=== PATIENT | male | born 1960 | race Caucasian/White ===

== ENCOUNTER 2016-10-13 08:57 | Emergency (ER) | payer MEDICAID ==
[~2016-10-13] VITALS: Ht 162.6 cm; Wt 80.5 kg
[2016-10-13 09:07] VITALS: Ht 162.6 cm; Wt 80.5 kg
[2016-10-13] MEDS ORDERED: ONDANSETRON (ODT) 4 MG TAB ODT STA (09:23)
[2016-10-13] MEDS ORDERED: HYDROCODONE/APAP (7.5/325) TAB PO ONE (09:30)
--- NOTE | 2016-10-13 09:35 | ERA ---
ER Documentation Chief Complaint Date/Time DATE: 10/13/16 TIME: 09:35 Chief Complaint RIGHT SHOULDER AND WRIST PAIN S/P FALL IN HOME TODAY HPI 56-year-old male presenting one hour status post ground-level fall with impact to the right wrist. Patient is complaining of pain in the right wrist as rating upwards towards the elbow. Patient denies any injury to the elbow or shoulder or other areas of the body. ROS All systems reviewed and are negative except as per history of present illness. Medications Home Meds Active Scripts Ibuprofen* (Motrin*) 600 Mg Tab, 600 MG PO Q6H Y for PAIN AND OR ELEVATED TEMP, #30 TAB Prov:MASON DUNN PA-C 10/13/16 Hydrocodone/Acetaminophen ([place]ke 5-325 Tablet) 1 Each Tablet, 1 TAB PO Q6H Y for PAIN, #7 TAB Prov:MASON DUNN PA-C 10/13/16 Allergies Allergies: Coded Allergies: No Known Allergy (Unverified , 10/13/16) PMhx/Soc Medical and Surgical Hx: pt denies Medical Hx, pt denies Surgical Hx Hx Alcohol Use: No Hx Substance Use: No Smoking Status: Never smoker Physical Exam Vitals Vital Signs Date Time Temp Pulse Resp B/P Pulse Ox O2 Delivery O2 Flow Rate FiO2 10/13/16 09:07 98.0 94 20 162/94 98 Physical Exam Const: Well-appearing 36-year-old male with a sling around his right arm in no acute distress Head: Atraumatic Eyes: Normal Conjunctiva. Extraocular movements intact bilaterally. PERRLA. ENT: Normal External Ears, Nose and Mouth. Neck: Full range of motion..~ No meningismus. Resp: Clear to auscultation bilaterally Cardio: Regular rate and rhythm, no murmurs Abd: Soft, non tender, non distended. Normal bowel sounds Skin: No petechiae or rashes Back: No midline or flank tenderness Ext: Mild anatomical snuffbox tenderness of the right hand. Range of motion limited secondary to pain. No cyanosis, or edema. Radial pulses 2+ bilaterally. Capillary refill under 2 seconds. Neur: Awake and alert. Neurovascularly intact. Psych: Normal Mood and Affect Results 24 hrs Current Medications Medications (Trade) Dose Ordered Sig/Viktor Route PRN Reason Start Time Stop Time Status Last Admin Dose Admin Acetaminophen/ Hydrocodone Bitart (Burke (7.5-325)) 1 tab ONCE ONCE PO 10/13/16 09:30 10/13/16 09:31 DC 10/13/16 09:57 Ondansetron HCl (Zofran Odt) 4 mg ONCE STAT ODT 10/13/16 09:23 10/13/16 09:24 DC 10/13/16 09:57 Procedures/MDM 56-year-old otherwise healthy male with history of high blood pressure and diabetes presenting 1-2 hours status post ground-level mechanical fall with impact to the right hand. Patient denies any trauma to any other body parts. X -ray was taken of the affected extremity. X-ray results were read by radiologist and reveal no acute fracture or bony abnormalities. Patient's vitals are stable and his current condition is appropriate for discharge. Patient will be discharged with a thumb spica splint to wear until Orth O follow -up and has been instructed to not remove the splint until directed by orthopedic doctor. Handout of [facility] soap and handed to the patient. Patient also be prescribed Burke and ibuprofen they can alternate for discomfort. Patient will be discharged at this time with discharge instructions and return precautions. Departure Diagnosis: Primary Impression: Right wrist injury Condition: Stable Additional Instructions: Follow-up with orthopedics in the next 2 days for further evaluation and to rule out of scaphoid fracture. MASON DUNN PA-C Oct 13, 2016 09:35
--- NOTE | 2016-10-13 10:04 | RADRPT ---
PROCEDURE: XR Wrist. CLINICAL INDICATION: Right wrist pain, trauma TECHNIQUE: AP, lateral and oblique views of the right wrist were performed. COMPARISON: No prior studies are available for comparison. FINDINGS: There is no acute fracture or dislocation. Alignment is normal. Joint spaces are preserved. There is mild to moderate dorsal soft tissue swelling. IMPRESSION: 1. No radiographic evidence of acute fracture. 2. Mild to moderate dorsal soft tissue swelling at the wrist. RPTAT: UU .Estuardo Wood MD, Date Time Electronically viewed and signed by .Estuardo Wood MD, on 10/13/2016 10:04 .K/
--- NOTE | 2016-10-13 10:05 | RADRPT ---
PROCEDURE: XR Forearm. CLINICAL INDICATION: Right forearm pain TECHNIQUE: 2 views of the right forearm were obtained. COMPARISON: No prior studies are available for comparison. FINDINGS: There is no acute fracture or dislocation. Alignment is normal. Joint spaces are preserved. Limited assessment of the elbow appears grossly unremarkable. There is mild to moderate dorsal soft tissue swelling. IMPRESSION: 1. No radiographic evidence of acute fracture. 2. Mild to moderate dorsal soft tissue swelling at the wrist. RPTAT: UU .Estuardo Wood MD, MD Date Time Electronically viewed and signed by .Estuardo Wood MD, on 10/13/2016 10:04 .K/
[2016-10-13] MEDS ORDERED: HYDR-906 PO (10:22)
[2016-10-13] MEDS ORDERED: IBUP-1542 PO (10:22)
[2016-10-14] MEDS ORDERED: NAPR-260 PO (22:31)
[2016-10-14] MEDS ORDERED: TRAM50TA2 PO (22:31)
== END 2016-10-13 11:23 | disposition home or self-care (01) ==
LOC: FTE 08:57
DX: S69.91XA Unspecified injury of right wrist, hand and finger(s), initial encounter (principal); E11.9 Type 2 diabetes mellitus without complications; W18.39XA Other fall on same level, initial encounter; Y92.009 Unspecified place in unspecified non-institutional (private) residence as the place of occurrence of the external cause
CPT/HCPCS: 29125; 73090; 73110; Z7502; Z7610

== ENCOUNTER 2016-10-14 19:20 | Emergency (ER) | payer MEDICAID ==
[~2016-10-14] VITALS: Ht 175.3 cm; Wt 83.0 kg
[~2016-10-14 19:20] MED LIST: HYDR-906 PO; IBUP-1542 PO
[2016-10-14 19:28] VITALS: Ht 175.3 cm; Wt 83.0 kg
[2016-10-14] MEDS ORDERED: morphine 10 MG INJ IM ONE (21:00)
--- NOTE | 2016-10-14 21:19 | RADRPT ---
PROCEDURE: CT brain without contrast CLINICAL INDICATION: Status post fall. Post traumatic headaches. TECHNIQUE: A CT of the brain was performed utilizing axial sections from the skull base through th e vertex without contrast. Sagittal and coronal images were also reformatted. The exam CTDIvol = 41. 12 mGy and DLP = 720.23 mGy-cm. COMPARISON: None available FINDINGS: No acute intracranial hemorrhage is identified. There is no mass effect or midline shift. No extra -axial fluid collection is seen. The ventricles and sulci are within normal limits for size and con figuration. The density of the brain is within normal limits. Chopra-white differentiation is preser madeline. The osseous structures are unremarkable. The mastoid air cells and visualized paranasal sinuses are clear. RPTAT:HJJR IMPRESSION: Unremarkable noncontrast CT of the brain. Physician Jevon Date Time Electronically viewed and signed by Physician Jevon on 10/14/2016 21:19 /
--- NOTE | 2016-10-14 21:24 | RADRPT ---
PROCEDURE: CT cervical spine without contrast. CLINICAL INDICATION: Injury. Post traumatic neck pain following a fall TECHNIQUE: CT of the cervical spine without contrast was performed. Axial images were obtained th rough the cervical spine and reformatted at 1.25 mm slice thickness. Coronal and sagittal images wer e reformatted. Exam CTDIvol = 22.19 mGy and DLP = 457.36 mGy-cm. COMPARISON: None available. FINDINGS: Vertebral bodies: The lordosis is straightened. Stature is preserved at every level. There is norm al mineralization and trabeculation. The C1 ring is intact and the predental space is normal. The occipital condyles are normal in position bilaterally. Central canal and cervical spinal cord: No abnormal density within the spinal cord is evident and no intraspinal masses are delineated. C2-3: The disk is within normal limits. The facet joints are normal. The uncovertebral joints and f oramina are unremarkable. The posterior elements and paraspinal soft tissues are unremarkable. C3-4: The disk is within normal limits. The facet joints are normal. The uncovertebral joints and foramina are unremarkable. The posterior elements and paraspinal soft tissues are unremarkable. C4-5: Trace degenerative disk narrowing and bulging is present without central stenosis. The facet joints are normal. Uncovertebral hypertrophy is present causing mild bilateral foraminal stenosis. The posterior elements and paraspinal soft tissues are unremarkable. C5-6: Mild degenerative disk narrowing is present with a tiny posterior disk bulge but no protrusio n or central stenosis. The facet joints are normal. Uncovertebral hypertrophy causes mild bilateral foraminal stenosis.The posterior elements and paraspinal soft tissues are unremarkable. C6-7: The disk is within normal limits. The facet joints are normal. Uncovertebral hypertrophy ca uses moderate left foraminal stenosis the right foramen is patent.The posterior elements and parasp inal soft tissues are unremarkable. C7-T1: Anterior spondylosis with mild degenerative disk narrowing but no disk protrusion or central stenosis. Severe bilateral facet arthropathy is present. The uncovertebral joints and foramina are unremarkable.The posterior elements and paraspinal soft tissues are unremarkable. Non spine related findings: No abnormalities of significance are seen. RPTAT:HJJR IMPRESSION: 1. No evidence of cervical spine fracture. 2.. Lordosis straightening may be positional but cannot exclude muscle spasm. 3. Uncovertebral hypertrophy causing a degree of foraminal stenosis at C4-5, C5-6 and on the left a t C6-7. 4. Facet arthropathy is greatest at C7-T1. Physician Jevon Date Time Electronically viewed and signed by Matheus Finnegan Physician on 10/14/2016 21:24 JR/
--- NOTE | 2016-10-14 22:17 | RADRPT ---
PROCEDURE: XR Left Forearm forearm CLINICAL INDICATION: Fall TECHNIQUE: AP and lateral radiographs were submitted. COMPARISON: None FINDINGS: Osseous structures: appear well mineralized and intact with no fracture or osseous destruction evid ent. Joint spaces: are well maintained with no significant erosion or spurring evident. There is no sig nificant joint effusion Soft tissues: A 7 mm globular calcification projects to the soft tissues ventral to the distal humer us. IMPRESSION: 1. 7 mm calcification projects to the soft tissues ventral to the distal humeral shaft. 2. Unremarkable left forearm. Physician Aurelia Date Time Electronically viewed and signed by Carlitos Ott Physician on 10/14/2016 22:17 /
--- NOTE | 2016-10-14 22:18 | RADRPT ---
PROCEDURE: XR Left Hand CLINICAL INDICATION: Fall TECHNIQUE: AP, oblique, and lateral radiographs were submitted. COMPARISON: None FINDINGS: Osseous structures: appear well mineralized and intact with no fracture or destructive process iden tified. Joint spaces: are well maintained, with no significant spurring, erosion or joint effusion evident. Soft tissues: appear unremarkable. IMPRESSION: Unremarkable left hand. Physician Aurelia Date Time Electronically viewed and signed by Carlitos Ott Physician on 10/14/2016 22:18 /
--- NOTE | 2016-10-14 22:19 | RADRPT ---
PROCEDURE: XR Left humerus CLINICAL INDICATION: Fall TECHNIQUE: AP and lateral radiographs were submitted. COMPARISON: None FINDINGS: Osseous structures: appear well mineralized and intact with no fracture or osseous destruction evid ent. Joint spaces: are well maintained with no significant erosion or spurring evident. There is no sig nificant joint effusion Soft tissues: A 7 mm globular calcification projects to the soft tissues ventral and lateral to the distal third of the left humerus. IMPRESSION: 1. 7 mm globular calcification seen in the ventral lateral soft tissues of the distal upper arm. 2. No fracture or dislocation is evident. Physician Aurelia Date Time Electronically viewed and signed by Physician Aurelia on 10/14/2016 22:19 /
--- NOTE | 2016-10-14 22:20 | RADRPT ---
PROCEDURE: XR Left Ankle CLINICAL INDICATION: Fall TECHNIQUE: Standard 3 view radiographs were submitted. COMPARISON: None FINDINGS: Osseous structures: Well mineralized and intact with no fracture or destructive process identified. Joint spaces: Well maintained with no significant erosions or spurring evident. Soft tissues: Appear unremarkable. IMPRESSION: Unremarkable left ankle. Physician Aurelia Date Time Electronically viewed and signed by Carlitos Ott Physician on 10/14/2016 22:19 /
[2016-10-14] MEDS ORDERED: KETOROLAC 30 MG INJ IM STA (22:30)
[2016-10-14] MEDS ORDERED: NAPR-260 PO (22:31)
[2016-10-14] MEDS ORDERED: TRAM50TA2 PO (22:31)
--- NOTE | 2016-10-14 23:22 | ERD ---
ER Documentation Chief Complaint Date/Time DATE: 10/14/16 TIME: 23:15 Chief Complaint sp trip & fall 4 days ago, seen here in ed, c/o L arm and leg pain HPI This is a 56-year-old male that presents to the ER complaining of continued right upper extremity pain and new left upper extremity pain and left ankle pain that occurred after he tripped and fell 4 days ago. Patient states that he held his weight with both of his arms. Patient is also complaining of neck pain and states that both of his arms feel numb. Patient denies any headache. He denies hitting his head. He denies any loss of consciousness nausea or vomiting. Patient states that pain is severe and constant he tried taking ibuprofen and [place] however he states that pain was made worse by pain medication. Patient denies any chest pain or shortness of breath. Patient denies any fever or chills. Patient does have a past medical history of diabetes, hypertension, anxiety and depression. ROS 12 point review of systems was done, all negative except per HPI. Medications Home Meds Active Scripts Tramadol HCl (Tramadol HCl) 50 Mg Tablet, 50 MG PO Q4 Y for PAIN, #20 TAB Prov:NIKKO OLIVEROS 10/14/16 Naproxen* (Naprosyn*) 500 Mg Tablet, 500 MG PO BID Y for PAIN AND/OR INFLAMMATION, #30 TAB Prov:NIKKO OLIVEROS 10/14/16 Ibuprofen* (Motrin*) 600 Mg Tab, 600 MG PO Q6H Y for PAIN AND OR ELEVATED TEMP, #30 TAB Prov:MASON DUNN PA-C 10/13/16 Hydrocodone/Acetaminophen ([place] 5-325 Tablet) 1 Each Tablet, 1 TAB PO Q6H Y for PAIN, #7 TAB Prov:MASON DUNN PA-C 10/13/16 Reported Medications Ibuprofen* (Ibuprofen*) 800 Mg Tab, 800 MG PO Q6H Y for PAIN, TAB 10/15/16 Gemfibrozil* (Gemfibrozil*) 600 Mg Tablet, 600 MG PO DAILY, TAB 10/15/16 Amlodipine Besylate* (Amlodipine Besylate*) 10 Mg Tablet, 10 MG PO DAILY, #30 TAB 10/15/16 Citalopram Hydrobromide* (Citalopram Hydrobromide*) 10 Mg Tablet, 10 MG PO DAILY , #30 TAB 10/15/16 Allopurinol* (Allopurinol*) 100 Mg Tablet, 100 MG PO DAILY, TAB 10/15/16 Omeprazole* (Omeprazole*) 20 Mg Capsule.dr, 20 MG PO DAILY, #30 CAP 10/15/16 Metformin Hcl* (Metformin Hcl*) 500 Mg Tablet, 500 MG PO WITH BREAKFAST DINNE, # 60 TAB 10/15/16 Amitriptyline Hcl* (Amitriptyline Hcl*) 25 Mg Tablet, 25 MG PO DAILY, #30 TAB 10/15/16 Allergies Allergies: Coded Allergies: No Known Allergy (Unverified , 10/15/16) PMhx/Soc History of Surgery: No Hx Cardiac Disorders: Yes (HTN) Hx Miscellaneous Medical Probl: Yes (DM, GOUT , ) Hx Alcohol Use: No Hx Substance Use: No Hx Tobacco Use: No Smoking Status: Never smoker Physical Exam Vitals Physical Exam GENERAL: The patient is well developed and appropriate for usual state of health , in no apparent distress. HEENT: Atraumatic NECK: C-spine is soft and supple. There is no cervical lymphadenopathy. No step -offs no crepitus. CHEST: Clear to auscultation bilaterally. There are no rales, wheezes or rhonchi. HEART: Regular rate and rhythm. No murmurs, clicks, rubs or gallops. EXTREMITIES: Right upper extremity is in a sling. Left upper extremity: patient is tender to palpation along entire upper extremity, patient refuses to lift left arm secondary to pain. he is however intact to radial ulnar and median nerves. he has normal pulses and normal capillary refill. There is no crepitus, step-offs or areas of ecchymosis to the left upper extremity. There is no erythema, edema and area is not warm to the touch. Left ankle: Patient is tender to palpation along the left lateral malleolus. Positive tarsal twist test. Negative squeeze test. +2 pedal pulses. Normal capillary refill of the toes. NEURO: Alert and oriented. Cranial nerves II through XII are intact. Motor strength in all 4 extremities with 5/5 strength. Sensation grossly intact. Normal speech and gait. Results 24 hrs Current Medications Medications (Trade) Dose Ordered Sig/Viktor Route PRN Reason Start Time Stop Time Status Last Admin Dose Admin Morphine Sulfate (morphine) 4 mg ONCE ONCE IM 10/14/16 21:00 10/14/16 21:01 DC 10/14/16 21:34 Ketorolac Tromethamine (Toradol) 30 mg ONCE STAT IM 10/14/16 22:30 10/14/16 22:31 DC 10/14/16 22:44 Procedures/MDM This is a 56-year-old male presents to the ER with entire body pain. Patient did trip and fall 4 days ago. He was seen here in the ED. Records were reviewed and there is no evidence of fractures or dislocations on those x-rays. Patient states that he now developed pain on the left upper extremity and left ankle. There is no evidence of fractures or dislocations on x-rays. CT of the head and neck were taken as patient refused to lift his arm secondary to pain and he had neck pain. There is no evidence of acute intracranial pathology. I doubt central chord syndrome. Patient's neurological examination is completely benign. Patient was given morphine in the ER and stated that this made his pain worse. He was then given a shot of Toradol and stated that his pain was alleviated a little bit. Patient is neurovascularly intact he is afebrile and his imaging studies are completely normal. Suspicion for transverse myelitis, myositis, compartment syndrome, rhabdo or sepsis is low. Patient likely has body pain from the fall that he had 4 days ago. Patient is to follow-up with his primary care doctor within 1-2 days return to ER sooner if symptoms worsen. My medical decision making sure with the patient he understands and agrees with plan. Departure Diagnosis: Primary Impression: Total body pain Condition: Stable Patient Instructions: Fall, Mechanical Additional Instructions: Llame al doctor ARIANE y vanda benny GIANNA PARA DENTRO DE 1-2 MURILLO.Dgale a la secretaria que nosotros le instruimos hacer esta gianna.Avise o llame si jauregui condicin se empeora antes de la gianna. Regresa aqui si peor o no mejor. NIKKO OLIVEROS Oct 14, 2016 23:22
[2016-10-15] MEDS ORDERED: AMIT25TA9 PO (20:19)
[2016-10-15] MEDS ORDERED: METF500T4 PO (20:19)
[2016-10-15] MEDS ORDERED: CITA10TA84 PO (20:20)
[2016-10-15] MEDS ORDERED: ALLO100T PO (20:20)
[2016-10-15] MEDS ORDERED: AMLO-147 PO (20:20)
[2016-10-15] MEDS ORDERED: OMEP20CA16 PO (20:20)
[2016-10-15] MEDS ORDERED: GEMF600T60 PO (20:21)
[2016-10-15] MEDS ORDERED: IBUP800T25 PO (20:24)
== END 2016-10-14 23:09 | disposition home or self-care (01) ==
LOC: FTE 19:20
DX: S49.91XA Unspecified injury of right shoulder and upper arm, initial encounter (principal); S99.912A Unspecified injury of left ankle, initial encounter; S19.9XXA Unspecified injury of neck, initial encounter; I10 Essential (primary) hypertension; E11.9 Type 2 diabetes mellitus without complications; R51 Headache; W01.0XXA Fall on same level from slipping, tripping and stumbling without subsequent striking against object, initial encounter; Y92.9 Unspecified place or not applicable; Z79.84 Long term (current) use of oral hypoglycemic drugs
CPT/HCPCS: 70450; 72125; 73060; 73090; 73130; 73610; J1885; J2270; 96372

== ENCOUNTER 2016-10-15 18:13 | Inpatient (IN) | payer MEDICAID ==
[~2016-10-15] VITALS: Ht 165.1 cm; Wt 75.0 kg
[~2016-10-15 18:13] MED LIST changes: +NAPR-260 PO; +TRAM50TA2 PO
[2016-10-15 18:27] VITALS: Ht 165.1 cm; Wt 75.0 kg
[2016-10-15] MEDS ORDERED: SODIUM CHLORIDE 0.9% 1L BAG IV* STA (19:20)
[2016-10-15] MEDS ORDERED: PIPER-TAZO 3.375 GM IV (PMX) 100 ML IVPB STA (19:20)
[2016-10-15] MEDS ORDERED: VANCOMYCIN 1 GM (PMX) 250 ML IVPB STA (19:20)
[2016-10-15] MEDS ORDERED: morphine 10 MG INJ IV ONE (19:30)
[2016-10-15 20:02] LABS: ADD SCAN DIFF NO
[2016-10-15 20:04] LABS: BASOPHILS % 0.2 % (0.0-2.0); HEMATOCRIT 37.9 % (42.0-52.0); HEMOGLOBIN 12.5 g/dl (14.0-18.0); LYMPHOCYTES # 0.9 10^3/ul (0.8-2.9); LYMPHOCYTES % 6.2 % (15.0-51.0); MEAN CORPUSCULAR HEMOGLOBIN 28.3 pg (29.0-33.0); MEAN CORPUSCULAR VOLUME 85.9 fl (82.0-101.0); MEAN PLATELET VOLUME 10.2 fl (7.4-10.4); MONOCYTE # 1.1 10^3/ul (0.3-0.9); NEUTROPHIL # 12.9 10^3/ul (1.6-7.5); NEUTROPHILS % 85.7 % (39.0-77.0); PLATELET COUNT 240 10^3/UL (140-415); RED BLOOD COUNT 4.41 10^6/ul (4.70-6.10); RED CELL DISTRIBUTION WIDTH 13.6 % (11.5-14.5); WHITE BLOOD COUNT 15.1 10^3/ul (4.8-10.8)
[2016-10-15 20:10] VITALS: TEMP 99.6
[2016-10-15 20:17] LABS: INR 1.11; PROTIME 14.3 Sec (12.2-14.2); PT RATIO 1.1
[2016-10-15] MEDS ORDERED: AMIT25TA9 PO (20:19)
[2016-10-15] MEDS ORDERED: METF500T4 PO (20:19)
[2016-10-15 20:20] LABS: ALANINE AMINOTRANSFERASE 34 IU/L (13-69); ALBUMIN 4.5 g/dl (3.3-4.9); ALBUMIN/GLOBULIN RATIO 1.36; ALKALINE PHOSPHATASE 94 IU/L (42-121); ANION GAP 13 (8-16); ASPARTATE AMINO TRANSFERASE 29 IU/L (15-46); BILIRUBIN,INDIRECT 0.6 mg/dl (0-1.1); BILIRUBIN,TOTAL 0.6 mg/dl (0.2-1.3); BLOOD UREA NITROGEN 12 mg/dl (7-20); CALCIUM 9.5 mg/dl (8.4-10.2); CARBON DIOXIDE 25 mmol/L (21-31); CHLORIDE 103 mmol/L (97-110); D-DIMER 1396.54 ng/ml (<460); GLUCOSE 119 mg/dl (70-220); POTASSIUM 3.3 mmol/L (3.5-5.1); SODIUM 138 mmol/L (135-144); TOTAL PROTEIN 7.8 g/dl (6.1-8.1)
[2016-10-15] MEDS ORDERED: ALLO100T PO (20:20)
[2016-10-15] MEDS ORDERED: AMLO-147 PO (20:20)
[2016-10-15] MEDS ORDERED: CITA10TA84 PO (20:20)
[2016-10-15] MEDS ORDERED: OMEP20CA16 PO (20:20)
[2016-10-15] MEDS ORDERED: GEMF600T60 PO (20:21)
[2016-10-15] MEDS ORDERED: IBUP800T25 PO (20:24)
[2016-10-15] MEDS ORDERED: HYDROmorphONE 1 MG/ML SYG IV STA ×2 (20:27→21:17)
[2016-10-15 20:31] LABS: TROPONIN-I < 0.012 ng/ml (0.00-0.12)
--- NOTE | 2016-10-15 21:04 | RADRPT ---
PROCEDURE: XR Chest. CLINICAL INDICATION: Bilateral arm pain. Possible sepsis. TECHNIQUE: Portable AP semi supine view of the chest was obtained. COMPARISON: None. FINDINGS: The cardiomediastinal silhouette is within normal limits. Linear left lower lobe changes are compat ible with subsegmental atelectasis, the right lung is clear. There is no evidence for pleural effus ion, pneumothorax or pulmonary vascular congestion. The osseous structures are intact with no evide nce for acute abnormality. RPTAT:HJJR IMPRESSION: Mild left lower lobe subsegmental atelectasis, otherwise unremarkable portable chest x-ray. Physician Jevon Date Time Electronically viewed and signed by Physician Jevon on 10/15/2016 21:04 JR/
--- NOTE | 2016-10-15 21:31 | RADRPT ---
PROCEDURE: Bilateral upper extremity venous ultrasound CLINICAL INDICATION: Bilateral upper extremity pain and swelling. Deep venous thrombosis. TECHNIQUE: Chopra scale, color doppler, spectral doppler ultrasound imaging of the venous system of the bilateral upper extremities. Augmentation maneuvers were utilized. COMPARISON: No prior studies are available for comparison. FINDINGS: RIGHT: Internal jugular vein: Patent. Subclavian vein: Patent. Axillary vein: Patent. Brachial vein: Patent. Basilic vein: Patent. Cephalic vein: Patent. Radial vein: Patent. Ulnar vein: Patent. LEFT: Internal jugular vein: Patent. Subclavian vein: Patent. Axillary vein: Patent. Brachial vein: Patent. Basilic vein: Patent. Cephalic vein: Patent. Radial vein: Patent. Ulnar vein: Patent. IMPRESSION: No evidence of a deep vein thrombosis involving the bilateral upper extremities. RPTAT: AADD .Shukri Washington MD, Date Time Electronically viewed and signed by .Shukri Washington MD, on 10/15/2016 21:31 .B/
--- NOTE | 2016-10-15 22:25 | ERA ---
ER Documentation Chief Complaint Date/Time DATE: 10/15/16 TIME: 22:08 Chief Complaint BIBA FOR FEVER AND RIGHT ARM SWELLING WAS HERE OCTOBER 13& S/P FALL WEDNESDAY HPI 56-year-old male with a history of hypertension, diabetes, and gout presenting with bilateral upper extremity swelling and pain. He also complains of left ankle pain. Initially he fell about 4 days ago after he tripped and landed with his arms onto a wall. He was evaluated in the ED after the fall and did not show any acute fractures. Yesterday he returned to the ED as he was having worsening pain now in his left upper extremity in addition to his right upper extremity, and started having pain in his left ankle. Prior to this he had no trauma other than the fall a few days ago. He has noticed he has had some subjective fevers. No nausea, vomiting, headache, chest pain, shortness of breath. He has not noticed any calf swelling. He complains of tingling in his bilateral upper extremities and pain that radiates all the way up to his bilateral shoulders. He also has some lower back pain. His pain is constant, worse with sitting, or any contact with his skin. He denies any abdominal pain or dysuria. He is urinating normally and his urine color is normal.. ROS All systems reviewed and are negative except as per history of present illness. Medications Home Meds Active Scripts Tramadol HCl (Tramadol HCl) 50 Mg Tablet, 50 MG PO Q4 Y for PAIN, #20 TAB Prov:NIKKO OLIVEROS 10/14/16 Naproxen* (Naprosyn*) 500 Mg Tablet, 500 MG PO BID Y for PAIN AND/OR INFLAMMATION, #30 TAB Prov:NIKKO OLIVEROS 10/14/16 Ibuprofen* (Motrin*) 600 Mg Tab, 600 MG PO Q6H Y for PAIN AND OR ELEVATED TEMP, #30 TAB Prov:MASON DUNN PA-C 10/13/16 Hydrocodone/Acetaminophen ([place] 5-325 Tablet) 1 Each Tablet, 1 TAB PO Q6H Y for PAIN, #7 TAB Prov:MASON DUNN PA-C 10/13/16 Reported Medications Ibuprofen* (Ibuprofen*) 800 Mg Tab, 800 MG PO Q6H Y for PAIN, TAB 10/15/16 Gemfibrozil* (Gemfibrozil*) 600 Mg Tablet, 600 MG PO DAILY, TAB 10/15/16 Amlodipine Besylate* (Amlodipine Besylate*) 10 Mg Tablet, 10 MG PO DAILY, #30 TAB 10/15/16 Citalopram Hydrobromide* (Citalopram Hydrobromide*) 10 Mg Tablet, 10 MG PO DAILY , #30 TAB 10/15/16 Allopurinol* (Allopurinol*) 100 Mg Tablet, 100 MG PO DAILY, TAB 10/15/16 Omeprazole* (Omeprazole*) 20 Mg Capsule.dr, 20 MG PO DAILY, #30 CAP 10/15/16 Metformin Hcl* (Metformin Hcl*) 500 Mg Tablet, 500 MG PO WITH BREAKFAST DINNE, # 60 TAB 10/15/16 Amitriptyline Hcl* (Amitriptyline Hcl*) 25 Mg Tablet, 25 MG PO DAILY, #30 TAB 10/15/16 Allergies Allergies: Coded Allergies: No Known Allergy (Unverified , 10/15/16) PMhx/Soc History of Surgery: Yes (inguinal hernia ) Hx Cardiac Disorders: Yes (HTN) Hx Psychiatric Problems: Yes (depression) Hx Miscellaneous Medical Probl: Yes (DM, GOUT , cholesterol) Hx Alcohol Use: No Hx Substance Use: No Hx Tobacco Use: No Smoking Status: Unknown if ever smoked FmHx Family History: No diabetes Physical Exam Vitals Vital Signs Date Time Temp Pulse Resp B/P Pulse Ox O2 Delivery O2 Flow Rate FiO2 10/15/16 21:56 97 16 121/96 97 Room Air 10/15/16 20:10 99.6 96 20 159/84 100 Room Air 10/15/16 18:27 101.4 105 20 149/92 98 Physical Exam Const: Patient appears to be in significant distress secondary to pain, nontoxic Head: Atraumatic Eyes: Normal Conjunctiva, PERRLA ENT: Normal External Ears, Nose and Mouth. Neck: Full range of motion..~ No meningismus. No JVD Resp: No chest wall tenderness to palpation. No tachypnea. Clear to auscultation bilaterally Cardio: Tachycardic with regular rhythm, no murmurs. 2+ radial pulses bilaterally. 2+ DP and PT pulses bilaterally. Abd: Soft, non tender, non distended. Normal bowel sounds Skin: No petechiae or rashes Back: No midline tenderness to palpation. No CVA tenderness. Bilateral lumbar paraspinal muscle tenderness to palpation. Ext: No cyanosis. Bilateral upper extremity edema, pitting, significantly tender to light palpation, up to the elbows. Pulses and sensations intact. Difficulty moving the wrist and fingers secondary to pain. He has tenderness of both elbows and shoulders as well without any evidence of joint effusion. Cap refill is less than 2 seconds in bilateral upper extremities and lower extremities. Lower extremities show no edema or calf tenderness to palpation other than left lateral ankle tenderness palpation without overlying erythema, possible mild effusion. Neur: Awake and alert, cranial nerves intact, bilateral upper extremity strength testing limited secondary to pain, bilateral lower extremity strength intact, sensations intact. Able to ambulate but causes some back pain. Psych: Normal Mood and Affect Result Diagram: 10/15/16193410/15/161934 Results 24 hrs Laboratory Tests Test 10/15/16 19:35 10/15/16 21:20 White Blood Count 15.110^3/ul Red Blood Count 4.4110^6/ul Hemoglobin 12.5g/dl Hematocrit 37.9% Mean Corpuscular Volume 85.9fl Mean Corpuscular Hemoglobin 28.3pg Mean Corpuscular Hemoglobin Concent 33.0g/dl Red Cell Distribution Width 13.6% Platelet Count 07524^3/UL Mean Platelet Volume 10.2fl Neutrophils % 85.7% Lymphocytes % 6.2% Monocytes % 7.0% Eosinophils % 0.0% Basophils % 0.2% Nucleated Red Blood Cells % 0.0/100WBC Neutrophils # 12.910^3/ul Lymphocytes # 0.910^3/ul Monocytes # 1.110^3/ul Eosinophils # 0.010^3/ul Basophils # 0.010^3/ul Nucleated Red Blood Cells # 0.010^3/ul Prothrombin Time 14.3Sec Prothrombin Time Ratio 1.1 INR International Normalized Ratio 1.11 Activated Partial Thromboplast Time 35.0Sec D-Dimer 1396.54ng/ml D-Dimer Comment Sodium Level 138mmol/L Potassium Level 3.3mmol/L Chloride Level 103mmol/L Carbon Dioxide Level 25mmol/L Anion Gap 13 Blood Urea Nitrogen 12mg/dl Creatinine 0.80mg/dl Glucose Level 119mg/dl Lactic Acid Level 0.8mmol/L 0.8mmol/L Calcium Level 9.5mg/dl Total Bilirubin 0.6mg/dl Direct Bilirubin 0.00mg/dl Indirect Bilirubin 0.6mg/dl Aspartate Amino Transf (AST/SGOT) 29IU/L Alanine Aminotransferase (ALT/SGPT) 34IU/L Alkaline Phosphatase 94IU/L Creatine Kinase 626IU/L Troponin I < 0.012ng/ml Total Protein 7.8g/dl Albumin 4.5g/dl Globulin 3.30g/dl Albumin/Globulin Ratio 1.36 Current Medications Medications (Trade) Dose Ordered Sig/Viktor Route PRN Reason Start Time Stop Time Status Last Admin Dose Admin Sodium Chloride 2330 ml 2,330 ml BOLUS OVER 2 HOURS STAT IV* 10/15/16 19:20 10/15/16 19:23 DC 10/15/16 19:56 Vancomycin HCl 250 ml @ 125 mls/hr ONCE STAT IVPB 10/15/16 19:20 10/15/16 21:19 DC 10/15/16 20:40 Piperacillin Sod/ Tazobactam Sod (Zosyn 3.375gm/ 100 ml (Pmx)) 100 ml @ 100 mls/hr ONCE STAT IVPB 10/15/16 19:20 10/15/16 20:19 DC 10/15/16 19:56 Morphine Sulfate (morphine) 6 mg ONCE ONCE IV 10/15/16 19:30 10/15/16 19:31 DC 10/15/16 19:56 Hydromorphone HCl (Dilaudid) 1 mg ONCE STAT IV 10/15/16 20:27 10/15/16 20:28 DC 10/15/16 20:39 Hydromorphone HCl (Dilaudid) 1 mg ONCE STAT IV 10/15/16 21:17 10/15/16 21:18 DC Ondansetron HCl (Zofran Inj) 4 mg BRIDGE ORDER PRN IV NAUSEA AND/OR VOMITING 10/15/16 22:30 10/16/16 22:29 Acetaminophen (Tylenol Tab) 650 mg ER BRIDGE PRN PO MILD PAIN/FEVER 10/15/16 22:30 10/16/16 22:29 Procedures/MDM EKG: Rate/Rhythm: Normal Sinus Rhythm QRS, ST, T-waves: Right bundle branch block, no changes consistent w/ acute ischemia Impression: No evidence of ischemia or arrhythmia Chest x-ray: Mild left lower lobe subsegmental atelectasis, otherwise unremarkable portable chest x-ray. Venous ultrasound of bilateral upper extremities: no DVT Labs: CBC shows leukocytosis, BMP with mild hypokalemia, lactate normal, CK elevated, troponin normal MDM: Patient is presenting with bilateral upper extremity swelling after minor trauma a few days ago. His vitals are notable for fever and tachycardia and white blood cell count is elevated. It is unlikely but the patient may have bilateral upper extremity cellulitis. DVT was ruled out. I also have a high suspicion for viral myositis. I have a very low suspicion for compartment syndrome at this time. His symptoms are less likely secondary to a gout flare. Septic polyarthritis is a possibility, this can be worked up as an inpatient if deemed necessary, but I also have a lower suspicion for this. Dilaudid was given with improvement of pain. IV fluids were started. There is no evidence of renal failure secondary to rhabdomyolysis. However patient will need admission for pain control, further workup, and IV antibiotics. Blood cultures were collected. Vancomycin and Zosyn were started in the ED. D-dimer was noted to be elevated, however I have a very low suspicion for pulmonary embolism as the patient has no cardiopulmonary symptoms. I will defer further workup for PE to the inpatient team. Accepting Care Team: Current data and ongoing care discussed. Time: Time of admission Primary Provider: Elza Consulting: none Outstanding Data: none Departure Diagnosis: Primary Impression: Sepsis Qualified Code: A41.9 - Sepsis, due to unspecified organism Additional Impressions: Rhabdomyolysis Qualified Code: T79.6XXA - Traumatic rhabdomyolysis, initial encounter Swelling of both upper extremities Bilateral arm pain Left lateral ankle pain Condition: Serious EAMON MEZA MD Oct 15, 2016 22:20
[2016-10-15] MEDS ORDERED: ACETAMINOPHEN 325 MG TAB PO PRN (22:30)
[2016-10-15] MEDS ORDERED: ONDANSETRON 4 MG INJ IV PRN (22:30)
[2016-10-16] MEDS: morphine 4 MG/ML VIAL IV PRN ×3 (02:12→17:17)
[2016-10-16] MEDS ORDERED: ONDANSETRON 4 MG INJ IV PRN (04:30)
[2016-10-16] MEDS ORDERED: METHYLPREDNISOLONE 125 MG INJ IV ONE (04:30)
[2016-10-16] MEDS ORDERED: IBUPROFEN 800 MG TAB PO PRN (04:30)
[2016-10-16] MEDS ORDERED: ALBUTEROL/IPRATROPIUM (NEB) 3 ML AMP HHN PRN (04:30)
[2016-10-16] MEDS ORDERED: HYDROCODONE/APAP (5/325) TAB PO PRN (04:30)
[2016-10-16] MEDS ORDERED: NAPROXEN 500 MG TAB PO PRN (04:30)
[2016-10-16] MEDS ORDERED: NACL 0.9% 3 ML SYG IV SCH (04:30)
[2016-10-16] MEDS ORDERED: traMADol 50 MG TAB PO PRN (04:30)
[2016-10-16] MEDS ORDERED: IBUPROFEN 600 MG TAB PO PRN (04:30)
[2016-10-16] MEDS ORDERED: ACETAMINOPHEN 325 MG TAB PO PRN (04:30)
[2016-10-16 05:54] LABS: ADD SCAN DIFF NO
[2016-10-16 05:56] LABS: BASOPHILS % 0.2 % (0.0-2.0); EOSINOPHILS % 0.1 % (0.0-7.0); HEMATOCRIT 35.5 % (42.0-52.0); HEMOGLOBIN 11.8 g/dl (14.0-18.0); LYMPHOCYTES # 1.7 10^3/ul (0.8-2.9); LYMPHOCYTES % 11.6 % (15.0-51.0); MEAN CORPUSCULAR HEMOGLOBIN 28.7 pg (29.0-33.0); MEAN CORPUSCULAR HGB CONC 33.2 g/dl (32.0-37.0); MEAN CORPUSCULAR VOLUME 86.4 fl (82.0-101.0); MEAN PLATELET VOLUME 10.3 fl (7.4-10.4); MONOCYTE # 1.3 10^3/ul (0.3-0.9); MONOCYTES % 8.8 % (0.0-11.0); NEUTROPHIL # 11.1 10^3/ul (1.6-7.5); NEUTROPHILS % 78.2 % (39.0-77.0); PLATELET COUNT 223 10^3/UL (140-415); RED BLOOD COUNT 4.11 10^6/ul (4.70-6.10); RED CELL DISTRIBUTION WIDTH 13.5 % (11.5-14.5); WHITE BLOOD COUNT 14.3 10^3/ul (4.8-10.8)
[2016-10-16] MEDS ORDERED: LEVOFLOXACIN 500MG/D5W (PMX) 100 ML IVPB SCH (06:00)
[2016-10-16] MEDS: PANTOPRAZOLE (EC) 40 MG TAB PO SCH (06:09)
[2016-10-16 06:14] LABS: ALBUMIN 3.8 g/dl (3.3-4.9); ALBUMIN/GLOBULIN RATIO 1.35; BILIRUBIN,INDIRECT 0.7 mg/dl (0-1.1); BILIRUBIN,TOTAL 0.7 mg/dl (0.2-1.3); CALCIUM 8.7 mg/dl (8.4-10.2); CREATININE 0.82 mg/dl (0.61-1.24); POTASSIUM 3.2 mmol/L (3.5-5.1); TOTAL PROTEIN 6.6 g/dl (6.1-8.1)
[2016-10-16] MEDS: metFORMIN 500 MG TAB PO SCH ×2 (08:50→17:17)
[2016-10-16] MEDS: CITALOPRAM 20 MG TAB PO SCH (10:26)
[2016-10-16] MEDS: AMLODIPINE 10 MG TAB PO SCH (10:27)
[2016-10-16] MEDS: ALLOPURINOL 100 MG TAB PO SCH (10:27)
[2016-10-16] MEDS: AMITRIPTYLINE 25 MG TAB PO SCH (10:27)
[2016-10-16] MEDS: GEMFIBROZIL 600 MG TAB PO SCH (10:27)
--- NOTE | 2016-10-16 13:34 | HP ---
Date/Time of Note Date/Time of Note DATE: 10/16/16 TIME: 13:29 Assessment/Plan VTE Prophylaxis VTE Prophylaxis Intervention: SCD's Assessment/Plan Assessment/Plan IMPRESSION 1. Bilateral hand/Forearm Swelling 2. Sepsis, likely 2/2 bilateral upper ext cellulitis 3. HTN 4. Diabetes 5. Hx of gout PLAN - xray w/o fracture and doppler u/s w/o DVT. This could be an inflammatory process or muscle tear. There is overlying cellulitis. Will however need ortho eval given severity of symptom and possible progression to compartment syndrome. plan also for trial of steroid . will obtain additional imaging with MRI. pain mgmt as needed - BP within goal - insulin for diabetes - Pain mgmt HPI/ROS Admit Date/Time Admit Date/Time Hx of Present Illness This is a 56-year-old male with a history of hypertension, diabetes, and gout presenting with bilateral upper extremity and left ankle swelling and pain. He was going to the bathroom at his house in the dark when he tripped over a cable on the floor and landed with his arms onto a wall. He was evaluated here in the ED 2 days ago and had xray of upper ext, left ankle xray and cervical CT without any acute fractures. Pain is worse with movement. His forearms are warm to touch. left arm is slightly worse than right. He is not able to fully raise arm because of pain. . PMH/Family/Social Past Medical History Medical History: diabetes, hypertension, other (Gout) Social History Alcohol Use: none Smoking Status: Current every day smoker Drug Use: none Exam/Review of Systems Vital Signs Vitals Vital Signs Date Time Temp Pulse Resp B/P Pulse Ox O2 Delivery O2 Flow Rate FiO2 10/16/16 10:31 80 20 149/86 97 Room Air 10/16/16 01:22 3.0 10/15/16 20:10 99.6 Exam Constitutional: alert, oriented, well developed Head: atraumatic, normocephalic Eyes: EOMI, PERRL Respiratory: clear to auscultation, normal air movement Cardiovascular: nl pulses, regular rate and rhythm Gastrointestinal: non-tender, soft Musculoskeletal: other (bilateral forearm and hand swelling and pain. +warm to touch) Labs Result Diagram: 10/16/16 0526 10/16/16525 Medications Medications Current Medications Morphine Sulfate (morphine) 4 mg Q4H PRN IV PAIN Last administered on 10/16/16 06:17; Admin Dose 4 MG; Start 10/16/16 at 02:00 Ondansetron HCl (Zofran Inj) 4 mg Q6H PRN IV NAUSEA AND/OR VOMITING; Start 10/16 at 04:30 Acetaminophen (Tylenol Tab) 650 mg Q6H PRN PO PAIN LEVEL 1-3 OR FEVER; Start at 04:30 Morphine Sulfate (morphine) 2 mg Q4H PRN IV SEVERE PAIN LEVEL 7-10; Start at 04:30 Allopurinol (Zyloprim) 100 mg DAILY PO Last administered on 10/16/16 10:27; Admin Dose 100 MG; Start 10/16/16 at 09:00 Amitriptyline HCl (Elavil) 25 mg DAILY PO Last administered on 10/16/16 10:27; Admin Dose 25 MG; Start 10/16/16 at 09:00 Amlodipine Besylate (Norvasc) 10 mg DAILY PO Last administered on 10/16/16 10: 27; Admin Dose 10 MG; Start 10/16/16 at 09:00 Citalopram Hydrobromide (Celexa) 10 mg DAILY PO Last administered on 10/16/16 10:26; Admin Dose 10 MG; Start 10/16/16 at 09:00 Gemfibrozil (Lopid) 600 mg DAILY PO Last administered on 10/16/16 10:27; Admin Dose 600 MG; Start 10/16/16 at 09:00 Acetaminophen/ Hydrocodone Bitart ([place] (5/325)) 1 tab Q6H PRN PO PAIN Last administered on 10/16/16 04:54; Admin Dose 1 TAB; Start 10/16/16 at 04:30 Ibuprofen (Motrin) 800 mg Q6H PRN PO PAIN; Start 10/16/16 at 04:30; Status Future Hold Ibuprofen (Motrin) 600 mg Q6H PRN PO PAIN AND OR ELEVATED TEMP; Start 10/16/16 at 04:30; Status Future Hold Naproxen (Naprosyn) 500 mg BID PRN PO PAIN AND/OR INFLAMMATION; Start 10/16/16 at 04:30; Status Future Hold Tramadol HCl (Ultram) 50 mg Q4 PRN PO PAIN Last administered on 10/16/16 09:27 ; Admin Dose 50 MG; Start 10/16/16 at 04:30 Pantoprazole 40 mg 40 mg DAILY@06 PO Last administered on 10/16/16 06:09; Admin Dose 40 MG; Start 10/16/16 at 06:00 Levofloxacin/ Dextrose (Levaquin 500mg/ D5W 100 ml (Pmx)) 100 ml @ 100 mls/hr DAILY@06 IVPB Last administered on 10/16/16 06:09; Admin Dose 100 MLS/HR; Start 10/16/16 at 06:00 KARLA ZAYAS MD Oct 16, 2016 13:34
[2016-10-16] MEDS ORDERED: VANCOMYCIN IV PER PHARMACY XX SCH (14:00)
[2016-10-16] MEDS: CEFEPIME 1GM/50 ML (PMX) 50 ML IVPB SCH ×2 (14:15→20:38)
[2016-10-16] MEDS: DEXAMETHASONE 4 MG/ML 1 ML INJ IV SCH ×2 (14:15→20:37)
[2016-10-16] MEDS ORDERED: DEXTROSE 50% 50 ML SYRINGE IV PRN ×2 (14:30)
[2016-10-16] MEDS ORDERED: GLUCAGON 1 MG INJ IM PRN (14:30)
[2016-10-16] MEDS ORDERED: GLUCOSE GEL 15 GRAM TUBE BUCCAL PRN (14:30)
[2016-10-16] MEDS ORDERED: GLUCOSE GEL 15 GRAM TUBE PO PRN ×2 (14:30)
[2016-10-16 15:34] VITALS: BP 140/75; RESP 17
[2016-10-16] MEDS ORDERED: VANCOMYCIN 1.5 GM in SOD CHLORIDE 0.9% 250 ML IVPB ONE (17:00)
--- NOTE | 2016-10-16 17:22 | PN ---
Date/Time of Note Date/Time of Note DATE: 10/16/16 TIME: 17:19 Assessment/Plan VTE Prophylaxis VTE Prophylaxis Intervention: LMWH Assessment/Plan Chief Complaint/Hosp Course S- bilat arm & leg discomfort. guarding? no fever, loss of speech/ vision. Sensation intact. Slipped at home on Wednesday while walking to the bathroom in the middle the night. O: Vital signs stable Physical exam No pallor adenopathy or warmth and neck area Reg Clear Bs + nt nd, no R/I/G No edema Neuro: Reflexes symmetrical. Unable to lift arms or legs above bed easily Assessment and plan 1. Mechanical fall, start PT as appropriate may need snf; 2. Cervical spine injury? consult neurosurgery for opinion. 3. Chronic diabetes/hypertension 4. Tobacco abuse 5. anemia 6. chronic gout Problems: Exam/Review of Systems Vital Signs Vitals Vital Signs Date Time Temp Pulse Resp B/P Pulse Ox O2 Delivery O2 Flow Rate FiO2 10/16/16 15:34 98.2 77 17 140/75 96 10/16/16 14:21 Room Air 10/16/16 01:22 3.0 Results Result Diagram: 10/16/16 0526 10/16/16 0526 Results 24 hrs Laboratory Tests Test 10/15/16 19:35 10/15/16 21:20 10/15/16 23:25 10/16/16 05:26 White Blood Count 15.1 H 14.3 H Red Blood Count 4.41 L 4.11 L Hemoglobin 12.5 L 11.8 L Hematocrit 37.9 L 35.5 L Mean Corpuscular Volume 85.9 86.4 Mean Corpuscular Hemoglobin 28.3 L 28.7 L Mean Corpuscular Hemoglobin Concent 33.0 33.2 Red Cell Distribution Width 13.6 13.5 Platelet Count 240 223 Mean Platelet Volume 10.2 10.3 Neutrophils % 85.7 H 78.2 H Lymphocytes % 6.2 L 11.6 L Monocytes % 7.0 8.8 Eosinophils % 0.0 0.1 Basophils % 0.2 0.2 Nucleated Red Blood Cells % 0.0 0.0 Neutrophils # 12.9 H 11.1 H Lymphocytes # 0.9 1.7 Monocytes # 1.1 H 1.3 H Eosinophils # 0.0 0.0 Basophils # 0.0 0.0 Nucleated Red Blood Cells # 0.0 0.0 Prothrombin Time 14.3 H Prothrombin Time Ratio 1.1 INR International Normalized Ratio 1.11 Activated Partial Thromboplast Time 35.0 D-Dimer 1396.54 H D-Dimer Comment Sodium Level 138 140 Potassium Level 3.3 L 3.2 L Chloride Level 103 107 Carbon Dioxide Level 25 24 Anion Gap 13 12 Blood Urea Nitrogen 12 10 Creatinine 0.80 0.82 Glucose Level 119 104 Lactic Acid Level 0.8 0.8 0.8 Calcium Level 9.5 8.7 Total Bilirubin 0.6 0.7 Direct Bilirubin 0.00 0.00 Indirect Bilirubin 0.6 0.7 Aspartate Amino Transf (AST/SGOT) 29 22 Alanine Aminotransferase (ALT/SGPT) 34 33 Alkaline Phosphatase 94 79 Creatine Kinase 626 H Troponin I < 0.012 Total Protein 7.8 6.6 # Albumin 4.5 3.8 Globulin 3.30 H 2.80 Albumin/Globulin Ratio 1.36 1.35 Medications Medications Current Medications Morphine Sulfate (morphine) 4 mg Q4H PRN IV PAIN Last administered on 10/16/16 17:17; Admin Dose 4 MG; Start 10/16/16 at 02:00 Ondansetron HCl (Zofran Inj) 4 mg Q6H PRN IV NAUSEA AND/OR VOMITING; Start 10/16 at 04:30 Acetaminophen (Tylenol Tab) 650 mg Q6H PRN PO PAIN LEVEL 1-3 OR FEVER; Start at 04:30 Morphine Sulfate (morphine) 2 mg Q4H PRN IV SEVERE PAIN LEVEL 7-10; Start at 04:30 Allopurinol (Zyloprim) 100 mg DAILY PO Last administered on 10/16/16 10:27; Admin Dose 100 MG; Start 10/16/16 at 09:00 Amitriptyline HCl (Elavil) 25 mg DAILY PO Last administered on 10/16/16 10:27; Admin Dose 25 MG; Start 10/16/16 at 09:00 Amlodipine Besylate (Norvasc) 10 mg DAILY PO Last administered on 10/16/16 10: 27; Admin Dose 10 MG; Start 10/16/16 at 09:00 Citalopram Hydrobromide (Celexa) 10 mg DAILY PO Last administered on 10/16/16 10:26; Admin Dose 10 MG; Start 10/16/16 at 09:00 Gemfibrozil (Lopid) 600 mg DAILY PO Last administered on 10/16/16 10:27; Admin Dose 600 MG; Start 10/16/16 at 09:00 Ibuprofen (Motrin) 800 mg Q6H PRN PO PAIN; Start 10/16/16 at 04:30; Status Future Hold Ibuprofen (Motrin) 600 mg Q6H PRN PO PAIN AND OR ELEVATED TEMP; Start 10/16/16 at 04:30; Status Future Hold Naproxen (Naprosyn) 500 mg BID PRN PO PAIN AND/OR INFLAMMATION; Start 10/16/16 at 04:30; Status Future Hold Tramadol HCl (Ultram) 50 mg Q4 PRN PO PAIN Last administered on 10/16/16 09:27 ; Admin Dose 50 MG; Start 10/16/16 at 04:30 Pantoprazole (Protonix Tab) 40 mg DAILY@06 PO Last administered on 10/16/16 06: 09; Admin Dose 40 MG; Start 10/16/16 at 06:00 Dexamethasone 4 mg 4 mg Q6H IV Last administered on 10/16/16 14:15; Admin Dose 4 MG; Start 10/16/16 at 13:30 Cefepime HCl (Maxipime 1gm/50 ml (Pmx)) 50 ml @ 100 mls/hr Q12 IVPB Last administered on 10/16/16 14:15; Admin Dose 100 MLS/HR; Start 10/16/16 at 14:00 Miscellaneous Information 1 ea NOTE XX ; Start 10/16/16 at 14:30 Glucose (Glutose) 15 gm Q15M PRN PO DECREASED GLUCOSE; Start 10/16/16 at 14:30 Glucose (Glutose) 22.5 gm Q15M PRN PO DECREASED GLUCOSE; Start 10/16/16 at 14:30 Dextrose (D50w Syringe) 25 ml Q15M PRN IV DECREASED GLUCOSE; Start 10/16/16 at 14:30 Dextrose (D50w Syringe) 50 ml Q15M PRN IV DECREASED GLUCOSE; Start 10/16/16 at 14:30 Glucagon (Glucagen) 1 mg Q15M PRN IM DECREASED GLUCOSE; Start 10/16/16 at 14:30 Glucose (Glutose) 15 gm Q15M PRN BUCCAL DECREASED GLUCOSE; Start 10/16/16 at 14: 30 Acetaminophen/ Hydrocodone Bitart ([place] (5/325)) 1 tab Q3H PRN PO PAIN; Start 10/16/16 at 18:00 Lactobacillus Acidophilus/ Rhamnosus (Culturelle) 1 cap BID PO ; Start 10/16/16 at 21:00 Docusate Sodium 100 mg 100 mg HS PO ; Start 10/16/16 at 21:00 Vancomycin HCl 1.5 gm/Sodium Chloride 250 ml @ 83.333 mls/ hr ONCE ONCE IVPB Last administered on 10/16/16t 17:17; Admin Dose 83.333 MLS/HR; Start 10/16/16 at 17:00; Stop 10/16/16 at 19:59 Vancomycin HCl/ Sodium Chloride (Vancocin/NS) 150 ml @ 75 mls/hr Q12H IVPB ; Start 10/17/16 at 05:00 SRINIVASAN HUGO MD Oct 16, 2016 17:22
[2016-10-16] MEDS: INSULIN ASPART [NOVOLOG] 3 ML PEN SC SCH ×2 (17:57→20:44)
[2016-10-16 19:56] LABS: ADD UMIC YES; UR BILIRUBIN (Dip) NEGATIVE (NEGATIVE); UR BLOOD (Dip) NEGATIVE (NEGATIVE); UR CLARITY CLEAR (CLEAR); UR COLOR LT. YELLOW (YELLOW); UR KETONES (Dip) 15 (NEGATIVE); UR LEUKOCYTE ESTERASE (Dip) NEGATIVE (NEGATIVE); UR NITRITE (Dip) NEGATIVE (NEGATIVE); UR TOTAL PROTEIN (Dip) TRACE (NEGATIVE); UR UROBILINOGEN (Dip) 1.0 E.U./dL (0.1-1.0)
[2016-10-16] MEDS: morphine 2 MG INJ IV PRN (20:09)
[2016-10-16 20:19] LABS: URINE RBCS 0-2 /HPF (0)
[2016-10-16 20:20] LABS: UR MUCUS OCCASIONAL
[2016-10-16] MEDS: LACTOBACILLUS RHAMNOSUS CAP PO SCH (20:38)
[2016-10-16] MEDS: DOCUSATE SODIUM 10 MG/ML (10ML CUP) PO SCH (20:38)
[2016-10-16] MEDS: HYDROCODONE/APAP (5/325) TAB PO PRN (20:48)
[2016-10-16 22:04] VITALS: BP 115/69; RESP 20
[2016-10-17] MEDS: DEXAMETHASONE 4 MG/ML 1 ML INJ IV SCH ×4 (01:30→17:38)
[2016-10-17] MEDS: PANTOPRAZOLE (EC) 40 MG TAB PO SCH (04:58)
[2016-10-17] MEDS: morphine 2 MG INJ IV PRN (04:58)
[2016-10-17] MEDS: VANCOMYCIN 750 MG in SOD CHLORIDE 0.9% 150 ML IVPB SCH ×2 (04:58→17:33)
[2016-10-17 07:05] VITALS: BP 111/64; RESP 16
[2016-10-17 07:38] LABS: ADD SCAN DIFF NO
[2016-10-17 07:41] LABS: BASOPHILS % 0.1 % (0.0-2.0); HEMATOCRIT 36.4 % (42.0-52.0); HEMOGLOBIN 11.9 g/dl (14.0-18.0); LYMPHOCYTES # 1.1 10^3/ul (0.8-2.9); LYMPHOCYTES % 6.1 % (15.0-51.0); MEAN CORPUSCULAR HEMOGLOBIN 28.4 pg (29.0-33.0); MEAN CORPUSCULAR HGB CONC 32.7 g/dl (32.0-37.0); MEAN CORPUSCULAR VOLUME 86.9 fl (82.0-101.0); MEAN PLATELET VOLUME 10.7 fl (7.4-10.4); MONOCYTE # 0.9 10^3/ul (0.3-0.9); MONOCYTES % 5.1 % (0.0-11.0); NEUTROPHIL # 15.2 10^3/ul (1.6-7.5); NEUTROPHILS % 88.2 % (39.0-77.0); PLATELET COUNT 260 10^3/UL (140-415); RED BLOOD COUNT 4.19 10^6/ul (4.70-6.10); RED CELL DISTRIBUTION WIDTH 13.9 % (11.5-14.5); WHITE BLOOD COUNT 17.3 10^3/ul (4.8-10.8)
[2016-10-17 08:00] LABS: ALBUMIN 3.5 g/dl (3.3-4.9); ALBUMIN/GLOBULIN RATIO 1.16; BILIRUBIN,INDIRECT 0.2 mg/dl (0-1.1); BILIRUBIN,TOTAL 0.2 mg/dl (0.2-1.3); CALCIUM 9.4 mg/dl (8.4-10.2); CREATININE 0.69 mg/dl (0.61-1.24); MAGNESIUM 2.4 mg/dl (1.7-2.5); POTASSIUM 4.2 mmol/L (3.5-5.1); TOTAL PROTEIN 6.5 g/dl (6.1-8.1)
[2016-10-17] MEDS: INSULIN ASPART [NOVOLOG] 3 ML PEN SC SCH ×4 (08:00→20:40)
[2016-10-17] MEDS: ALLOPURINOL 100 MG TAB PO SCH (08:13)
[2016-10-17] MEDS: GEMFIBROZIL 600 MG TAB PO SCH (08:13)
[2016-10-17] MEDS: LACTOBACILLUS RHAMNOSUS CAP PO SCH ×2 (08:13→20:40)
[2016-10-17] MEDS: CITALOPRAM 20 MG TAB PO SCH (08:14)
[2016-10-17] MEDS: AMITRIPTYLINE 25 MG TAB PO SCH (08:14)
[2016-10-17] MEDS: AMLODIPINE 10 MG TAB PO SCH (08:14)
[2016-10-17] MEDS: CEFEPIME 1GM/50 ML (PMX) 50 ML IVPB SCH ×2 (08:16→20:40)
[2016-10-17] MEDS: metFORMIN 500 MG TAB PO SCH ×2 (08:20→17:38)
[2016-10-17 08:27] LABS: THYROID STIMULATING HORMONE 0.641 MIU/L (0.465-4.680)
[2016-10-17] MEDS: HYDROCODONE/APAP (5/325) TAB PO PRN (11:30)
[2016-10-17] MEDS: morphine 4 MG/ML VIAL IV PRN ×2 (12:32→20:45)
--- NOTE | 2016-10-17 13:50 | RADRPT ---
PROCEDURE: MRI Cervical Spine. CLINICAL INDICATION: Fall, bilateral arm pain. TECHNIQUE: An MRI of the cervical spine was performed utilizing the following sequences: Sagittal T1 weighted, sagittal and axial T2 weighted, sagittal T2 weighted with fat saturation, and axial GRE . COMPARISON: Cervical spine CT 10/14/2016. FINDINGS: There is straightening of the normal cervical lordosis. No vertebral body subluxation is seen. The vertebral bodies are normal in height. There is mild heterogeneous bone marrow signal intensity wit hout focal suspect marrow lesion. The cervical cord is normal in caliber and signal intensity. The c raniocervical junction is unremarkable. Small perineural cysts are noted near bilateral C7-T1 and T1 -T2 neural foramina. C2-3: The disk height is preserved. No focal posterior disc herniation. No spinal canal or neural f oraminal stenosis. C3-4: The disk height is preserved. There is minimal posterior disk osteophyte complex. Uncovertebr al osteophytes and facet arthropathy contribute to mild to moderate bilateral foraminal stenosis. No spinal canal stenosis. C4-5: The disk height is preserved. There is 2 mm broad-based posterior disk osteophyte complex whi ch contributes to mild spinal canal narrowing. The AP diameter of the spinal canal measures 9 mm. Un covertebral osteophytes and facet arthropathy contribute to severe right and moderate to severe left foraminal stenosis. C5-6: The disk height is preserved. There is 2 mm broad-based posterior disk osteophyte complex whi ch contributes to mild spinal canal narrowing. The AP diameter of the spinal canal measures just und er 9 mm. Uncovertebral osteophytes and facet arthropathy contribute to severe right and moderate to severe left foraminal stenosis. C6-7: The disk height is preserved. There is 2 mm broad-based posterior disk osteophyte complex whi ch contributes to mild spinal canal narrowing. The AP diameter of the spinal canal measures 9 mm. Un covertebral osteophytes and facet arthropathy contribute to mild right and moderate left foraminal s tenosis. C7-T1: The disk height is preserved. There is minimal posterior disk osteophyte complex. Uncoverteb ral osteophytes and facet arthropathy contribute to moderate left foraminal stenosis. No spinal hawa l or right foraminal stenosis. IMPRESSION: 1. Straightening of the normal cervical lordosis. 2. Posterior disk osteophyte complexes contribute to mild spinal canal narrowing at C4-C5 through C 6-C7. 3. Multilevel moderate to severe foraminal stenosis as outlined in details in findings. RPTAT: HFN .Eliseo Pederson MD, MD Date Time Electronically viewed and signed by .Eliseo Pederson MD, on 10/17/2016 13:50 .N/
--- NOTE | 2016-10-17 19:32 | PN ---
Date/Time of Note Date/Time of Note DATE: 10/17/16 TIME: 19:29 Assessment/Plan VTE Prophylaxis VTE Prophylaxis Intervention: LMWH Lines/Catheters Urinary Cath still in place: No Assessment/Plan Chief Complaint/Hosp Course S- 10/16: bilat arm & leg discomfort. guarding? no fever, loss of speech/ vision. Sensation intact/exaggerated. Slipped at home on Sun in the middle of the night while walking to the br. 10/17: More right arm strength. Still unable to lift left arm easily and shoulder. No incontinence or saddle anesthesia. O: Vss PE No pallor or warmth of neck Reg Clear Bs + nt nd, no R/I/G No edema Neuro: Reflexes symmetrical. Unable to lift arms or legs above bed easily A/P 1. Mechanical fall, start PT as appropriate. Shoulder injury? Obtain xry. May need snf; 2. Cervical spine injury? consulted ns for opinion-MRI C-spine appears ok. 3. Chr dm/htn 4. Tobacco abuse 5. anemia 6. chr gout 7. Leukocytosis; may need ID consult. Problems: Exam/Review of Systems Vital Signs Vitals Vital Signs Date Time Temp Pulse Resp B/P Pulse Ox O2 Delivery O2 Flow Rate FiO2 10/17/16 07:05 98.1 70 16 111/64 96 10/16/16 14:21 Room Air 10/16/16 01:22 3.0 Intake and Output 10/16/16 10/16/16 10/17/16 15:00 23:00 07:00 Intake Total 100 ml 300 ml 750 ml Output Total 900 ml Balance 100 ml 300 ml -150 ml Results Result Diagram: 10/17/16 0540 10/17/16 0540 Results 24 hrs Laboratory Tests Test 10/16/16 20:40 10/17/16 05:40 10/17/16 08:12 10/17/16 12:16 Bedside Glucose 139 139 148 White Blood Count 17.3 #H Red Blood Count 4.19 L Hemoglobin 11.9 L Hematocrit 36.4 L Mean Corpuscular Volume 86.9 Mean Corpuscular Hemoglobin 28.4 L Mean Corpuscular Hemoglobin Concent 32.7 Red Cell Distribution Width 13.9 Platelet Count 260 Mean Platelet Volume 10.7 H Neutrophils % 88.2 H Lymphocytes % 6.1 L Monocytes % 5.1 Eosinophils % 0.0 Basophils % 0.1 Nucleated Red Blood Cells % 0.0 Neutrophils # 15.2 H Lymphocytes # 1.1 Monocytes # 0.9 Eosinophils # 0.0 Basophils # 0.0 Nucleated Red Blood Cells # 0.0 Sodium Level 140 Potassium Level 4.2 Chloride Level 107 Carbon Dioxide Level 25 Anion Gap 12 Blood Urea Nitrogen 18 Creatinine 0.69 Glucose Level 179 Hemoglobin A1c 6.0 H Calcium Level 9.4 Phosphorus Level 3.0 Magnesium Level 2.4 Total Bilirubin 0.2 Direct Bilirubin 0.00 Indirect Bilirubin 0.2 Aspartate Amino Transf (AST/SGOT) 24 Alanine Aminotransferase (ALT/SGPT) 40 Alkaline Phosphatase 80 Total Protein 6.5 Albumin 3.5 Globulin 3.00 Albumin/Globulin Ratio 1.16 Vitamin B12 Level 327 Thyroid Stimulating Hormone (TSH) 0.641 Rapid Plasma Reagin NONREACTIVE Test 10/17/16 17:31 Bedside Glucose 182 Medications Medications Current Medications Morphine Sulfate (morphine) 4 mg Q4H PRN IV PAIN Last administered on 12:32; Admin Dose 4 MG; Start 10/16/16 at 02:00 Ondansetron HCl (Zofran Inj) 4 mg Q6H PRN IV NAUSEA AND/OR VOMITING; Start 10/16 at 04:30 Acetaminophen (Tylenol Tab) 650 mg Q6H PRN PO PAIN LEVEL 1-3 OR FEVER; Start at 04:30 Morphine Sulfate (morphine) 2 mg Q4H PRN IV SEVERE PAIN LEVEL 7-10 Last administered on 10/17/16 04:58; Admin Dose 2 MG; Start 10/16/16 at 04:30 Allopurinol (Zyloprim) 100 mg DAILY PO Last administered on 10/17/16 08:13; Admin Dose 100 MG; Start 10/16/16 at 09:00 Amitriptyline HCl (Elavil) 25 mg DAILY PO Last administered on 10/17/16 08:14 ; Admin Dose 25 MG; Start 10/16/16 at 09:00 Amlodipine Besylate (Norvasc) 10 mg DAILY PO Last administered on 10/17/16 08: 14; Admin Dose 10 MG; Start 10/16/16 at 09:00 Citalopram Hydrobromide (Celexa) 10 mg DAILY PO Last administered on 10/17/16 08:14; Admin Dose 10 MG; Start 10/16/16 at 09:00 Gemfibrozil (Lopid) 600 mg DAILY PO Last administered on 10/17/16 08:13; Admin Dose 600 MG; Start 10/16/16 at 09:00 Ibuprofen (Motrin) 800 mg Q6H PRN PO PAIN; Start 10/16/16 at 04:30; Status Future Hold Ibuprofen (Motrin) 600 mg Q6H PRN PO PAIN AND OR ELEVATED TEMP; Start 10/16/16 at 04:30; Status Future Hold Naproxen (Naprosyn) 500 mg BID PRN PO PAIN AND/OR INFLAMMATION; Start 10/16/16 at 04:30; Status Future Hold Tramadol HCl (Ultram) 50 mg Q4 PRN PO PAIN Last administered on 10/16/16 09:27 ; Admin Dose 50 MG; Start 10/16/16 at 04:30 Pantoprazole (Protonix Tab) 40 mg DAILY@06 PO Last administered on 10/17/16 04 :58; Admin Dose 40 MG; Start 10/16/16 at 06:00 Dexamethasone 4 mg 4 mg Q6H IV Last administered on 10/17/16 17:38; Admin Dose 4 MG; Start 10/16/16 at 13:30 Cefepime HCl (Maxipime 1gm/50 ml (Pmx)) 50 ml @ 100 mls/hr Q12 IVPB Last administered on 10/17/16 08:16; Admin Dose 100 MLS/HR; Start 10/16/16 at 14:00 Miscellaneous Information 1 ea NOTE XX ; Start 10/16/16 at 14:30 Glucose (Glutose) 15 gm Q15M PRN PO DECREASED GLUCOSE; Start 10/16/16 at 14:30 Glucose (Glutose) 22.5 gm Q15M PRN PO DECREASED GLUCOSE; Start 10/16/16 at 14:30 Dextrose (D50w Syringe) 25 ml Q15M PRN IV DECREASED GLUCOSE; Start 10/16/16 at 14:30 Dextrose (D50w Syringe) 50 ml Q15M PRN IV DECREASED GLUCOSE; Start 10/16/16 at 14:30 Glucagon (Glucagen) 1 mg Q15M PRN IM DECREASED GLUCOSE; Start 10/16/16 at 14:30 Glucose (Glutose) 15 gm Q15M PRN BUCCAL DECREASED GLUCOSE; Start 10/16/16 at 14: 30 Acetaminophen/ Hydrocodone Bitart ([place] (5/325)) 1 tab Q3H PRN PO PAIN Last administered on 10/17/16 11:30; Admin Dose 1 TAB; Start 10/16/16 at 18:00 Lactobacillus Acidophilus/ Rhamnosus (Culturelle) 1 cap BID PO Last administered on 10/17/16 08:13; Admin Dose 1 CAP; Start 10/16/16 at 21:00 Docusate Sodium 100 mg 100 mg HS PO Last administered on 10/16/16 20:38; Admin Dose 100 MG; Start 10/16/16 at 21:00 Vancomycin HCl/ Sodium Chloride (Vancocin/NS) 150 ml @ 75 mls/hr Q12H IVPB Last administered on 10/17/16 17:33; Admin Dose 75 MLS/HR; Start 10/17/16 at 05 :00 Miscellaneous Information (*Rx Drug Level Order Reminder*) VANCOMYCIN TROUGH AT 0400 ONCE ONCE XX ; Start 10/18/16 at 04:00; Stop 10/18/16 at 04:01 SRINIVASAN HUGO MD Oct 17, 2016 19:32
[2016-10-17] MEDS: DOCUSATE SODIUM 10 MG/ML (10ML CUP) PO SCH (20:40)
[2016-10-17 21:31] VITALS: BP 109/66; RESP 20
[2016-10-18 03:44] LABS: ADD SCAN DIFF NO
[2016-10-18] MEDS: morphine 4 MG/ML VIAL IV PRN ×5 (03:55→21:20)
[2016-10-18 04:04] LABS: ALBUMIN 3.4 g/dl (3.3-4.9); ALBUMIN/GLOBULIN RATIO 1.09; BILIRUBIN,INDIRECT 0.1 mg/dl (0-1.1); BILIRUBIN,TOTAL 0.1 mg/dl (0.2-1.3); CALCIUM 9.4 mg/dl (8.4-10.2); CREATININE 0.68 mg/dl (0.61-1.24); POTASSIUM 4.4 mmol/L (3.5-5.1); TOTAL PROTEIN 6.5 g/dl (6.1-8.1)
[2016-10-18 04:08] LABS: BASOPHILS % 0.1 % (0.0-2.0); HEMATOCRIT 36.2 % (42.0-52.0); HEMOGLOBIN 12.1 g/dl (14.0-18.0); LYMPHOCYTES # 1.2 10^3/ul (0.8-2.9); LYMPHOCYTES % 8.2 % (15.0-51.0); MEAN CORPUSCULAR HEMOGLOBIN 28.9 pg (29.0-33.0); MEAN CORPUSCULAR HGB CONC 33.4 g/dl (32.0-37.0); MEAN CORPUSCULAR VOLUME 86.6 fl (82.0-101.0); MEAN PLATELET VOLUME 10.6 fl (7.4-10.4); MONOCYTE # 0.5 10^3/ul (0.3-0.9); MONOCYTES % 3.7 % (0.0-11.0); NEUTROPHIL # 12.7 10^3/ul (1.6-7.5); NEUTROPHILS % 87.1 % (39.0-77.0); PLATELET COUNT 280 10^3/UL (140-415); RED BLOOD COUNT 4.18 10^6/ul (4.70-6.10); RED CELL DISTRIBUTION WIDTH 13.7 % (11.5-14.5); WHITE BLOOD COUNT 14.6 10^3/ul (4.8-10.8)
[2016-10-18] MEDS ORDERED: VANCOMYCIN 1 GM in NS 250 ML IVPB SCH (05:00)
[2016-10-18 07:59] VITALS: BP 118/70; RESP 18
[2016-10-18] MEDS: INSULIN ASPART [NOVOLOG] 3 ML PEN SC SCH ×4 (08:27→20:37)
[2016-10-18] MEDS: LACTOBACILLUS RHAMNOSUS CAP PO SCH ×2 (08:28→20:34)
[2016-10-18] MEDS: GEMFIBROZIL 600 MG TAB PO SCH (08:28)
[2016-10-18] MEDS: AMLODIPINE 10 MG TAB PO SCH (08:29)
[2016-10-18] MEDS: CITALOPRAM 20 MG TAB PO SCH (08:29)
[2016-10-18] MEDS: AMITRIPTYLINE 25 MG TAB PO SCH (08:29)
[2016-10-18] MEDS: ALLOPURINOL 100 MG TAB PO SCH (08:30)
[2016-10-18] MEDS: CEFEPIME 1GM/50 ML (PMX) 50 ML IVPB SCH ×2 (08:30→20:34)
[2016-10-18] MEDS: metFORMIN 500 MG TAB PO SCH ×2 (08:30→17:34)
[2016-10-18] MEDS: FAMOTIDINE 20 MG TAB PO SCH (09:40)
--- NOTE | 2016-10-18 11:18 | RADRPT ---
PROCEDURE: XR left shoulder. CLINICAL INDICATION: Shoulder pain. TECHNIQUE: AP, and Y views of the left shoulder were performed. An internal oblique view cannot be performed. COMPARISON: None. FINDINGS: A Jelco needle was Undo joker catheter projects in the right supraclavicular area. There are degene rative osteophytes in the thoracic spine as. There are degenerative changes of the right AC joint. The glenohumeral joint scapula and humerus are normal. The lungs are clear. IMPRESSION: 1. Osteoarthritis of the right acromioclavicular joint. 2. A Jelco needle is noted in the right supraclavicular area. RPTAT:AAJJ Physician Kayla Date Time Electronically viewed and signed by Physician Kayla on 10/18/2016 11:17 /
--- NOTE | 2016-10-18 11:26 | RADRPT ---
PROCEDURE: XR left shoulder. CLINICAL INDICATION: Pain. TECHNIQUE: AP, internal and Y views of the left shoulder were performed. COMPARISON: None. FINDINGS: The soft tissues and bony elements are normal except for a small erosion noted the distal end of the left clavicle. The joint spaces are normal. The lungs are clear. IMPRESSION: There is a small erosion at the distal end of the left clavicle. RPTAT:AAJJ Physician Kayla Date Time Electronically viewed and signed by Isai Vu Physician on 10/18/2016 11:26 MARGE/
--- NOTE | 2016-10-18 12:20 | PN ---
Date/Time of Note Date/Time of Note DATE: 10/18/16 TIME: 12:16 Assessment/Plan VTE Prophylaxis VTE Prophylaxis Intervention: LMWH Lines/Catheters Urinary Cath still in place: No Assessment/Plan Chief Complaint/Hosp Course S- 10/16: bilat arm & leg discomfort. guarding? no fever, loss of speech/ vision. Sensation intact/exaggerated. Slipped at home on Sun in the middle of the night while walking to the br. 10/17: More right arm strength. Still unable to lift left arm easily and shoulder. No incontinence or saddle anesthesia. 10/18: Right arm improved. Left arm leg still with trouble. No fever chills dyspnea. Speech clear. O: Vss PE No pallor Reg Clear Bs + nt nd, no R/I/G No edema Neuro: Reflexes symmetrical. Unable to lift L>R side above bed easily A/P 1. Mechanical fall, start PT as appropriate. May need snf-patient agrees. 2. Cervical spine injury? consulted ns for opinion-MRI C-spine appears ok. 3. Chr dm/htn 4. Tobacco abuse 5. anemia 6. chr gout 7. Leukocytosis; -due to Decadron. Decadron DC'd. 8. C Spine stenosis (mod-severe), no intervention req according to ns. Problems: Exam/Review of Systems Vital Signs Vitals Vital Signs Date Time Temp Pulse Resp B/P Pulse Ox O2 Delivery O2 Flow Rate FiO2 10/18/16 07:59 98.1 64 18 118/70 94 10/16/16 14:21 Room Air 10/16/16 01:22 3.0 Intake and Output 10/17/16 10/17/16 10/18/16 15:00 23:00 07:00 Intake Total 100 ml 900 ml 725 ml Output Total 800 ml 800 ml Balance 100 ml 100 ml -75 ml Results Result Diagram: 10/18/16 0340 10/18/16 0340 Results 24 hrs Laboratory Tests Test 10/17/16 17:31 10/17/16 20:39 10/18/16 03:40 10/18/16 07:52 Bedside Glucose 182 145 150 White Blood Count 14.6 H Red Blood Count 4.18 L Hemoglobin 12.1 L Hematocrit 36.2 L Mean Corpuscular Volume 86.6 Mean Corpuscular Hemoglobin 28.9 L Mean Corpuscular Hemoglobin Concent 33.4 Red Cell Distribution Width 13.7 Platelet Count 280 Mean Platelet Volume 10.6 H Neutrophils % 87.1 H Lymphocytes % 8.2 L Monocytes % 3.7 Eosinophils % 0.0 Basophils % 0.1 Nucleated Red Blood Cells % 0.0 Neutrophils # 12.7 H Lymphocytes # 1.2 Monocytes # 0.5 Eosinophils # 0.0 Basophils # 0.0 Nucleated Red Blood Cells # 0.0 Sodium Level 143 Potassium Level 4.4 Chloride Level 109 Carbon Dioxide Level 25 Anion Gap 13 Blood Urea Nitrogen 21 H Creatinine 0.68 Glucose Level 158 Calcium Level 9.4 Total Bilirubin 0.1 L Direct Bilirubin 0.00 Indirect Bilirubin 0.1 Aspartate Amino Transf (AST/SGOT) 21 Alanine Aminotransferase (ALT/SGPT) 44 Alkaline Phosphatase 70 Total Protein 6.5 Albumin 3.4 Globulin 3.10 Albumin/Globulin Ratio 1.09 Vancomycin Level Trough 6.7 L Medications Medications Current Medications Morphine Sulfate (morphine) 4 mg Q4H PRN IV PAIN Last administered on 08:30; Admin Dose 4 MG; Start 10/16/16 at 02:00 Ondansetron HCl (Zofran Inj) 4 mg Q6H PRN IV NAUSEA AND/OR VOMITING; Start 10/16 at 04:30 Acetaminophen (Tylenol Tab) 650 mg Q6H PRN PO PAIN LEVEL 1-3 OR FEVER; Start at 04:30 Morphine Sulfate (morphine) 2 mg Q4H PRN IV SEVERE PAIN LEVEL 7-10 Last administered on 10/17/16 04:58; Admin Dose 2 MG; Start 10/16/16 at 04:30 Allopurinol (Zyloprim) 100 mg DAILY PO Last administered on 10/18/16 08:30; Admin Dose 100 MG; Start 10/16/16 at 09:00 Amitriptyline HCl (Elavil) 25 mg DAILY PO Last administered on 10/18/16 08:29 ; Admin Dose 25 MG; Start 10/16/16 at 09:00 Amlodipine Besylate (Norvasc) 10 mg DAILY PO Last administered on 10/18/16 08: 29; Admin Dose 10 MG; Start 10/16/16 at 09:00 Citalopram Hydrobromide (Celexa) 10 mg DAILY PO Last administered on 10/18/16 08:29; Admin Dose 10 MG; Start 10/16/16 at 09:00 Gemfibrozil (Lopid) 600 mg DAILY PO Last administered on 10/18/16 08:28; Admin Dose 600 MG; Start 10/16/16 at 09:00 Ibuprofen (Motrin) 800 mg Q6H PRN PO PAIN; Start 10/16/16 at 04:30; Status Future Hold Ibuprofen (Motrin) 600 mg Q6H PRN PO PAIN AND OR ELEVATED TEMP; Start 10/16/16 at 04:30; Status Future Hold Naproxen (Naprosyn) 500 mg BID PRN PO PAIN AND/OR INFLAMMATION; Start 10/16/16 at 04:30; Status Future Hold Tramadol HCl 50 mg 50 mg Q4 PRN PO PAIN Last administered on 10/16/16 09:27; Admin Dose 50 MG; Start 10/16/16 at 04:30 Cefepime HCl (Maxipime 1gm/50 ml (Pmx)) 50 ml @ 100 mls/hr Q12 IVPB Last administered on 10/18/16 08:30; Admin Dose 100 MLS/HR; Start 10/16/16 at 14:00 Miscellaneous Information 1 ea NOTE XX ; Start 10/16/16 at 14:30 Glucose (Glutose) 15 gm Q15M PRN PO DECREASED GLUCOSE; Start 10/16/16 at 14:30 Glucose (Glutose) 22.5 gm Q15M PRN PO DECREASED GLUCOSE; Start 10/16/16 at 14:30 Dextrose (D50w Syringe) 25 ml Q15M PRN IV DECREASED GLUCOSE; Start 10/16/16 at 14:30 Dextrose (D50w Syringe) 50 ml Q15M PRN IV DECREASED GLUCOSE; Start 10/16/16 at 14:30 Glucagon (Glucagen) 1 mg Q15M PRN IM DECREASED GLUCOSE; Start 10/16/16 at 14:30 Glucose (Glutose) 15 gm Q15M PRN BUCCAL DECREASED GLUCOSE; Start 10/16/16 at 14: 30 Acetaminophen/ Hydrocodone Bitart ([place] (5/325)) 1 tab Q3H PRN PO PAIN Last administered on 10/17/16 11:30; Admin Dose 1 TAB; Start 10/16/16 at 18:00 Lactobacillus Acidophilus/ Rhamnosus (Culturelle) 1 cap BID PO Last administered on 10/18/16 08:28; Admin Dose 1 CAP; Start 10/16/16 at 21:00 Docusate Sodium (Colace Liquid Cup) 100 mg HS PO Last administered on 20:40; Admin Dose 100 MG; Start 10/16/16 at 21:00 Famotidine 20 mg 20 mg DAILY PO Last administered on 10/18/16 09:40; Admin Dose 20 MG; Start 10/18/16 at 09:00 Vancomycin HCl/ Sodium Chloride (Vancocin/NS) 250 ml @ 83.333 mls/ hr Q12H IVPB ; Start 10/18/16 at 17:00 SRINIVASAN HUGO MD Oct 18, 2016 12:19
[2016-10-18] MEDS: ENOXAPARIN 40 MG/0.4 ML SYG SC SCH (12:59)
[2016-10-18] MEDS: VANCOMYCIN 1.5 GM in SOD CHLORIDE 0.9% 250 ML IVPB SCH (17:28)
--- NOTE | 2016-10-18 17:52 | QN ---
Documentation Comment A neurosurgery evaluation was requested on this patient prior to the MRI having been done. There is no evidence of cord compression, signal change, or intrinsic cord abnormality that could account for bilateral arm pain, swelling, weakness, or sepsis. I do not believe that a neurosurgical issue is present and request that neurology see the patient to confirm the need for potential surgical intervention. Furthermore, to my knowledge, there are no neurosurgical treatments for cellulitis; perhaps antibiotics should be considered. PETERSON AKBAR MD Oct 18, 2016 17:52
[2016-10-18] MEDS: DOCUSATE SODIUM 10 MG/ML (10ML CUP) PO SCH (20:34)
[2016-10-18 21:00] VITALS: BP 118/67; RESP 19
[2016-10-19] MEDS: morphine 4 MG/ML VIAL IV PRN ×4 (01:51→12:06)
[2016-10-19] MEDS: VANCOMYCIN 1.5 GM in SOD CHLORIDE 0.9% 250 ML IVPB SCH ×2 (04:37→17:47)
[2016-10-19 06:11] LABS: ADD SCAN DIFF NO
[2016-10-19 06:14] LABS: BASOPHILS % 0.3 % (0.0-2.0); EOSINOPHILS % 0.1 % (0.0-7.0); HEMATOCRIT 38.7 % (42.0-52.0); HEMOGLOBIN 12.7 g/dl (14.0-18.0); LYMPHOCYTES # 2.5 10^3/ul (0.8-2.9); LYMPHOCYTES % 26.9 % (15.0-51.0); MEAN CORPUSCULAR HEMOGLOBIN 28.6 pg (29.0-33.0); MEAN CORPUSCULAR HGB CONC 32.8 g/dl (32.0-37.0); MEAN CORPUSCULAR VOLUME 87.2 fl (82.0-101.0); MEAN PLATELET VOLUME 10.5 fl (7.4-10.4); MONOCYTE # 0.8 10^3/ul (0.3-0.9); MONOCYTES % 8.6 % (0.0-11.0); NEUTROPHIL # 5.4 10^3/ul (1.6-7.5); NEUTROPHILS % 59.5 % (39.0-77.0); NUCLEATED RED BLOOD CELLS% 0.3 /100WBC (0.0-0.0); PLATELET COUNT 296 10^3/UL (140-415); RED BLOOD COUNT 4.44 10^6/ul (4.70-6.10); RED CELL DISTRIBUTION WIDTH 13.9 % (11.5-14.5); WHITE BLOOD COUNT 9.1 10^3/ul (4.8-10.8)
[2016-10-19 07:57] VITALS: BP 124/80; RESP 20
[2016-10-19] MEDS: INSULIN ASPART [NOVOLOG] 3 ML PEN SC SCH ×4 (08:00→21:00)
[2016-10-19] MEDS: CEFEPIME 1GM/50 ML (PMX) 50 ML IVPB SCH ×2 (08:09→21:11)
[2016-10-19] MEDS: FAMOTIDINE 20 MG TAB PO SCH (08:10)
[2016-10-19] MEDS: ALLOPURINOL 100 MG TAB PO SCH (08:10)
[2016-10-19] MEDS: metFORMIN 500 MG TAB PO SCH ×2 (08:10→17:47)
[2016-10-19] MEDS: LACTOBACILLUS RHAMNOSUS CAP PO SCH ×2 (08:10→21:15)
[2016-10-19] MEDS: AMITRIPTYLINE 25 MG TAB PO SCH (08:11)
[2016-10-19] MEDS: CITALOPRAM 20 MG TAB PO SCH (08:11)
[2016-10-19] MEDS: AMLODIPINE 10 MG TAB PO SCH (08:12)
[2016-10-19] MEDS: ENOXAPARIN 40 MG/0.4 ML SYG SC SCH (08:13)
[2016-10-19 10:00] LABS: ALBUMIN 3.5 g/dl (3.3-4.9); ALBUMIN/GLOBULIN RATIO 1.16; BILIRUBIN,INDIRECT 0.1 mg/dl (0-1.1); BILIRUBIN,TOTAL 0.1 mg/dl (0.2-1.3); CALCIUM 8.9 mg/dl (8.4-10.2); CREATININE 0.81 mg/dl (0.61-1.24); MAGNESIUM 2.1 mg/dl (1.7-2.5); PHOSPHORUS 3.8 mg/dl (2.5-4.9); TOTAL PROTEIN 6.5 g/dl (6.1-8.1)
[2016-10-19] MEDS ORDERED: morphine (ER) 15 MG TAB PO ONE (14:00)
--- NOTE | 2016-10-19 19:25 | PN ---
Date/Time of Note Date/Time of Note DATE: 10/19/16 TIME: 19:21 Assessment/Plan VTE Prophylaxis VTE Prophylaxis Intervention: SCD's Lines/Catheters Urinary Cath still in place: No Assessment/Plan Assessment/Plan 1. Mechanical fall, 2. Cervical spine injury, Inability to extent UE, 3. Intractable back pain 3. Chr dm/htn 4. Tobacco abuse 5. anemia 6. chr gout 7. Leukocytosis; may need ID consult. Plan: IV abx Cefepime and vancomycin SCD for DVT prophylaxis will order MRI C spine, thoracic spine and Lumbar spine due to his ongoing LUE weakness, and Intactable back pain PT evaluation and Treatment Steroids has been stopped Neurosurgery consutled, yesterday, pending evaluation yet will follow up Subjective 24 Hr Interval Summary Free Text/Dictation c/o severe back pain with Bilateral UE weakness and inability to extend UE Exam/Review of Systems Vital Signs Vitals Vital Signs Date Time Temp Pulse Resp B/P Pulse Ox O2 Delivery O2 Flow Rate FiO2 10/19/16 07:57 98.3 64 20 124/80 97 10/16/16 14:21 Room Air 10/16/16 01:22 3.0 Intake and Output 10/18/16 10/18/16 10/19/16 15:00 23:00 07:00 Intake Total 175 ml 2043 ml 450 ml Output Total 1150 ml 560 ml Balance 175 ml 893 ml -110 ml Results Result Diagram: 10/19/16 0455 10/19/16 0455 Results 24 hrs Laboratory Tests Test 10/18/16 20:36 10/19/16 04:55 10/19/16 08:06 10/19/16 11:41 Bedside Glucose 115 88 87 White Blood Count 9.1 # Red Blood Count 4.44 L Hemoglobin 12.7 L Hematocrit 38.7 L Mean Corpuscular Volume 87.2 Mean Corpuscular Hemoglobin 28.6 L Mean Corpuscular Hemoglobin Concent 32.8 Red Cell Distribution Width 13.9 Platelet Count 296 Mean Platelet Volume 10.5 H Neutrophils % 59.5 Lymphocytes % 26.9 Monocytes % 8.6 Eosinophils % 0.1 Basophils % 0.3 Nucleated Red Blood Cells % 0.3 H Neutrophils # 5.4 Lymphocytes # 2.5 Monocytes # 0.8 Eosinophils # 0.0 Basophils # 0.0 Nucleated Red Blood Cells # 0.0 Erythrocyte Sedimentation Rate 83.0 H Sodium Level 139 Potassium Level 4.0 Chloride Level 106 Carbon Dioxide Level 26 Anion Gap 11 Blood Urea Nitrogen 26 H Creatinine 0.81 Glucose Level 94 # Calcium Level 8.9 Phosphorus Level 3.8 Magnesium Level 2.1 Total Bilirubin 0.1 L Direct Bilirubin 0.00 Indirect Bilirubin 0.1 Aspartate Amino Transf (AST/SGOT) 25 Alanine Aminotransferase (ALT/SGPT) 48 Alkaline Phosphatase 73 Creatine Kinase < 20 L C-Reactive Protein 7.0 H Total Protein 6.5 Albumin 3.5 Globulin 3.00 Albumin/Globulin Ratio 1.16 Test 10/19/16 17:44 Bedside Glucose 86 Medications Medications Current Medications Ondansetron HCl (Zofran Inj) 4 mg Q6H PRN IV NAUSEA AND/OR VOMITING; Start 10/16 at 04:30 Acetaminophen (Tylenol Tab) 650 mg Q6H PRN PO PAIN LEVEL 1-3 OR FEVER; Start at 04:30 Morphine Sulfate (morphine) 2 mg Q4H PRN IV SEVERE PAIN LEVEL 7-10 Last administered on 10/17/16 04:58; Admin Dose 2 MG; Start 10/16/16 at 04:30 Allopurinol (Zyloprim) 100 mg DAILY PO Last administered on 10/19/16 08:10; Admin Dose 100 MG; Start 10/16/16 at 09:00 Amitriptyline HCl (Elavil) 25 mg DAILY PO Last administered on 10/19/16 08:11 ; Admin Dose 25 MG; Start 10/16/16 at 09:00 Amlodipine Besylate (Norvasc) 10 mg DAILY PO Last administered on 10/19/16 08: 12; Admin Dose 10 MG; Start 10/16/16 at 09:00 Citalopram Hydrobromide (Celexa) 10 mg DAILY PO Last administered on 10/19/16 08:11; Admin Dose 10 MG; Start 10/16/16 at 09:00 Ibuprofen (Motrin) 800 mg Q6H PRN PO PAIN; Start 10/16/16 at 04:30; Status Future Hold Ibuprofen (Motrin) 600 mg Q6H PRN PO PAIN AND OR ELEVATED TEMP; Start 10/16/16 at 04:30; Status Future Hold Naproxen (Naprosyn) 500 mg BID PRN PO PAIN AND/OR INFLAMMATION; Start 10/16/16 at 04:30; Status Future Hold Tramadol HCl 50 mg 50 mg Q4 PRN PO PAIN Last administered on 10/16/16 09:27; Admin Dose 50 MG; Start 10/16/16 at 04:30 Cefepime HCl (Maxipime 1gm/50 ml (Pmx)) 50 ml @ 100 mls/hr Q12 IVPB Last administered on 10/19/16 08:09; Admin Dose 100 MLS/HR; Start 10/16/16 at 14:00 Miscellaneous Information 1 ea NOTE XX ; Start 10/16/16 at 14:30 Glucose (Glutose) 15 gm Q15M PRN PO DECREASED GLUCOSE; Start 10/16/16 at 14:30 Glucose (Glutose) 22.5 gm Q15M PRN PO DECREASED GLUCOSE; Start 10/16/16 at 14:30 Dextrose (D50w Syringe) 25 ml Q15M PRN IV DECREASED GLUCOSE; Start 10/16/16 at 14:30 Dextrose (D50w Syringe) 50 ml Q15M PRN IV DECREASED GLUCOSE; Start 10/16/16 at 14:30 Glucagon (Glucagen) 1 mg Q15M PRN IM DECREASED GLUCOSE; Start 10/16/16 at 14:30 Glucose (Glutose) 15 gm Q15M PRN BUCCAL DECREASED GLUCOSE; Start 10/16/16 at 14: 30 Acetaminophen/ Hydrocodone Bitart ([place] (5/325)) 1 tab Q3H PRN PO PAIN Last administered on 10/17/16 11:30; Admin Dose 1 TAB; Start 10/16/16 at 18:00 Lactobacillus Acidophilus/ Rhamnosus (Culturelle) 1 cap BID PO Last administered on 10/19/16 08:10; Admin Dose 1 CAP; Start 10/16/16 at 21:00 Docusate Sodium (Colace Liquid Cup) 100 mg HS PO Last administered on 20:34; Admin Dose 100 MG; Start 10/16/16 at 21:00 Famotidine 20 mg 20 mg DAILY PO Last administered on 10/19/16 08:10; Admin Dose 20 MG; Start 10/18/16 at 09:00 Vancomycin HCl/ Sodium Chloride (Vancocin/NS) 250 ml @ 83.333 mls/ hr Q12H IVPB Last administered on 10/19/16 17:47; Admin Dose 83.333 MLS/HR; Start 03/26 at 17:00 Enoxaparin Sodium (Lovenox) 40 mg DAILY SC Last administered on 10/19/16 08:13 ; Admin Dose 40 MG; Start 10/18/16 at 12:30 Miscellaneous Information (*Rx Drug Level Order Reminder*) VANCOMYCIN TROUGH AT 0400 ONCE ONCE XX ; Start 10/20/16 at 04:00; Stop 10/20/16 at 04:01 Morphine Sulfate (Ms Contin (Er)) 15 mg BID PO ; Start 10/19/16 at 21:00 MARIFER MORAN MD Oct 19, 2016 19:25
[2016-10-19] MEDS: morphine 2 MG INJ IV PRN (20:10)
[2016-10-19 20:27] VITALS: BP 140/79; RESP 19
[2016-10-19] MEDS: morphine (ER) 15 MG TAB PO SCH (21:11)
[2016-10-19] MEDS: DOCUSATE SODIUM 10 MG/ML (10ML CUP) PO SCH (21:12)
[2016-10-19] MEDS ORDERED: morphine 2 MG INJ IV ONE (23:30)
[2016-10-20] MEDS: morphine 2 MG INJ IV PRN ×3 (01:23→16:14)
[2016-10-20 03:59] LABS: ADD SCAN DIFF NO
[2016-10-20] MEDS: HYDROCODONE/APAP (5/325) TAB PO PRN ×4 (04:02→18:02)
[2016-10-20 04:15] LABS: ABNORMAL IP MESSAGE 1; BASOPHIL # 0.1 10^3/ul (0.0-0.1); BASOPHILS % 0.9 % (0.0-2.0); EOSINOPHILS # 0.2 10^3/ul (0.0-0.5); EOSINOPHILS % 1.6 % (0.0-7.0); HEMATOCRIT 41.5 % (42.0-52.0); HEMOGLOBIN 13.7 g/dl (14.0-18.0); LYMPHOCYTES # 2.7 10^3/ul (0.8-2.9); LYMPHOCYTES % 25.2 % (15.0-51.0); MEAN CORPUSCULAR HEMOGLOBIN 28.7 pg (29.0-33.0); MEAN PLATELET VOLUME 10.2 fl (7.4-10.4); MONOCYTE # 0.8 10^3/ul (0.3-0.9); MONOCYTES % 7.3 % (0.0-11.0); NEUTROPHIL # 6.4 10^3/ul (1.6-7.5); NEUTROPHILS % 59.7 % (39.0-77.0); NUCLEATED RED BLOOD CELLS # 0.1 10^3/ul (0.0-0.0); NUCLEATED RED BLOOD CELLS% 0.7 /100WBC (0.0-0.0); PLATELET COUNT 329 10^3/UL (140-415); RED BLOOD COUNT 4.77 10^6/ul (4.70-6.10); RED CELL DISTRIBUTION WIDTH 13.9 % (11.5-14.5); WHITE BLOOD COUNT 10.6 10^3/ul (4.8-10.8)
[2016-10-20 04:18] LABS: INR 0.97; PROTIME 12.9 Sec (12.2-14.2)
[2016-10-20 04:19] LABS: PARTIAL THROMBOPLASTIN TIME 29.9 Sec (25.0-35.0)
[2016-10-20 04:24] LABS: CREATININE 0.85 mg/dl (0.61-1.24); POTASSIUM 4.3 mmol/L (3.5-5.1)
[2016-10-20] MEDS: VANCOMYCIN 1.5 GM in SOD CHLORIDE 0.9% 250 ML IVPB SCH ×2 (06:43→18:01)
[2016-10-20] MEDS: INSULIN ASPART [NOVOLOG] 3 ML PEN SC SCH ×4 (08:00→21:00)
[2016-10-20] MEDS: morphine (ER) 15 MG TAB PO SCH ×2 (08:21→21:39)
[2016-10-20] MEDS: metFORMIN 500 MG TAB PO SCH ×2 (08:28→18:02)
[2016-10-20] MEDS: ALLOPURINOL 100 MG TAB PO SCH (08:31)
[2016-10-20] MEDS: CITALOPRAM 20 MG TAB PO SCH (08:31)
[2016-10-20] MEDS: LACTOBACILLUS RHAMNOSUS CAP PO SCH ×2 (08:31→21:39)
[2016-10-20] MEDS: AMITRIPTYLINE 25 MG TAB PO SCH (08:31)
[2016-10-20] MEDS: FAMOTIDINE 20 MG TAB PO SCH (08:31)
[2016-10-20] MEDS: ENOXAPARIN 40 MG/0.4 ML SYG SC SCH (08:32)
[2016-10-20] MEDS: AMLODIPINE 10 MG TAB PO SCH (09:00)
[2016-10-20] MEDS: CEFEPIME 1GM/50 ML (PMX) 50 ML IVPB SCH ×3 (09:00→21:39)
[2016-10-20] MEDS: GABAPENTIN 300 MG CAP PO SCH ×2 (13:11→21:39)
--- NOTE | 2016-10-20 13:41 | CONS ---
DATE OF ADMISSION: 10/15/2016 DATE OF CONSULTATION: 10/20/2016 TYPE OF CONSULTATION: Neurology. Thank you, Dr. Cassidy, for your kind referral for evaluation of generalized pain. HISTORY OF PRESENT ILLNESS: The patient is a 56-year-old gentleman with history of hypertension, di abetes, gout, stated that about a week or slightly more than a week when he got up at night to go to the bathroom, he tripped on some cables at home and fell, hitting both arms, one against the wall a nd another against the floor. Next day he noticed pain in the arms and neck and after a few days, h e developed severe back pain as well. He went to emergency room a couple of times for the pain cont rol. He had x-ray of the right wrist. No fractures, left humerus, left hand unremarkable, left fo rearm no fractures. Cervical spine CAT scan was done followed by MRI of the cervical spine which sh ows multilevel moderate to severe foraminal stenosis and mild spinal canal stenosis at C4-C5 through C6-C7. He had CAT scan of the head unremarkable. X-ray of the ankle on the left unremarkable. A venous ultrasound of upper extremities, no deep vein thrombosis. Chest x-ray, atelectasis. He came with leukocytosis and was found to possibly be septic, was complaining of a few days of fevers at h ome after the fall, no WBC count is 10.6, hemoglobin 13, hematocrit 41, normal platelets. LABORATORY DATA: Most recent labs show BUN 21, creatinine 0.85. Liver function tests from [facility] within normal limits. C-reactive protein 7.0. Normal PT, PTT. Urinalysis. MEDICATIONS: 1. [place]. 2. MS Contin. 3. Vancomycin. 4. Lovenox. 5. Pepcid. 6. Colace. 7. Insulin sliding scale. 8. Cefepime. 9. Allopurinol. 10. Elavil 25 mg. 11. Celexa. 12. Metformin. 13. Tramadol. His medications prior to admission: 1. Amlodipine. 2. Gemfibrozil. 3. Amitriptyline 25. 4. Citalopram. 5. [place]. 6. Motrin. 7. Ibuprofen. 8. Naprosyn. 9. Tramadol. 10. Omeprazole. 11. Metformin. 12. Allopurinol. ALLERGIES: NONE. SOCIAL HISTORY: Cigarette smoker. No alcohol or drug use. FAMILY HISTORY: Noncontributory. REVIEW OF SYSTEMS: The patient claims to have numbness in bilateral feet and hands. He thinks that his weakness in the extremities is secondary to pain. No bladder or bowel problems. PHYSICAL EXAMINATION: VITAL SIGNS: Temperature 98.7, 73 pulse, 19 respirations, 140/79 blood pressure. GENERAL: Not in acute distress, lying in bed. HEENT: Normocephalic, atraumatic head. NECK: No carotid bruits. No thyromegaly. LUNGS: Clear to auscultation bilaterally. CARDIAC: Normal cardiac rhythm and sounds. ABDOMEN: Soft, nontender. EXTREMITIES: No cyanosis, clubbing or edema. NEUROLOGIC: He is awake, alert, and oriented x3 with fluent speech. Cranial nerve examination show s intact visual fletcher bilaterally. Pupils reactive from 3 to 2 mm bilaterally. Extraocular moveme nts intact without nystagmus. Symmetrical face. Preserved facial strength and sensation. Tongue i s in midline. Palate elevates symmetrically. Motor strength examination is limited secondary to a great deal of give way and pain caused by even passive movements of extremities. He seems to be abl e to move symmetrically. He claims to have more pain in the left arm and left leg. He is able to h old his upper extremities against gravity, at least 3/5, maybe even better on the right because of l ess pain. Lower extremities 3/5 distally; was able to lift the knees bilaterally at least 3/5. He claims that it gets severe pain in the lower back. He did not let me move his lower extremities pas sively because of severe pain radiating to the lower back. Deep tendon reflexes 2+ upper extremities and knees, absent ankle jerks. Sensory examination shows diminution of perception of vibration and pinprick in bilateral hands and feet. Coordination seems to be preserved in upper extremities when he is reaching for objects. Again, he moves extremities v cheko slowly because of the pain. IMPRESSION: Status post fall, severe pain in bilateral upper and lower extremities as well as in th e lumbar and cervical spine. He told me that he could not move to the side. I did have chance to p alpate his lumbar spine, but at least cervical spine is very tender to palpation. I think he needs to continue symptomatic pain management. At least in cervical spine he has moderate to severe multi level degenerative disk changes and following the fall, with exacerbation of the pain and symptoms p robably it is similar to the lumbar spine. I do not see any imaging of the lumbar spine. I will re quest MRI of the lumbar spine. I do not know if pain management service is available in the [facility], but maybe it is a good idea to get pain consult. I will also add Neurontin to his medication reg imen and continue current treatment otherwise. Thank you very much for this interesting consultation. Dictated By: BIBI SNEED/DEVI Conf#: [id number] DID#: [id number]
--- NOTE | 2016-10-20 18:37 | RADRPT ---
PROCEDURE: MRI Lumbar Spine without contrast. CLINICAL INDICATION: 56-year-old male with sepsis, bilateral arm pain. The patient reports acute- on-chronic back pain. Evaluate for possible spinal stenosis. TECHNIQUE: An MRI of the lumbar spine was performed with multiple sequences in the sagittal and ax ial planes without contrast. Images reviewed on a high-resolution PACS system. COMPARISON: None available at the time of dictation. FINDINGS: There is desiccation of the intervertebral discs from L2-3 to L5-S1, with mild loss of disc-space he ight at L5-S1. There are associated mild discogenic endplate changes at this level. There is sugge stion of a trace amount of fluid in the disc-space, with mild edema in the adjacent L5 and S1 end pl ates. The vertebral body heights are maintained. The marrow signal is within normal limits. The a lignment of the lumbar spine is within normal limits. The conus medullaris is visible at the L1 le eli and appears grossly normal. The lumbar nerve roots are normal in appearance. The paraspinal sof t tissues are unremarkable. No significant paraspinal soft tissue swelling. L1-L2: There is a 2-3 mm right paracentral disc bulge protrusion. The central thecal sac is patent , measuring 10 mm in midline AP diameter. There is mild narrowing the right lateral recess. The le ft lateral recess is patent. The neural foramina are patent. L2-L3: There is a 1 mm annular disc bulge without significant indentation on the ventral thecal sac . The thecal sac and lateral recesses are patent. There is mild bilateral facet spondylosis. The neural foramina are patent. L3-L4: There is a 1 mm annular disc bulge without significant indentation on the ventral thecal sac . The thecal sac and lateral recesses are patent. There is mild bilateral facet spondylosis. The neural foramina are patent. L4-L5: There is a 2 mm annular disc bulge. The thecal sac and lateral recesses are patent. There is mild to moderate bilateral facet spondylosis. The neural foramina are patent. L5-S1: There is a trace amount of fluid in the disc-space (sagittal STIR image 8). There is a prom inent amount of T2 signal hyperintensity extending into the disc-space, which appears to be partiall y confined within the bulging disc (axial series image 74). However, on the axial images, T2 signal hyperintensity is seen extending within the epidural space inferior to the at this level (axial ser ies image 75-77), with suggestion of effacement of both lateral recesses. There is severe bilateral neural foraminal narrowing at this level. There is incomplete visualization of the left facet join t (axial series image 72), with T2 hyperintensity seen extending into the left paracentral/foraminal region. IMPRESSION: 1. Findings concerning for possible diskitis/osteomyelitis at L5-S1, with mild amount of fluid in t he L5-S1 disc-space and mild edema in the adjacent L5 and S1 end plates. There is T2 signal hyperin tensity extending into the epidural space, , extending superiorly and inferiorly within the thecal s ac. Given this constellation of findings, concern is raised for diskitis/osteomyelitis and MRI of t he lumbar spine with and without contrast is recommended for further evaluation. There is subsequent severe effacement of both lateral recesses, with impingement on the descending S1 nerve roots. 2. Small disc bulge at L2-3 without significant narrowing of the lumbar thecal sac or neural forami na. The above findings were discussed with Patient's Nurse Bettye by telephone on 10/20/2016 6:26:01 PM. RPTAT: HGAS .Eimr Rodriguez MD, Date Time Electronically viewed and signed by .Emir Rodriguez MD, on 10/20/2016 18:37 .S/
--- NOTE | 2016-10-20 18:39 | RADRPT ---
PROCEDURE: MR Thoracic Spine without contrast. CLINICAL INDICATION: 56-year-old male with thoracic spine pain. The patient has pain in the bilat eral upper extremities. TECHNIQUE: An MRI of the thoracic spine was performed without contrast utilizing multiple sequence s in the sagittal and axial planes. Images reviewed on a high-resolution PACS system.. COMPARISON: No prior studies are available for comparison. FINDINGS: The thoracic kyphosis is maintained. There is edema in the inferior T8 endplate, with suggestion of 10% vertebral body height loss, concerning for compression fracture. There is a trace amount of ed mario in the inferior T7 endplate, which may be related to a small subchondral endplate fracture. The remaining vertebral body heights are maintained. The marrow signal is within normal limits. The i ntervertebral discs are normal in signal and height. The thoracic spinal cord is normal in signal a nd caliber. No paravertebral fluid collection or mass is seen. The visualized portions of the ches t and upper abdomen are grossly unremarkable. On axial images, the posterior margin of the discs, th ecal sac and neural foramina are normal in appearance at all levels. IMPRESSION: 1. Probable acute/recent fracture involving the inferior T8 endplate with 10% anterior vertebral ac dy height loss and edema in the underlying endplate. 2. Subtle edema in the anterior aspect of the T7 inferior endplate, which may be related to a small subchondral fracture in this region without significant vertebral body height loss. 3. No significant degenerative disc disease. 4. The thoracic spinal cord is normal in signal and caliber. RPTAT: DD .Emir Rodriguez MD, Date Time Electronically viewed and signed by .Emir Rodriguez MD, on 10/20/2016 18:38 .S/
[2016-10-20 20:46] VITALS: BP 122/68; RESP 18
--- NOTE | 2016-10-20 21:27 | PN ---
Date/Time of Note Date/Time of Note DATE: 10/20/16 TIME: 21:24 Assessment/Plan VTE Prophylaxis VTE Prophylaxis Intervention: SCD's Lines/Catheters IV Catheter Type (from Nrsg): Saline Lock Urinary Cath still in place: No Assessment/Plan Assessment/Plan 1. Mechanical fall, 2. sepsis possibley due to OM of LS Spine - MRI showed diskitiis/OM of L5-S1 2. Cervical spine injury, Inability to extent UE, 3. Intractable back pain 3. Chr dm/htn 4. Tobacco abuse 5. anemia 6. chr gout 7. Leukocytosis; Plan: IV abx Cefepime and vancomycin for OM of LS spine SCD for DVT prophylaxis s/P Neurolgoy consult, pain management consutl has been requested will follow up ID consulted today Subjective 24 Hr Interval Summary Free Text/Dictation c/o back pain, on Pain control, still c/o intractable back pain, S/P Neuro consult, Exam/Review of Systems Vital Signs Vitals Vital Signs Date Time Temp Pulse Resp B/P Pulse Ox O2 Delivery O2 Flow Rate FiO2 10/20/16 20:46 97.3 78 18 122/68 97 10/16/16 14:21 Room Air Intake and Output 10/19/16 10/19/16 10/20/16 15:00 23:00 07:00 Intake Total 300 ml 1803 ml 480 ml Output Total 1500 ml 400 ml Balance 300 ml 303 ml 80 ml Results Result Diagram: 10/20/16 0357 10/20/16 0357 Results 24 hrs Laboratory Tests Test 10/20/16 03:57 10/20/16 08:30 10/20/16 12:33 10/20/16 17:51 White Blood Count 10.6 Red Blood Count 4.77 Hemoglobin 13.7 L Hematocrit 41.5 L Mean Corpuscular Volume 87.0 Mean Corpuscular Hemoglobin 28.7 L Mean Corpuscular Hemoglobin Concent 33.0 Red Cell Distribution Width 13.9 Platelet Count 329 Mean Platelet Volume 10.2 Neutrophils % 59.7 Lymphocytes % 25.2 Monocytes % 7.3 Eosinophils % 1.6 Basophils % 0.9 Nucleated Red Blood Cells % 0.7 H Neutrophils # 6.4 Lymphocytes # 2.7 Monocytes # 0.8 Eosinophils # 0.2 Basophils # 0.1 Nucleated Red Blood Cells # 0.1 H Prothrombin Time 12.9 Prothrombin Time Ratio 1.0 INR International Normalized Ratio 0.97 Activated Partial Thromboplast Time 29.9 Sodium Level 137 Potassium Level 4.3 Chloride Level 104 Carbon Dioxide Level 26 Anion Gap 11 Blood Urea Nitrogen 21 H Creatinine 0.85 Glucose Level 95 Calcium Level 9.0 Vancomycin Level Trough 11.5 Bedside Glucose 83 89 95 Medications Medications Current Medications Ondansetron HCl (Zofran Inj) 4 mg Q6H PRN IV NAUSEA AND/OR VOMITING; Start 10/16 at 04:30 Acetaminophen (Tylenol Tab) 650 mg Q6H PRN PO PAIN LEVEL 1-3 OR FEVER; Start at 04:30 Morphine Sulfate (morphine) 2 mg Q4H PRN IV SEVERE PAIN LEVEL 7-10 Last administered on 10/20/16 16:14; Admin Dose 2 MG; Start 10/16/16 at 04:30 Allopurinol (Zyloprim) 100 mg DAILY PO Last administered on 10/20/16 08:31; Admin Dose 100 MG; Start 10/16/16 at 09:00 Amitriptyline HCl (Elavil) 25 mg DAILY PO Last administered on 10/20/16 08:31 ; Admin Dose 25 MG; Start 10/16/16 at 09:00 Amlodipine Besylate (Norvasc) 10 mg DAILY PO Last administered on 10/19/16 08: 12; Admin Dose 10 MG; Start 10/16/16 at 09:00 Citalopram Hydrobromide (Celexa) 10 mg DAILY PO Last administered on 10/20/16 08:31; Admin Dose 10 MG; Start 10/16/16 at 09:00 Ibuprofen (Motrin) 800 mg Q6H PRN PO PAIN; Start 10/16/16 at 04:30; Status Future Hold Ibuprofen (Motrin) 600 mg Q6H PRN PO PAIN AND OR ELEVATED TEMP; Start 10/16/16 at 04:30; Status Future Hold Naproxen (Naprosyn) 500 mg BID PRN PO PAIN AND/OR INFLAMMATION; Start 10/16/16 at 04:30; Status Future Hold Tramadol HCl 50 mg 50 mg Q4 PRN PO PAIN Last administered on 10/16/16 09:27; Admin Dose 50 MG; Start 10/16/16 at 04:30 Cefepime HCl (Maxipime 1gm/50 ml (Pmx)) 50 ml @ 100 mls/hr Q12 IVPB Last administered on 10/20/16 15:50; Admin Dose 100 MLS/HR; Start 10/16/16 at 14:00 Miscellaneous Information 1 ea NOTE XX ; Start 10/16/16 at 14:30 Glucose (Glutose) 15 gm Q15M PRN PO DECREASED GLUCOSE; Start 10/16/16 at 14:30 Glucose (Glutose) 22.5 gm Q15M PRN PO DECREASED GLUCOSE; Start 10/16/16 at 14:30 Dextrose (D50w Syringe) 25 ml Q15M PRN IV DECREASED GLUCOSE; Start 10/16/16 at 14:30 Dextrose (D50w Syringe) 50 ml Q15M PRN IV DECREASED GLUCOSE; Start 10/16/16 at 14:30 Glucagon (Glucagen) 1 mg Q15M PRN IM DECREASED GLUCOSE; Start 10/16/16 at 14:30 Glucose (Glutose) 15 gm Q15M PRN BUCCAL DECREASED GLUCOSE; Start 10/16/16 at 14: 30 Lactobacillus Acidophilus/ Rhamnosus (Culturelle) 1 cap BID PO Last administered on 10/20/16 08:31; Admin Dose 1 CAP; Start 10/16/16 at 21:00 Docusate Sodium (Colace Liquid Cup) 100 mg HS PO Last administered on 21:12; Admin Dose 100 MG; Start 10/16/16 at 21:00 Famotidine 20 mg 20 mg DAILY PO Last administered on 10/20/16 08:31; Admin Dose 20 MG; Start 10/18/16 at 09:00 Vancomycin HCl/ Sodium Chloride (Vancocin/NS) 250 ml @ 83.333 mls/ hr Q12H IVPB Last administered on 10/20/16 18:01; Admin Dose 83.333 MLS/HR; Start 03/26 at 17:00 Enoxaparin Sodium (Lovenox) 40 mg DAILY SC Last administered on 10/20/16 08:32 ; Admin Dose 40 MG; Start 10/18/16 at 12:30 Morphine Sulfate (Ms Contin (Er)) 15 mg BID PO Last administered on 10/20/16 08:21; Admin Dose 15 MG; Start 10/19/16 at 21:00 Acetaminophen/ Hydrocodone Bitart ([place] (5/325)) 1 tab Q4H PRN PO PAIN Last administered on 10/20/16 18:02; Admin Dose 1 TAB; Start 10/19/16 at 22:00 Gabapentin (Neurontin) 300 mg TID PO Last administered on 10/20/16 13:11; Admin Dose 300 MG; Start 10/20/16 at 13:00 MARIFER MORAN MD Oct 20, 2016 21:27
[2016-10-20] MEDS: DOCUSATE SODIUM 10 MG/ML (10ML CUP) PO SCH (21:39)
[2016-10-20] MEDS ORDERED: HYDROmorphONE 1 MG/ML SYG IV PRN (22:00)
[2016-10-20] MEDS: ACETAMINOPHEN 1000MG/100ML IV 100 ML IVPB SCH (23:14)
[2016-10-21] MEDS: ACETAMINOPHEN 1000MG/100ML IV 100 ML IVPB SCH ×4 (04:08→21:53)
[2016-10-21] MEDS: VANCOMYCIN 1.5 GM in SOD CHLORIDE 0.9% 250 ML IVPB SCH (04:51)
[2016-10-21 07:48] VITALS: BP 122/72; RESP 18
[2016-10-21] MEDS: INSULIN ASPART [NOVOLOG] 3 ML PEN SC SCH ×4 (08:00→21:00)
[2016-10-21] MEDS: metFORMIN 500 MG TAB PO SCH ×2 (09:27→17:13)
[2016-10-21] MEDS: CEFEPIME 1GM/50 ML (PMX) 50 ML IVPB SCH ×2 (09:28→21:10)
[2016-10-21] MEDS: CITALOPRAM 20 MG TAB PO SCH (09:29)
[2016-10-21] MEDS: morphine (ER) 15 MG TAB PO SCH (09:30)
[2016-10-21] MEDS: LACTOBACILLUS RHAMNOSUS CAP PO SCH ×2 (09:30→21:10)
[2016-10-21] MEDS: GABAPENTIN 300 MG CAP PO SCH ×3 (09:30→21:10)
[2016-10-21] MEDS: AMITRIPTYLINE 25 MG TAB PO SCH (09:30)
[2016-10-21] MEDS: AMLODIPINE 10 MG TAB PO SCH (09:31)
[2016-10-21] MEDS: FAMOTIDINE 20 MG TAB PO SCH (09:31)
[2016-10-21] MEDS: ALLOPURINOL 100 MG TAB PO SCH (09:31)
[2016-10-21] MEDS: ENOXAPARIN 40 MG/0.4 ML SYG SC SCH (09:32)
--- NOTE | 2016-10-21 11:01 | CONS ---
Date/Time of Note Date/Time of Note DATE: 10/21/16 TIME: 10:44 Assessment/Plan Assessment/Plan Additional Assessment/Plan Mechanical fall Bilateral upper extremity edema erythema Bilateral upper upper extremity limited range of motion Back pain History of hypertension History of diabetes Acute pain syndrome secondary to the above Suggest change to Dilaudid IV as needed and Tylenol IV schedule, avoid long- acting pain control per recent changed recommendations Based upon MRI findings suggestive of osteo-myelitis and discitis would suggest holding physical therapy Consultation Date/Type/Reason Admit Date/Time Type of Consultation: Pain Management Hx of Present Illness This is a 56-year-old gentleman who had a mechanical fall approximately 1 week prior to this presentation. States that he had hyperextended his arms to about avoid a direct blow to his head went back to bed and woke up the next morning with severe discomfort in bilateral upper extremities. Denies nausea vomiting dizziness diplopia disorientation post fall. States pain is a gnawing type discomfort he is unable to move bilateral upper extremity without severe pain he did not take any pain medication at home prescribed except for ibuprofen which did not make a major difference. Here is being treated with morphine gabapentin [place] and tramadol states that his pain is on somewhat better control with the above regimen. Post IV dose of morphine and pain goes down to approximately 7's pain has been increasing over the last week prior to his presentation. It is significantly inferior with his physical functioning his family relationship is moving sleeping patterns overall functioning has been extremely poor secondary to above. Denies mental cloudiness fatigue drowsiness. There is no history of alcohol or drug addiction prior to his presentation or history of propofol for sedation with any controlled substances. He did not appear intoxicated on presentation in unkempt, impaired and is not asked for early renewals of his pain control medication. He does not insist on certain medications by name there is no history of drug use prior to his presentation or arrests. Patient denies any side effects associated with his current pain control medications but he states it does not control his pain nor does it last long enough, that includes all of the pain medications listed as above. Patient did not attempt to use any alternative forms of pain management . Past Medical History Medical History: diabetes, hypertension, other (Gout) Past Surgical History Past Surgical Hx: no surgical history Family History Significant Family History: no pertinent family hx Social History Alcohol Use: none Smoking Status: Never smoker Drug Use: none Exam/Review of Systems Vital Signs Vitals Vital Signs Date Time Temp Pulse Resp B/P Pulse Ox O2 Delivery O2 Flow Rate FiO2 10/21/16 07:48 98.1 67 18 122/72 93 Intake and Output 10/20/16 10/20/16 10/21/16 15:00 23:00 07:00 Intake Total 50 ml 950 ml 700 ml Output Total 650 ml 1200 ml Balance 50 ml 300 ml -500 ml Exam Constitutional: alert, oriented, well developed, No distress, No frail, No non-verbal, No obese, No other Psych: anxiety Head: atraumatic, normocephalic Eyes: EOMI, PERRL, nl conjunctiva, nl lids, nl sclera Neck: non-tender, supple Respiratory: clear to auscultation, normal air movement, No congested cough, No crackles/rales, No diminished breath sounds, No intercostal retraction, No labored breathing, No other, No respirations, No tactile fremitus, No wheezing Cardiovascular: nl pulses, regular rate and rhythm, No S3, No S4, No bruits, No diastolic murmur, No edema, No gallop, No irregular rhythm, No jugular venous distention (JVD), No murmurs/extra sounds, No other, No rub, No systolic murmur Gastrointestinal: nl liver, spleen, non-tender, soft Musculoskeletal: joint tenderness, muscle weakness, other (Bilaterl forearm tenderness and circumrferential edema ROM grossly intact with difficulty.), range of motion Lymph: No enlarged, No nl lymph nodes, No nontender, No other Results Result Diagram: 10/20/16 0357 10/20/16 0357 Results 24 hrs Laboratory Tests Test 10/20/16 12:33 10/20/16 17:51 10/20/16 21:43 10/21/16 08:06 Bedside Glucose 89 95 103 91 Medications Medications Current Medications Ondansetron HCl (Zofran Inj) 4 mg Q6H PRN IV NAUSEA AND/OR VOMITING; Start 10/16 at 04:30 Acetaminophen (Tylenol Tab) 650 mg Q6H PRN PO PAIN LEVEL 1-3 OR FEVER Last administered on 10/21/16t 06:34; Admin Dose 650 MG; Start 10/16/16 at 04:30 Allopurinol (Zyloprim) 100 mg DAILY PO Last administered on 10/21/16 09:31; Admin Dose 100 MG; Start 10/16/16 at 09:00 Amitriptyline HCl (Elavil) 25 mg DAILY PO Last administered on 10/21/16 09:30 ; Admin Dose 25 MG; Start 10/16/16 at 09:00 Amlodipine Besylate (Norvasc) 10 mg DAILY PO Last administered on 10/21/16 09: 31; Admin Dose 10 MG; Start 10/16/16 at 09:00 Citalopram Hydrobromide (Celexa) 10 mg DAILY PO Last administered on 10/21/16 09:29; Admin Dose 10 MG; Start 10/16/16 at 09:00 Ibuprofen (Motrin) 800 mg Q6H PRN PO PAIN; Start 10/16/16 at 04:30; Status Future Hold Naproxen 500 mg 500 mg BID PRN PO PAIN AND/OR INFLAMMATION; Start 10/16/16 at 04 :30; Status Future Hold Cefepime HCl (Maxipime 1gm/50 ml (Pmx)) 50 ml @ 100 mls/hr Q12 IVPB Last administered on 10/21/16 09:28; Admin Dose 100 MLS/HR; Start 10/16/16 at 14:00 Miscellaneous Information 1 ea NOTE XX ; Start 10/16/16 at 14:30 Glucose (Glutose) 15 gm Q15M PRN PO DECREASED GLUCOSE; Start 10/16/16 at 14:30 Glucose (Glutose) 22.5 gm Q15M PRN PO DECREASED GLUCOSE; Start 10/16/16 at 14:30 Dextrose (D50w Syringe) 25 ml Q15M PRN IV DECREASED GLUCOSE; Start 10/16/16 at 14:30 Dextrose (D50w Syringe) 50 ml Q15M PRN IV DECREASED GLUCOSE; Start 10/16/16 at 14:30 Glucagon (Glucagen) 1 mg Q15M PRN IM DECREASED GLUCOSE; Start 10/16/16 at 14:30 Glucose (Glutose) 15 gm Q15M PRN BUCCAL DECREASED GLUCOSE; Start 10/16/16 at 14: 30 Lactobacillus Acidophilus/ Rhamnosus (Culturelle) 1 cap BID PO Last administered on 10/21/16 09:30; Admin Dose 1 CAP; Start 10/16/16 at 21:00 Docusate Sodium (Colace Liquid Cup) 100 mg HS PO Last administered on 21:39; Admin Dose 100 MG; Start 10/16/16 at 21:00 Famotidine 20 mg 20 mg DAILY PO Last administered on 10/21/16 09:31; Admin Dose 20 MG; Start 10/18/16 at 09:00 Vancomycin HCl/ Sodium Chloride (Vancocin/NS) 250 ml @ 83.333 mls/ hr Q12H IVPB Last administered on 10/21/16 04:51; Admin Dose 83.333 MLS/HR; Start 03/26 at 17:00 Enoxaparin Sodium (Lovenox) 40 mg DAILY SC Last administered on 10/21/16 09:32 ; Admin Dose 40 MG; Start 10/18/16 at 12:30 Morphine Sulfate (Ms Contin (Er)) 15 mg BID PO Last administered on 10/21/16 09:30; Admin Dose 15 MG; Start 10/19/16 at 21:00 Gabapentin (Neurontin) 300 mg TID PO Last administered on 10/21/16 09:30; Admin Dose 300 MG; Start 10/20/16 at 13:00 Hydromorphone HCl 1 mg 1 mg Q4H PRN IV PAIN Last administered on 10/21/16 02: 09; Admin Dose 1 MG; Start 10/20/16 at 22:00 Acetaminophen (Ofirmev 1000mg/ 100ml Iv) 100 ml @ 400 mls/hr Q6H IVPB Last administered on 10/21/16 10:09; Admin Dose 400 MLS/HR; Start 10/20/16 at 22:00 RAMIN MONTERROSO Oct 21, 2016 10:55
--- NOTE | 2016-10-21 13:01 | CONS ---
DATE OF ADMISSION: 10/15/2016 DATE OF CONSULTATION: 10/20/2016 TYPE OF CONSULTATION: Infectious Disease. REASON FOR CONSULTATION: Antibiotic management. HISTORY OF PRESENT ILLNESS: Abel Bhat is a 56-year-old male who comes in with celluli tis of bilateral upper extremities. His past problems include: 1. Hypertension. 2. Adult-onset diabetes mellitus. 3. Gout. Acutely, the patient presented with bilateral upper extremity and left ankle swelling and pain. He was going to the bathroom in his house in the dark when he tripped over a cable on the floor and sylvie ded with his arms onto a wall. He was seen in the emergency room a few days ago and x-rays were don e, but no fractures were seen. Now, his forearms are worse to touch, left arm is slightly worse luis n right. PAST MEDICAL HISTORY: Operations as outlined. FAMILY HISTORY: Noncontributory. SOCIAL HISTORY: He smokes every day. He does not drink or abuse drugs. ALLERGIES: NONE TO PENICILLIN, SULFA OR FOODS. MEDICATIONS: Per chart. REVIEW OF SYSTEMS: As per HPI. PHYSICAL EXAMINATION: GENERAL: The patient is a well-developed, well-nourished male who is alert, responsive, in no acute distress. VITAL SIGNS: Stable. He is afebrile. SKIN: Without generalized rash. HEENT: Within normal limits. NECK: Supple. LYMPH NODES: None palpable. CHEST: Decreased breath sounds at the bases. HEART: Without murmur or gallop. ABDOMEN: Soft, nontender, without organosplenomegaly or masses. EXTREMITIES: Bilateral forearm and hand swelling and pain with warmth to the touch. RECTAL AND GENITAL: Deferred. NEUROLOGIC: No focal neurological abnormalities. ANCILLARY LABORATORY DATA: White count 14.3, H and H 11.8 and 35.5, platelet count 223,000. BUN an d creatinine 10/0.82. The patient had blood cultures which were negative x2 and urine cultures which were negative. His w june count is as noted. Urine is negative for nitrite and leukocyte esterase. IMPRESSION AND PLAN: The patient was begun on vancomycin and cefepime. We will continue him on thi s regimen for the time being. Of interest is the fact that he has an MRI of the lumbar spine which shows findings consistent with possible diskitis, osteomyelitis at L5 to S1 and a mild amount of flu id in the L5 to S1 disk space, mild edema in the adjacent L5 to S1 endplate. There is T2 signal hyp erintensity extending into the epidural space, extending superiorly and inferiorly within the thecal sac. There is concern for diskitis and MRI of the lumbar spine with and without contrast is recomm ended for further evaluation. There is subsequent severe effacement of both lateral recesses with i mpingement of the descending S1 nerve roots. Small disk bulge at L2 to L3 without significant narro wing of the lumbar thecal sac or neural foramina. On the thoracic spine, there is probable acute re cent fracture involving the inferior T8 endplates with 10% anterior vertebral body height loss and e sp of the underlying endplate. Subtle edema of the anterior aspect of T7 endplate. No significan t degenerative disk disease. Thoracic spinal cord is normal in signal and caliber. Shoulder x-ray shows osteoarthritis. Cervical MRI, straightening of the normal cervical lordosis. There is a smal l erosion at the distal end of the left clavicle on an x-ray of the left shoulder. Chest x-ray show s mild left lower lobe subsegmental atelectasis. So, in conclusion, the patient may have osteomyeli tis of L5 to S1. He should be seen by interventional radiology and possibly also by neurosurgery or orthopedics. I will dictate my findings to the hospitalist and to the consultants Dr. Fortino carrillo, neurology, Dr. Gardner and Dr. Sami Cassidy. Dictated By: FERNANDO VELAZQUEZ MD, JD/DEVI Conf#: [id number] DID#: [id number]
[2016-10-21] MEDS: VANCOMYCIN 1 GM (PMX) 250 ML IVPB SCH ×2 (14:41→22:09)
--- NOTE | 2016-10-21 18:15 | PN ---
Date/Time of Note Date/Time of Note DATE: 10/21/16 TIME: 18:11 Assessment/Plan VTE Prophylaxis VTE Prophylaxis Intervention: SCD's Lines/Catheters IV Catheter Type (from Nrsg): Saline Lock Urinary Cath still in place: No Assessment/Plan Assessment/Plan 1. Mechanical fall, 2. sepsis possibley due to OM of LS Spine - MRI showed diskitiis/OM of L5-S1 2. Cervical spine injury, Inability to extent UE, 3. Intractable back pain 3. Chr dm/htn 4. Tobacco abuse 5. anemia 6. chr gout 7. Leukocytosis; Plan: IV abx Cefepime and vancomycin for OM of LS spine ID, Neuro following, pt had a Neurosurgery consultation done by on - no surgical intervetion as per ID- pt need CT guided biopsy of L5-S1 to send it for culture and to guide therapy will follow up ID following Apprecaite help Subjective 24 Hr Interval Summary Free Text/Dictation MRI showed L5-S1 diskiits, OM, s/p neurosurgery evaluation on 10/18/16 Exam/Review of Systems Vital Signs Vitals Vital Signs Date Time Temp Pulse Resp B/P Pulse Ox O2 Delivery O2 Flow Rate FiO2 10/21/16 07:48 98.1 67 18 122/72 93 Intake and Output 10/20/16 10/20/16 10/21/16 15:00 23:00 07:00 Intake Total 50 ml 950 ml 700 ml Output Total 650 ml 1200 ml Balance 50 ml 300 ml -500 ml Exam GENERAL: The patient is a well-developed, well-nourished male who is alert, responsive, in no acute distress. SKIN: Without generalized rash. HEENT: Within normal limits. NECK: Supple. LYMPH NODES: None palpable. CHEST: Decreased breath sounds at the bases. HEART: Without murmur or gallop. ABDOMEN: Soft, nontender, without organosplenomegaly or masses. EXTREMITIES: Bilateral forearm and hand swelling and pain with warmth to the touch. RECTAL AND GENITAL: Deferred. NEUROLOGIC: No focal neurological abnormalities. Results Result Diagram: 10/20/16 0357 10/20/16 0357 Results 24 hrs Laboratory Tests Test 10/20/16 21:43 10/21/16 08:06 10/21/16 12:06 10/21/16 17:11 Bedside Glucose 103 91 104 100 Medications Medications Current Medications Ondansetron HCl (Zofran Inj) 4 mg Q6H PRN IV NAUSEA AND/OR VOMITING; Start 10/16 at 04:30 Acetaminophen (Tylenol Tab) 650 mg Q6H PRN PO PAIN LEVEL 1-3 OR FEVER Last administered on 10/21/16 06:34; Admin Dose 650 MG; Start 10/16/16 at 04:30 Allopurinol (Zyloprim) 100 mg DAILY PO Last administered on 10/21/16 09:31; Admin Dose 100 MG; Start 10/16/16 at 09:00 Amitriptyline HCl (Elavil) 25 mg DAILY PO Last administered on 10/21/16 09:30 ; Admin Dose 25 MG; Start 10/16/16 at 09:00 Amlodipine Besylate (Norvasc) 10 mg DAILY PO Last administered on 10/21/16 09: 31; Admin Dose 10 MG; Start 10/16/16 at 09:00 Citalopram Hydrobromide (Celexa) 10 mg DAILY PO Last administered on 10/21/16 09:29; Admin Dose 10 MG; Start 10/16/16 at 09:00 Ibuprofen (Motrin) 800 mg Q6H PRN PO PAIN; Start 10/16/16 at 04:30; Status Future Hold Naproxen 500 mg 500 mg BID PRN PO PAIN AND/OR INFLAMMATION; Start 10/16/16 at 04 :30; Status Future Hold Cefepime HCl (Maxipime 1gm/50 ml (Pmx)) 50 ml @ 100 mls/hr Q12 IVPB Last administered on 10/21/16 09:28; Admin Dose 100 MLS/HR; Start 10/16/16 at 14:00 Miscellaneous Information 1 ea NOTE XX ; Start 10/16/16 at 14:30 Glucose (Glutose) 15 gm Q15M PRN PO DECREASED GLUCOSE; Start 10/16/16 at 14:30 Glucose (Glutose) 22.5 gm Q15M PRN PO DECREASED GLUCOSE; Start 10/16/16 at 14:30 Dextrose (D50w Syringe) 25 ml Q15M PRN IV DECREASED GLUCOSE; Start 10/16/16 at 14:30 Dextrose (D50w Syringe) 50 ml Q15M PRN IV DECREASED GLUCOSE; Start 10/16/16 at 14:30 Glucagon (Glucagen) 1 mg Q15M PRN IM DECREASED GLUCOSE; Start 10/16/16 at 14:30 Glucose (Glutose) 15 gm Q15M PRN BUCCAL DECREASED GLUCOSE; Start 10/16/16 at 14: 30 Lactobacillus Acidophilus/ Rhamnosus (Culturelle) 1 cap BID PO Last administered on 10/21/16 09:30; Admin Dose 1 CAP; Start 10/16/16 at 21:00 Docusate Sodium (Colace Liquid Cup) 100 mg HS PO Last administered on 21:39; Admin Dose 100 MG; Start 10/16/16 at 21:00 Famotidine (Pepcid) 20 mg DAILY PO Last administered on 10/21/16 09:31; Admin Dose 20 MG; Start 10/18/16 at 09:00 Enoxaparin Sodium (Lovenox) 40 mg DAILY SC Last administered on 10/21/16 09:32 ; Admin Dose 40 MG; Start 10/18/16 at 12:30 Gabapentin 300 mg 300 mg TID PO Last administered on 10/21/16 12:05; Admin Dose 300 MG; Start 10/20/16 at 13:00 Acetaminophen (Ofirmev 1000mg/ 100ml Iv) 100 ml @ 400 mls/hr Q6H IVPB Last administered on 10/21/16 17:02; Admin Dose 400 MLS/HR; Start 10/20/16 at 22:00 Morphine Sulfate (Ms Contin (Er)) 15 mg QAM PO ; Start 10/22/16 at 09:00 Hydromorphone HCl 2 mg 2 mg Q4H PRN PO PAIN; Start 10/21/16 at 11:30 Vancomycin HCl (Vancocin) 250 ml @ 125 mls/hr Q8H IVPB Last administered on 14:41; Admin Dose 125 MLS/HR; Start 10/21/16 at 14:00 Miscellaneous Information (*Rx Drug Level Order Reminder*) VANCO TROUGH @ 13,:00 ONCE ONCE XX ; Start 10/22/16 at 13:00; Stop 10/22/16 at 13:01 MARIFER MORAN MD Oct 21, 2016 18:15
--- NOTE | 2016-10-21 20:09 | CONS ---
Date/Time of Note Date/Time of Note DATE: 10/21/16 TIME: 20:06 Consult Date/Type/Reason Admit Date/Time Oct 15, 2016 at 22:06 Initial Consult Date Type of Consultation: neurology Subjective no acute events. Still in pain Objective Vital Signs Date Time Temp Pulse Resp B/P Pulse Ox O2 Delivery O2 Flow Rate FiO2 10/21/16 07:48 98.1 67 18 122/72 93 Intake and Output 10/20/16 10/20/16 10/21/16 15:00 23:00 07:00 Intake Total 50 ml 950 ml 700 ml Output Total 650 ml 1200 ml Balance 50 ml 300 ml -500 ml Results/Medications Result Diagram: 10/20/16 0357 10/20/16 0357 Results 24 hrs Laboratory Tests Test 10/20/16 21:43 10/21/16 08:06 10/21/16 12:06 10/21/16 17:11 Bedside Glucose 103 91 104 100 Medications Current Medications Ondansetron HCl (Zofran Inj) 4 mg Q6H PRN IV NAUSEA AND/OR VOMITING; Start 10/16 at 04:30 Acetaminophen (Tylenol Tab) 650 mg Q6H PRN PO PAIN LEVEL 1-3 OR FEVER Last administered on 10/21/16 06:34; Admin Dose 650 MG; Start 10/16/16 at 04:30 Allopurinol (Zyloprim) 100 mg DAILY PO Last administered on 10/21/16 09:31; Admin Dose 100 MG; Start 10/16/16 at 09:00 Amitriptyline HCl (Elavil) 25 mg DAILY PO Last administered on 10/21/16 09:30 ; Admin Dose 25 MG; Start 10/16/16 at 09:00 Amlodipine Besylate (Norvasc) 10 mg DAILY PO Last administered on 10/21/16 09: 31; Admin Dose 10 MG; Start 10/16/16 at 09:00 Citalopram Hydrobromide (Celexa) 10 mg DAILY PO Last administered on 10/21/16 09:29; Admin Dose 10 MG; Start 10/16/16 at 09:00 Ibuprofen (Motrin) 800 mg Q6H PRN PO PAIN; Start 10/16/16 at 04:30; Status Future Hold Naproxen 500 mg 500 mg BID PRN PO PAIN AND/OR INFLAMMATION; Start 10/16/16 at 04 :30; Status Future Hold Cefepime HCl (Maxipime 1gm/50 ml (Pmx)) 50 ml @ 100 mls/hr Q12 IVPB Last administered on 10/21/16 09:28; Admin Dose 100 MLS/HR; Start 10/16/16 at 14:00 Miscellaneous Information 1 ea NOTE XX ; Start 10/16/16 at 14:30 Glucose (Glutose) 15 gm Q15M PRN PO DECREASED GLUCOSE; Start 10/16/16 at 14:30 Glucose (Glutose) 22.5 gm Q15M PRN PO DECREASED GLUCOSE; Start 10/16/16 at 14:30 Dextrose (D50w Syringe) 25 ml Q15M PRN IV DECREASED GLUCOSE; Start 10/16/16 at 14:30 Dextrose (D50w Syringe) 50 ml Q15M PRN IV DECREASED GLUCOSE; Start 10/16/16 at 14:30 Glucagon (Glucagen) 1 mg Q15M PRN IM DECREASED GLUCOSE; Start 10/16/16 at 14:30 Glucose (Glutose) 15 gm Q15M PRN BUCCAL DECREASED GLUCOSE; Start 10/16/16 at 14: 30 Lactobacillus Acidophilus/ Rhamnosus (Culturelle) 1 cap BID PO Last administered on 10/21/16 09:30; Admin Dose 1 CAP; Start 10/16/16 at 21:00 Docusate Sodium (Colace Liquid Cup) 100 mg HS PO Last administered on 21:39; Admin Dose 100 MG; Start 10/16/16 at 21:00 Famotidine (Pepcid) 20 mg DAILY PO Last administered on 10/21/16 09:31; Admin Dose 20 MG; Start 10/18/16 at 09:00 Enoxaparin Sodium (Lovenox) 40 mg DAILY SC Last administered on 10/21/16 09:32 ; Admin Dose 40 MG; Start 10/18/16 at 12:30 Gabapentin 300 mg 300 mg TID PO Last administered on 10/21/16 12:05; Admin Dose 300 MG; Start 10/20/16 at 13:00 Acetaminophen (Ofirmev 1000mg/ 100ml Iv) 100 ml @ 400 mls/hr Q6H IVPB Last administered on 6/14/17at 17:02; Admin Dose 400 MLS/HR; Start 10/20/16 at 22:00 Morphine Sulfate (Ms Contin (Er)) 15 mg QAM PO ; Start 10/22/16 at 09:00 Hydromorphone HCl 2 mg 2 mg Q4H PRN PO PAIN; Start 10/21/16 at 11:30 Vancomycin HCl (Vancocin) 250 ml @ 125 mls/hr Q8H IVPB Last administered on t 14:41; Admin Dose 125 MLS/HR; Start 10/21/16 at 14:00 Miscellaneous Information (*Rx Drug Level Order Reminder*) VANCO TROUGH @ 13,:00 ONCE ONCE XX ; Start 10/22/16 at 13:00; Stop 10/22/16 at 13:01 Magnesium Citrate (Citroma) 300 ml NOW ONCE PO ; Start 10/21/16 at 20:00; Stop 10/21/16 at 20:01; Status UNV Polyethylene Glycol (Miralax) 17 gm DAILY PO ; Start 10/22/16 at 09:00; Status UNV Assessment/Plan Chief Complaint/Hosp Course PHYSICAL EXAMINATION: VITAL SIGNS: Temperature 98.7, 73 pulse, 19 respirations, 140/79 blood pressure. GENERAL: Not in acute distress, lying in bed. HEENT: Normocephalic, atraumatic head. NECK: No carotid bruits. No thyromegaly. LUNGS: Clear to auscultation bilaterally. CARDIAC: Normal cardiac rhythm and sounds. ABDOMEN: Soft, nontender. EXTREMITIES: No cyanosis, clubbing or edema. NEUROLOGIC: He is awake, alert, and oriented x3 with fluent speech. Cranial nerve examination shows intact visual fletcher bilaterally. Pupils reactive from 3 to 2 mm bilaterally. Extraocular movements intact without nystagmus. Symmetrical face. Preserved facial strength and sensation. Tongue is in midline. Palate elevates symmetrically. Motor strength examination is limited secondary to a great deal of give way and pain caused by even passive movements of extremities. He seems to be able to move symmetrically. He claims to have more pain in the left arm and left leg. He is able to hold his upper extremities against gravity, at least 3/5, maybe even better on the right because of less pain. Lower extremities 3/5 distally; was able to lift the knees bilaterally at least 3/5. He claims that it gets severe pain in the lower back. He did not let me move his lower extremities passively because of severe pain radiating to the lower back. He moves extremities very slowly because of the pain. Deep tendon reflexes 2+ upper extremities and knees, absent ankle jerks. Sensory examination shows diminution of perception of vibration and pinprick in bilateral hands and feet. Coordination seems to be preserved in upper extremities when he is reaching for objects. IMPRESSION: Status post fall, severe pain in bilateral upper and lower extremities as well as in the whole spine. MRI L-S spine possible discitis?, contrast study pending. MRI T-spine fracture, no mass effect. Severe degenerative disc disease in the C-spine. ID and pain management on case. Continue current tx Problems: BIBI PRATT MD Oct 21, 2016 20:09
[2016-10-21] MEDS: DOCUSATE SODIUM 10 MG/ML (10ML CUP) PO SCH (21:10)
[2016-10-21 21:16] VITALS: BP 127/69; RESP 18
[2016-10-21] MEDS ORDERED: MAGNESIUM CITRATE 300 ML BTL PO ONE (21:30)
[2016-10-22] MEDS: ACETAMINOPHEN 1000MG/100ML IV 100 ML IVPB SCH ×4 (03:54→22:41)
[2016-10-22] MEDS: VANCOMYCIN 1 GM (PMX) 250 ML IVPB SCH ×2 (06:09→15:22)
[2016-10-22] MEDS: HYDROmorphONE 2 MG TAB PO PRN ×4 (06:16→21:23)
[2016-10-22 07:17] LABS: ADD SCAN DIFF NO
[2016-10-22 07:21] LABS: ABNORMAL IP MESSAGE 1; BASOPHILS % 0.4 % (0.0-2.0); EOSINOPHILS # 0.3 10^3/ul (0.0-0.5); EOSINOPHILS % 2.9 % (0.0-7.0); HEMATOCRIT 41.7 % (42.0-52.0); HEMOGLOBIN 13.5 g/dl (14.0-18.0); LYMPHOCYTES % 19.2 % (15.0-51.0); MEAN CORPUSCULAR HEMOGLOBIN 28.3 pg (29.0-33.0); MEAN CORPUSCULAR HGB CONC 32.4 g/dl (32.0-37.0); MEAN CORPUSCULAR VOLUME 87.4 fl (82.0-101.0); MEAN PLATELET VOLUME 10.1 fl (7.4-10.4); MONOCYTE # 0.6 10^3/ul (0.3-0.9); MONOCYTES % 5.2 % (0.0-11.0); NEUTROPHIL # 7.1 10^3/ul (1.6-7.5); NEUTROPHILS % 67.1 % (39.0-77.0); PLATELET COUNT 389 10^3/UL (140-415); RED BLOOD COUNT 4.77 10^6/ul (4.70-6.10); RED CELL DISTRIBUTION WIDTH 13.6 % (11.5-14.5); WHITE BLOOD COUNT 10.6 10^3/ul (4.8-10.8)
[2016-10-22 07:55] LABS: INR 0.99; PROTIME 13.1 Sec (12.2-14.2)
[2016-10-22 07:56] LABS: PARTIAL THROMBOPLASTIN TIME 36.7 Sec (25.0-35.0)
[2016-10-22 08:00] VITALS: BP 114/64; RESP 20
[2016-10-22] MEDS: INSULIN ASPART [NOVOLOG] 3 ML PEN SC SCH ×4 (08:00→21:00)
[2016-10-22 08:02] LABS: ALBUMIN 3.9 g/dl (3.3-4.9); ALBUMIN/GLOBULIN RATIO 1.25; BILIRUBIN,INDIRECT 0.1 mg/dl (0-1.1); BILIRUBIN,TOTAL 0.1 mg/dl (0.2-1.3); CALCIUM 9.1 mg/dl (8.4-10.2); CREATININE 0.73 mg/dl (0.61-1.24); POTASSIUM 4.2 mmol/L (3.5-5.1)
[2016-10-22] MEDS: LACTOBACILLUS RHAMNOSUS CAP PO SCH ×2 (08:22→21:22)
[2016-10-22] MEDS: GABAPENTIN 300 MG CAP PO SCH ×3 (08:22→21:22)
[2016-10-22] MEDS: ALLOPURINOL 100 MG TAB PO SCH (08:22)
[2016-10-22] MEDS: FAMOTIDINE 20 MG TAB PO SCH (08:22)
[2016-10-22] MEDS: CITALOPRAM 20 MG TAB PO SCH (08:22)
[2016-10-22] MEDS: CEFEPIME 1GM/50 ML (PMX) 50 ML IVPB SCH ×2 (08:22→22:39)
[2016-10-22] MEDS: morphine (ER) 15 MG TAB PO SCH (08:23)
[2016-10-22] MEDS: AMLODIPINE 10 MG TAB PO SCH (08:23)
[2016-10-22] MEDS: ENOXAPARIN 40 MG/0.4 ML SYG SC SCH (08:25)
[2016-10-22] MEDS: POLYETHYLENE GLYCOL 17 GM PACKET PO SCH (08:34)
[2016-10-22] MEDS: metFORMIN 500 MG TAB PO SCH ×2 (08:34→17:11)
[2016-10-22] MEDS: AMITRIPTYLINE 25 MG TAB PO SCH (08:36)
--- NOTE | 2016-10-22 17:34 | PN ---
Date/Time of Note Date/Time of Note DATE: 10/22/16 TIME: 17:33 Assessment/Plan VTE Prophylaxis VTE Prophylaxis Intervention: SCD's Lines/Catheters IV Catheter Type (from Nrsg): Saline Lock Urinary Cath still in place: No Assessment/Plan Assessment/Plan 1. Mechanical fall, 2. sepsis possibley due to OM of LS Spine - MRI showed diskitiis/OM of L5-S1 2. Cervical spine injury, Inability to extent UE, 3. Intractable back pain 3. Chr dm/htn 4. Tobacco abuse 5. anemia 6. chr gout 7. Leukocytosis; Plan: IV abx Cefepime and vancomycin for OM of LS spine ID, Neuro following, pt had a Neurosurgery consultation done by on - no surgical intervetion as per ID- pt need CT guided biopsy of L5-S1 to send it for culture and to guide therapy will follow up ID following SCD for DVT prophylaxis Subjective 24 Hr Interval Summary Free Text/Dictation plan for CT guided biopsy today, not done yet because pt wanted more explanation about it ,c/o back pain Exam/Review of Systems Vital Signs Vitals Vital Signs Date Time Temp Pulse Resp B/P Pulse Ox O2 Delivery O2 Flow Rate FiO2 10/22/16 08:00 98.6 68 20 114/64 95 Intake and Output 10/21/16 10/21/16 10/22/16 15:00 23:00 07:00 Intake Total 400 ml 1700 ml 1500 ml Output Total 2000 ml 1250 ml Balance 400 ml -300 ml 250 ml Exam GENERAL: The patient is a well-developed, well-nourished male who is alert, responsive, in no acute distress. SKIN: Without generalized rash. HEENT: Within normal limits. NECK: Supple. LYMPH NODES: None palpable. CHEST: Decreased breath sounds at the bases. HEART: Without murmur or gallop. ABDOMEN: Soft, nontender, without organosplenomegaly or masses. EXTREMITIES: Bilateral forearm and hand swelling and pain with warmth to the touch. RECTAL AND GENITAL: Deferred. NEUROLOGIC: No focal neurological abnormalities. Results Result Diagram: 10/22/16 0540 10/22/16 0540 Results 24 hrs Laboratory Tests Test 10/21/16 21:14 10/22/16 05:40 10/22/16 08:08 10/22/16 12:00 Bedside Glucose 117 101 118 White Blood Count 10.6 Red Blood Count 4.77 Hemoglobin 13.5 L Hematocrit 41.7 L Mean Corpuscular Volume 87.4 Mean Corpuscular Hemoglobin 28.3 L Mean Corpuscular Hemoglobin Concent 32.4 Red Cell Distribution Width 13.6 Platelet Count 389 Mean Platelet Volume 10.1 Neutrophils % 67.1 Lymphocytes % 19.2 Monocytes % 5.2 Eosinophils % 2.9 Basophils % 0.4 Nucleated Red Blood Cells % 0.0 Neutrophils # 7.1 Lymphocytes # 2.0 Monocytes # 0.6 Eosinophils # 0.3 Basophils # 0.0 Nucleated Red Blood Cells # 0.0 Prothrombin Time 13.1 Prothrombin Time Ratio 1.0 INR International Normalized Ratio 0.99 Activated Partial Thromboplast Time 36.7 H Sodium Level 139 Potassium Level 4.2 Chloride Level 104 Carbon Dioxide Level 29 Anion Gap 10 Blood Urea Nitrogen 19 Creatinine 0.73 Glucose Level 107 Calcium Level 9.1 Total Bilirubin 0.1 L Direct Bilirubin 0.00 Indirect Bilirubin 0.1 Aspartate Amino Transf (AST/SGOT) 23 Alanine Aminotransferase (ALT/SGPT) 33 Alkaline Phosphatase 109 Total Protein 7.0 Albumin 3.9 Globulin 3.10 Albumin/Globulin Ratio 1.25 Test 10/22/16 12:55 10/22/16 17:04 Vancomycin Level Trough 12.7 Bedside Glucose 106 Medications Medications Current Medications Ondansetron HCl (Zofran Inj) 4 mg Q6H PRN IV NAUSEA AND/OR VOMITING; Start 10/16 at 04:30 Acetaminophen (Tylenol Tab) 650 mg Q6H PRN PO PAIN LEVEL 1-3 OR FEVER Last administered on 10/21/16 06:34; Admin Dose 650 MG; Start 10/16/16 at 04:30 Allopurinol (Zyloprim) 100 mg DAILY PO Last administered on 10/22/16 08:22; Admin Dose 100 MG; Start 10/16/16 at 09:00 Amitriptyline HCl (Elavil) 25 mg DAILY PO Last administered on 10/22/16 08:36 ; Admin Dose 25 MG; Start 10/16/16 at 09:00 Amlodipine Besylate (Norvasc) 10 mg DAILY PO Last administered on 10/22/16 08: 23; Admin Dose 10 MG; Start 10/16/16 at 09:00 Citalopram Hydrobromide (Celexa) 10 mg DAILY PO Last administered on 10/22/16 08:22; Admin Dose 10 MG; Start 10/16/16 at 09:00 Ibuprofen (Motrin) 800 mg Q6H PRN PO PAIN; Start 10/16/16 at 04:30; Status Future Hold Naproxen 500 mg 500 mg BID PRN PO PAIN AND/OR INFLAMMATION; Start 10/16/16 at 04 :30; Status Future Hold Cefepime HCl (Maxipime 1gm/50 ml (Pmx)) 50 ml @ 100 mls/hr Q12 IVPB Last administered on 10/22/16 08:22; Admin Dose 100 MLS/HR; Start 10/16/16 at 14:00 Miscellaneous Information 1 ea NOTE XX ; Start 10/16/16 at 14:30 Glucose (Glutose) 15 gm Q15M PRN PO DECREASED GLUCOSE; Start 10/16/16 at 14:30 Glucose (Glutose) 22.5 gm Q15M PRN PO DECREASED GLUCOSE; Start 10/16/16 at 14:30 Dextrose (D50w Syringe) 25 ml Q15M PRN IV DECREASED GLUCOSE; Start 10/16/16 at 14:30 Dextrose (D50w Syringe) 50 ml Q15M PRN IV DECREASED GLUCOSE; Start 10/16/16 at 14:30 Glucagon (Glucagen) 1 mg Q15M PRN IM DECREASED GLUCOSE; Start 10/16/16 at 14:30 Glucose (Glutose) 15 gm Q15M PRN BUCCAL DECREASED GLUCOSE; Start 10/16/16 at 14: 30 Lactobacillus Acidophilus/ Rhamnosus (Culturelle) 1 cap BID PO Last administered on 10/22/16 08:22; Admin Dose 1 CAP; Start 10/16/16 at 21:00 Docusate Sodium (Colace Liquid Cup) 100 mg HS PO Last administered on 21:10; Admin Dose 100 MG; Start 10/16/16 at 21:00 Famotidine (Pepcid) 20 mg DAILY PO Last administered on 10/22/16 08:22; Admin Dose 20 MG; Start 10/18/16 at 09:00 Enoxaparin Sodium (Lovenox) 40 mg DAILY SC Last administered on 10/22/16 08:25 ; Admin Dose 40 MG; Start 10/18/16 at 12:30 Gabapentin 300 mg 300 mg TID PO Last administered on 10/22/16 12:01; Admin Dose 300 MG; Start 10/20/16 at 13:00 Acetaminophen (Ofirmev 1000mg/ 100ml Iv) 100 ml @ 400 mls/hr Q6H IVPB Last administered on 10/22/16 17:12; Admin Dose 400 MLS/HR; Start 10/20/16 at 22:00 Morphine Sulfate (Ms Contin (Er)) 15 mg QAM PO Last administered on 10/22/16 08:23; Admin Dose 15 MG; Start 10/22/16 at 09:00 Hydromorphone HCl (Dilaudid) 2 mg Q4H PRN PO PAIN Last administered on 17:11; Admin Dose 2 MG; Start 10/21/16 at 11:30 Polyethylene Glycol 17 gm 17 gm DAILY PO Last administered on 10/22/16 08:34; Admin Dose 17 GM; Start 10/22/16 at 09:00 Vancomycin HCl/ Sodium Chloride (Vancocin/NS) 250 ml @ 83.333 mls/ hr Q8H IVPB ; Start 10/22/16 at 22:00 MARIFER MORAN MD Oct 22, 2016 17:34
--- NOTE | 2016-10-22 18:58 | CONS ---
Date/Time of Note Date/Time of Note DATE: 10/22/16 TIME: 18:44 Assessment/Plan Assessment/Plan Problems: (1) Sepsis Status: Acute Qualifiers: Qualified Code: A41.9 - Sepsis, due to unspecified organism Additional Assessment/Plan The patient has radiographic evidence of diskitis/ osteomyelitis at L5-S1 with limited intracanalicular extension and effacement of the thecal sac and neural foramina. His pain is improved. He is being followed by ID and is on IV abx. At the present time there is no indication for intervention, as the patient has no neurologic deficit. Surgical intervention would be reserved for failure of antibiotic therapy or neurologic deficit. Consultation Date/Type/Reason Admit Date/Time Oct 15, 2016 at 22:06 Date of Consultation: Oct 22, 2016 Type of Consultation: neurological surgery Reason for Consultation epidural abscess Hx of Present Illness The patient is a 56 year old male who has been admitted since 10/15 complaining of bilateral arm and leg pain. He had a cervical spine MRI that showed degenerative disease. He has upper extremity cellulitis and is being followed by ID, who ordered a lumbar spine MRI subsequently showing L5-S1 diskitis with epidural abscess in the ventral epidural space at L5-S1. Neurosurgical input was requested for this finding. Currently, the patient admits to low back pain but states that his lower extremity pain 'is better' and he only complains of bilateral arm pain and swelling. Psychological: anxiety Past Medical History Medical History: diabetes, hypertension, other (Gout) Past Surgical History Past Surgical Hx: no surgical history Social History Alcohol Use: none Smoking Status: Never smoker Drug Use: none Exam/Review of Systems Vital Signs Vitals Vital Signs Date Time Temp Pulse Resp B/P Pulse Ox O2 Delivery O2 Flow Rate FiO2 10/22/16 08:00 98.6 68 20 114/64 95 Intake and Output 10/21/16 10/21/16 10/22/16 15:00 23:00 07:00 Intake Total 400 ml 1700 ml 1500 ml Output Total 2000 ml 1250 ml Balance 400 ml -300 ml 250 ml Exam On neurologic exam, the patient is awake and alert. His speech is clear, fluent and appropriate. He moves all extremities spontaneously with what appears to be full power. He does demonstrate give-way weakness in both arms. He denies any numbness or bowel or bladder complaints. DF/ PF/ EHL is 5/5 bilateral. Results Result Diagram: 10/22/16 0540 10/22/16 0540 Results 24 hrs Laboratory Tests Test 10/21/16 21:14 10/22/16 05:40 10/22/16 08:08 10/22/16 12:00 Bedside Glucose 117 101 118 White Blood Count 10.6 Red Blood Count 4.77 Hemoglobin 13.5 L Hematocrit 41.7 L Mean Corpuscular Volume 87.4 Mean Corpuscular Hemoglobin 28.3 L Mean Corpuscular Hemoglobin Concent 32.4 Red Cell Distribution Width 13.6 Platelet Count 389 Mean Platelet Volume 10.1 Neutrophils % 67.1 Lymphocytes % 19.2 Monocytes % 5.2 Eosinophils % 2.9 Basophils % 0.4 Nucleated Red Blood Cells % 0.0 Neutrophils # 7.1 Lymphocytes # 2.0 Monocytes # 0.6 Eosinophils # 0.3 Basophils # 0.0 Nucleated Red Blood Cells # 0.0 Prothrombin Time 13.1 Prothrombin Time Ratio 1.0 INR International Normalized Ratio 0.99 Activated Partial Thromboplast Time 36.7 H Sodium Level 139 Potassium Level 4.2 Chloride Level 104 Carbon Dioxide Level 29 Anion Gap 10 Blood Urea Nitrogen 19 Creatinine 0.73 Glucose Level 107 Calcium Level 9.1 Total Bilirubin 0.1 L Direct Bilirubin 0.00 Indirect Bilirubin 0.1 Aspartate Amino Transf (AST/SGOT) 23 Alanine Aminotransferase (ALT/SGPT) 33 Alkaline Phosphatase 109 Total Protein 7.0 Albumin 3.9 Globulin 3.10 Albumin/Globulin Ratio 1.25 Test 10/22/16 12:55 10/22/16 17:04 Vancomycin Level Trough 12.7 Bedside Glucose 106 Medications Medications Current Medications Ondansetron HCl (Zofran Inj) 4 mg Q6H PRN IV NAUSEA AND/OR VOMITING; Start 10/16 at 04:30 Acetaminophen (Tylenol Tab) 650 mg Q6H PRN PO PAIN LEVEL 1-3 OR FEVER Last administered on 10/21/16 06:34; Admin Dose 650 MG; Start 10/16/16 at 04:30 Allopurinol (Zyloprim) 100 mg DAILY PO Last administered on 10/22/16 08:22; Admin Dose 100 MG; Start 10/16/16 at 09:00 Amitriptyline HCl (Elavil) 25 mg DAILY PO Last administered on 10/22/16 08:36 ; Admin Dose 25 MG; Start 10/16/16 at 09:00 Amlodipine Besylate (Norvasc) 10 mg DAILY PO Last administered on 10/22/16 08: 23; Admin Dose 10 MG; Start 10/16/16 at 09:00 Citalopram Hydrobromide (Celexa) 10 mg DAILY PO Last administered on 10/22/16 08:22; Admin Dose 10 MG; Start 10/16/16 at 09:00 Ibuprofen (Motrin) 800 mg Q6H PRN PO PAIN; Start 10/16/16 at 04:30; Status Future Hold Naproxen 500 mg 500 mg BID PRN PO PAIN AND/OR INFLAMMATION; Start 10/16/16 at 04 :30; Status Future Hold Cefepime HCl (Maxipime 1gm/50 ml (Pmx)) 50 ml @ 100 mls/hr Q12 IVPB Last administered on 10/22/16 08:22; Admin Dose 100 MLS/HR; Start 10/16/16 at 14:00 Miscellaneous Information 1 ea NOTE XX ; Start 10/16/16 at 14:30 Glucose (Glutose) 15 gm Q15M PRN PO DECREASED GLUCOSE; Start 10/16/16 at 14:30 Glucose (Glutose) 22.5 gm Q15M PRN PO DECREASED GLUCOSE; Start 10/16/16 at 14:30 Dextrose (D50w Syringe) 25 ml Q15M PRN IV DECREASED GLUCOSE; Start 10/16/16 at 14:30 Dextrose (D50w Syringe) 50 ml Q15M PRN IV DECREASED GLUCOSE; Start 10/16/16 at 14:30 Glucagon (Glucagen) 1 mg Q15M PRN IM DECREASED GLUCOSE; Start 10/16/16 at 14:30 Glucose (Glutose) 15 gm Q15M PRN BUCCAL DECREASED GLUCOSE; Start 10/16/16 at 14: 30 Lactobacillus Acidophilus/ Rhamnosus (Culturelle) 1 cap BID PO Last administered on 10/22/16 08:22; Admin Dose 1 CAP; Start 10/16/16 at 21:00 Docusate Sodium (Colace Liquid Cup) 100 mg HS PO Last administered on 21:10; Admin Dose 100 MG; Start 10/16/16 at 21:00 Famotidine (Pepcid) 20 mg DAILY PO Last administered on 10/22/16 08:22; Admin Dose 20 MG; Start 10/18/16 at 09:00 Enoxaparin Sodium (Lovenox) 40 mg DAILY SC Last administered on 10/22/16 08:25 ; Admin Dose 40 MG; Start 10/18/16 at 12:30 Gabapentin 300 mg 300 mg TID PO Last administered on 10/22/16 12:01; Admin Dose 300 MG; Start 10/20/16 at 13:00 Acetaminophen (Ofirmev 1000mg/ 100ml Iv) 100 ml @ 400 mls/hr Q6H IVPB Last administered on 10/22/16 17:12; Admin Dose 400 MLS/HR; Start 10/20/16 at 22:00 Morphine Sulfate (Ms Contin (Er)) 15 mg QAM PO Last administered on 10/22/16 08:23; Admin Dose 15 MG; Start 10/22/16 at 09:00 Hydromorphone HCl (Dilaudid) 2 mg Q4H PRN PO PAIN Last administered on 17:11; Admin Dose 2 MG; Start 10/21/16 at 11:30 Polyethylene Glycol 17 gm 17 gm DAILY PO Last administered on 10/22/16 08:34; Admin Dose 17 GM; Start 10/22/16 at 09:00 Vancomycin HCl/ Sodium Chloride (Vancocin/NS) 250 ml @ 83.333 mls/ hr Q8H IVPB ; Start 10/22/16 at 22:00 PETERSON AKBAR MD Oct 22, 2016 18:58
[2016-10-22 20:09] VITALS: BP 126/68; RESP 18
[2016-10-22] MEDS: DOCUSATE SODIUM 10 MG/ML (10ML CUP) PO SCH (21:22)
[2016-10-22] MEDS: NYSTATIN SUSP 5 ML CUP PO SCH (21:30)
[2016-10-22] MEDS: FLUCONAZOLE 100 MG TAB PO SCH (21:34)
--- NOTE | 2016-10-22 21:35 | PN ---
DATE: 10/22/2016 SUBJECTIVE: No acute changes overnight. The patient is lying comfortably in bed. Complaining of r ight upper extremity pain. He has had no fevers. LABORATORY DATA: WBC today 10.6, no shift, no bands. BUN 19, creatinine 0.73. ANTIMICROBIALS: 1. Vancomycin. 2. Cefepime. MICROBIOLOGY: Blood and urine culture negative. PHYSICAL EXAMINATION: GENERAL: This is a well-nourished, well-developed, middle-aged man who is alert, in no dis tress. HEENT: Head atraumatic, normocephalic. Sclerae anicteric. Buccal mucosa pink with white thrush on his tongue and presence of halitosis. NECK: Supple. CHEST: Rise symmetrical. Breath sounds diminished to bases. HEART: S1, S2. ABDOMEN: Soft. Bowel tones present. EXTREMITIES: Without cyanosis. The patient has limited movement in bilateral extremities secondary to pain. ASSESSMENT: 1. L5-S1 diskitis and osteomyelitis. Neurosurgery on case. No plans for any intervention. 2. Oral thrush. 3. Hypertension. 4. Diabetes. PLAN: The patient remains clinically and hemodynamically stable. He is being followed by multiple consultants. He is on appropriate treatment in regards to his antibiotics. Recommend evaluation by interventional radiology for possible CT-guided aspiration. Will add oral nystatin and fluconazole to the regimen. Dictated By: BERYL MELTON PHYSICIAN SCIENTIST for FERNANDO VELAZQUEZ MD NI/NTS Conf#: [id number] DID#: [id number] CC: KARLA ZAYAS MD;*EndCC*
[2016-10-23] MEDS: VANCOMYCIN 1.25 GM in SOD CHLORIDE 0.9% 250 ML IVPB SCH ×4 (00:29→22:16)
[2016-10-23] MEDS: ACETAMINOPHEN 1000MG/100ML IV 100 ML IVPB SCH ×4 (04:56→21:54)
[2016-10-23 05:50] LABS: ADD SCAN DIFF NO
[2016-10-23 06:26] LABS: BASOPHILS % 0.2 % (0.0-2.0); EOSINOPHILS # 0.4 10^3/ul (0.0-0.5); HEMATOCRIT 39.7 % (42.0-52.0); HEMOGLOBIN 12.5 g/dl (14.0-18.0); LYMPHOCYTES # 2.1 10^3/ul (0.8-2.9); LYMPHOCYTES % 21.8 % (15.0-51.0); MEAN CORPUSCULAR HGB CONC 31.5 g/dl (32.0-37.0); MEAN CORPUSCULAR VOLUME 88.8 fl (82.0-101.0); MONOCYTE # 0.7 10^3/ul (0.3-0.9); MONOCYTES % 7.6 % (0.0-11.0); NEUTROPHIL # 5.9 10^3/ul (1.6-7.5); NEUTROPHILS % 62.4 % (39.0-77.0); PLATELET COUNT 384 10^3/UL (140-415); RED BLOOD COUNT 4.47 10^6/ul (4.70-6.10); RED CELL DISTRIBUTION WIDTH 13.6 % (11.5-14.5); WHITE BLOOD COUNT 9.4 10^3/ul (4.8-10.8)
[2016-10-23 06:36] LABS: INR 0.94; PROTIME 12.6 Sec (12.2-14.2)
[2016-10-23 06:37] LABS: PARTIAL THROMBOPLASTIN TIME 34.5 Sec (25.0-35.0)
[2016-10-23 07:05] LABS: CALCIUM 9.3 mg/dl (8.4-10.2); CREATININE 0.82 mg/dl (0.61-1.24); POTASSIUM 4.1 mmol/L (3.5-5.1)
[2016-10-23] MEDS: INSULIN ASPART [NOVOLOG] 3 ML PEN SC SCH ×4 (08:00→20:49)
[2016-10-23] MEDS: NYSTATIN SUSP 5 ML CUP PO SCH ×4 (08:33→20:50)
[2016-10-23] MEDS: LACTOBACILLUS RHAMNOSUS CAP PO SCH ×2 (08:33→20:50)
[2016-10-23] MEDS: ALLOPURINOL 100 MG TAB PO SCH (08:33)
[2016-10-23] MEDS: GABAPENTIN 300 MG CAP PO SCH ×3 (08:33→20:50)
[2016-10-23] MEDS: FAMOTIDINE 20 MG TAB PO SCH (08:33)
[2016-10-23] MEDS: morphine (ER) 15 MG TAB PO SCH (08:34)
[2016-10-23] MEDS: FLUCONAZOLE 100 MG TAB PO SCH (08:34)
[2016-10-23] MEDS: AMLODIPINE 10 MG TAB PO SCH (08:35)
[2016-10-23] MEDS: AMITRIPTYLINE 25 MG TAB PO SCH (08:35)
[2016-10-23] MEDS: CEFEPIME 1GM/50 ML (PMX) 50 ML IVPB SCH ×2 (08:36→20:51)
[2016-10-23] MEDS: CITALOPRAM 20 MG TAB PO SCH (08:41)
[2016-10-23] MEDS: metFORMIN 500 MG TAB PO SCH ×2 (08:43→17:51)
[2016-10-23 08:46] VITALS: BP 127/78; RESP 17
[2016-10-23] MEDS: ENOXAPARIN 40 MG/0.4 ML SYG SC SCH (08:56)
[2016-10-23] MEDS: POLYETHYLENE GLYCOL 17 GM PACKET PO SCH (08:57)
--- NOTE | 2016-10-23 11:39 | CONS ---
Date/Time of Note Date/Time of Note DATE: 10/23/16 TIME: 11:36 Consult Date/Type/Reason Admit Date/Time Oct 15, 2016 at 22:06 Initial Consult Date 10/22/16 Type of Consultation: Pain Management Objective Vital Signs Date Time Temp Pulse Resp B/P Pulse Ox O2 Delivery O2 Flow Rate FiO2 10/23/16 08:46 98.5 67 17 127/78 97 Intake and Output 10/22/16 10/22/16 10/23/16 15:00 23:00 07:00 Intake Total 225 ml 1100 ml 1250 ml Output Total 1550 ml Balance 225 ml 1100 ml -300 ml Results/Medications Result Diagram: 10/23/16 0445 10/23/16 0445 Results 24 hrs Laboratory Tests Test 10/22/16 12:00 10/22/16 12:55 10/22/16 17:04 10/22/16 21:10 Bedside Glucose 118 106 101 Vancomycin Level Trough 12.7 Test 10/23/16 04:45 10/23/16 08:32 White Blood Count 9.4 Red Blood Count 4.47 L Hemoglobin 12.5 L Hematocrit 39.7 L Mean Corpuscular Volume 88.8 Mean Corpuscular Hemoglobin 28.0 L Mean Corpuscular Hemoglobin Concent 31.5 L Red Cell Distribution Width 13.6 Platelet Count 384 Mean Platelet Volume 10.0 Neutrophils % 62.4 Lymphocytes % 21.8 Monocytes % 7.6 Eosinophils % 4.0 Basophils % 0.2 Nucleated Red Blood Cells % 0.0 Neutrophils # 5.9 Lymphocytes # 2.1 Monocytes # 0.7 Eosinophils # 0.4 Basophils # 0.0 Nucleated Red Blood Cells # 0.0 Prothrombin Time 12.6 Prothrombin Time Ratio 1.0 INR International Normalized Ratio 0.94 Activated Partial Thromboplast Time 34.5 Sodium Level 140 Potassium Level 4.1 Chloride Level 106 Carbon Dioxide Level 26 Anion Gap 12 Blood Urea Nitrogen 25 H Creatinine 0.82 Glucose Level 123 Calcium Level 9.3 Bedside Glucose 106 Medications Current Medications Ondansetron HCl (Zofran Inj) 4 mg Q6H PRN IV NAUSEA AND/OR VOMITING; Start 10/16 at 04:30 Acetaminophen (Tylenol Tab) 650 mg Q6H PRN PO PAIN LEVEL 1-3 OR FEVER Last administered on 10/21/16t 06:34; Admin Dose 650 MG; Start 10/16/16 at 04:30 Allopurinol (Zyloprim) 100 mg DAILY PO Last administered on 10/23/16 08:33; Admin Dose 100 MG; Start 10/16/16 at 09:00 Amitriptyline HCl (Elavil) 25 mg DAILY PO Last administered on 10/23/16 08:35 ; Admin Dose 25 MG; Start 10/16/16 at 09:00 Amlodipine Besylate (Norvasc) 10 mg DAILY PO Last administered on 10/23/16 08: 35; Admin Dose 10 MG; Start 10/16/16 at 09:00 Citalopram Hydrobromide (Celexa) 10 mg DAILY PO Last administered on 10/23/16 08:41; Admin Dose 10 MG; Start 10/16/16 at 09:00 Ibuprofen (Motrin) 800 mg Q6H PRN PO PAIN; Start 10/16/16 at 04:30; Status Future Hold Naproxen 500 mg 500 mg BID PRN PO PAIN AND/OR INFLAMMATION; Start 10/16/16 at 04 :30; Status Future Hold Cefepime HCl (Maxipime 1gm/50 ml (Pmx)) 50 ml @ 100 mls/hr Q12 IVPB Last administered on 10/23/16 08:36; Admin Dose 100 MLS/HR; Start 10/16/16 at 14:00 Miscellaneous Information 1 ea NOTE XX ; Start 10/16/16 at 14:30 Glucose (Glutose) 15 gm Q15M PRN PO DECREASED GLUCOSE; Start 10/16/16 at 14:30 Glucose (Glutose) 22.5 gm Q15M PRN PO DECREASED GLUCOSE; Start 10/16/16 at 14:30 Dextrose (D50w Syringe) 25 ml Q15M PRN IV DECREASED GLUCOSE; Start 10/16/16 at 14:30 Dextrose (D50w Syringe) 50 ml Q15M PRN IV DECREASED GLUCOSE; Start 10/16/16 at 14:30 Glucagon (Glucagen) 1 mg Q15M PRN IM DECREASED GLUCOSE; Start 10/16/16 at 14:30 Glucose (Glutose) 15 gm Q15M PRN BUCCAL DECREASED GLUCOSE; Start 10/16/16 at 14: 30 Lactobacillus Acidophilus/ Rhamnosus (Culturelle) 1 cap BID PO Last administered on 10/23/16 08:33; Admin Dose 1 CAP; Start 10/16/16 at 21:00 Docusate Sodium (Colace Liquid Cup) 100 mg HS PO Last administered on 21:22; Admin Dose 100 MG; Start 10/16/16 at 21:00 Famotidine (Pepcid) 20 mg DAILY PO Last administered on 10/23/16 08:33; Admin Dose 20 MG; Start 10/18/16 at 09:00 Enoxaparin Sodium (Lovenox) 40 mg DAILY SC Last administered on 10/23/16 08:56 ; Admin Dose 40 MG; Start 10/18/16 at 12:30 Gabapentin 300 mg 300 mg TID PO Last administered on 10/23/16 08:33; Admin Dose 300 MG; Start 10/20/16 at 13:00 Acetaminophen (Ofirmev 1000mg/ 100ml Iv) 100 ml @ 400 mls/hr Q6H IVPB Last administered on 10/23/16 10:10; Admin Dose 400 MLS/HR; Start 10/20/16 at 22:00 Morphine Sulfate (Ms Contin (Er)) 15 mg QAM PO Last administered on 10/23/16 08:34; Admin Dose 15 MG; Start 10/22/16 at 09:00 Hydromorphone HCl (Dilaudid) 2 mg Q4H PRN PO PAIN Last administered on 21:23; Admin Dose 2 MG; Start 10/21/16 at 11:30 Polyethylene Glycol 17 gm 17 gm DAILY PO Last administered on 10/22/16 08:34; Admin Dose 17 GM; Start 10/22/16 at 09:00 Vancomycin HCl/ Sodium Chloride (Vancocin/NS) 250 ml @ 83.333 mls/ hr Q8H IVPB Last administered on 10/23/16 05:58; Admin Dose 83.333 MLS/HR; Start at 22:00 Fluconazole (Diflucan) 100 mg DAILY PO Last administered on 10/23/16 08:34; Admin Dose 100 MG; Start 10/22/16 at 21:00 Nystatin (Nystatin Susp) 5 ml QID PO Last administered on 10/23/16 08:33; Admin Dose 5 ML; Start 10/22/16 at 21:00 Assessment/Plan Chief Complaint/Hosp Course This is a 56-year-old gentleman who had a mechanical fall approximately 1 week prior to this presentation. States that he had hyperextended his arms to about avoid a direct blow to his head went back to bed and woke up the next morning with severe discomfort in bilateral upper extremities. Denies nausea vomiting dizziness diplopia disorientation post fall. States pain is a gnawing type discomfort he is unable to move bilateral upper extremity without severe pain he did not take any pain medication at home prescribed except for ibuprofen which did not make a major difference. Here is being treated with morphine gabapentin [place] and tramadol states that his pain is on somewhat better control with the above regimen. Post IV dose of morphine and pain goes down to approximately 7's pain has been increasing over the last week prior to his presentation. It is significantly inferior with his physical functioning his family relationship is moving sleeping patterns overall functioning has been extremely poor secondary to above. Denies mental cloudiness fatigue drowsiness. There is no history of alcohol or drug addiction prior to his presentation or history of propofol for sedation with any controlled substances. He did not appear intoxicated on presentation in unkempt, impaired and is not asked for early renewals of his pain control medication. He does not insist on certain medications by name there is no history of drug use prior to his presentation or arrests. Patient denies any side effects associated with his current pain control medications but he states it does not control his pain nor does it last long enough, that includes all of the pain medications listed as above. Patient did not attempt to use any alternative forms of pain management . Problems: Additional Assessment/Plan Post date note ...continue current pain meds Mechanical fall R/O osteo bilateral arm cellulitis acute pain RAMIN MONTERROSO Oct 23, 2016 11:39
--- NOTE | 2016-10-23 19:12 | PN ---
Date/Time of Note Date/Time of Note DATE: 10/23/16 TIME: 19:09 Assessment/Plan VTE Prophylaxis VTE Prophylaxis Intervention: SCD's Lines/Catheters IV Catheter Type (from Nrs): Peripheral IV Urinary Cath still in place: No Assessment/Plan Assessment/Plan 1. Mechanical fall, 2. sepsis possibley due to OM of LS Spine - MRI showed diskitiis/OM of L5-S1 2. Cervical spine injury, Inability to extent UE, 3. Intractable back pain 3. Chr dm/htn 4. Tobacco abuse 5. anemia 6. chr gout 7. Leukocytosis; Plan: IV abx Cefepime and vancomycin for OM of LS spine ID, Neuro following, pt had a Neurosurgery consultation done by on - no surgical intervetion CT guided biopsy of LS spine was ordered but as per Dr.kevin Bunch- there is no fluid collection, it is more like hematoma, he said he discussed this findings with ID physician SCD for DVT prophylaxis Subjective 24 Hr Interval Summary Free Text/Dictation as per DR.kevin Bunch from IR, no fluid colleciton it is possible small hematoma , afebrile, BP stable Exam/Review of Systems Vital Signs Vitals Vital Signs Date Time Temp Pulse Resp B/P Pulse Ox O2 Delivery O2 Flow Rate FiO2 10/23/16 08:46 98.5 67 17 127/78 97 Intake and Output 10/22/16 10/22/16 10/23/16 15:00 23:00 07:00 Intake Total 225 ml 1100 ml 1250 ml Output Total 1550 ml Balance 225 ml 1100 ml -300 ml Exam GENERAL: The patient is a well-developed, well-nourished male who is alert, responsive, in no acute distress. CHEST: Decreased breath sounds at the bases. HEART: Without murmur or gallop. ABDOMEN: Soft, nontender, without organosplenomegaly or masses. EXTREMITIES: Bilateral forearm and hand swelling and pain with warmth to the touch. BACK: tender to palpation in lumbar spine area, no midline tenderness NEUROLOGIC: No focal neurological abnormalities. Results Result Diagram: 10/23/16 0445 10/23/16 0445 Results 24 hrs Laboratory Tests Test 10/22/16 21:10 10/23/16 04:45 10/23/16 08:32 10/23/16 17:46 Bedside Glucose 101 106 97 White Blood Count 9.4 Red Blood Count 4.47 L Hemoglobin 12.5 L Hematocrit 39.7 L Mean Corpuscular Volume 88.8 Mean Corpuscular Hemoglobin 28.0 L Mean Corpuscular Hemoglobin Concent 31.5 L Red Cell Distribution Width 13.6 Platelet Count 384 Mean Platelet Volume 10.0 Neutrophils % 62.4 Lymphocytes % 21.8 Monocytes % 7.6 Eosinophils % 4.0 Basophils % 0.2 Nucleated Red Blood Cells % 0.0 Neutrophils # 5.9 Lymphocytes # 2.1 Monocytes # 0.7 Eosinophils # 0.4 Basophils # 0.0 Nucleated Red Blood Cells # 0.0 Prothrombin Time 12.6 Prothrombin Time Ratio 1.0 INR International Normalized Ratio 0.94 Activated Partial Thromboplast Time 34.5 Sodium Level 140 Potassium Level 4.1 Chloride Level 106 Carbon Dioxide Level 26 Anion Gap 12 Blood Urea Nitrogen 25 H Creatinine 0.82 Glucose Level 123 Calcium Level 9.3 Medications Medications Current Medications Ondansetron HCl (Zofran Inj) 4 mg Q6H PRN IV NAUSEA AND/OR VOMITING; Start 10/16 at 04:30 Allopurinol (Zyloprim) 100 mg DAILY PO Last administered on 10/23/16 08:33; Admin Dose 100 MG; Start 10/16/16 at 09:00 Amitriptyline HCl (Elavil) 25 mg DAILY PO Last administered on 10/23/16 08:35 ; Admin Dose 25 MG; Start 10/16/16 at 09:00 Amlodipine Besylate (Norvasc) 10 mg DAILY PO Last administered on 10/23/16 08: 35; Admin Dose 10 MG; Start 10/16/16 at 09:00 Citalopram Hydrobromide (Celexa) 10 mg DAILY PO Last administered on 10/23/16 08:41; Admin Dose 10 MG; Start 10/16/16 at 09:00 Naproxen 500 mg 500 mg BID PRN PO PAIN AND/OR INFLAMMATION; Start 10/16/16 at 04 :30; Status Future Hold Cefepime HCl (Maxipime 1gm/50 ml (Pmx)) 50 ml @ 100 mls/hr Q12 IVPB Last administered on 10/23/16 08:36; Admin Dose 100 MLS/HR; Start 10/16/16 at 14:00 Miscellaneous Information 1 ea NOTE XX ; Start 10/16/16 at 14:30 Glucose (Glutose) 15 gm Q15M PRN PO DECREASED GLUCOSE; Start 10/16/16 at 14:30 Glucose (Glutose) 22.5 gm Q15M PRN PO DECREASED GLUCOSE; Start 10/16/16 at 14:30 Dextrose (D50w Syringe) 25 ml Q15M PRN IV DECREASED GLUCOSE; Start 10/16/16 at 14:30 Dextrose (D50w Syringe) 50 ml Q15M PRN IV DECREASED GLUCOSE; Start 10/16/16 at 14:30 Glucagon (Glucagen) 1 mg Q15M PRN IM DECREASED GLUCOSE; Start 10/16/16 at 14:30 Glucose (Glutose) 15 gm Q15M PRN BUCCAL DECREASED GLUCOSE; Start 10/16/16 at 14: 30 Lactobacillus Acidophilus/ Rhamnosus (Culturelle) 1 cap BID PO Last administered on 10/23/16 08:33; Admin Dose 1 CAP; Start 10/16/16 at 21:00 Docusate Sodium (Colace Liquid Cup) 100 mg HS PO Last administered on 21:22; Admin Dose 100 MG; Start 10/16/16 at 21:00 Famotidine (Pepcid) 20 mg DAILY PO Last administered on 10/23/16 08:33; Admin Dose 20 MG; Start 10/18/16 at 09:00 Enoxaparin Sodium (Lovenox) 40 mg DAILY SC Last administered on 10/23/16 08:56 ; Admin Dose 40 MG; Start 10/18/16 at 12:30 Gabapentin 300 mg 300 mg TID PO Last administered on 10/23/16 12:37; Admin Dose 300 MG; Start 10/20/16 at 13:00 Acetaminophen (Ofirmev 1000mg/ 100ml Iv) 100 ml @ 400 mls/hr Q6H IVPB Last administered on 10/23/16 17:49; Admin Dose 400 MLS/HR; Start 10/20/16 at 22:00 Morphine Sulfate (Ms Contin (Er)) 15 mg QAM PO Last administered on 10/23/16 08:34; Admin Dose 15 MG; Start 10/22/16 at 09:00 Hydromorphone HCl (Dilaudid) 2 mg Q4H PRN PO PAIN Last administered on 21:23; Admin Dose 2 MG; Start 10/21/16 at 11:30 Polyethylene Glycol 17 gm 17 gm DAILY PO Last administered on 10/22/16 08:34; Admin Dose 17 GM; Start 10/22/16 at 09:00 Vancomycin HCl/ Sodium Chloride (Vancocin/NS) 250 ml @ 83.333 mls/ hr Q8H IVPB Last administered on 10/23/16 14:33; Admin Dose 83.333 MLS/HR; Start at 22:00 Fluconazole (Diflucan) 100 mg DAILY PO Last administered on 10/23/16 08:34; Admin Dose 100 MG; Start 10/22/16 at 21:00 Nystatin (Nystatin Susp) 5 ml QID PO Last administered on 10/23/16 17:48; Admin Dose 5 ML; Start 10/22/16 at 21:00 Miscellaneous Information (*Rx Drug Level Order Reminder*) 1 ONCE ONCE XX ; Start 10/24/16 at 05:00; Stop 10/24/16 at 05:01 MRAIFER MORAN MD Oct 23, 2016 19:12
[2016-10-23 20:00] VITALS: BP 135/73; RESP 19
[2016-10-23] MEDS: HYDROmorphONE 2 MG TAB PO PRN (20:50)
[2016-10-23] MEDS: DOCUSATE SODIUM 10 MG/ML (10ML CUP) PO SCH (20:50)
--- NOTE | 2016-10-23 21:51 | CONS ---
Date/Time of Note Date/Time of Note DATE: 10/23/16 TIME: 21:49 Assessment/Plan Assessment/Plan Chief Complaint/Hosp Course SUBJECTIVE: No acute changes overnight. The patient is lying comfortably in bed, no fevers. ANTIMICROBIALS: 1. Vancomycin. 2. Cefepime. MICROBIOLOGY: Blood and urine culture negative. PHYSICAL EXAMINATION: GENERAL: This is a well-nourished, well-developed, middle-aged man who is alert, in no distress. HEENT: Head atraumatic, normocephalic. Sclerae anicteric. Buccal mucosa pink with white thrush on his tongue and presence of halitosis. NECK: Supple. CHEST: Rise symmetrical. Breath sounds diminished to bases. HEART: S1, S2. ABDOMEN: Soft. Bowel tones present. EXTREMITIES: Without cyanosis. The patient has limited movement in bilateral extremities secondary to pain. ASSESSMENT: 1. L5-S1 diskitis and osteomyelitis. Neurosurgery on case. No plans for any intervention. 2. Oral thrush==>Continue oral nystatin and fluconazole. 3. Hypertension. 4. Diabetes. PLAN: The patient remains clinically and hemodynamically stable. He is being followed by multiple consultants. He is on appropriate treatment in regards to his antibiotics. Recommend evaluation by interventional radiology for possible CT-guided aspiration. DW staff Problems: Consultation Date/Type/Reason Admit Date/Time Oct 15, 2016 at 22:06 Initial Consult Date 10/22/16 Type of Consultation: ID Exam/Review of Systems Vital Signs Vitals Vital Signs Date Time Temp Pulse Resp B/P Pulse Ox O2 Delivery O2 Flow Rate FiO2 10/23/16 08:46 98.5 67 17 127/78 97 Intake and Output 10/22/16 10/22/16 10/23/16 15:00 23:00 07:00 Intake Total 225 ml 1100 ml 1250 ml Output Total 1550 ml Balance 225 ml 1100 ml -300 ml Results Result Diagram: 10/23/16 0445 10/23/16 0445 Results 24 hrs Laboratory Tests Test 10/23/16 04:45 10/23/16 08:32 10/23/16 17:46 10/23/16 20:49 White Blood Count 9.4 Red Blood Count 4.47 L Hemoglobin 12.5 L Hematocrit 39.7 L Mean Corpuscular Volume 88.8 Mean Corpuscular Hemoglobin 28.0 L Mean Corpuscular Hemoglobin Concent 31.5 L Red Cell Distribution Width 13.6 Platelet Count 384 Mean Platelet Volume 10.0 Neutrophils % 62.4 Lymphocytes % 21.8 Monocytes % 7.6 Eosinophils % 4.0 Basophils % 0.2 Nucleated Red Blood Cells % 0.0 Neutrophils # 5.9 Lymphocytes # 2.1 Monocytes # 0.7 Eosinophils # 0.4 Basophils # 0.0 Nucleated Red Blood Cells # 0.0 Prothrombin Time 12.6 Prothrombin Time Ratio 1.0 INR International Normalized Ratio 0.94 Activated Partial Thromboplast Time 34.5 Sodium Level 140 Potassium Level 4.1 Chloride Level 106 Carbon Dioxide Level 26 Anion Gap 12 Blood Urea Nitrogen 25 H Creatinine 0.82 Glucose Level 123 Calcium Level 9.3 Bedside Glucose 106 97 85 Medications Medications Current Medications Ondansetron HCl (Zofran Inj) 4 mg Q6H PRN IV NAUSEA AND/OR VOMITING; Start 10/16 at 04:30 Allopurinol (Zyloprim) 100 mg DAILY PO Last administered on 10/23/16 08:33; Admin Dose 100 MG; Start 10/16/16 at 09:00 Amitriptyline HCl (Elavil) 25 mg DAILY PO Last administered on 10/23/16 08:35 ; Admin Dose 25 MG; Start 10/16/16 at 09:00 Amlodipine Besylate (Norvasc) 10 mg DAILY PO Last administered on 10/23/16 08: 35; Admin Dose 10 MG; Start 10/16/16 at 09:00 Citalopram Hydrobromide (Celexa) 10 mg DAILY PO Last administered on 10/23/16 08:41; Admin Dose 10 MG; Start 10/16/16 at 09:00 Naproxen 500 mg 500 mg BID PRN PO PAIN AND/OR INFLAMMATION; Start 10/16/16 at 04 :30; Status Future Hold Cefepime HCl (Maxipime 1gm/50 ml (Pmx)) 50 ml @ 100 mls/hr Q12 IVPB Last administered on 10/23/16 20:51; Admin Dose 100 MLS/HR; Start 10/16/16 at 14:00 Miscellaneous Information 1 ea NOTE XX ; Start 10/16/16 at 14:30 Glucose (Glutose) 15 gm Q15M PRN PO DECREASED GLUCOSE; Start 10/16/16 at 14:30 Glucose (Glutose) 22.5 gm Q15M PRN PO DECREASED GLUCOSE; Start 10/16/16 at 14:30 Dextrose (D50w Syringe) 25 ml Q15M PRN IV DECREASED GLUCOSE; Start 10/16/16 at 14:30 Dextrose (D50w Syringe) 50 ml Q15M PRN IV DECREASED GLUCOSE; Start 10/16/16 at 14:30 Glucagon (Glucagen) 1 mg Q15M PRN IM DECREASED GLUCOSE; Start 10/16/16 at 14:30 Glucose (Glutose) 15 gm Q15M PRN BUCCAL DECREASED GLUCOSE; Start 10/16/16 at 14: 30 Lactobacillus Acidophilus/ Rhamnosus (Culturelle) 1 cap BID PO Last administered on 10/23/16 20:50; Admin Dose 1 CAP; Start 10/16/16 at 21:00 Docusate Sodium (Colace Liquid Cup) 100 mg HS PO Last administered on 20:50; Admin Dose 100 MG; Start 10/16/16 at 21:00 Famotidine (Pepcid) 20 mg DAILY PO Last administered on 10/23/16 08:33; Admin Dose 20 MG; Start 10/18/16 at 09:00 Enoxaparin Sodium (Lovenox) 40 mg DAILY SC Last administered on 10/23/16 08:56 ; Admin Dose 40 MG; Start 10/18/16 at 12:30 Gabapentin 300 mg 300 mg TID PO Last administered on 10/23/16 20:50; Admin Dose 300 MG; Start 10/20/16 at 13:00 Acetaminophen (Ofirmev 1000mg/ 100ml Iv) 100 ml @ 400 mls/hr Q6H IVPB Last administered on 10/23/16 17:49; Admin Dose 400 MLS/HR; Start 10/20/16 at 22:00 Morphine Sulfate (Ms Contin (Er)) 15 mg QAM PO Last administered on 10/23/16 08:34; Admin Dose 15 MG; Start 10/22/16 at 09:00 Hydromorphone HCl (Dilaudid) 2 mg Q4H PRN PO PAIN Last administered on 20:50; Admin Dose 2 MG; Start 10/21/16 at 11:30 Polyethylene Glycol 17 gm 17 gm DAILY PO Last administered on 10/22/16 08:34; Admin Dose 17 GM; Start 10/22/16 at 09:00 Vancomycin HCl/ Sodium Chloride (Vancocin/NS) 250 ml @ 83.333 mls/ hr Q8H IVPB Last administered on 10/23/16 14:33; Admin Dose 83.333 MLS/HR; Start at 22:00 Fluconazole (Diflucan) 100 mg DAILY PO Last administered on 10/23/16 08:34; Admin Dose 100 MG; Start 10/22/16 at 21:00 Nystatin (Nystatin Susp) 5 ml QID PO Last administered on 10/23/16 20:50; Admin Dose 5 ML; Start 10/22/16 at 21:00 Miscellaneous Information (*Rx Drug Level Order Reminder*) 1 ONCE ONCE XX ; Start 10/24/16 at 05:00; Stop 10/24/16 at 05:01 BERYL MELTON NP Oct 23, 2016 21:51
[2016-10-24] MEDS: ACETAMINOPHEN 1000MG/100ML IV 100 ML IVPB SCH ×4 (03:52→22:20)
[2016-10-24] MEDS: HYDROmorphONE 2 MG TAB PO PRN ×5 (05:33→21:30)
[2016-10-24 06:04] LABS: ADD SCAN DIFF NO
[2016-10-24 06:21] LABS: BASOPHILS % 0.4 % (0.0-2.0); EOSINOPHILS # 0.4 10^3/ul (0.0-0.5); EOSINOPHILS % 5.3 % (0.0-7.0); HEMATOCRIT 39.9 % (42.0-52.0); HEMOGLOBIN 12.7 g/dl (14.0-18.0); LYMPHOCYTES % 25.6 % (15.0-51.0); MEAN CORPUSCULAR HEMOGLOBIN 28.1 pg (29.0-33.0); MEAN CORPUSCULAR HGB CONC 31.8 g/dl (32.0-37.0); MEAN CORPUSCULAR VOLUME 88.3 fl (82.0-101.0); MEAN PLATELET VOLUME 9.9 fl (7.4-10.4); MONOCYTE # 0.6 10^3/ul (0.3-0.9); MONOCYTES % 7.7 % (0.0-11.0); NEUTROPHIL # 4.6 10^3/ul (1.6-7.5); NEUTROPHILS % 58.2 % (39.0-77.0); PLATELET COUNT 425 10^3/UL (140-415); RED BLOOD COUNT 4.52 10^6/ul (4.70-6.10); RED CELL DISTRIBUTION WIDTH 13.6 % (11.5-14.5); WHITE BLOOD COUNT 7.9 10^3/ul (4.8-10.8)
[2016-10-24 06:22] LABS: INR 0.91; PROTIME 12.3 Sec (12.2-14.2)
[2016-10-24 06:23] LABS: PARTIAL THROMBOPLASTIN TIME 32.8 Sec (25.0-35.0)
[2016-10-24 06:47] LABS: CALCIUM 9.4 mg/dl (8.4-10.2); CREATININE 0.84 mg/dl (0.61-1.24); POTASSIUM 3.9 mmol/L (3.5-5.1)
[2016-10-24] MEDS: VANCOMYCIN 1.25 GM in SOD CHLORIDE 0.9% 250 ML IVPB SCH ×3 (07:04→22:55)
[2016-10-24 08:00] VITALS: BP 135/72; RESP 18
[2016-10-24] MEDS: INSULIN ASPART [NOVOLOG] 3 ML PEN SC SCH ×4 (08:00→21:00)
[2016-10-24] MEDS: morphine (ER) 15 MG TAB PO SCH (08:20)
[2016-10-24] MEDS: ALLOPURINOL 100 MG TAB PO SCH (08:20)
[2016-10-24] MEDS: AMLODIPINE 10 MG TAB PO SCH (08:20)
[2016-10-24] MEDS: metFORMIN 500 MG TAB PO SCH ×2 (08:20→17:32)
[2016-10-24] MEDS: CITALOPRAM 20 MG TAB PO SCH (08:20)
[2016-10-24] MEDS: LACTOBACILLUS RHAMNOSUS CAP PO SCH ×2 (08:20→21:13)
[2016-10-24] MEDS: GABAPENTIN 300 MG CAP PO SCH ×3 (08:20→21:13)
[2016-10-24] MEDS: NYSTATIN SUSP 5 ML CUP PO SCH ×4 (08:21→21:13)
[2016-10-24] MEDS: FLUCONAZOLE 100 MG TAB PO SCH (08:21)
[2016-10-24] MEDS: AMITRIPTYLINE 25 MG TAB PO SCH (08:21)
[2016-10-24] MEDS: POLYETHYLENE GLYCOL 17 GM PACKET PO SCH (08:21)
[2016-10-24] MEDS: CEFEPIME 1GM/50 ML (PMX) 50 ML IVPB SCH ×2 (08:21→21:13)
[2016-10-24] MEDS: FAMOTIDINE 20 MG TAB PO SCH (08:21)
[2016-10-24] MEDS: ENOXAPARIN 40 MG/0.4 ML SYG SC SCH (08:23)
--- NOTE | 2016-10-24 12:28 | CONS ---
Date/Time of Note Date/Time of Note DATE: 10/24/16 TIME: 12:17 Assessment/Plan Assessment/Plan Chief Complaint/Hosp Course ID PROGRESS NOTE TOTAL ABX DAY # 10 => Vanco IV + Cefepime + Fluconazole 24H INTERVAL SUMMARY * A/A/O -> in bed with HOB up eating lunch. * (+)Pain BUEXT L>R = radiculopathy C-spine stenosis * No fevers/chills/N/V/D PHYSICAL EXAMINATION: GENERAL: 56 yo M w/mild-moderate distress due to L>R BUEXT pain HEENT: Unremarkable NECK: Pain w/ROM CHEST: Rise symmetrical=without dyspnea on observation HEART: Radial pulse RRR ABDOMEN: Soft, nondistended SKIN: No diaphoresis, no rash ID ASSESSMENT: 56 yo M admit with: 1. L5-S1 diskitis and osteomyelitis. Neurosurgery on case. No plans for any intervention. 2. T7 edema + T8Fx 3. Cervicalgia w/BUEXT radiculopathy pain * MRI C-spine: IMPRESSION:1. Straightening of the normal cervical lordosis.2. Posterior disk osteophyte complexes contribute to mild spinal canal narrowing at C4-C5 through C6-C7. 3. Multilevel moderate to severe foraminal stenosis as outlined in details in findings. 4. Oral thrush=>Continue oral nystatin and fluconazole. 5. Hypertension. 6. Diabetes. INVASIVES: * CURRENT ABX: TOTAL ABX DAY # 10 => Vanco IV + Cefepime + Fluconazole ID RECOMMENDATIONS: 1. Continue current ABX will need 6 weeks for concern Diskitis 2. Swab nares for MRSA -- if (+)MRSA will need 8 weeks IV ABX for Diskitis 3. Pain management per primary + neurosurgery . . Problems: Consultation Date/Type/Reason Admit Date/Time Oct 15, 2016 at 22:06 Initial Consult Date 10/22/16 Type of Consultation: ID Exam/Review of Systems Vital Signs Vitals Vital Signs Date Time Temp Pulse Resp B/P Pulse Ox O2 Delivery O2 Flow Rate FiO2 10/24/16 08:00 98.4 72 18 135/72 98 Intake and Output 10/23/16 10/23/16 10/24/16 15:00 23:00 07:00 Intake Total 150 ml 1310 ml 1300 ml Output Total 1375 ml 1400 ml Balance 150 ml -65 ml -100 ml Results Result Diagram: 10/24/16 0525 10/24/16 0525 Results 24 hrs Laboratory Tests Test 10/23/16 17:46 10/23/16 20:49 10/24/16 05:25 10/24/16 08:19 Bedside Glucose 97 85 91 White Blood Count 7.9 Red Blood Count 4.52 L Hemoglobin 12.7 L Hematocrit 39.9 L Mean Corpuscular Volume 88.3 Mean Corpuscular Hemoglobin 28.1 L Mean Corpuscular Hemoglobin Concent 31.8 L Red Cell Distribution Width 13.6 Platelet Count 425 H Mean Platelet Volume 9.9 Neutrophils % 58.2 Lymphocytes % 25.6 Monocytes % 7.7 Eosinophils % 5.3 Basophils % 0.4 Nucleated Red Blood Cells % 0.0 Neutrophils # 4.6 Lymphocytes # 2.0 Monocytes # 0.6 Eosinophils # 0.4 Basophils # 0.0 Nucleated Red Blood Cells # 0.0 Prothrombin Time 12.3 Prothrombin Time Ratio 1.0 INR International Normalized Ratio 0.91 Activated Partial Thromboplast Time 32.8 Sodium Level 136 Potassium Level 3.9 Chloride Level 103 Carbon Dioxide Level 25 Anion Gap 12 Blood Urea Nitrogen 23 H Creatinine 0.84 Glucose Level 115 Calcium Level 9.4 Vancomycin Level Trough 17.6 Medications Medications Current Medications Ondansetron HCl (Zofran Inj) 4 mg Q6H PRN IV NAUSEA AND/OR VOMITING; Start 10/16 at 04:30 Allopurinol (Zyloprim) 100 mg DAILY PO Last administered on 10/24/16 08:20; Admin Dose 100 MG; Start 10/16/16 at 09:00 Amitriptyline HCl (Elavil) 25 mg DAILY PO Last administered on 10/24/16 08:21 ; Admin Dose 25 MG; Start 10/16/16 at 09:00 Amlodipine Besylate (Norvasc) 10 mg DAILY PO Last administered on 10/24/16 08: 20; Admin Dose 10 MG; Start 10/16/16 at 09:00 Citalopram Hydrobromide (Celexa) 10 mg DAILY PO Last administered on 10/24/16 08:20; Admin Dose 10 MG; Start 10/16/16 at 09:00 Naproxen 500 mg 500 mg BID PRN PO PAIN AND/OR INFLAMMATION; Start 10/16/16 at 04 :30; Status Future Hold Cefepime HCl (Maxipime 1gm/50 ml (Pmx)) 50 ml @ 100 mls/hr Q12 IVPB Last administered on 10/24/16 08:21; Admin Dose 100 MLS/HR; Start 10/16/16 at 14:00 Miscellaneous Information 1 ea NOTE XX ; Start 10/16/16 at 14:30 Glucose (Glutose) 15 gm Q15M PRN PO DECREASED GLUCOSE; Start 10/16/16 at 14:30 Glucose (Glutose) 22.5 gm Q15M PRN PO DECREASED GLUCOSE; Start 10/16/16 at 14:30 Dextrose (D50w Syringe) 25 ml Q15M PRN IV DECREASED GLUCOSE; Start 10/16/16 at 14:30 Dextrose (D50w Syringe) 50 ml Q15M PRN IV DECREASED GLUCOSE; Start 10/16/16 at 14:30 Glucagon (Glucagen) 1 mg Q15M PRN IM DECREASED GLUCOSE; Start 10/16/16 at 14:30 Glucose (Glutose) 15 gm Q15M PRN BUCCAL DECREASED GLUCOSE; Start 10/16/16 at 14: 30 Lactobacillus Acidophilus/ Rhamnosus (Culturelle) 1 cap BID PO Last administered on 10/24/16 08:20; Admin Dose 1 CAP; Start 10/16/16 at 21:00 Docusate Sodium (Colace Liquid Cup) 100 mg HS PO Last administered on 20:50; Admin Dose 100 MG; Start 10/16/16 at 21:00 Famotidine (Pepcid) 20 mg DAILY PO Last administered on 10/24/16 08:21; Admin Dose 20 MG; Start 10/18/16 at 09:00 Enoxaparin Sodium (Lovenox) 40 mg DAILY SC Last administered on 10/24/16 08:23 ; Admin Dose 40 MG; Start 10/18/16 at 12:30 Gabapentin 300 mg 300 mg TID PO Last administered on 10/24/16 08:20; Admin Dose 300 MG; Start 10/20/16 at 13:00 Acetaminophen (Ofirmev 1000mg/ 100ml Iv) 100 ml @ 400 mls/hr Q6H IVPB Last administered on 10/24/16 11:21; Admin Dose 400 MLS/HR; Start 10/20/16 at 22:00 Morphine Sulfate (Ms Contin (Er)) 15 mg QAM PO Last administered on 10/24/16 08:20; Admin Dose 15 MG; Start 10/22/16 at 09:00 Hydromorphone HCl (Dilaudid) 2 mg Q4H PRN PO PAIN Last administered on 09:28; Admin Dose 2 MG; Start 10/21/16 at 11:30 Polyethylene Glycol 17 gm 17 gm DAILY PO Last administered on 10/22/16 08:34; Admin Dose 17 GM; Start 10/22/16 at 09:00 Vancomycin HCl/ Sodium Chloride (Vancocin/NS) 250 ml @ 83.333 mls/ hr Q8H IVPB Last administered on 10/24/16 07:04; Admin Dose 83.333 MLS/HR; Start at 22:00 Fluconazole (Diflucan) 100 mg DAILY PO Last administered on 10/24/16 08:21; Admin Dose 100 MG; Start 10/22/16 at 21:00 Nystatin (Nystatin Susp) 5 ml QID PO Last administered on 10/24/16 08:21; Admin Dose 5 ML; Start 10/22/16 at 21:00 Miscellaneous Information (*Rx Drug Level Order Reminder*) VANCOMYCIN TROUGH AT 0500 ONCE ONCE XX ; Start 10/25/16 at 05:00; Stop 10/25/16 at 05:01 KEVIN ORTIZ NP Oct 24, 2016 12:27
[2016-10-24 20:00] VITALS: BP 112/62; RESP 18
[2016-10-24] MEDS: DOCUSATE SODIUM 10 MG/ML (10ML CUP) PO SCH (21:13)
[2016-10-25] MEDS: ACETAMINOPHEN 1000MG/100ML IV 100 ML IVPB SCH ×6 (00:20→22:13)
[2016-10-25] MEDS: HYDROmorphONE 2 MG TAB PO PRN ×3 (01:41→21:13)
[2016-10-25 05:42] LABS: ADD SCAN DIFF NO
[2016-10-25 05:52] LABS: BASOPHILS % 0.4 % (0.0-2.0); EOSINOPHILS # 0.4 10^3/ul (0.0-0.5); EOSINOPHILS % 5.6 % (0.0-7.0); HEMATOCRIT 39.7 % (42.0-52.0); HEMOGLOBIN 12.8 g/dl (14.0-18.0); LYMPHOCYTES # 2.1 10^3/ul (0.8-2.9); LYMPHOCYTES % 30.4 % (15.0-51.0); MEAN CORPUSCULAR HEMOGLOBIN 28.2 pg (29.0-33.0); MEAN CORPUSCULAR HGB CONC 32.2 g/dl (32.0-37.0); MEAN CORPUSCULAR VOLUME 87.4 fl (82.0-101.0); MEAN PLATELET VOLUME 9.5 fl (7.4-10.4); MONOCYTE # 0.6 10^3/ul (0.3-0.9); MONOCYTES % 8.4 % (0.0-11.0); NEUTROPHIL # 3.6 10^3/ul (1.6-7.5); NEUTROPHILS % 53.1 % (39.0-77.0); PLATELET COUNT 422 10^3/UL (140-415); RED BLOOD COUNT 4.54 10^6/ul (4.70-6.10); RED CELL DISTRIBUTION WIDTH 13.4 % (11.5-14.5); WHITE BLOOD COUNT 6.8 10^3/ul (4.8-10.8)
[2016-10-25] MEDS: VANCOMYCIN 1.25 GM in SOD CHLORIDE 0.9% 250 ML IVPB SCH (06:00)
[2016-10-25 06:18] LABS: IRON 54 ug/dl (35-150)
[2016-10-25 06:20] LABS: CALCIUM 9.9 mg/dl (8.4-10.2); CREATININE 0.72 mg/dl (0.61-1.24); POTASSIUM 4.2 mmol/L (3.5-5.1)
[2016-10-25 06:21] LABS: CHOL/HDL RATIO 6.3 RATIO
[2016-10-25 06:22] LABS: PHOSPHORUS 4.4 mg/dl (2.5-4.9)
[2016-10-25 06:28] LABS: TOTAL IRON BINDING CAPACITY 304 ug/dl (241-421)
[2016-10-25 06:49] LABS: THYROID STIMULATING HORMONE 3.49 MIU/L (0.465-4.680)
[2016-10-25] MEDS: INSULIN ASPART [NOVOLOG] 3 ML PEN SC SCH ×4 (08:00→21:00)
[2016-10-25 08:07] VITALS: BP 126/62; RESP 18
[2016-10-25] MEDS: ENOXAPARIN 40 MG/0.4 ML SYG SC SCH (08:23)
[2016-10-25] MEDS: FAMOTIDINE 20 MG TAB PO SCH (08:24)
[2016-10-25] MEDS: NYSTATIN SUSP 5 ML CUP PO SCH ×4 (08:24→21:12)
[2016-10-25] MEDS: AMITRIPTYLINE 25 MG TAB PO SCH (08:24)
[2016-10-25] MEDS: CEFEPIME 1GM/50 ML (PMX) 50 ML IVPB SCH ×2 (08:24→21:12)
[2016-10-25] MEDS: AMLODIPINE 10 MG TAB PO SCH (08:24)
[2016-10-25] MEDS: GABAPENTIN 300 MG CAP PO SCH ×3 (08:25→21:12)
[2016-10-25] MEDS: metFORMIN 500 MG TAB PO SCH ×2 (08:25→17:26)
[2016-10-25] MEDS: LACTOBACILLUS RHAMNOSUS CAP PO SCH ×2 (08:25→21:12)
[2016-10-25] MEDS: FLUCONAZOLE 100 MG TAB PO SCH (08:25)
[2016-10-25] MEDS: ALLOPURINOL 100 MG TAB PO SCH (08:25)
[2016-10-25] MEDS: CITALOPRAM 20 MG TAB PO SCH (08:25)
[2016-10-25] MEDS: morphine (ER) 15 MG TAB PO SCH (08:25)
[2016-10-25] MEDS: POLYETHYLENE GLYCOL 17 GM PACKET PO SCH (09:00)
[2016-10-25] MEDS ORDERED: VANCOMYCIN 1.25 GM in SOD CHLORIDE 0.9% 250 ML IVPB SCH (10:00)
[2016-10-25] MEDS: CHOLECALCIFEROL 1,000 UNIT TAB PO SCH (12:04)
--- NOTE | 2016-10-25 12:14 | PN ---
DATE: 10/24/2016 TIME OF EVALUATION: 1:00 p.m. SUBJECTIVE DATA: Complains of bilateral upper extremity weakness. Vague complaints of pain. OBJECTIVE DATA: VITAL SIGNS: Temperature 98.4, pulse is 72, respiratory rate 18, blood pressure 134/72, oxygen saturation 98% on room air. GENERAL: This is a slightly overweight male lying in bed in no apparent distress. HEENT: Head normocephalic and atraumatic. Eyes: Anicteric sclerae. Conjunctivae clear. ENT: Nasal septum is midline. Oral mucosa is moist. NECK: Supple. No JVD noticed. RESPIRATORY: Bilaterally diminished breath sounds. No adventitious breath sounds. No use of accessory muscles of respiration. CARDIAC: Regular rate and rhythm. No murmurs heard. ABDOMEN: Soft, nontender and nondistended. Bowel sounds positive in all 4 quadrants. GENITOURINARY: The patient has a Rios catheter in place. EXTREMITIES: No cyanosis, no clubbing. Bilateral upper extremities tenderness to palpation. NEUROLOGIC: The patient is awake, alert and oriented x4. Right upper extremity and left upper extremity movement against gravity. Left lower extremity weaker than the right lower extremity. LABORATORY AND DIAGNOSTIC DATA: WBC 7.9, hemoglobin 12.7, hematocrit 39.9, platelet count 425. Sodium 136, potassium 3.9, chloride 106, carbon dioxide 25 , anion gap 12, BUN 23, creatinine 0.84, glucose 115. ASSESSMENT AND PLAN: 1. Sepsis secondary to L5 to S1 diskitis and osteomyelitis. Continue antibiotics. Status post evaluation by neurosurgery. 2. Subtle T7 edema and T8 fracture secondary to mechanical fall. Continue conservative management. Status post evaluation by neurology and neurosurgery. 3. Cervicalgia with bilateral upper extremities, radiculopathic pain. MRI of the cervical spine showing posterior disk osteophyte complexes contributing to mild spinal canal narrowing at C4-C5 through C6-C7.The MRI also showed multilevel moderate to severe foraminal stenosis. Continue pain control. Being followed by touch up painter. Continue physical therapy. 4. Essential hypertension. Blood pressure well controlled off antihypertensives. 5. Adult onset diabetes. Hemoglobin A1c 6.0. Continue sliding scale insulin. Blood sugars well controlled. 6. Hypochromic normocytic anemia. Etiology unclear. Will monitor the H and H closely. 7. Iron deficiency. Continue iron supplements. 8. Oral candidiasis. Continue antifungals. 9. Vitamin D deficiency. Continue vitamin D supplements. 10. Fluid, electrolytes and nutrition. Carbohydrate controlled diet. 11. DVT prophylaxis with subcutaneous Lovenox. 12. Gastrointestinal prophylaxis. Histamine 2 receptor blockers. 13. Plan. Continue pain control. Continue antibiotics as per infectious diseases. Continue physical therapy. Plan of care was explained to the patient's , who was at the bedside. Case discussed with Dr. Moran. MUSTAPHA MORAN MD, AM/DEVI Conf#: [id number] DID#: [id number] MTDD
--- NOTE | 2016-10-25 12:59 | PN ---
Date/Time of Note Date/Time of Note DATE: 10/25/16 TIME: 12:59 Assessment/Plan VTE Prophylaxis VTE Prophylaxis Intervention: LMWH Lines/Catheters IV Catheter Type (from [facility]): [facility] Urinary Cath still in place: No Assessment/Plan Chief Complaint/Hosp Course 1. Sepsis secondary to L5 to S1 diskitis and osteomyelitis. Continue antibiotics. Status post evaluation by neurosurgery. 2. Subtle T7 edema and T8 fracture secondary to mechanical fall. Continue conservative management. Status post evaluation by neurology and neurosurgery. 3. Cervicalgia with bilateral upper extremities, radiculopathic pain. MRI of the cervical spine showing posterior disk osteophyte complexes contributing to mild spinal canal narrowing at C4-C5 through C6-C7.The MRI also showed multilevel moderate to severe foraminal stenosis. Continue pain control. Being followed by painter foreman. Continue physical therapy. 4. Essential hypertension. Blood pressure well controlled off antihypertensives. 5. Adult onset diabetes. Hemoglobin A1c 6.0. Continue sliding scale insulin. Blood sugars well controlled. 6. Hypochromic normocytic anemia. Etiology unclear. Will monitor the H and H closely. 7. Iron deficiency. Continue iron supplements. 8. Oral candidiasis. Continue antifungals. 9. Vitamin D deficiency. Continue vitamin D supplements. 10. Fluid, electrolytes and nutrition. Carbohydrate controlled diet. 11. DVT prophylaxis with subcutaneous Lovenox. 12. Gastrointestinal prophylaxis. Histamine 2 receptor blockers. 13. Plan. Continue pain control. Continue antibiotics as per infectious diseases. Continue physical therapy. Plan of care was explained to the patient's , who was at the bedside. Case discussed with Dr. Moran. Problems: Subjective 24 Hr Interval Summary Free Text/Dictation No change in status. Exam/Review of Systems Vital Signs Vitals Vital Signs Date Time Temp Pulse Resp B/P Pulse Ox O2 Delivery O2 Flow Rate FiO2 10/25/16 08:07 97.9 65 18 126/62 97 Intake and Output 10/24/16 10/24/16 10/25/16 14:59 22:59 06:59 Intake Total 400 ml 1200 ml 800 ml Output Total 2000 ml 1200 ml Balance 400 ml -800 ml -400 ml Exam GENERAL: This is a slightly overweight male lying in bed in no apparent distress. HEENT: Head normocephalic and atraumatic. Eyes: Anicteric sclerae. Conjunctivae clear. ENT: Nasal septum is midline. Oral mucosa is moist. NECK: Supple. No JVD noticed. RESPIRATORY: Bilaterally diminished breath sounds. No adventitious breath sounds. No use of accessory muscles of respiration. CARDIAC: Regular rate and rhythm. No murmurs heard. ABDOMEN: Soft, nontender and nondistended. Bowel sounds positive in all 4 quadrants. GENITOURINARY: The patient has a Rios catheter in place. EXTREMITIES: No cyanosis, no clubbing. Bilateral upper extremities tenderness to palpation. NEUROLOGIC: The patient is awake, alert and oriented x4. Right upper extremity and left upper extremity movement against gravity. Left lower extremity weaker than the right lower extremity. Results Result Diagram: 10/25/16 0455 10/25/16 0455 Results 24 hrs Laboratory Tests Test 10/24/16 21:12 10/25/16 01:39 10/25/16 04:55 10/25/16 08:22 Bedside Glucose 93 89 90 White Blood Count 6.8 Red Blood Count 4.54 L Hemoglobin 12.8 L Hematocrit 39.7 L Mean Corpuscular Volume 87.4 Mean Corpuscular Hemoglobin 28.2 L Mean Corpuscular Hemoglobin Concent 32.2 Red Cell Distribution Width 13.4 Platelet Count 422 H Mean Platelet Volume 9.5 Neutrophils % 53.1 Lymphocytes % 30.4 Monocytes % 8.4 Eosinophils % 5.6 Basophils % 0.4 Nucleated Red Blood Cells % 0.0 Neutrophils # 3.6 Lymphocytes # 2.1 Monocytes # 0.6 Eosinophils # 0.4 Basophils # 0.0 Nucleated Red Blood Cells # 0.0 Sodium Level 137 Potassium Level 4.2 Chloride Level 103 Carbon Dioxide Level 25 Anion Gap 13 Blood Urea Nitrogen 20 Creatinine 0.72 Glucose Level 92 Calcium Level 9.9 Phosphorus Level 4.4 Magnesium Level 2.0 Iron Level 54 Total Iron Binding Capacity 304 Percent Iron Saturation 18 L Ferritin 194.0 Triglycerides Level 159 H Cholesterol Level 172 LDL Cholesterol, Calculated 113 HDL Cholesterol 27 L Cholesterol/HDL Ratio 6.3 Thyroid Stimulating Hormone (TSH) 3.490 Free Thyroxine 1.23 Vancomycin Level Trough 24.8 *H HIV (1&2) Antibody NEGATIVE Test 10/25/16 12:02 Bedside Glucose 96 Medications Medications Current Medications Ondansetron HCl (Zofran Inj) 4 mg Q6H PRN IV NAUSEA AND/OR VOMITING; Start 10/16 at 04:30 Allopurinol (Zyloprim) 100 mg DAILY PO Last administered on 10/25/16 08:25; Admin Dose 100 MG; Start 10/16/16 at 09:00 Amitriptyline HCl (Elavil) 25 mg DAILY PO Last administered on 10/25/16 08:24 ; Admin Dose 25 MG; Start 10/16/16 at 09:00 Amlodipine Besylate (Norvasc) 10 mg DAILY PO Last administered on 10/25/16 08: 24; Admin Dose 10 MG; Start 10/16/16 at 09:00 Citalopram Hydrobromide (Celexa) 10 mg DAILY PO Last administered on 10/25/16 08:25; Admin Dose 10 MG; Start 10/16/16 at 09:00 Naproxen 500 mg 500 mg BID PRN PO PAIN AND/OR INFLAMMATION; Start 10/16/16 at 04 :30; Status Future Hold Cefepime HCl (Maxipime 1gm/50 ml (Pmx)) 50 ml @ 100 mls/hr Q12 IVPB Last administered on 10/25/16 08:24; Admin Dose 100 MLS/HR; Start 10/16/16 at 14:00 Miscellaneous Information 1 ea NOTE XX ; Start 10/16/16 at 14:30 Glucose (Glutose) 15 gm Q15M PRN PO DECREASED GLUCOSE; Start 10/16/16 at 14:30 Glucose (Glutose) 22.5 gm Q15M PRN PO DECREASED GLUCOSE; Start 10/16/16 at 14:30 Dextrose (D50w Syringe) 25 ml Q15M PRN IV DECREASED GLUCOSE; Start 10/16/16 at 14:30 Dextrose (D50w Syringe) 50 ml Q15M PRN IV DECREASED GLUCOSE; Start 10/16/16 at 14:30 Glucagon (Glucagen) 1 mg Q15M PRN IM DECREASED GLUCOSE; Start 10/16/16 at 14:30 Glucose (Glutose) 15 gm Q15M PRN BUCCAL DECREASED GLUCOSE; Start 10/16/16 at 14: 30 Lactobacillus Acidophilus/ Rhamnosus (Culturelle) 1 cap BID PO Last administered on 10/25/16 08:25; Admin Dose 1 CAP; Start 10/16/16 at 21:00 Docusate Sodium (Colace Liquid Cup) 100 mg HS PO Last administered on 21:13; Admin Dose 100 MG; Start 10/16/16 at 21:00 Famotidine (Pepcid) 20 mg DAILY PO Last administered on 10/25/16 08:24; Admin Dose 20 MG; Start 10/18/16 at 09:00 Enoxaparin Sodium (Lovenox) 40 mg DAILY SC Last administered on 10/25/16 08:23 ; Admin Dose 40 MG; Start 10/18/16 at 12:30 Gabapentin 300 mg 300 mg TID PO Last administered on 10/25/16 08:25; Admin Dose 300 MG; Start 10/20/16 at 13:00 Acetaminophen (Ofirmev 1000mg/ 100ml Iv) 100 ml @ 400 mls/hr Q6H IVPB Last administered on 10/25/16 10:00; Admin Dose 400 MLS/HR; Start 10/20/16 at 22:00 Morphine Sulfate (Ms Contin (Er)) 15 mg QAM PO Last administered on 10/25/16 08:25; Admin Dose 15 MG; Start 10/22/16 at 09:00 Hydromorphone HCl (Dilaudid) 2 mg Q4H PRN PO PAIN Last administered on 06:37; Admin Dose 2 MG; Start 10/21/16 at 11:30 Polyethylene Glycol (Miralax) 17 gm DAILY PO Last administered on 10/22/16 08: 34; Admin Dose 17 GM; Start 10/22/16 at 09:00 Fluconazole (Diflucan) 100 mg DAILY PO Last administered on 10/25/16 08:25; Admin Dose 100 MG; Start 10/22/16 at 21:00 Nystatin (Nystatin Susp) 5 ml QID PO Last administered on 10/25/16 08:24; Admin Dose 5 ML; Start 10/22/16 at 21:00 Cholecalciferol 1000 unit 1,000 unit DAILY PO Last administered on 10/25/16 12 :04; Admin Dose 1,000 UNIT; Start 10/25/16 at 09:00 Vancomycin HCl/ Sodium Chloride (Vancocin/NS) 250 ml @ 83.333 mls/ hr Q12H IVPB ; Start 10/25/16 at 12:00 MUSTAPHA SAUCEDO NP Oct 25, 2016 12:59
[2016-10-25] MEDS: VANCOMYCIN 1.5 GM in SOD CHLORIDE 0.9% 250 ML IVPB SCH ×2 (13:29→23:56)
--- NOTE | 2016-10-25 14:19 | CONS ---
Date/Time of Note Date/Time of Note DATE: 10/25/16 TIME: 14:11 Assessment/Plan Assessment/Plan Chief Complaint/Hosp Course SUBJECTIVE: The patient is lying comfortably in bed. Complains of Left hand pain. No fever. ANTIMICROBIALS: 1. Vancomycin. 2. Cefepime. MICROBIOLOGY: Blood and urine culture negative. PHYSICAL EXAMINATION: GENERAL: This is a well-nourished, well-developed, middle-aged man who is alert, in no distress. HEENT: Head atraumatic, normocephalic. Sclerae anicteric. Buccal mucosa pink with white thrush on his tongue and presence of halitosis. NECK: Supple. CHEST: Rise symmetrical. Breath sounds diminished to bases. HEART: S1, S2. ABDOMEN: Soft. Bowel tones present. EXTREMITIES: Without cyanosis. The patient has limited movement in bilateral extremities secondary to pain. ASSESSMENT: 1. L5-S1 diskitis and osteomyelitis. Neurosurgery on case. No plans for any intervention. 2. Oral thrush==>Continue oral nystatin and fluconazole. 3. Hypertension. 4. Diabetes. 5. Left Hand Pain. PLAN: The patient remains clinically stable. He is being followed by multiple consultants. Continue ABX. Continue with Neurology and Neurosurgery specialists recommendations. Pain Management. Recommend evaluation by interventional radiology for possible CT-guided aspiration. DW staff. Problems: Consultation Date/Type/Reason Admit Date/Time Oct 15, 2016 at 22:06 Initial Consult Date 10/22/16 Type of Consultation: ID Exam/Review of Systems Vital Signs Vitals Vital Signs Date Time Temp Pulse Resp B/P Pulse Ox O2 Delivery O2 Flow Rate FiO2 10/25/16 08:07 97.9 65 18 126/62 97 Intake and Output 10/24/16 10/24/16 10/25/16 15:00 23:00 07:00 Intake Total 650 ml 950 ml 800 ml Output Total 2000 ml 1200 ml Balance 650 ml -1050 ml -400 ml Results Result Diagram: 10/25/16 0455 10/25/16 0455 Results 24 hrs Laboratory Tests Test 10/24/16 21:12 10/25/16 01:39 10/25/16 04:55 10/25/16 08:22 Bedside Glucose 93 89 90 White Blood Count 6.8 Red Blood Count 4.54 L Hemoglobin 12.8 L Hematocrit 39.7 L Mean Corpuscular Volume 87.4 Mean Corpuscular Hemoglobin 28.2 L Mean Corpuscular Hemoglobin Concent 32.2 Red Cell Distribution Width 13.4 Platelet Count 422 H Mean Platelet Volume 9.5 Neutrophils % 53.1 Lymphocytes % 30.4 Monocytes % 8.4 Eosinophils % 5.6 Basophils % 0.4 Nucleated Red Blood Cells % 0.0 Neutrophils # 3.6 Lymphocytes # 2.1 Monocytes # 0.6 Eosinophils # 0.4 Basophils # 0.0 Nucleated Red Blood Cells # 0.0 Sodium Level 137 Potassium Level 4.2 Chloride Level 103 Carbon Dioxide Level 25 Anion Gap 13 Blood Urea Nitrogen 20 Creatinine 0.72 Glucose Level 92 Calcium Level 9.9 Phosphorus Level 4.4 Magnesium Level 2.0 Iron Level 54 Total Iron Binding Capacity 304 Percent Iron Saturation 18 L Ferritin 194.0 Triglycerides Level 159 H Cholesterol Level 172 LDL Cholesterol, Calculated 113 HDL Cholesterol 27 L Cholesterol/HDL Ratio 6.3 Thyroid Stimulating Hormone (TSH) 3.490 Free Thyroxine 1.23 Vancomycin Level Trough 24.8 *H HIV (1&2) Antibody NEGATIVE Test 10/25/16 12:02 Bedside Glucose 96 Medications Medications Current Medications Ondansetron HCl (Zofran Inj) 4 mg Q6H PRN IV NAUSEA AND/OR VOMITING; Start 10/16 at 04:30 Allopurinol (Zyloprim) 100 mg DAILY PO Last administered on 10/25/16 08:25; Admin Dose 100 MG; Start 10/16/16 at 09:00 Amitriptyline HCl (Elavil) 25 mg DAILY PO Last administered on 10/25/16 08:24 ; Admin Dose 25 MG; Start 10/16/16 at 09:00 Amlodipine Besylate (Norvasc) 10 mg DAILY PO Last administered on 10/25/16 08: 24; Admin Dose 10 MG; Start 10/16/16 at 09:00 Citalopram Hydrobromide (Celexa) 10 mg DAILY PO Last administered on 10/25/16 08:25; Admin Dose 10 MG; Start 10/16/16 at 09:00 Naproxen 500 mg 500 mg BID PRN PO PAIN AND/OR INFLAMMATION; Start 10/16/16 at 04 :30; Status Future Hold Cefepime HCl (Maxipime 1gm/50 ml (Pmx)) 50 ml @ 100 mls/hr Q12 IVPB Last administered on 10/25/16 08:24; Admin Dose 100 MLS/HR; Start 10/16/16 at 14:00 Miscellaneous Information 1 ea NOTE XX ; Start 10/16/16 at 14:30 Glucose (Glutose) 15 gm Q15M PRN PO DECREASED GLUCOSE; Start 10/16/16 at 14:30 Glucose (Glutose) 22.5 gm Q15M PRN PO DECREASED GLUCOSE; Start 10/16/16 at 14:30 Dextrose (D50w Syringe) 25 ml Q15M PRN IV DECREASED GLUCOSE; Start 10/16/16 at 14:30 Dextrose (D50w Syringe) 50 ml Q15M PRN IV DECREASED GLUCOSE; Start 10/16/16 at 14:30 Glucagon (Glucagen) 1 mg Q15M PRN IM DECREASED GLUCOSE; Start 10/16/16 at 14:30 Glucose (Glutose) 15 gm Q15M PRN BUCCAL DECREASED GLUCOSE; Start 10/16/16 at 14: 30 Lactobacillus Acidophilus/ Rhamnosus (Culturelle) 1 cap BID PO Last administered on 10/25/16 08:25; Admin Dose 1 CAP; Start 10/16/16 at 21:00 Docusate Sodium (Colace Liquid Cup) 100 mg HS PO Last administered on 21:13; Admin Dose 100 MG; Start 10/16/16 at 21:00 Famotidine (Pepcid) 20 mg DAILY PO Last administered on 10/25/16 08:24; Admin Dose 20 MG; Start 10/18/16 at 09:00 Enoxaparin Sodium (Lovenox) 40 mg DAILY SC Last administered on 10/25/16 08:23 ; Admin Dose 40 MG; Start 10/18/16 at 12:30 Gabapentin 300 mg 300 mg TID PO Last administered on 10/25/16 13:15; Admin Dose 300 MG; Start 10/20/16 at 13:00 Acetaminophen (Ofirmev 1000mg/ 100ml Iv) 100 ml @ 400 mls/hr Q6H IVPB Last administered on 10/25/16 10:00; Admin Dose 400 MLS/HR; Start 10/20/16 at 22:00 Morphine Sulfate (Ms Contin (Er)) 15 mg QAM PO Last administered on 10/25/16 08:25; Admin Dose 15 MG; Start 10/22/16 at 09:00 Hydromorphone HCl (Dilaudid) 2 mg Q4H PRN PO PAIN Last administered on 06:37; Admin Dose 2 MG; Start 10/21/16 at 11:30 Polyethylene Glycol (Miralax) 17 gm DAILY PO Last administered on 10/22/16 08: 34; Admin Dose 17 GM; Start 10/22/16 at 09:00 Fluconazole (Diflucan) 100 mg DAILY PO Last administered on 10/25/16 08:25; Admin Dose 100 MG; Start 10/22/16 at 21:00 Nystatin (Nystatin Susp) 5 ml QID PO Last administered on 10/25/16 13:15; Admin Dose 5 ML; Start 10/22/16 at 21:00 Cholecalciferol 1000 unit 1,000 unit DAILY PO Last administered on 10/25/16 12 :04; Admin Dose 1,000 UNIT; Start 10/25/16 at 09:00 Vancomycin HCl/ Sodium Chloride (Vancocin/NS) 250 ml @ 83.333 mls/ hr Q12H IVPB Last administered on 10/25/16 13:29; Admin Dose 83.333 MLS/HR; Start at 12:00 DANIEL OLIVER NP Oct 25, 2016 14:19
[2016-10-25 20:34] VITALS: BP 131/73; RESP 18
[2016-10-25] MEDS: DOCUSATE SODIUM 10 MG/ML (10ML CUP) PO SCH (21:12)
[2016-10-26] MEDS: HYDROmorphONE 2 MG TAB PO PRN ×3 (01:24→19:56)
[2016-10-26] MEDS: ACETAMINOPHEN 1000MG/100ML IV 100 ML IVPB SCH ×4 (04:31→21:38)
[2016-10-26 07:55] VITALS: BP 121/62; RESP 16
[2016-10-26] MEDS: INSULIN ASPART [NOVOLOG] 3 ML PEN SC SCH ×4 (08:00→20:00)
[2016-10-26] MEDS: FAMOTIDINE 20 MG TAB PO SCH (08:52)
[2016-10-26] MEDS: NYSTATIN SUSP 5 ML CUP PO SCH ×4 (08:52→19:57)
[2016-10-26] MEDS: AMITRIPTYLINE 25 MG TAB PO SCH (08:52)
[2016-10-26] MEDS: CEFEPIME 1GM/50 ML (PMX) 50 ML IVPB SCH ×2 (08:52→20:00)
[2016-10-26] MEDS: FLUCONAZOLE 100 MG TAB PO SCH (08:53)
[2016-10-26] MEDS: LACTOBACILLUS RHAMNOSUS CAP PO SCH ×2 (08:53→19:56)
[2016-10-26] MEDS: CHOLECALCIFEROL 1,000 UNIT TAB PO SCH (08:53)
[2016-10-26] MEDS: CITALOPRAM 20 MG TAB PO SCH (08:53)
[2016-10-26] MEDS: GABAPENTIN 300 MG CAP PO SCH ×3 (08:53→19:56)
[2016-10-26] MEDS: ALLOPURINOL 100 MG TAB PO SCH (08:53)
[2016-10-26] MEDS: morphine (ER) 15 MG TAB PO SCH (08:53)
[2016-10-26] MEDS: POLYETHYLENE GLYCOL 17 GM PACKET PO SCH (08:53)
[2016-10-26] MEDS: AMLODIPINE 10 MG TAB PO SCH (08:54)
[2016-10-26] MEDS: ENOXAPARIN 40 MG/0.4 ML SYG SC SCH (08:58)
[2016-10-26] MEDS: metFORMIN 500 MG TAB PO SCH ×2 (09:22→18:09)
[2016-10-26 11:03] LABS: ADD SCAN DIFF NO
--- NOTE | 2016-10-26 11:06 | PN ---
Date/Time of Note Date/Time of Note DATE: 10/26/16 TIME: 11:05 Assessment/Plan VTE Prophylaxis VTE Prophylaxis Intervention: LMWH Lines/Catheters IV Catheter Type (from [facility] Urinary Cath still in place: No Assessment/Plan Chief Complaint/Hosp Course 1. Sepsis secondary to L5 to S1 diskitis and osteomyelitis. Continue antibiotics. Status post evaluation by neurosurgery. 2. Subtle T7 edema and T8 fracture secondary to mechanical fall. Continue conservative management. Status post evaluation by neurology and neurosurgery. 3. Cervicalgia with bilateral upper extremities, radiculopathic pain. MRI of the cervical spine showing posterior disk osteophyte complexes contributing to mild spinal canal narrowing at C4-C5 through C6-C7.The MRI also showed multilevel moderate to severe foraminal stenosis. Continue pain control. Being followed by silo painter. Continue physical therapy. 4. Essential hypertension. Blood pressure well controlled off antihypertensives. 5. Adult onset diabetes. Hemoglobin A1c 6.0. Continue sliding scale insulin. Blood sugars well controlled. 6. Hypochromic normocytic anemia. Etiology unclear. Will monitor the H and H closely. 7. Iron deficiency. Continue iron supplements. 8. Oral candidiasis. Continue antifungals. 9. Vitamin D deficiency. Continue vitamin D supplements. 10. Fluid, electrolytes and nutrition. Carbohydrate controlled diet. 11. DVT prophylaxis with subcutaneous Lovenox. 12. Gastrointestinal prophylaxis. Histamine 2 receptor blockers. 13. Plan. Continue pain control. Continue antibiotics as per infectious diseases. Continue physical therapy. Case discussed with Dr. Jones. Problems: Subjective 24 Hr Interval Summary Free Text/Dictation Complains of bilateral upper extremity pain. Exam/Review of Systems Vital Signs Vitals Vital Signs Date Time Temp Pulse Resp B/P Pulse Ox O2 Delivery O2 Flow Rate FiO2 10/26/16 07:55 98.0 65 16 121/62 96 Intake and Output 10/25/16 10/25/16 10/26/16 15:00 23:00 07:00 Intake Total 150 ml 2540 ml 550 ml Output Total 1600 ml 1800 ml Balance 150 ml 940 ml -1250 ml Exam GENERAL: This is a slightly overweight male lying in bed in no apparent distress. HEENT: Head normocephalic and atraumatic. Eyes: Anicteric sclerae. Conjunctivae clear. ENT: Nasal septum is midline. Oral mucosa is moist. NECK: Supple. No JVD noticed. RESPIRATORY: Bilaterally diminished breath sounds. No adventitious breath sounds. No use of accessory muscles of respiration. CARDIAC: Regular rate and rhythm. No murmurs heard. ABDOMEN: Soft, nontender and nondistended. Bowel sounds positive in all 4 quadrants. GENITOURINARY: The patient has a Rios catheter in place. EXTREMITIES: No cyanosis, no clubbing. Bilateral upper extremities tenderness to palpation. NEUROLOGIC: The patient is awake, alert and oriented x4. Right upper extremity and left upper extremity movement against gravity. Left lower extremity weaker than the right lower extremity. Results Result Diagram: 10/25/16 0455 10/25/16 0455 Results 24 hrs Laboratory Tests Test 10/25/16 12:02 10/25/16 17:10 10/25/16 21:10 10/26/16 01:21 Bedside Glucose 96 112 103 83 Test 10/26/16 08:08 Bedside Glucose 91 Medications Medications Current Medications Ondansetron HCl (Zofran Inj) 4 mg Q6H PRN IV NAUSEA AND/OR VOMITING; Start 10/16 at 04:30 Allopurinol (Zyloprim) 100 mg DAILY PO Last administered on 10/26/16 08:53; Admin Dose 100 MG; Start 10/16/16 at 09:00 Amitriptyline HCl (Elavil) 25 mg DAILY PO Last administered on 10/26/16 08:52 ; Admin Dose 25 MG; Start 10/16/16 at 09:00 Amlodipine Besylate (Norvasc) 10 mg DAILY PO Last administered on 10/26/16 08: 54; Admin Dose 10 MG; Start 10/16/16 at 09:00 Citalopram Hydrobromide (Celexa) 10 mg DAILY PO Last administered on 10/26/16 08:53; Admin Dose 10 MG; Start 10/16/16 at 09:00 Naproxen 500 mg 500 mg BID PRN PO PAIN AND/OR INFLAMMATION; Start 10/16/16 at 04 :30; Status Future Hold Cefepime HCl (Maxipime 1gm/50 ml (Pmx)) 50 ml @ 100 mls/hr Q12 IVPB Last administered on 10/26/16 08:52; Admin Dose 100 MLS/HR; Start 10/16/16 at 14:00 Miscellaneous Information 1 ea NOTE XX ; Start 10/16/16 at 14:30 Glucose (Glutose) 15 gm Q15M PRN PO DECREASED GLUCOSE; Start 10/16/16 at 14:30 Glucose (Glutose) 22.5 gm Q15M PRN PO DECREASED GLUCOSE; Start 10/16/16 at 14:30 Dextrose (D50w Syringe) 25 ml Q15M PRN IV DECREASED GLUCOSE; Start 10/16/16 at 14:30 Dextrose (D50w Syringe) 50 ml Q15M PRN IV DECREASED GLUCOSE; Start 10/16/16 at 14:30 Glucagon (Glucagen) 1 mg Q15M PRN IM DECREASED GLUCOSE; Start 10/16/16 at 14:30 Glucose (Glutose) 15 gm Q15M PRN BUCCAL DECREASED GLUCOSE; Start 10/16/16 at 14: 30 Lactobacillus Acidophilus/ Rhamnosus (Culturelle) 1 cap BID PO Last administered on 10/26/16 08:53; Admin Dose 1 CAP; Start 10/16/16 at 21:00 Docusate Sodium (Colace Liquid Cup) 100 mg HS PO Last administered on 21:12; Admin Dose 100 MG; Start 10/16/16 at 21:00 Famotidine (Pepcid) 20 mg DAILY PO Last administered on 10/26/16 08:52; Admin Dose 20 MG; Start 10/18/16 at 09:00 Enoxaparin Sodium (Lovenox) 40 mg DAILY SC Last administered on 10/26/16 08:58 ; Admin Dose 40 MG; Start 10/18/16 at 12:30 Gabapentin 300 mg 300 mg TID PO Last administered on 10/26/16 08:53; Admin Dose 300 MG; Start 10/20/16 at 13:00 Acetaminophen (Ofirmev 1000mg/ 100ml Iv) 100 ml @ 400 mls/hr Q6H IVPB Last administered on 10/26/16 09:23; Admin Dose 400 MLS/HR; Start 10/20/16 at 22:00 Morphine Sulfate (Ms Contin (Er)) 15 mg QAM PO Last administered on 10/26/16 08:53; Admin Dose 15 MG; Start 10/22/16 at 09:00 Hydromorphone HCl (Dilaudid) 2 mg Q4H PRN PO PAIN Last administered on 01:24; Admin Dose 2 MG; Start 10/21/16 at 11:30 Polyethylene Glycol (Miralax) 17 gm DAILY PO Last administered on 10/26/16 08: 53; Admin Dose 17 GM; Start 10/22/16 at 09:00 Fluconazole (Diflucan) 100 mg DAILY PO Last administered on 10/26/16 08:53; Admin Dose 100 MG; Start 10/22/16 at 21:00 Nystatin (Nystatin Susp) 5 ml QID PO Last administered on 10/26/16 08:52; Admin Dose 5 ML; Start 10/22/16 at 21:00 Cholecalciferol 1000 unit 1,000 unit DAILY PO Last administered on 10/26/16 08 :53; Admin Dose 1,000 UNIT; Start 10/25/16 at 09:00 Vancomycin HCl/ Sodium Chloride (Vancocin/NS) 250 ml @ 83.333 mls/ hr Q12H IVPB Last administered on 10/25/16 23:56; Admin Dose 83.333 MLS/HR; Start at 12:00 MUSTAPHA SAUCEDO NP Oct 26, 2016 11:06
[2016-10-26 11:08] LABS: BASOPHILS % 0.4 % (0.0-2.0); EOSINOPHILS # 0.3 10^3/ul (0.0-0.5); HEMATOCRIT 40.2 % (42.0-52.0); HEMOGLOBIN 13.2 g/dl (14.0-18.0); LYMPHOCYTES # 1.7 10^3/ul (0.8-2.9); LYMPHOCYTES % 19.1 % (15.0-51.0); MEAN CORPUSCULAR HEMOGLOBIN 28.3 pg (29.0-33.0); MEAN CORPUSCULAR HGB CONC 32.8 g/dl (32.0-37.0); MEAN CORPUSCULAR VOLUME 86.3 fl (82.0-101.0); MEAN PLATELET VOLUME 9.3 fl (7.4-10.4); MONOCYTE # 0.5 10^3/ul (0.3-0.9); MONOCYTES % 5.7 % (0.0-11.0); NEUTROPHIL # 6.5 10^3/ul (1.6-7.5); PLATELET COUNT 454 10^3/UL (140-415); RED BLOOD COUNT 4.66 10^6/ul (4.70-6.10); RED CELL DISTRIBUTION WIDTH 13.1 % (11.5-14.5); WHITE BLOOD COUNT 9.1 10^3/ul (4.8-10.8)
[2016-10-26 11:34] LABS: CALCIUM 9.8 mg/dl (8.4-10.2); CREATININE 0.72 mg/dl (0.61-1.24); POTASSIUM 4.3 mmol/L (3.5-5.1)
[2016-10-26] MEDS: VANCOMYCIN 1.5 GM in SOD CHLORIDE 0.9% 250 ML IVPB SCH ×2 (12:18→23:57)
[2016-10-26] MEDS: DOCUSATE SODIUM 10 MG/ML (10ML CUP) PO SCH (19:57)
--- NOTE | 2016-10-26 21:30 | CONS ---
Date/Time of Note Date/Time of Note DATE: 10/26/16 TIME: 21:29 Assessment/Plan Assessment/Plan Chief Complaint/Hosp Course SUBJECTIVE: No acute changes overnight. The patient is awake, eating lunch, no fevers. ANTIMICROBIALS: 1. Vancomycin. 2. Cefepime. MICROBIOLOGY: Blood and urine culture negative. PHYSICAL EXAMINATION: GENERAL: This is a well-nourished, well-developed, middle-aged man who is alert, in no distress. HEENT: Head atraumatic, normocephalic. Sclerae anicteric. Buccal mucosa pink with white thrush on his tongue and presence of halitosis. NECK: Supple. CHEST: Rise symmetrical. Breath sounds diminished to bases. HEART: S1, S2. ABDOMEN: Soft. Bowel tones present. EXTREMITIES: Without cyanosis. The patient has limited movement in bilateral extremities secondary to pain. ASSESSMENT: 1. L5-S1 diskitis and osteomyelitis. Neurosurgery on case. No plans for any intervention. 2. Oral thrush==>Continue oral nystatin and fluconazole. 3. Hypertension. 4. Diabetes. PLAN: The patient remains clinically and hemodynamically stable. He is being followed by multiple consultants. He is on appropriate treatment in regards to his antibiotics. Recommend evaluation by interventional radiology for possible CT-guided aspiration. DW staff Problems: Consultation Date/Type/Reason Admit Date/Time Oct 15, 2016 at 22:06 Initial Consult Date 10/22/16 Type of Consultation: ID Exam/Review of Systems Vital Signs Vitals Vital Signs Date Time Temp Pulse Resp B/P Pulse Ox O2 Delivery O2 Flow Rate FiO2 10/26/16 07:55 98.0 65 16 121/62 96 Intake and Output 10/25/16 10/25/16 10/26/16 15:00 23:00 07:00 Intake Total 150 ml 2540 ml 550 ml Output Total 1600 ml 1800 ml Balance 150 ml 940 ml -1250 ml Results Result Diagram: 10/26/16 1015 10/26/16 1015 Results 24 hrs Laboratory Tests Test 10/26/16 01:21 10/26/16 08:08 10/26/16 10:15 10/26/16 12:17 Bedside Glucose 83 91 101 White Blood Count 9.1 # Red Blood Count 4.66 L Hemoglobin 13.2 L Hematocrit 40.2 L Mean Corpuscular Volume 86.3 Mean Corpuscular Hemoglobin 28.3 L Mean Corpuscular Hemoglobin Concent 32.8 Red Cell Distribution Width 13.1 Platelet Count 454 H Mean Platelet Volume 9.3 Neutrophils % 71.0 Lymphocytes % 19.1 Monocytes % 5.7 Eosinophils % 3.0 Basophils % 0.4 Nucleated Red Blood Cells % 0.0 Neutrophils # 6.5 Lymphocytes # 1.7 Monocytes # 0.5 Eosinophils # 0.3 Basophils # 0.0 Nucleated Red Blood Cells # 0.0 Sodium Level 135 Potassium Level 4.3 Chloride Level 100 Carbon Dioxide Level 28 Anion Gap 11 Blood Urea Nitrogen 18 Creatinine 0.72 Glucose Level 121 Calcium Level 9.8 Phosphorus Level 4.0 Magnesium Level 2.0 Test 10/26/16 18:08 10/26/16 19:55 Bedside Glucose 107 119 Medications Medications Current Medications Ondansetron HCl (Zofran Inj) 4 mg Q6H PRN IV NAUSEA AND/OR VOMITING; Start 10/16 at 04:30 Allopurinol (Zyloprim) 100 mg DAILY PO Last administered on 10/26/16 08:53; Admin Dose 100 MG; Start 10/16/16 at 09:00 Amitriptyline HCl (Elavil) 25 mg DAILY PO Last administered on 10/26/16 08:52 ; Admin Dose 25 MG; Start 10/16/16 at 09:00 Amlodipine Besylate (Norvasc) 10 mg DAILY PO Last administered on 10/26/16 08: 54; Admin Dose 10 MG; Start 10/16/16 at 09:00 Citalopram Hydrobromide (Celexa) 10 mg DAILY PO Last administered on 10/26/16 08:53; Admin Dose 10 MG; Start 10/16/16 at 09:00 Naproxen 500 mg 500 mg BID PRN PO PAIN AND/OR INFLAMMATION; Start 10/16/16 at 04 :30; Status Future Hold Cefepime HCl (Maxipime 1gm/50 ml (Pmx)) 50 ml @ 100 mls/hr Q12 IVPB Last administered on 10/26/16 20:00; Admin Dose 100 MLS/HR; Start 10/16/16 at 14:00 Miscellaneous Information 1 ea NOTE XX ; Start 10/16/16 at 14:30 Glucose (Glutose) 15 gm Q15M PRN PO DECREASED GLUCOSE; Start 10/16/16 at 14:30 Glucose (Glutose) 22.5 gm Q15M PRN PO DECREASED GLUCOSE; Start 10/16/16 at 14:30 Dextrose (D50w Syringe) 25 ml Q15M PRN IV DECREASED GLUCOSE; Start 10/16/16 at 14:30 Dextrose (D50w Syringe) 50 ml Q15M PRN IV DECREASED GLUCOSE; Start 10/16/16 at 14:30 Glucagon (Glucagen) 1 mg Q15M PRN IM DECREASED GLUCOSE; Start 10/16/16 at 14:30 Glucose (Glutose) 15 gm Q15M PRN BUCCAL DECREASED GLUCOSE; Start 10/16/16 at 14: 30 Lactobacillus Acidophilus/ Rhamnosus (Culturelle) 1 cap BID PO Last administered on 10/26/16 19:56; Admin Dose 1 CAP; Start 10/16/16 at 21:00 Docusate Sodium (Colace Liquid Cup) 100 mg HS PO Last administered on 19:57; Admin Dose 100 MG; Start 10/16/16 at 21:00 Famotidine (Pepcid) 20 mg DAILY PO Last administered on 10/26/16 08:52; Admin Dose 20 MG; Start 10/18/16 at 09:00 Enoxaparin Sodium (Lovenox) 40 mg DAILY SC Last administered on 10/26/16 08:58 ; Admin Dose 40 MG; Start 10/18/16 at 12:30 Gabapentin 300 mg 300 mg TID PO Last administered on 10/26/16 19:56; Admin Dose 300 MG; Start 10/20/16 at 13:00 Acetaminophen (Ofirmev 1000mg/ 100ml Iv) 100 ml @ 400 mls/hr Q6H IVPB Last administered on 10/26/16 17:11; Admin Dose 400 MLS/HR; Start 10/20/16 at 22:00 Morphine Sulfate (Ms Contin (Er)) 15 mg QAM PO Last administered on 10/26/16 08:53; Admin Dose 15 MG; Start 10/22/16 at 09:00 Hydromorphone HCl (Dilaudid) 2 mg Q4H PRN PO PAIN Last administered on 19:56; Admin Dose 2 MG; Start 10/21/16 at 11:30 Polyethylene Glycol (Miralax) 17 gm DAILY PO Last administered on 10/26/16 08: 53; Admin Dose 17 GM; Start 10/22/16 at 09:00 Fluconazole (Diflucan) 100 mg DAILY PO Last administered on 10/26/16 08:53; Admin Dose 100 MG; Start 10/22/16 at 21:00 Nystatin (Nystatin Susp) 5 ml QID PO Last administered on 10/26/16 19:57; Admin Dose 5 ML; Start 10/22/16 at 21:00 Cholecalciferol 1000 unit 1,000 unit DAILY PO Last administered on 10/26/16 08 :53; Admin Dose 1,000 UNIT; Start 10/25/16 at 09:00 Vancomycin HCl/ Sodium Chloride (Vancocin/NS) 250 ml @ 83.333 mls/ hr Q12H IVPB Last administered on 10/26/16 12:18; Admin Dose 83.333 MLS/HR; Start at 12:00 Miscellaneous Information (*Rx Drug Level Order Reminder*) VANCOMYCIN TROUGH AT 1100 ONCE ONCE XX ; Start 10/27/16 at 11:00; Stop 10/27/16 at 11:01 BERYL MELTON NP Oct 26, 2016 21:30
[2016-10-26 21:36] VITALS: BP 118/67; RESP 19
[2016-10-27] MEDS: ACETAMINOPHEN 1000MG/100ML IV 100 ML IVPB SCH ×4 (03:47→21:57)
[2016-10-27] MEDS: INSULIN ASPART [NOVOLOG] 3 ML PEN SC SCH ×4 (08:00→20:44)
[2016-10-27] MEDS: CHOLECALCIFEROL 1,000 UNIT TAB PO SCH (08:20)
[2016-10-27] MEDS: AMITRIPTYLINE 25 MG TAB PO SCH (08:20)
[2016-10-27] MEDS: LACTOBACILLUS RHAMNOSUS CAP PO SCH ×2 (08:20→20:45)
[2016-10-27] MEDS: FLUCONAZOLE 100 MG TAB PO SCH (08:20)
[2016-10-27] MEDS: CEFEPIME 1GM/50 ML (PMX) 50 ML IVPB SCH ×2 (08:20→20:45)
[2016-10-27] MEDS: NYSTATIN SUSP 5 ML CUP PO SCH ×4 (08:20→20:45)
[2016-10-27] MEDS: morphine (ER) 15 MG TAB PO SCH (08:21)
[2016-10-27] MEDS: ALLOPURINOL 100 MG TAB PO SCH (08:21)
[2016-10-27] MEDS: GABAPENTIN 300 MG CAP PO SCH ×3 (08:21→20:45)
[2016-10-27] MEDS: CITALOPRAM 20 MG TAB PO SCH (08:21)
[2016-10-27] MEDS: FAMOTIDINE 20 MG TAB PO SCH (08:21)
[2016-10-27] MEDS: metFORMIN 500 MG TAB PO SCH ×2 (08:21→17:43)
[2016-10-27] MEDS: AMLODIPINE 10 MG TAB PO SCH (08:22)
[2016-10-27] MEDS: POLYETHYLENE GLYCOL 17 GM PACKET PO SCH (08:22)
[2016-10-27] MEDS: ENOXAPARIN 40 MG/0.4 ML SYG SC SCH (08:24)
[2016-10-27 08:38] VITALS: BP 121/76; RESP 18
[2016-10-27] MEDS: VANCOMYCIN 1.5 GM in SOD CHLORIDE 0.9% 250 ML IVPB SCH (12:37)
--- NOTE | 2016-10-27 12:45 | PN ---
DATE: 10/27/2016 SUBJECTIVE: Chart reviewed. No significant events noted. PHYSICAL EXAMINATION: VITAL SIGNS: Blood pressure 121/76, pulse 72, respiration 18, temperature 97.8, saturating 96%. HEENT: Pupils are equal and react to light. NECK: Supple, no JVD noted, no cervical adenopathy, no carotid bruits heard. LUNGS: Fair breath sounds bilaterally. CARDIOVASCULAR: S1, S2 normal. ABDOMEN: Soft, nontender. Positive bowel sounds. EXTREMITIES: No clubbing, cyanosis noted. NEUROLOGIC: No changes. IMPRESSION: 1. T8 fracture secondary to mechanical fall. 2. Status post sepsis. 3. L5-S1 diskitis and osteomyelitis. 4. History of hypertension. 5. Diabetes mellitus type 2. 6. Anemia. 7. Oral candidiasis. 8. Vitamin D deficiency. RECOMMENDATIONS: 1. Continue antibiotics per ID. 2. Continue pain control. 3. Physical therapy. 4. Continue current management. Dictated By: MALU KRAFT MD, MA/DEVI Conf#: [id number] DID#: [id number]
--- NOTE | 2016-10-27 12:50 | CONS ---
Date/Time of Note Date/Time of Note DATE: 10/27/16 TIME: 12:49 Assessment/Plan Assessment/Plan Chief Complaint/Hosp Course SUBJECTIVE: No acute changes overnight. The patient is alert, looks comfortable, no fevers. ANTIMICROBIALS: 1. Vancomycin. 2. Cefepime. MICROBIOLOGY: Blood and urine culture negative. PHYSICAL EXAMINATION: GENERAL: This is a well-nourished, well-developed, middle-aged man who is alert, in no distress. HEENT: Head atraumatic, normocephalic. Sclerae anicteric. Buccal mucosa pink with white thrush on his tongue and presence of halitosis. NECK: Supple. CHEST: Rise symmetrical. Breath sounds diminished to bases. HEART: S1, S2. ABDOMEN: Soft. Bowel tones present. EXTREMITIES: Without cyanosis. The patient has limited movement in bilateral extremities secondary to pain. ASSESSMENT: 1. L5-S1 diskitis and osteomyelitis. Neurosurgery on case. No plans for any intervention. 2. Oral thrush==>Continue oral nystatin and fluconazole. 3. Hypertension. 4. Diabetes. PLAN: The patient remains clinically and hemodynamically stable. He is on appropriate treatment in regards to his antibiotics. Recommend evaluation by interventional radiology for possible CT-guided aspiration. Needs to be on abx for 6-8 weeks with repeat MRI prior discontinuation of therapy DW staff Problems: Consultation Date/Type/Reason Admit Date/Time Oct 15, 2016 at 22:06 Initial Consult Date 10/22/16 Type of Consultation: ID Exam/Review of Systems Vital Signs Vitals Vital Signs Date Time Temp Pulse Resp B/P Pulse Ox O2 Delivery O2 Flow Rate FiO2 10/27/16 08:38 97.8 72 18 121/76 96 Intake and Output 10/26/16 10/26/16 10/27/16 15:00 23:00 07:00 Intake Total 150 ml 1160 ml 830 ml Output Total 1000 ml 2000 ml Balance 150 ml 160 ml -1170 ml Results Result Diagram: 10/26/16 1015 10/26/16 1015 Results 24 hrs Laboratory Tests Test 10/26/16 18:08 10/26/16 19:55 10/27/16 00:58 10/27/16 08:18 Bedside Glucose 107 119 101 100 Test 10/27/16 11:14 10/27/16 12:38 Vancomycin Level Trough 12.5 Bedside Glucose 99 Medications Medications Current Medications Ondansetron HCl (Zofran Inj) 4 mg Q6H PRN IV NAUSEA AND/OR VOMITING; Start 10/16 at 04:30 Allopurinol (Zyloprim) 100 mg DAILY PO Last administered on 10/27/16 08:21; Admin Dose 100 MG; Start 10/16/16 at 09:00 Amitriptyline HCl (Elavil) 25 mg DAILY PO Last administered on 10/27/16 08:20 ; Admin Dose 25 MG; Start 10/16/16 at 09:00 Amlodipine Besylate (Norvasc) 10 mg DAILY PO Last administered on 10/27/16 08: 22; Admin Dose 10 MG; Start 10/16/16 at 09:00 Citalopram Hydrobromide (Celexa) 10 mg DAILY PO Last administered on 10/27/16 08:21; Admin Dose 10 MG; Start 10/16/16 at 09:00 Naproxen 500 mg 500 mg BID PRN PO PAIN AND/OR INFLAMMATION; Start 10/16/16 at 04 :30; Status Future Hold Cefepime HCl (Maxipime 1gm/50 ml (Pmx)) 50 ml @ 100 mls/hr Q12 IVPB Last administered on 10/27/16 08:20; Admin Dose 100 MLS/HR; Start 10/16/16 at 14:00 Miscellaneous Information 1 ea NOTE XX ; Start 10/16/16 at 14:30 Glucose (Glutose) 15 gm Q15M PRN PO DECREASED GLUCOSE; Start 10/16/16 at 14:30 Glucose (Glutose) 22.5 gm Q15M PRN PO DECREASED GLUCOSE; Start 10/16/16 at 14:30 Dextrose (D50w Syringe) 25 ml Q15M PRN IV DECREASED GLUCOSE; Start 10/16/16 at 14:30 Dextrose (D50w Syringe) 50 ml Q15M PRN IV DECREASED GLUCOSE; Start 10/16/16 at 14:30 Glucagon (Glucagen) 1 mg Q15M PRN IM DECREASED GLUCOSE; Start 10/16/16 at 14:30 Glucose (Glutose) 15 gm Q15M PRN BUCCAL DECREASED GLUCOSE; Start 10/16/16 at 14: 30 Lactobacillus Acidophilus/ Rhamnosus (Culturelle) 1 cap BID PO Last administered on 10/27/16 08:20; Admin Dose 1 CAP; Start 10/16/16 at 21:00 Docusate Sodium (Colace Liquid Cup) 100 mg HS PO Last administered on 19:57; Admin Dose 100 MG; Start 10/16/16 at 21:00 Famotidine (Pepcid) 20 mg DAILY PO Last administered on 10/27/16 08:21; Admin Dose 20 MG; Start 10/18/16 at 09:00 Enoxaparin Sodium (Lovenox) 40 mg DAILY SC Last administered on 10/27/16 08:24 ; Admin Dose 40 MG; Start 10/18/16 at 12:30 Gabapentin 300 mg 300 mg TID PO Last administered on 10/27/16 12:37; Admin Dose 300 MG; Start 10/20/16 at 13:00 Acetaminophen (Ofirmev 1000mg/ 100ml Iv) 100 ml @ 400 mls/hr Q6H IVPB Last administered on 10/27/16 10:10; Admin Dose 400 MLS/HR; Start 10/20/16 at 22:00 Morphine Sulfate (Ms Contin (Er)) 15 mg QAM PO Last administered on 10/27/16 08:21; Admin Dose 15 MG; Start 10/22/16 at 09:00 Hydromorphone HCl (Dilaudid) 2 mg Q4H PRN PO PAIN Last administered on 19:56; Admin Dose 2 MG; Start 10/21/16 at 11:30 Polyethylene Glycol (Miralax) 17 gm DAILY PO Last administered on 10/26/16 08: 53; Admin Dose 17 GM; Start 10/22/16 at 09:00 Fluconazole (Diflucan) 100 mg DAILY PO Last administered on 10/27/16 08:20; Admin Dose 100 MG; Start 10/22/16 at 21:00 Nystatin (Nystatin Susp) 5 ml QID PO Last administered on 10/27/16 08:20; Admin Dose 5 ML; Start 10/22/16 at 21:00 Cholecalciferol 1000 unit 1,000 unit DAILY PO Last administered on 10/27/16 08 :20; Admin Dose 1,000 UNIT; Start 10/25/16 at 09:00 Vancomycin HCl/ Sodium Chloride (Vancocin/NS) 250 ml @ 83.333 mls/ hr Q12H IVPB Last administered on 10/27/16t 12:37; Admin Dose 83.333 MLS/HR; Start at 12:00 BERYL MELTON NP Oct 27, 2016 12:50
[2016-10-27] MEDS: HYDROmorphONE 2 MG TAB PO PRN ×2 (14:19→22:49)
[2016-10-27] MEDS: DOCUSATE SODIUM 10 MG/ML (10ML CUP) PO SCH (20:45)
[2016-10-27 21:59] VITALS: BP 133/74; RESP 20
[2016-10-27] MEDS: VANCOMYCIN 1 GM in NS 250 ML IVPB SCH (22:49)
[2016-10-28] MEDS: ACETAMINOPHEN 1000MG/100ML IV 100 ML IVPB SCH ×4 (03:43→21:28)
[2016-10-28] MEDS: VANCOMYCIN 1 GM in NS 250 ML IVPB SCH ×3 (05:15→23:07)
[2016-10-28 07:20] LABS: CREATININE 0.72 mg/dl (0.61-1.24)
[2016-10-28 08:00] VITALS: BP 113/68; RESP 18
[2016-10-28] MEDS: INSULIN ASPART [NOVOLOG] 3 ML PEN SC SCH ×4 (08:00→20:28)
[2016-10-28] MEDS: POLYETHYLENE GLYCOL 17 GM PACKET PO SCH (09:00)
[2016-10-28] MEDS: NYSTATIN SUSP 5 ML CUP PO SCH ×4 (09:00→20:28)
[2016-10-28] MEDS: AMLODIPINE 10 MG TAB PO SCH (09:06)
[2016-10-28] MEDS: GABAPENTIN 300 MG CAP PO SCH ×3 (09:06→20:28)
[2016-10-28] MEDS: CEFEPIME 1GM/50 ML (PMX) 50 ML IVPB SCH ×2 (09:06→20:27)
[2016-10-28] MEDS: morphine (ER) 15 MG TAB PO SCH ×2 (09:07→20:28)
[2016-10-28] MEDS: FAMOTIDINE 20 MG TAB PO SCH (09:07)
[2016-10-28] MEDS: metFORMIN 500 MG TAB PO SCH ×2 (09:07→17:17)
[2016-10-28] MEDS: CITALOPRAM 20 MG TAB PO SCH (09:07)
[2016-10-28] MEDS: CHOLECALCIFEROL 1,000 UNIT TAB PO SCH (09:07)
[2016-10-28] MEDS: ALLOPURINOL 100 MG TAB PO SCH (09:07)
[2016-10-28] MEDS: AMITRIPTYLINE 25 MG TAB PO SCH (09:07)
[2016-10-28] MEDS: LACTOBACILLUS RHAMNOSUS CAP PO SCH ×2 (09:07→20:28)
[2016-10-28] MEDS: FLUCONAZOLE 100 MG TAB PO SCH (09:07)
[2016-10-28] MEDS: ENOXAPARIN 40 MG/0.4 ML SYG SC SCH (09:16)
[2016-10-28] MEDS: HYDROmorphONE 2 MG TAB PO PRN ×3 (10:12→23:08)
--- NOTE | 2016-10-28 13:20 | PN ---
DATE: 10/28/2016 SUBJECTIVE: Chart reviewed. No significant events noted. PHYSICAL EXAMINATION: VITAL SIGNS: Blood pressure 113/68, pulse 76, respiration 18, temperature 98.6, saturating 96%. HEENT: Pupils are equal and reactive to light. NECK: Supple, no JVD noted, no cervical lymphadenopathy noted, no carotid bruits heard. LUNGS: Fair breath sounds bilaterally. CARDIOVASCULAR: S1, S2 normal. ABDOMEN: Soft, nontender. No organomegaly or masses noted. EXTREMITIES: No clubbing or cyanosis noted. NEUROLOGIC: No changes. IMPRESSION: 1. A T8 fracture secondary to mechanical fall. 2. Status post sepsis. 3. L5 to S1 diskitis and osteomyelitis. 4. History of hypertension. 5. Diabetes mellitus type 2. 6. Anemia. 7. Oral candidiasis. 8. Vitamin D deficiency. RECOMMENDATIONS: 1. ID followup noted. 2. Continue antibiotics. 3. Pain control. 4. Physical therapy. Dictated By: MALU KRAFT MD, MA/DEVI Conf#: [id number] DID#: [id number]
--- NOTE | 2016-10-28 13:32 | CONS ---
Date/Time of Note Date/Time of Note DATE: 10/28/16 TIME: 13:31 Assessment/Plan Assessment/Plan Chief Complaint/Hosp Course SUBJECTIVE: No acute changes overnight. The patient is sleeping, looks comfortable, no fevers. ANTIMICROBIALS: 1. Vancomycin. 2. Cefepime. MICROBIOLOGY: Blood and urine culture negative. PHYSICAL EXAMINATION: GENERAL: This is a well-nourished, well-developed, middle-aged man who is alert, in no distress. HEENT: Head atraumatic, normocephalic. Sclerae anicteric. Buccal mucosa pink with white thrush on his tongue and presence of halitosis. NECK: Supple. CHEST: Rise symmetrical. Breath sounds diminished to bases. HEART: S1, S2. ABDOMEN: Soft. Bowel tones present. EXTREMITIES: Without cyanosis. The patient has limited movement in bilateral extremities secondary to pain. ASSESSMENT: 1. L5-S1 diskitis and osteomyelitis. Neurosurgery on case. No plans for any intervention. 2. Oral thrush==>Continue oral nystatin and fluconazole. 3. Hypertension. 4. Diabetes. PLAN: The patient remains clinically and hemodynamically stable. He is on appropriate treatment in regards to his antibiotics. Recommend evaluation by interventional radiology for possible CT-guided aspiration. Needs to be on abx for 6-8 weeks with repeat MRI prior discontinuation of therapy. Continue PT [facility] staff Problems: Consultation Date/Type/Reason Admit Date/Time Oct 15, 2016 at 22:06 Initial Consult Date 10/22/16 Type of Consultation: ID Exam/Review of Systems Vital Signs Vitals Vital Signs Date Time Temp Pulse Resp B/P Pulse Ox O2 Delivery O2 Flow Rate FiO2 10/28/16 08:00 98.6 76 18 113/68 96 Intake and Output 10/27/16 10/27/16 10/28/16 14:59 22:59 06:59 Intake Total 400 ml 650 ml 700 ml Output Total 1600 ml 850 ml Balance 400 ml -950 ml -150 ml Results Result Diagram: 10/26/16 1015 10/28/16 0501 Results 24 hrs Laboratory Tests Test 10/27/16 17:45 10/27/16 20:43 10/28/16 00:36 10/28/16 05:01 Bedside Glucose 110 135 118 Blood Urea Nitrogen 20 Creatinine 0.72 Test 10/28/16 08:27 10/28/16 12:22 Bedside Glucose 91 143 Medications Medications Current Medications Ondansetron HCl (Zofran Inj) 4 mg Q6H PRN IV NAUSEA AND/OR VOMITING; Start 10/16 at 04:30 Allopurinol (Zyloprim) 100 mg DAILY PO Last administered on 10/28/16 09:07; Admin Dose 100 MG; Start 10/16/16 at 09:00 Amitriptyline HCl (Elavil) 25 mg DAILY PO Last administered on 10/28/16 09:07 ; Admin Dose 25 MG; Start 10/16/16 at 09:00 Amlodipine Besylate (Norvasc) 10 mg DAILY PO Last administered on 10/28/16 09: 06; Admin Dose 10 MG; Start 10/16/16 at 09:00 Citalopram Hydrobromide (Celexa) 10 mg DAILY PO Last administered on 10/28/16 09:07; Admin Dose 10 MG; Start 10/16/16 at 09:00 Naproxen 500 mg 500 mg BID PRN PO PAIN AND/OR INFLAMMATION; Start 10/16/16 at 04 :30; Status Future Hold Cefepime HCl (Maxipime 1gm/50 ml (Pmx)) 50 ml @ 100 mls/hr Q12 IVPB Last administered on 10/28/16 09:06; Admin Dose 100 MLS/HR; Start 10/16/16 at 14:00 Miscellaneous Information 1 ea NOTE XX ; Start 10/16/16 at 14:30 Glucose (Glutose) 15 gm Q15M PRN PO DECREASED GLUCOSE; Start 10/16/16 at 14:30 Glucose (Glutose) 22.5 gm Q15M PRN PO DECREASED GLUCOSE; Start 10/16/16 at 14:30 Dextrose (D50w Syringe) 25 ml Q15M PRN IV DECREASED GLUCOSE; Start 10/16/16 at 14:30 Dextrose (D50w Syringe) 50 ml Q15M PRN IV DECREASED GLUCOSE; Start 10/16/16 at 14:30 Glucagon (Glucagen) 1 mg Q15M PRN IM DECREASED GLUCOSE; Start 10/16/16 at 14:30 Glucose (Glutose) 15 gm Q15M PRN BUCCAL DECREASED GLUCOSE; Start 10/16/16 at 14: 30 Lactobacillus Acidophilus/ Rhamnosus (Culturelle) 1 cap BID PO Last administered on 10/28/16 09:07; Admin Dose 1 CAP; Start 10/16/16 at 21:00 Docusate Sodium (Colace Liquid Cup) 100 mg HS PO Last administered on 19:57; Admin Dose 100 MG; Start 10/16/16 at 21:00 Famotidine (Pepcid) 20 mg DAILY PO Last administered on 10/28/16 09:07; Admin Dose 20 MG; Start 10/18/16 at 09:00 Enoxaparin Sodium (Lovenox) 40 mg DAILY SC Last administered on 10/28/16 09:16 ; Admin Dose 40 MG; Start 10/18/16 at 12:30 Gabapentin 300 mg 300 mg TID PO Last administered on 10/28/16 12:20; Admin Dose 300 MG; Start 10/20/16 at 13:00 Acetaminophen (Ofirmev 1000mg/ 100ml Iv) 100 ml @ 400 mls/hr Q6H IVPB Last administered on 10/28/16 10:12; Admin Dose 400 MLS/HR; Start 10/20/16 at 22:00 Morphine Sulfate (Ms Contin (Er)) 15 mg QAM PO Last administered on 10/28/16 09:07; Admin Dose 15 MG; Start 10/22/16 at 09:00 Hydromorphone HCl (Dilaudid) 2 mg Q4H PRN PO PAIN Last administered on 10:12; Admin Dose 2 MG; Start 10/21/16 at 11:30 Polyethylene Glycol (Miralax) 17 gm DAILY PO Last administered on 10/26/16 08: 53; Admin Dose 17 GM; Start 10/22/16 at 09:00 Fluconazole (Diflucan) 100 mg DAILY PO Last administered on 10/28/16 09:07; Admin Dose 100 MG; Start 10/22/16 at 21:00 Nystatin (Nystatin Susp) 5 ml QID PO Last administered on 10/27/16 20:45; Admin Dose 5 ML; Start 10/22/16 at 21:00 Cholecalciferol 1000 unit 1,000 unit DAILY PO Last administered on 10/28/16 09 :07; Admin Dose 1,000 UNIT; Start 10/25/16 at 09:00 Vancomycin HCl (Vancocin) 250 ml @ 125 mls/hr Q8H IVPB Last administered on t 05:15; Admin Dose 125 MLS/HR; Start 10/27/16 at 22:00 Miscellaneous Information (*Rx Drug Level Order Reminder*) VANCOMYCIN TROUGH AT 2100 ONCE ONCE XX ; Start 10/28/16 at 21:00; Stop 10/28/16 at 21:01 BERYL MELTON NP Oct 28, 2016 13:32
--- NOTE | 2016-10-28 18:01 | CONS ---
Date/Time of Note Date/Time of Note DATE: 10/28/16 TIME: 17:58 Assessment/Plan Assessment/Plan Chief Complaint/Hosp Course This is a 56-year-old gentleman who had a mechanical fall approximately 1 week prior to this presentation. States that he had hyperextended his arms to about avoid a direct blow to his head went back to bed and woke up the next morning with severe discomfort in bilateral upper extremities. Denies nausea vomiting dizziness diplopia disorientation post fall. States pain is a gnawing type discomfort he is unable to move bilateral upper extremity without severe pain he did not take any pain medication at home prescribed except for ibuprofen which did not make a major difference. Here is being treated with morphine gabapentin [place] and tramadol states that his pain is on somewhat better control with the above regimen. Post IV dose of morphine and pain goes down to approximately 7's pain has been increasing over the last week prior to his presentation. It is significantly inferior with his physical functioning his family relationship is moving sleeping patterns overall functioning has been extremely poor secondary to above. Denies mental cloudiness fatigue drowsiness. There is no history of alcohol or drug addiction prior to his presentation or history of propofol for sedation with any controlled substances. He did not appear intoxicated on presentation in unkempt, impaired and is not asked for early renewals of his pain control medication. He does not insist on certain medications by name there is no history of drug use prior to his presentation or arrests. Patient denies any side effects associated with his current pain control medications but he states it does not control his pain nor does it last long enough, that includes all of the pain medications listed as above. Patient did not attempt to use any alternative forms of pain management . Problems: Additional Assessment/Plan Still complaining of pain especially with physical therapy. Unable to ambulate with walker without severe discomfort. Pain level is still described as serious. Only moderate reduction in pain with current opioid administration. Denies any untoward side effects associated with his current opioid dosing per physical functioning is impaired mood sleeping patterns are not impaired as well as overall function. Denies nausea itching mental confusion. Recommendation Increase morphine to twice daily moderate increase in breakthrough Dilaudid. Consultation Date/Type/Reason Admit Date/Time Oct 15, 2016 at 22:06 Initial Consult Date 10/22/16 Type of Consultation: ID Exam/Review of Systems Vital Signs Vitals Vital Signs Date Time Temp Pulse Resp B/P Pulse Ox O2 Delivery O2 Flow Rate FiO2 10/28/16 08:00 98.6 76 18 113/68 96 Intake and Output 10/27/16 10/27/16 10/28/16 15:00 23:00 07:00 Intake Total 400 ml 650 ml 700 ml Output Total 1600 ml 850 ml Balance 400 ml -950 ml -150 ml Results Result Diagram: 10/26/16 1015 10/28/16 0501 Results 24 hrs Laboratory Tests Test 10/27/16 20:43 10/28/16 00:36 10/28/16 05:01 10/28/16 08:27 Bedside Glucose 135 118 91 Blood Urea Nitrogen 20 Creatinine 0.72 Test 10/28/16 12:22 10/28/16 17:18 Bedside Glucose 143 105 Medications Medications Current Medications Ondansetron HCl (Zofran Inj) 4 mg Q6H PRN IV NAUSEA AND/OR VOMITING; Start 10/16 at 04:30 Allopurinol (Zyloprim) 100 mg DAILY PO Last administered on 10/28/16 09:07; Admin Dose 100 MG; Start 10/16/16 at 09:00 Amitriptyline HCl (Elavil) 25 mg DAILY PO Last administered on 10/28/16 09:07 ; Admin Dose 25 MG; Start 10/16/16 at 09:00 Amlodipine Besylate (Norvasc) 10 mg DAILY PO Last administered on 10/28/16 09: 06; Admin Dose 10 MG; Start 10/16/16 at 09:00 Citalopram Hydrobromide (Celexa) 10 mg DAILY PO Last administered on 10/28/16 09:07; Admin Dose 10 MG; Start 10/16/16 at 09:00 Naproxen 500 mg 500 mg BID PRN PO PAIN AND/OR INFLAMMATION; Start 10/16/16 at 04 :30; Status Future Hold Cefepime HCl (Maxipime 1gm/50 ml (Pmx)) 50 ml @ 100 mls/hr Q12 IVPB Last administered on 10/28/16 09:06; Admin Dose 100 MLS/HR; Start 10/16/16 at 14:00 Miscellaneous Information 1 ea NOTE XX ; Start 10/16/16 at 14:30 Glucose (Glutose) 15 gm Q15M PRN PO DECREASED GLUCOSE; Start 10/16/16 at 14:30 Glucose (Glutose) 22.5 gm Q15M PRN PO DECREASED GLUCOSE; Start 10/16/16 at 14:30 Dextrose (D50w Syringe) 25 ml Q15M PRN IV DECREASED GLUCOSE; Start 10/16/16 at 14:30 Dextrose (D50w Syringe) 50 ml Q15M PRN IV DECREASED GLUCOSE; Start 10/16/16 at 14:30 Glucagon (Glucagen) 1 mg Q15M PRN IM DECREASED GLUCOSE; Start 10/16/16 at 14:30 Glucose (Glutose) 15 gm Q15M PRN BUCCAL DECREASED GLUCOSE; Start 10/16/16 at 14: 30 Lactobacillus Acidophilus/ Rhamnosus (Culturelle) 1 cap BID PO Last administered on 10/28/16 09:07; Admin Dose 1 CAP; Start 10/16/16 at 21:00 Docusate Sodium (Colace Liquid Cup) 100 mg HS PO Last administered on 19:57; Admin Dose 100 MG; Start 10/16/16 at 21:00 Famotidine (Pepcid) 20 mg DAILY PO Last administered on 10/28/16 09:07; Admin Dose 20 MG; Start 10/18/16 at 09:00 Enoxaparin Sodium (Lovenox) 40 mg DAILY SC Last administered on 10/28/16 09:16 ; Admin Dose 40 MG; Start 10/18/16 at 12:30 Gabapentin 300 mg 300 mg TID PO Last administered on 10/28/16 12:20; Admin Dose 300 MG; Start 10/20/16 at 13:00 Acetaminophen (Ofirmev 1000mg/ 100ml Iv) 100 ml @ 400 mls/hr Q6H IVPB Last administered on 10/28/16 15:48; Admin Dose 400 MLS/HR; Start 10/20/16 at 22:00 Morphine Sulfate (Ms Contin (Er)) 15 mg QAM PO Last administered on 10/28/16 09:07; Admin Dose 15 MG; Start 10/22/16 at 09:00 Hydromorphone HCl (Dilaudid) 2 mg Q4H PRN PO PAIN Last administered on 14:14; Admin Dose 2 MG; Start 10/21/16 at 11:30 Polyethylene Glycol (Miralax) 17 gm DAILY PO Last administered on 10/26/16 08: 53; Admin Dose 17 GM; Start 10/22/16 at 09:00 Fluconazole (Diflucan) 100 mg DAILY PO Last administered on 10/28/16 09:07; Admin Dose 100 MG; Start 10/22/16 at 21:00 Nystatin (Nystatin Susp) 5 ml QID PO Last administered on 10/27/16 20:45; Admin Dose 5 ML; Start 10/22/16 at 21:00 Cholecalciferol 1000 unit 1,000 unit DAILY PO Last administered on 10/28/16 09 :07; Admin Dose 1,000 UNIT; Start 10/25/16 at 09:00 Vancomycin HCl (Vancocin) 250 ml @ 125 mls/hr Q8H IVPB Last administered on 14:14; Admin Dose 125 MLS/HR; Start 10/27/16 at 22:00 Miscellaneous Information (*Rx Drug Level Order Reminder*) VANCOMYCIN TROUGH AT 2100 ONCE ONCE XX ; Start 10/28/16 at 21:00; Stop 10/28/16 at 21:01 RAMIN MONTERROSO Oct 28, 2016 18:01
[2016-10-28] MEDS: DOCUSATE SODIUM 10 MG/ML (10ML CUP) PO SCH (20:28)
[2016-10-28 21:00] VITALS: BP 106/59; RESP 18
[2016-10-29] MEDS: ACETAMINOPHEN 1000MG/100ML IV 100 ML IVPB SCH ×4 (04:03→21:14)
[2016-10-29] MEDS: VANCOMYCIN 1 GM in NS 250 ML IVPB SCH ×3 (05:09→21:59)
[2016-10-29 08:00] VITALS: BP 110/72; RESP 20
[2016-10-29] MEDS: INSULIN ASPART [NOVOLOG] 3 ML PEN SC SCH ×4 (08:00→20:15)
[2016-10-29] MEDS: POLYETHYLENE GLYCOL 17 GM PACKET PO SCH ×2 (09:00→09:59)
[2016-10-29] MEDS: metFORMIN 500 MG TAB PO SCH ×2 (09:53→18:07)
[2016-10-29] MEDS: GABAPENTIN 300 MG CAP PO SCH ×3 (09:53→20:15)
[2016-10-29] MEDS: ALLOPURINOL 100 MG TAB PO SCH (09:53)
[2016-10-29] MEDS: AMLODIPINE 10 MG TAB PO SCH (09:53)
[2016-10-29] MEDS: CHOLECALCIFEROL 1,000 UNIT TAB PO SCH (09:53)
[2016-10-29] MEDS: FAMOTIDINE 20 MG TAB PO SCH (09:54)
[2016-10-29] MEDS: morphine (ER) 15 MG TAB PO SCH ×2 (09:54→20:16)
[2016-10-29] MEDS: AMITRIPTYLINE 25 MG TAB PO SCH (09:54)
[2016-10-29] MEDS: NYSTATIN SUSP 5 ML CUP PO SCH ×4 (09:54→20:15)
[2016-10-29] MEDS: LACTOBACILLUS RHAMNOSUS CAP PO SCH ×2 (09:54→20:15)
[2016-10-29] MEDS: FLUCONAZOLE 100 MG TAB PO SCH (09:54)
[2016-10-29] MEDS: CEFEPIME 1GM/50 ML (PMX) 50 ML IVPB SCH ×2 (09:54→20:12)
[2016-10-29] MEDS: CITALOPRAM 20 MG TAB PO SCH (09:54)
[2016-10-29] MEDS: ENOXAPARIN 40 MG/0.4 ML SYG SC SCH (09:57)
[2016-10-29] MEDS: HYDROmorphONE 2 MG TAB PO PRN (10:44)
--- NOTE | 2016-10-29 14:33 | CONS ---
Date/Time of Note Date/Time of Note DATE: 10/29/16 TIME: 14:32 Assessment/Plan Assessment/Plan Chief Complaint/Hosp Course SUBJECTIVE: No acute changes overnight. The patient is alert, feels good, looks comfortable, no fevers. ANTIMICROBIALS: 1. Vancomycin. 2. Cefepime. MICROBIOLOGY: Blood and urine culture negative. PHYSICAL EXAMINATION: GENERAL: This is a well-nourished, well-developed, middle-aged man who is alert, in no distress. HEENT: Head atraumatic, normocephalic. Sclerae anicteric. Buccal mucosa pink with white thrush on his tongue and presence of halitosis. NECK: Supple. CHEST: Rise symmetrical. Breath sounds diminished to bases. HEART: S1, S2. ABDOMEN: Soft. Bowel tones present. EXTREMITIES: Without cyanosis. The patient has limited movement in bilateral extremities secondary to pain. ASSESSMENT: 1. L5-S1 diskitis and osteomyelitis. Neurosurgery on case. No plans for any intervention. 2. Oral thrush==>Continue oral nystatin and fluconazole. 3. Hypertension. 4. Diabetes. PLAN: The patient remains clinically and hemodynamically stable. Continue abx for 6-8 weeks with repeat MRI prior discontinuation of therapy. Continue PT, f/ u rec-s of consultants [facility] staff Problems: Consultation Date/Type/Reason Admit Date/Time Oct 15, 2016 at 22:06 Initial Consult Date 10/22/16 Type of Consultation: ID Exam/Review of Systems Vital Signs Vitals Vital Signs Date Time Temp Pulse Resp B/P Pulse Ox O2 Delivery O2 Flow Rate FiO2 10/29/16 08:00 98.6 76 20 110/72 96 Intake and Output 10/28/16 10/28/16 10/29/16 15:00 23:00 07:00 Intake Total 400 ml 1120 ml 700 ml Output Total 800 ml 700 ml Balance 400 ml 320 ml 0 ml Results Result Diagram: 10/26/16 1015 10/28/16 0501 Results 24 hrs Laboratory Tests Test 10/28/16 17:18 10/28/16 20:26 10/28/16 22:00 10/29/16 01:31 Bedside Glucose 105 89 110 Vancomycin Level Trough 11.7 Test 10/29/16 08:02 10/29/16 12:23 Bedside Glucose 86 106 Medications Medications Current Medications Ondansetron HCl (Zofran Inj) 4 mg Q6H PRN IV NAUSEA AND/OR VOMITING; Start 10/16 at 04:30 Allopurinol (Zyloprim) 100 mg DAILY PO Last administered on 10/29/16 09:53; Admin Dose 100 MG; Start 10/16/16 at 09:00 Amitriptyline HCl (Elavil) 25 mg DAILY PO Last administered on 10/29/16 09:54 ; Admin Dose 25 MG; Start 10/16/16 at 09:00 Amlodipine Besylate (Norvasc) 10 mg DAILY PO Last administered on 10/29/16 09: 53; Admin Dose 10 MG; Start 10/16/16 at 09:00 Citalopram Hydrobromide (Celexa) 10 mg DAILY PO Last administered on 10/29/16 09:54; Admin Dose 10 MG; Start 10/16/16 at 09:00 Naproxen 500 mg 500 mg BID PRN PO PAIN AND/OR INFLAMMATION; Start 10/16/16 at 04 :30; Status Future Hold Cefepime HCl (Maxipime 1gm/50 ml (Pmx)) 50 ml @ 100 mls/hr Q12 IVPB Last administered on 10/29/16 09:54; Admin Dose 100 MLS/HR; Start 10/16/16 at 14:00 Miscellaneous Information 1 ea NOTE XX ; Start 10/16/16 at 14:30 Glucose (Glutose) 15 gm Q15M PRN PO DECREASED GLUCOSE; Start 10/16/16 at 14:30 Glucose (Glutose) 22.5 gm Q15M PRN PO DECREASED GLUCOSE; Start 10/16/16 at 14:30 Dextrose (D50w Syringe) 25 ml Q15M PRN IV DECREASED GLUCOSE; Start 10/16/16 at 14:30 Dextrose (D50w Syringe) 50 ml Q15M PRN IV DECREASED GLUCOSE; Start 10/16/16 at 14:30 Glucagon (Glucagen) 1 mg Q15M PRN IM DECREASED GLUCOSE; Start 10/16/16 at 14:30 Glucose (Glutose) 15 gm Q15M PRN BUCCAL DECREASED GLUCOSE; Start 10/16/16 at 14: 30 Lactobacillus Acidophilus/ Rhamnosus (Culturelle) 1 cap BID PO Last administered on 10/29/16 09:54; Admin Dose 1 CAP; Start 10/16/16 at 21:00 Docusate Sodium (Colace Liquid Cup) 100 mg HS PO Last administered on 20:28; Admin Dose 100 MG; Start 10/16/16 at 21:00 Famotidine (Pepcid) 20 mg DAILY PO Last administered on 10/29/16 09:54; Admin Dose 20 MG; Start 10/18/16 at 09:00 Enoxaparin Sodium (Lovenox) 40 mg DAILY SC Last administered on 10/29/16 09:57 ; Admin Dose 40 MG; Start 10/18/16 at 12:30 Gabapentin 300 mg 300 mg TID PO Last administered on 10/29/16 14:07; Admin Dose 300 MG; Start 10/20/16 at 13:00 Acetaminophen (Ofirmev 1000mg/ 100ml Iv) 100 ml @ 400 mls/hr Q6H IVPB Last administered on 10/29/16 09:57; Admin Dose 400 MLS/HR; Start 10/20/16 at 22:00 Hydromorphone HCl (Dilaudid) 2 mg Q4H PRN PO PAIN Last administered on 10:44; Admin Dose 2 MG; Start 10/21/16 at 11:30 Polyethylene Glycol (Miralax) 17 gm DAILY PO Last administered on 10/29/16 09: 59; Admin Dose 17 GM; Start 10/22/16 at 09:00 Fluconazole (Diflucan) 100 mg DAILY PO Last administered on 10/29/16 09:54; Admin Dose 100 MG; Start 10/22/16 at 21:00 Nystatin (Nystatin Susp) 5 ml QID PO Last administered on 10/29/16 14:07; Admin Dose 5 ML; Start 10/22/16 at 21:00 Cholecalciferol 1000 unit 1,000 unit DAILY PO Last administered on 10/29/16 09 :53; Admin Dose 1,000 UNIT; Start 10/25/16 at 09:00 Vancomycin HCl (Vancocin) 250 ml @ 125 mls/hr Q8H IVPB Last administered on 14:07; Admin Dose 125 MLS/HR; Start 10/27/16 at 22:00 Morphine Sulfate (Ms Contin (Er)) 15 mg BID PO Last administered on 10/29/16t 09:54; Admin Dose 15 MG; Start 10/28/16 at 21:00 Polyethylene Glycol (Miralax) 17 gm DAILY PO ; Start 10/29/16 at 09:00 BERYL MELTON NP Oct 29, 2016 14:33
--- NOTE | 2016-10-29 15:22 | PN ---
DATE: 10/29/2016 SUBJECTIVE: Chart reviewed. The patient is stable and afebrile, does not appear in acute distress. PHYSICAL EXAMINATION: VITAL SIGNS: Blood pressure 110/72, pulse 76, respirations 20, temperature 98.6. Currently saturat ing 96% on room air. HEENT: Pupils are equal and react to light. Anicteric sclerae. NECK: Supple, no JVD noted, no cervical adenopathy, no carotid bruits heard. LUNGS: Fair breath sounds bilaterally. CARDIOVASCULAR: S1, S2 normal. ABDOMEN: Soft, nontender. No or masses noted. EXTREMITIES: No clubbing or cyanosis noted. NEUROLOGICAL: Awake. IMPRESSION: 1. T8 fracture secondary to mechanical fall. 2. Status post sepsis. 3. L5-S1 diskitis, osteomyelitis. 4. History of hypertension. 5. Diabetes mellitus type 2. 6. Anemia. 7. Oral candidiasis. 8. Vitamin D deficiency. RECOMMENDATIONS: 1. Continue antibiotics. 2. Infectious disease followup noted. 3. Physical therapy. 4. Pain control. 5. Consider discharge planning to a fdc facility for continued IV antibiotics. Dictated By: MALU KRAFT MD, MA/DEVI Conf#: [id number] DID#: [id number]
--- NOTE | 2016-10-29 17:45 | CONS ---
Date/Time of Note Date/Time of Note DATE: 10/29/16 TIME: 17:43 Assessment/Plan Assessment/Plan Chief Complaint/Hosp Course This is a 56-year-old gentleman who had a mechanical fall approximately 1 week prior to this presentation. States that he had hyperextended his arms to about avoid a direct blow to his head went back to bed and woke up the next morning with severe discomfort in bilateral upper extremities. Denies nausea vomiting dizziness diplopia disorientation post fall. States pain is a gnawing type discomfort he is unable to move bilateral upper extremity without severe pain he did not take any pain medication at home prescribed except for ibuprofen which did not make a major difference. Here is being treated with morphine gabapentin [place] and tramadol states that his pain is on somewhat better control with the above regimen. Post IV dose of morphine and pain goes down to approximately 7's pain has been increasing over the last week prior to his presentation. It is significantly inferior with his physical functioning his family relationship is moving sleeping patterns overall functioning has been extremely poor secondary to above. Denies mental cloudiness fatigue drowsiness. There is no history of alcohol or drug addiction prior to his presentation or history of propofol for sedation with any controlled substances. He did not appear intoxicated on presentation in unkempt, impaired and is not asked for early renewals of his pain control medication. He does not insist on certain medications by name there is no history of drug use prior to his presentation or arrests. Patient denies any side effects associated with his current pain control medications but he states it does not control his pain nor does it last long enough, that includes all of the pain medications listed as above. Patient did not attempt to use any alternative forms of pain management . Problems: Consultation Date/Type/Reason Admit Date/Time Oct 15, 2016 at 22:06 Initial Consult Date 10/22/16 Type of Consultation: Pain man 24 HR Interval Summary Free Text/Dictation Continue current pain management, encouraged more physical therapy will optimize current pain control management Hopefully increase his activity level. Exam/Review of Systems Vital Signs Vitals Vital Signs Date Time Temp Pulse Resp B/P Pulse Ox O2 Delivery O2 Flow Rate FiO2 10/29/16 08:00 98.6 76 20 110/72 96 Intake and Output 10/28/16 10/28/16 10/29/16 15:00 23:00 07:00 Intake Total 400 ml 1120 ml 700 ml Output Total 800 ml 700 ml Balance 400 ml 320 ml 0 ml Results Result Diagram: 10/26/16 1015 10/28/16 0501 Results 24 hrs Laboratory Tests Test 10/28/16 20:26 10/28/16 22:00 10/29/16 01:31 10/29/16 08:02 Bedside Glucose 89 110 86 Vancomycin Level Trough 11.7 Test 10/29/16 12:23 Bedside Glucose 106 Medications Medications Current Medications Ondansetron HCl (Zofran Inj) 4 mg Q6H PRN IV NAUSEA AND/OR VOMITING; Start 10/16 at 04:30 Allopurinol (Zyloprim) 100 mg DAILY PO Last administered on 10/29/16 09:53; Admin Dose 100 MG; Start 10/16/16 at 09:00 Amitriptyline HCl (Elavil) 25 mg DAILY PO Last administered on 10/29/16 09:54 ; Admin Dose 25 MG; Start 10/16/16 at 09:00 Amlodipine Besylate (Norvasc) 10 mg DAILY PO Last administered on 10/29/16 09: 53; Admin Dose 10 MG; Start 10/16/16 at 09:00 Citalopram Hydrobromide (Celexa) 10 mg DAILY PO Last administered on 10/29/16 09:54; Admin Dose 10 MG; Start 10/16/16 at 09:00 Naproxen 500 mg 500 mg BID PRN PO PAIN AND/OR INFLAMMATION; Start 10/16/16 at 04 :30; Status Future Hold Cefepime HCl (Maxipime 1gm/50 ml (Pmx)) 50 ml @ 100 mls/hr Q12 IVPB Last administered on 10/29/16 09:54; Admin Dose 100 MLS/HR; Start 10/16/16 at 14:00 Miscellaneous Information 1 ea NOTE XX ; Start 10/16/16 at 14:30 Glucose (Glutose) 15 gm Q15M PRN PO DECREASED GLUCOSE; Start 10/16/16 at 14:30 Glucose (Glutose) 22.5 gm Q15M PRN PO DECREASED GLUCOSE; Start 10/16/16 at 14:30 Dextrose (D50w Syringe) 25 ml Q15M PRN IV DECREASED GLUCOSE; Start 10/16/16 at 14:30 Dextrose (D50w Syringe) 50 ml Q15M PRN IV DECREASED GLUCOSE; Start 10/16/16 at 14:30 Glucagon (Glucagen) 1 mg Q15M PRN IM DECREASED GLUCOSE; Start 10/16/16 at 14:30 Glucose (Glutose) 15 gm Q15M PRN BUCCAL DECREASED GLUCOSE; Start 10/16/16 at 14: 30 Lactobacillus Acidophilus/ Rhamnosus (Culturelle) 1 cap BID PO Last administered on 10/29/16 09:54; Admin Dose 1 CAP; Start 10/16/16 at 21:00 Docusate Sodium (Colace Liquid Cup) 100 mg HS PO Last administered on 20:28; Admin Dose 100 MG; Start 10/16/16 at 21:00 Famotidine (Pepcid) 20 mg DAILY PO Last administered on 10/29/16 09:54; Admin Dose 20 MG; Start 10/18/16 at 09:00 Enoxaparin Sodium (Lovenox) 40 mg DAILY SC Last administered on 10/29/16 09:57 ; Admin Dose 40 MG; Start 10/18/16 at 12:30 Gabapentin 300 mg 300 mg TID PO Last administered on 10/29/16 14:07; Admin Dose 300 MG; Start 10/20/16 at 13:00 Acetaminophen (Ofirmev 1000mg/ 100ml Iv) 100 ml @ 400 mls/hr Q6H IVPB Last administered on 10/29/16 09:57; Admin Dose 400 MLS/HR; Start 10/20/16 at 22:00 Hydromorphone HCl (Dilaudid) 2 mg Q4H PRN PO PAIN Last administered on 10:44; Admin Dose 2 MG; Start 10/21/16 at 11:30 Polyethylene Glycol (Miralax) 17 gm DAILY PO Last administered on 10/29/16 09: 59; Admin Dose 17 GM; Start 10/22/16 at 09:00 Fluconazole (Diflucan) 100 mg DAILY PO Last administered on 10/29/16 09:54; Admin Dose 100 MG; Start 10/22/16 at 21:00 Nystatin (Nystatin Susp) 5 ml QID PO Last administered on 10/29/16 14:07; Admin Dose 5 ML; Start 10/22/16 at 21:00 Cholecalciferol 1000 unit 1,000 unit DAILY PO Last administered on 10/29/16 09 :53; Admin Dose 1,000 UNIT; Start 10/25/16 at 09:00 Vancomycin HCl (Vancocin) 250 ml @ 125 mls/hr Q8H IVPB Last administered on 14:07; Admin Dose 125 MLS/HR; Start 10/27/16 at 22:00 Morphine Sulfate (Ms Contin (Er)) 15 mg BID PO Last administered on 10/29/16 09:54; Admin Dose 15 MG; Start 10/28/16 at 21:00 Polyethylene Glycol (Miralax) 17 gm DAILY PO ; Start 10/29/16 at 09:00 RAMIN MONTERROSO Oct 29, 2016 17:45
[2016-10-29] MEDS: DOCUSATE SODIUM 10 MG/ML (10ML CUP) PO SCH (20:15)
[2016-10-29 20:46] VITALS: BP 101/62; RESP 18
[2016-10-30] MEDS: ACETAMINOPHEN 1000MG/100ML IV 100 ML IVPB SCH ×4 (03:38→23:27)
[2016-10-30] MEDS: VANCOMYCIN 1 GM in NS 250 ML IVPB SCH ×3 (06:07→21:07)
[2016-10-30 08:00] VITALS: BP 110/64; RESP 20
[2016-10-30] MEDS: INSULIN ASPART [NOVOLOG] 3 ML PEN SC SCH ×4 (08:00→20:02)
[2016-10-30] MEDS: metFORMIN 500 MG TAB PO SCH ×2 (08:01→17:22)
[2016-10-30] MEDS: POLYETHYLENE GLYCOL 17 GM PACKET PO SCH ×3 (09:00→09:13)
[2016-10-30] MEDS: ALLOPURINOL 100 MG TAB PO SCH (09:11)
[2016-10-30] MEDS: NYSTATIN SUSP 5 ML CUP PO SCH ×4 (09:11→20:11)
[2016-10-30] MEDS: AMLODIPINE 10 MG TAB PO SCH (09:11)
[2016-10-30] MEDS: CEFEPIME 1GM/50 ML (PMX) 50 ML IVPB SCH ×2 (09:11→20:11)
[2016-10-30] MEDS: LACTOBACILLUS RHAMNOSUS CAP PO SCH ×2 (09:12→20:11)
[2016-10-30] MEDS: GABAPENTIN 300 MG CAP PO SCH ×3 (09:12→20:11)
[2016-10-30] MEDS: morphine (ER) 15 MG TAB PO SCH ×2 (09:12→20:11)
[2016-10-30] MEDS: AMITRIPTYLINE 25 MG TAB PO SCH (09:12)
[2016-10-30] MEDS: FAMOTIDINE 20 MG TAB PO SCH (09:12)
[2016-10-30] MEDS: FLUCONAZOLE 100 MG TAB PO SCH (09:12)
[2016-10-30] MEDS: CITALOPRAM 20 MG TAB PO SCH (09:12)
[2016-10-30] MEDS: CHOLECALCIFEROL 1,000 UNIT TAB PO SCH (09:12)
[2016-10-30] MEDS: ENOXAPARIN 40 MG/0.4 ML SYG SC SCH (09:13)
--- NOTE | 2016-10-30 13:31 | CONS ---
Date/Time of Note Date/Time of Note DATE: 10/30/16 TIME: 13:31 Assessment/Plan Assessment/Plan Chief Complaint/Hosp Course SUBJECTIVE: No acute changes overnight. The patient is alert, feels good, looks comfortable, no fevers. ANTIMICROBIALS: 1. Vancomycin. 2. Cefepime. 3. Diflucan MICROBIOLOGY: Blood and urine culture negative. PHYSICAL EXAMINATION: GENERAL: This is a well-nourished, well-developed, middle-aged man who is alert, in no distress. HEENT: Head atraumatic, normocephalic. Sclerae anicteric. Buccal mucosa pink with white thrush on his tongue and presence of halitosis. NECK: Supple. CHEST: Rise symmetrical. Breath sounds diminished to bases. HEART: S1, S2. ABDOMEN: Soft. Bowel tones present. EXTREMITIES: Without cyanosis. The patient has limited movement in bilateral extremities secondary to pain. ASSESSMENT: 1. L5-S1 diskitis and osteomyelitis. Neurosurgery on case. No plans for any intervention. 2. Oral thrush==>Continue oral nystatin and fluconazole. 3. Hypertension. 4. Diabetes. PLAN: The patient remains clinically and hemodynamically stable. Continue abx for 6-8 weeks with repeat MRI prior discontinuation of therapy. Continue PT, f/ u rec-s of consultants [facility] staff Problems: Consultation Date/Type/Reason Admit Date/Time Oct 15, 2016 at 22:06 Initial Consult Date 10/22/16 Type of Consultation: id Exam/Review of Systems Vital Signs Vitals Vital Signs Date Time Temp Pulse Resp B/P Pulse Ox O2 Delivery O2 Flow Rate FiO2 10/30/16 08:00 98.8 84 20 110/64 96 Intake and Output 10/29/16 10/29/16 10/30/16 15:00 23:00 07:00 Intake Total 400 ml 1740 ml 830 ml Output Total 1150 ml 1150 ml Balance 400 ml 590 ml -320 ml Results Result Diagram: 10/26/16 1015 10/28/16 0501 Results 24 hrs Laboratory Tests Test 10/29/16 18:04 10/29/16 20:11 10/30/16 01:13 10/30/16 07:59 Bedside Glucose 132 106 96 93 Test 10/30/16 12:10 Bedside Glucose 106 Medications Medications Current Medications Ondansetron HCl (Zofran Inj) 4 mg Q6H PRN IV NAUSEA AND/OR VOMITING; Start 10/16 at 04:30 Allopurinol (Zyloprim) 100 mg DAILY PO Last administered on 10/30/16 09:11; Admin Dose 100 MG; Start 10/16/16 at 09:00 Amitriptyline HCl (Elavil) 25 mg DAILY PO Last administered on 10/30/16 09:12 ; Admin Dose 25 MG; Start 10/16/16 at 09:00 Amlodipine Besylate (Norvasc) 10 mg DAILY PO Last administered on 10/30/16 09: 11; Admin Dose 10 MG; Start 10/16/16 at 09:00 Citalopram Hydrobromide (Celexa) 10 mg DAILY PO Last administered on 10/30/16 09:12; Admin Dose 10 MG; Start 10/16/16 at 09:00 Naproxen 500 mg 500 mg BID PRN PO PAIN AND/OR INFLAMMATION; Start 10/16/16 at 04 :30; Status Future Hold Cefepime HCl (Maxipime 1gm/50 ml (Pmx)) 50 ml @ 100 mls/hr Q12 IVPB Last administered on 10/30/16 09:11; Admin Dose 100 MLS/HR; Start 10/16/16 at 14:00 Miscellaneous Information 1 ea NOTE XX ; Start 10/16/16 at 14:30 Glucose (Glutose) 15 gm Q15M PRN PO DECREASED GLUCOSE; Start 10/16/16 at 14:30 Glucose (Glutose) 22.5 gm Q15M PRN PO DECREASED GLUCOSE; Start 10/16/16 at 14:30 Dextrose (D50w Syringe) 25 ml Q15M PRN IV DECREASED GLUCOSE; Start 10/16/16 at 14:30 Dextrose (D50w Syringe) 50 ml Q15M PRN IV DECREASED GLUCOSE; Start 10/16/16 at 14:30 Glucagon (Glucagen) 1 mg Q15M PRN IM DECREASED GLUCOSE; Start 10/16/16 at 14:30 Glucose (Glutose) 15 gm Q15M PRN BUCCAL DECREASED GLUCOSE; Start 10/16/16 at 14: 30 Lactobacillus Acidophilus/ Rhamnosus (Culturelle) 1 cap BID PO Last administered on 10/30/16 09:12; Admin Dose 1 CAP; Start 10/16/16 at 21:00 Docusate Sodium (Colace Liquid Cup) 100 mg HS PO Last administered on 20:15; Admin Dose 100 MG; Start 10/16/16 at 21:00 Famotidine (Pepcid) 20 mg DAILY PO Last administered on 10/30/16 09:12; Admin Dose 20 MG; Start 10/18/16 at 09:00 Enoxaparin Sodium (Lovenox) 40 mg DAILY SC Last administered on 10/30/16 09:13 ; Admin Dose 40 MG; Start 10/18/16 at 12:30 Gabapentin 300 mg 300 mg TID PO Last administered on 10/30/16 09:12; Admin Dose 300 MG; Start 10/20/16 at 13:00 Acetaminophen (Ofirmev 1000mg/ 100ml Iv) 100 ml @ 400 mls/hr Q6H IVPB Last administered on 10/30/16 10:02; Admin Dose 400 MLS/HR; Start 10/20/16 at 22:00 Hydromorphone HCl (Dilaudid) 2 mg Q4H PRN PO PAIN Last administered on 10:44; Admin Dose 2 MG; Start 10/21/16 at 11:30 Polyethylene Glycol (Miralax) 17 gm DAILY PO Last administered on 10/29/16 09: 59; Admin Dose 17 GM; Start 10/22/16 at 09:00 Fluconazole (Diflucan) 100 mg DAILY PO Last administered on 10/30/16 09:12; Admin Dose 100 MG; Start 10/22/16 at 21:00 Nystatin (Nystatin Susp) 5 ml QID PO Last administered on 10/30/16 09:11; Admin Dose 5 ML; Start 10/22/16 at 21:00 Cholecalciferol 1000 unit 1,000 unit DAILY PO Last administered on 10/30/16 09 :12; Admin Dose 1,000 UNIT; Start 10/25/16 at 09:00 Vancomycin HCl (Vancocin) 250 ml @ 125 mls/hr Q8H IVPB Last administered on 06:07; Admin Dose 125 MLS/HR; Start 10/27/16 at 22:00 Morphine Sulfate (Ms Contin (Er)) 15 mg BID PO Last administered on 10/30/16 09:12; Admin Dose 15 MG; Start 10/28/16 at 21:00 Polyethylene Glycol (Miralax) 17 gm DAILY PO ; Start 10/29/16 at 09:00 BERYL MELTON NP Oct 30, 2016 13:31
[2016-10-30] MEDS: HYDROmorphONE 2 MG TAB PO PRN ×3 (14:02→22:56)
--- NOTE | 2016-10-30 14:40 | PN ---
DATE: 10/30/2016 INTERNAL MEDICINE FOLLOWUP SUBJECTIVE: Chart reviewed. The patient is lying in bed, saturating 96%, and does not appear in ac kaibab distress. PHYSICAL EXAMINATION: VITAL SIGNS: Blood pressure 110/64, pulse 84, respirations 20, temperature 98.8. HEENT: Pupils are equal and reactive to light. NECK: Supple. No JVD noted, no cervical adenopathy noted, no carotid bruits heard. LUNGS: Fair breath sounds bilaterally. CARDIOVASCULAR: S1, S2 normal. ABDOMEN: Soft, nontender. No organomegaly or masses noted. EXTREMITIES: No clubbing or cyanosis noted. NEUROLOGIC: No changes. IMPRESSION: 1. T8 fracture secondary to a mechanical fall. 2. Status post sepsis. 3. L5-S1 diskitis and osteomyelitis. 4. History of hypertension. 5. Diabetes mellitus type 2. 6. Anemia. 7. . 8. Vitamin D deficiency. RECOMMENDATIONS: 1. Continue antibiotics. 2. Infectious disease followup noted. 3. Palliative care evaluation noted. 4. Pain control. 5. Physical therapy. 6. Consider discharge planning to a alf facility. Dictated By: MALU KRAFT MD, MA/DEVI Conf#: [id number] DID#: [id number]
[2016-10-30 20:00] VITALS: BP 113/62; RESP 19
[2016-10-30] MEDS: DOCUSATE SODIUM 10 MG/ML (10ML CUP) PO SCH (20:11)
[2016-10-31] MEDS: ACETAMINOPHEN 1000MG/100ML IV 100 ML IVPB SCH ×4 (04:34→22:35)
[2016-10-31] MEDS: HYDROmorphONE 2 MG TAB PO PRN ×2 (06:07→16:56)
[2016-10-31 06:50] LABS: CREATININE 0.73 mg/dl (0.61-1.24)
[2016-10-31 08:00] VITALS: BP 104/64; PULSE 55; RESP 16
[2016-10-31] MEDS: INSULIN ASPART [NOVOLOG] 3 ML PEN SC SCH ×4 (08:00→21:00)
[2016-10-31] MEDS: NYSTATIN SUSP 5 ML CUP PO SCH ×4 (08:23→21:06)
[2016-10-31] MEDS: CEFEPIME 1GM/50 ML (PMX) 50 ML IVPB SCH ×2 (08:23→21:04)
[2016-10-31] MEDS: LACTOBACILLUS RHAMNOSUS CAP PO SCH ×2 (08:24→21:05)
[2016-10-31] MEDS: FLUCONAZOLE 100 MG TAB PO SCH (08:24)
[2016-10-31] MEDS: morphine (ER) 15 MG TAB PO SCH ×2 (08:24→21:05)
[2016-10-31] MEDS: CITALOPRAM 20 MG TAB PO SCH (08:24)
[2016-10-31] MEDS: GABAPENTIN 300 MG CAP PO SCH ×3 (08:24→21:06)
[2016-10-31] MEDS: CHOLECALCIFEROL 1,000 UNIT TAB PO SCH (08:24)
[2016-10-31] MEDS: AMITRIPTYLINE 25 MG TAB PO SCH (08:24)
[2016-10-31] MEDS: ALLOPURINOL 100 MG TAB PO SCH (08:24)
[2016-10-31] MEDS: FAMOTIDINE 20 MG TAB PO SCH (08:25)
[2016-10-31] MEDS: ENOXAPARIN 40 MG/0.4 ML SYG SC SCH (08:30)
[2016-10-31] MEDS: metFORMIN 500 MG TAB PO SCH ×2 (08:36→17:57)
[2016-10-31] MEDS: POLYETHYLENE GLYCOL 17 GM PACKET PO SCH (08:37)
[2016-10-31] MEDS: AMLODIPINE 10 MG TAB PO SCH (08:37)
[2016-10-31] MEDS: VANCOMYCIN 1 GM in NS 250 ML IVPB SCH (09:32)
--- NOTE | 2016-10-31 09:41 | PN ---
Date/Time of Note Date/Time of Note DATE: 10/31/16 TIME: 09:36 Assessment/Plan VTE Prophylaxis VTE Prophylaxis Intervention: heparin Lines/Catheters IV Catheter Type (from [facility] Urinary Cath still in place: No Assessment/Plan Problems: (1) Vitamin D deficiency Status: Chronic Comment: On low-dose replacement therapy appropriately. (2) Iron deficiency anemia Status: Chronic Comment: This will need an outpatient investigation for the GI tract electively Qualifiers: Iron deficiency anemia type: chronic blood loss Qualified Code: D50.0 - Iron deficiency anemia due to chronic blood loss (3) Discitis of lumbar region Status: Acute Comment: As per infectious disease notes. Continue on antibiotics will plan for 8 weeks of antibiotics. Given that we do not have a culture but is already been on long enough course of antibiotics to rendered interventional radiology guided biopsy to be less useful he will be treated presumptively (4) Closed T8 spinal fracture Status: Acute Comment: Noted; pain management (5) Cervical radiculopathy due to degenerative joint disease of spine Status: Chronic Comment: Noted. This is not accounting for his upper extremity symptoms (6) Tobacco abuse Status: Chronic Comment: Counseled. He is doing adequately from the standpoint (7) Hyperlipidemia associated with type 2 diabetes mellitus Status: Chronic Comment: He is on statin therapy and should remain on this unless it is determined that the symptoms he is having her myalgias due to statins. Please note this is much more likely to affect the large muscle groups i.e. the legs in the distal upper extremities. (8) Dysthymia Status: Chronic Comment: Use of amitriptyline and older gentleman who is developing some prostate issues is questionable. Get rid of the amitriptyline and go with the SSRI drug. There is no evidence of serotonin syndrome (9) Gout Status: Chronic Comment: Noted on preventative treatment he is not having acute flare of gout Qualifiers: Gout site: unspecified site Gout etiology: idiopathic Chronicity: unspecified Qualified Code: M10.00 - Idiopathic gout, unspecified chronicity, unspecified site (10) Diabetes mellitus type 2 in nonobese Status: Chronic Comment: Continue treatment. He has adequate sugar control (11) Essential hypertension Status: Chronic Comment: Please have a dihydropyridine drug as single agent and diabetic is less typically used in this area. He will be placed on an ANKUR inhibitor titrated up in the CC[facility] will be titrated down (12) Swelling of both upper extremities Status: Acute Comment: I am concerned there is rheumatologic disorder going on here that has not been picked up. Will check a sed rate and C-reactive protein. Please note they may lead us down a S[place] path to the osteomyelitis however will have this comparison. (13) Bilateral arm pain Status: Acute Comment: As above Subjective 24 Hr Interval Summary Free Text/Dictation Patient complains of significant discomfort and loss of use of the upper extremities bilaterally. Constitutional: no complaints (Denies fevers chills or sweats) Eyes: no complaints ENT: no complaints Respiratory: no complaints Cardiovascular: no complaints Gastrointestinal: no complaints Genitourinary: no complaints Musculoskeletal: restricted range of motion (Restricted range of motion especially at the wrists.) Exam/Review of Systems Vital Signs Vitals Vital Signs Date Time Temp Pulse Resp B/P Pulse Ox O2 Delivery O2 Flow Rate FiO2 10/30/16 20:00 98.0 73 19 113/62 96 Intake and Output 10/30/16 10/30/16 10/31/16 14:59 22:59 06:59 Intake Total 400 ml 1900 ml 690 ml Output Total 1600 ml 600 ml Balance 400 ml 300 ml 90 ml Exam Constitutional: alert, oriented Neck: non-tender, supple Respiratory: clear to auscultation, normal air movement Cardiovascular: nl pulses, regular rate and rhythm Gastrointestinal: nl liver, spleen, non-tender, soft Musculoskeletal: other (Possible synovial thickening over bilateral wrists.) Results Result Diagram: 10/31/16 0545 Results 24 hrs Laboratory Tests Test 10/30/16 12:10 10/30/16 17:20 10/30/16 20:01 10/31/16 05:45 Bedside Glucose 106 131 117 Blood Urea Nitrogen 18 Creatinine 0.73 Vancomycin Level Trough 12.4 Test 10/31/16 08:00 Bedside Glucose 98 Medications Medications Current Medications Ondansetron HCl (Zofran Inj) 4 mg Q6H PRN IV NAUSEA AND/OR VOMITING; Start 10/16 at 04:30 Allopurinol (Zyloprim) 100 mg DAILY PO Last administered on 10/31/16t 08:24; Admin Dose 100 MG; Start 10/16/16 at 09:00 Citalopram Hydrobromide (Celexa) 10 mg DAILY PO Last administered on 10/31/16 08:24; Admin Dose 10 MG; Start 10/16/16 at 09:00 Naproxen 500 mg 500 mg BID PRN PO PAIN AND/OR INFLAMMATION; Start 10/16/16 at 04 :30; Status Future Hold Cefepime HCl (Maxipime 1gm/50 ml (Pmx)) 50 ml @ 100 mls/hr Q12 IVPB Last administered on 10/31/16 08:23; Admin Dose 100 MLS/HR; Start 10/16/16 at 14:00 Miscellaneous Information 1 ea NOTE XX ; Start 10/16/16 at 14:30 Glucose (Glutose) 15 gm Q15M PRN PO DECREASED GLUCOSE; Start 10/16/16 at 14:30 Glucose (Glutose) 22.5 gm Q15M PRN PO DECREASED GLUCOSE; Start 10/16/16 at 14:30 Dextrose (D50w Syringe) 25 ml Q15M PRN IV DECREASED GLUCOSE; Start 10/16/16 at 14:30 Dextrose (D50w Syringe) 50 ml Q15M PRN IV DECREASED GLUCOSE; Start 10/16/16 at 14:30 Glucagon (Glucagen) 1 mg Q15M PRN IM DECREASED GLUCOSE; Start 10/16/16 at 14:30 Glucose (Glutose) 15 gm Q15M PRN BUCCAL DECREASED GLUCOSE; Start 10/16/16 at 14: 30 Lactobacillus Acidophilus/ Rhamnosus (Culturelle) 1 cap BID PO Last administered on 10/31/16 08:24; Admin Dose 1 CAP; Start 10/16/16 at 21:00 Docusate Sodium (Colace Liquid Cup) 100 mg HS PO Last administered on 20:11; Admin Dose 100 MG; Start 10/16/16 at 21:00 Famotidine (Pepcid) 20 mg DAILY PO Last administered on 10/31/16 08:25; Admin Dose 20 MG; Start 10/18/16 at 09:00 Enoxaparin Sodium (Lovenox) 40 mg DAILY SC Last administered on 10/31/16 08:30 ; Admin Dose 40 MG; Start 10/18/16 at 12:30 Gabapentin 300 mg 300 mg TID PO Last administered on 10/31/16 08:24; Admin Dose 300 MG; Start 10/20/16 at 13:00 Acetaminophen (Ofirmev 1000mg/ 100ml Iv) 100 ml @ 400 mls/hr Q6H IVPB Last administered on 10/31/16 04:34; Admin Dose 400 MLS/HR; Start 10/20/16 at 22:00 Hydromorphone HCl (Dilaudid) 2 mg Q4H PRN PO PAIN Last administered on 06:07; Admin Dose 2 MG; Start 10/21/16 at 11:30 Fluconazole (Diflucan) 100 mg DAILY PO Last administered on 10/31/16 08:24; Admin Dose 100 MG; Start 10/22/16 at 21:00 Nystatin (Nystatin Susp) 5 ml QID PO Last administered on 10/31/16 08:23; Admin Dose 5 ML; Start 10/22/16 at 21:00 Cholecalciferol 1000 unit 1,000 unit DAILY PO Last administered on 10/31/16 08 :24; Admin Dose 1,000 UNIT; Start 10/25/16 at 09:00 Vancomycin HCl (Vancocin) 250 ml @ 125 mls/hr Q8H IVPB Last administered on 09:32; Admin Dose 125 MLS/HR; Start 10/27/16 at 22:00; Stop 10/31/16 at 12:00 Morphine Sulfate (Ms Contin (Er)) 15 mg BID PO Last administered on 10/31/16 08:24; Admin Dose 15 MG; Start 10/28/16 at 21:00 Polyethylene Glycol 17 gm 17 gm DAILY PO Last administered on 10/31/16 08:37; Admin Dose 17 GM; Start 10/29/16 at 09:00 Vancomycin HCl/ Sodium Chloride (Vancocin/NS) 250 ml @ 83.333 mls/ hr Q8H IVPB ; Start 10/31/16 at 14:00 Amlodipine Besylate (Norvasc) 5 mg DAILY PO ; Start 11/01/16 at 09:00 KARTIK HO MD Oct 31, 2016 09:41
[2016-10-31] MEDS: CELECOXIB 200 MG CAP PO SCH ×2 (11:12→21:05)
[2016-10-31] MEDS ORDERED: SOD CHLORIDE 0.9% IVPB SCH (14:00)
[2016-10-31] MEDS ORDERED: VANCOMYCIN IVPB SCH (14:00)
[2016-10-31] MEDS: SOD CHLORIDE 0.9% IVPB SCH (18:19)
[2016-10-31] MEDS: VANCOMYCIN IVPB SCH (18:19)
[2016-10-31 21:04] VITALS: BP 100/59; RESP 18
[2016-10-31] MEDS: DOCUSATE SODIUM 10 MG/ML (10ML CUP) PO SCH (21:05)
[2016-10-31] MEDS: LISINOPRIL 20 MG TAB PO SCH (21:07)
[2016-11-01] MEDS: VANCOMYCIN IVPB SCH ×3 (01:29→17:18)
[2016-11-01] MEDS: SOD CHLORIDE 0.9% IVPB SCH ×3 (01:29→17:18)
[2016-11-01] MEDS: ACETAMINOPHEN 1000MG/100ML IV 100 ML IVPB SCH ×2 (04:34→09:33)
[2016-11-01 05:41] LABS: ADD SCAN DIFF NO
[2016-11-01 05:49] LABS: BASOPHIL # 0.1 10^3/ul (0.0-0.1); BASOPHILS % 1.4 % (0.0-2.0); EOSINOPHILS # 0.2 10^3/ul (0.0-0.5); EOSINOPHILS % 3.7 % (0.0-7.0); HEMATOCRIT 36.9 % (42.0-52.0); HEMOGLOBIN 11.9 g/dl (14.0-18.0); LYMPHOCYTES # 1.8 10^3/ul (0.8-2.9); LYMPHOCYTES % 31.2 % (15.0-51.0); MEAN CORPUSCULAR HEMOGLOBIN 28.3 pg (29.0-33.0); MEAN CORPUSCULAR HGB CONC 32.2 g/dl (32.0-37.0); MEAN CORPUSCULAR VOLUME 87.9 fl (82.0-101.0); MEAN PLATELET VOLUME 9.1 fl (7.4-10.4); MONOCYTE # 0.5 10^3/ul (0.3-0.9); MONOCYTES % 8.6 % (0.0-11.0); NEUTROPHIL # 3.1 10^3/ul (1.6-7.5); NEUTROPHILS % 54.7 % (39.0-77.0); PLATELET COUNT 414 10^3/UL (140-415); RED CELL DISTRIBUTION WIDTH 13.2 % (11.5-14.5); WHITE BLOOD COUNT 5.7 10^3/ul (4.8-10.8)
[2016-11-01 06:32] LABS: ALBUMIN 4.1 g/dl (3.3-4.9); ALBUMIN/GLOBULIN RATIO 1.32; BILIRUBIN,INDIRECT 0.1 mg/dl (0-1.1); BILIRUBIN,TOTAL 0.1 mg/dl (0.2-1.3); C-REACTIVE PROTEIN 4.1 mg/dl (0.0-0.9); CALCIUM 9.7 mg/dl (8.4-10.2); CREATININE 0.7 mg/dl (0.61-1.24); POTASSIUM 4.1 mmol/L (3.5-5.1); TOTAL PROTEIN 7.2 g/dl (6.1-8.1)
[2016-11-01] MEDS: GABAPENTIN 300 MG CAP PO SCH ×3 (06:34→20:40)
[2016-11-01 07:54] VITALS: BP 93/58; RESP 17
[2016-11-01] MEDS: INSULIN ASPART [NOVOLOG] 3 ML PEN SC SCH ×4 (08:00→20:50)
[2016-11-01] MEDS: CEFEPIME 1GM/50 ML (PMX) 50 ML IVPB SCH ×2 (08:12→20:39)
[2016-11-01] MEDS: ENOXAPARIN 40 MG/0.4 ML SYG SC SCH (08:12)
[2016-11-01] MEDS: CELECOXIB 200 MG CAP PO SCH ×2 (08:13→20:39)
[2016-11-01] MEDS: ALLOPURINOL 100 MG TAB PO SCH (08:13)
[2016-11-01] MEDS: FLUCONAZOLE 100 MG TAB PO SCH (08:13)
[2016-11-01] MEDS: NYSTATIN SUSP 5 ML CUP PO SCH ×3 (08:13→17:18)
[2016-11-01] MEDS: CITALOPRAM 20 MG TAB PO SCH (08:13)
[2016-11-01] MEDS: CHOLECALCIFEROL 1,000 UNIT TAB PO SCH (08:13)
[2016-11-01] MEDS: POLYETHYLENE GLYCOL 17 GM PACKET PO SCH (08:13)
[2016-11-01] MEDS: LACTOBACILLUS RHAMNOSUS CAP PO SCH ×2 (08:13→20:39)
[2016-11-01] MEDS: metFORMIN 500 MG TAB PO SCH ×2 (08:13→17:18)
[2016-11-01] MEDS: FAMOTIDINE 20 MG TAB PO SCH (08:14)
[2016-11-01] MEDS: morphine (ER) 15 MG TAB PO SCH ×2 (08:14→20:43)
[2016-11-01] MEDS ORDERED: AMLODIPINE 5 MG TAB PO SCH (09:00)
--- NOTE | 2016-11-01 09:17 | PN ---
Date/Time of Note Date/Time of Note DATE: 11/01/16 TIME: 09:13 Assessment/Plan VTE Prophylaxis VTE Prophylaxis Intervention: LMWH Lines/Catheters IV Catheter Type (from Nrsg): Peripheral IV Urinary Cath still in place: No Assessment/Plan Problems: (1) Total body pain Status: Acute Comment: Patient's pain control is slightly better now. Why did make some adjustments to the regimen I do believe that the bulk of that improvement is due to time compassion from the staff and our palliative care consult (2) Bilateral arm pain Status: Acute Comment: He actually appears to have less inflammation today. I am still concerned he may have an atypical presentation of a rheumatologic disorder. Continue observation. (3) Essential hypertension Status: Chronic Comment: Adequate control. Given his diabetes usage of the dihydropyridine calcium channel ramone is not an ideal choice of discontinuing the amlodipine in favor of the other medications. (4) Diabetes mellitus type 2 in nonobese Status: Chronic Comment: Excellent control. (5) Gout Status: Chronic Comment: Quiescent and controlled Qualifiers: Gout site: unspecified site Gout etiology: idiopathic Chronicity: unspecified Qualified Code: M10.00 - Idiopathic gout, unspecified chronicity, unspecified site (6) Dysthymia Status: Chronic Comment: Improved and stable. I would not use the TCA drug in this gentleman. If and out on as needed given the tobacco abuse and bupropion would be the out on medication (7) Hyperlipidemia associated with type 2 diabetes mellitus Status: Chronic Comment: Continue statin therapy (8) Tobacco abuse Status: Chronic Comment: Counseled again (9) Closed T8 spinal fracture Status: Acute Comment: He still has pain from this but is coming along Qualifiers: Encounter type: subsequent encounter Fracture morphology: wedge compression Fracture healing: with routine healing Qualified Code: S22.060D - Closed wedge compression fracture of eighth thoracic vertebra with routine healing, subsequent encounter (10) Discitis of lumbar region Status: Acute Comment: This remains a significant issue. Infectious disease will help guide us with this. (11) Iron deficiency anemia Status: Chronic Comment: On replacement therapy Qualifiers: Iron deficiency anemia type: chronic blood loss Qualified Code: D50.0 - Iron deficiency anemia due to chronic blood loss Subjective 24 Hr Interval Summary Free Text/Dictation Patient reports he still having significant issues with his legs and his hands but it is a little bit better today Constitutional: no complaints (No fevers chills or sweats) Eyes: no complaints Respiratory: no complaints Cardiovascular: no complaints Gastrointestinal: no complaints Genitourinary: no complaints Exam/Review of Systems Vital Signs Vitals Vital Signs Date Time Temp Pulse Resp B/P Pulse Ox O2 Delivery O2 Flow Rate FiO2 11/01/16 07:54 98.6 58 17 93/58 95 10/31/16 08:00 Room Air Intake and Output 10/31/16 10/31/16 11/01/16 15:00 23:00 07:00 Intake Total 400 ml 1170 ml 550 ml Output Total 700 ml 800 ml Balance 400 ml 470 ml -250 ml Exam Constitutional: alert, oriented Neck: non-tender, supple Respiratory: clear to auscultation, normal air movement Cardiovascular: nl pulses, regular rate and rhythm Extremities: tenderness Results Result Diagram: 11/01/16 0500 11/01/16 0505 Results 24 hrs Laboratory Tests Test 10/31/16 12:02 10/31/16 17:00 10/31/16 21:00 11/01/16 05:00 Bedside Glucose 106 89 88 White Blood Count 5.7 # Red Blood Count 4.20 L Hemoglobin 11.9 L Hematocrit 36.9 L Mean Corpuscular Volume 87.9 Mean Corpuscular Hemoglobin 28.3 L Mean Corpuscular Hemoglobin Concent 32.2 Red Cell Distribution Width 13.2 Platelet Count 414 Mean Platelet Volume 9.1 Neutrophils % 54.7 Lymphocytes % 31.2 Monocytes % 8.6 Eosinophils % 3.7 Basophils % 1.4 Nucleated Red Blood Cells % 0.0 Neutrophils # 3.1 Lymphocytes # 1.8 Monocytes # 0.5 Eosinophils # 0.2 Basophils # 0.1 Nucleated Red Blood Cells # 0.0 Test 11/01/16 05:05 11/01/16 08:10 Erythrocyte Sedimentation Rate 80 H Sodium Level 137 Potassium Level 4.1 Chloride Level 103 Carbon Dioxide Level 27 Anion Gap 11 Blood Urea Nitrogen 21 H Creatinine 0.70 Glucose Level 88 Calcium Level 9.7 Total Bilirubin 0.1 L Direct Bilirubin 0.00 Indirect Bilirubin 0.1 Aspartate Amino Transf (AST/SGOT) 17 Alanine Aminotransferase (ALT/SGPT) 36 Alkaline Phosphatase 87 C-Reactive Protein 4.1 H Total Protein 7.2 Albumin 4.1 Globulin 3.10 Albumin/Globulin Ratio 1.32 Bedside Glucose 81 Medications Medications Current Medications Ondansetron HCl (Zofran Inj) 4 mg Q6H PRN IV NAUSEA AND/OR VOMITING; Start 10/16 at 04:30 Allopurinol (Zyloprim) 100 mg DAILY PO Last administered on 11/01/16 08:13; Admin Dose 100 MG; Start 10/16/16 at 09:00 Naproxen 500 mg 500 mg BID PRN PO PAIN AND/OR INFLAMMATION; Start 10/16/16 at 04 :30; Status Future Hold Cefepime HCl (Maxipime 1gm/50 ml (Pmx)) 50 ml @ 100 mls/hr Q12 IVPB Last administered on 11/01/16 08:12; Admin Dose 100 MLS/HR; Start 10/16/16 at 14:00 Miscellaneous Information 1 ea NOTE XX ; Start 10/16/16 at 14:30 Glucose (Glutose) 15 gm Q15M PRN PO DECREASED GLUCOSE; Start 10/16/16 at 14:30 Glucose (Glutose) 22.5 gm Q15M PRN PO DECREASED GLUCOSE; Start 10/16/16 at 14:30 Dextrose (D50w Syringe) 25 ml Q15M PRN IV DECREASED GLUCOSE; Start 10/16/16 at 14:30 Dextrose (D50w Syringe) 50 ml Q15M PRN IV DECREASED GLUCOSE; Start 10/16/16 at 14:30 Glucagon (Glucagen) 1 mg Q15M PRN IM DECREASED GLUCOSE; Start 10/16/16 at 14:30 Glucose (Glutose) 15 gm Q15M PRN BUCCAL DECREASED GLUCOSE; Start 10/16/16 at 14: 30 Lactobacillus Acidophilus/ Rhamnosus (Culturelle) 1 cap BID PO Last administered on 11/01/16 08:13; Admin Dose 1 CAP; Start 10/16/16 at 21:00 Docusate Sodium (Colace Liquid Cup) 100 mg HS PO Last administered on 21:05; Admin Dose 100 MG; Start 10/16/16 at 21:00 Famotidine (Pepcid) 20 mg DAILY PO Last administered on 11/01/16 08:14; Admin Dose 20 MG; Start 10/18/16 at 09:00 Enoxaparin Sodium 40 mg 40 mg DAILY SC Last administered on 11/01/16 08:12; Admin Dose 40 MG; Start 10/18/16 at 12:30 Acetaminophen (Ofirmev 1000mg/ 100ml Iv) 100 ml @ 400 mls/hr Q6H IVPB Last administered on 11/01/16 04:34; Admin Dose 400 MLS/HR; Start 10/20/16 at 22:00 Hydromorphone HCl (Dilaudid) 2 mg Q4H PRN PO PAIN Last administered on 16:56; Admin Dose 2 MG; Start 10/21/16 at 11:30 Fluconazole (Diflucan) 100 mg DAILY PO Last administered on 11/01/16 08:13; Admin Dose 100 MG; Start 10/22/16 at 21:00 Nystatin (Nystatin Susp) 5 ml QID PO Last administered on 11/01/16 08:13; Admin Dose 5 ML; Start 10/22/16 at 21:00 Cholecalciferol (Vitamin D) 1,000 unit DAILY PO Last administered on 11/01/16 08:13; Admin Dose 1,000 UNIT; Start 10/25/16 at 09:00 Morphine Sulfate (Ms Contin (Er)) 15 mg BID PO Last administered on 11/01/16 08:14; Admin Dose 15 MG; Start 10/28/16 at 21:00 Polyethylene Glycol (Miralax) 17 gm DAILY PO Last administered on 11/01/16 08: 13; Admin Dose 17 GM; Start 10/29/16 at 09:00 Citalopram Hydrobromide (Celexa) 20 mg DAILY PO Last administered on 11/01/16 08:13; Admin Dose 20 MG; Start 11/01/16 at 09:00 Lisinopril (Zestril) 20 mg QHS PO Last administered on 10/31/16 21:07; Admin Dose 20 MG; Start 10/31/16 at 21:00 Gabapentin (Neurontin) 600 mg QHS PO Last administered on 10/31/16 21:06; Admin Dose 600 MG; Start 10/31/16 at 21:00 Celecoxib 200 mg 200 mg BID PO Last administered on 11/01/16 08:13; Admin Dose 200 MG; Start 10/31/16 at 10:00 Vancomycin HCl/ Sodium Chloride (Vancocin/NS) 250 ml @ 83.333 mls/ hr Q8H IVPB Last administered on 11/01/16t 01:29; Admin Dose 83.333 MLS/HR; Start at 17:00 Miscellaneous Information (*Rx Drug Level Order Reminder*) VANCOMYCIN TROUGH AT 0000 ONCE ONCE XX ; Start 11/02/16 at 00:00; Stop 11/02/16 at 00:01 KARTIK HO MD Nov 01, 2016 09:17
[2016-11-01] MEDS: ACETAMINOPHEN 500 MG TAB PO SCH ×2 (13:23→22:03)
--- NOTE | 2016-11-01 18:00 | CONS ---
Date/Time of Note Date/Time of Note DATE: 11/01/16 TIME: 17:59 Assessment/Plan Assessment/Plan Chief Complaint/Hosp Course SUBJECTIVE: No acute changes overnight. The patient is alert, feels good, looks comfortable, no fevers. ANTIMICROBIALS: 1. Vancomycin. 2. Cefepime. 3. Diflucan MICROBIOLOGY: Blood and urine culture negative. PHYSICAL EXAMINATION: GENERAL: This is a well-nourished, well-developed, middle-aged man who is alert, in no distress. HEENT: Head atraumatic, normocephalic. Sclerae anicteric. Buccal mucosa pink with white thrush on his tongue and presence of halitosis. NECK: Supple. CHEST: Rise symmetrical. Breath sounds diminished to bases. HEART: S1, S2. ABDOMEN: Soft. Bowel tones present. EXTREMITIES: Without cyanosis. The patient has limited movement in bilateral extremities secondary to pain. ASSESSMENT: 1. L5-S1 diskitis and osteomyelitis. Neurosurgery on case. No plans for any intervention. 2. Oral thrush==>resolved 3. Hypertension. 4. Diabetes. PLAN: The patient remains clinically and hemodynamically stable. Continue abx for 6-8 weeks with repeat MRI prior discontinuation of therapy. Patricio JONAS staff Problems: Consultation Date/Type/Reason Admit Date/Time Oct 15, 2016 at 22:06 Initial Consult Date 10/22/16 Type of Consultation: id Exam/Review of Systems Vital Signs Vitals Vital Signs Date Time Temp Pulse Resp B/P Pulse Ox O2 Delivery O2 Flow Rate FiO2 11/01/16 07:54 98.6 58 17 93/58 95 10/31/16 08:00 Room Air Intake and Output 10/31/16 10/31/16 11/01/16 15:00 23:00 07:00 Intake Total 400 ml 1170 ml 550 ml Output Total 700 ml 800 ml Balance 400 ml 470 ml -250 ml Results Result Diagram: 11/01/16 0500 11/01/16 0505 Results 24 hrs Laboratory Tests Test 10/31/16 21:00 11/01/16 05:00 11/01/16 05:05 11/01/16 08:10 Bedside Glucose 88 81 White Blood Count 5.7 # Red Blood Count 4.20 L Hemoglobin 11.9 L Hematocrit 36.9 L Mean Corpuscular Volume 87.9 Mean Corpuscular Hemoglobin 28.3 L Mean Corpuscular Hemoglobin Concent 32.2 Red Cell Distribution Width 13.2 Platelet Count 414 Mean Platelet Volume 9.1 Neutrophils % 54.7 Lymphocytes % 31.2 Monocytes % 8.6 Eosinophils % 3.7 Basophils % 1.4 Nucleated Red Blood Cells % 0.0 Neutrophils # 3.1 Lymphocytes # 1.8 Monocytes # 0.5 Eosinophils # 0.2 Basophils # 0.1 Nucleated Red Blood Cells # 0.0 Erythrocyte Sedimentation Rate 80 H Sodium Level 137 Potassium Level 4.1 Chloride Level 103 Carbon Dioxide Level 27 Anion Gap 11 Blood Urea Nitrogen 21 H Creatinine 0.70 Glucose Level 88 Calcium Level 9.7 Total Bilirubin 0.1 L Direct Bilirubin 0.00 Indirect Bilirubin 0.1 Aspartate Amino Transf (AST/SGOT) 17 Alanine Aminotransferase (ALT/SGPT) 36 Alkaline Phosphatase 87 C-Reactive Protein 4.1 H Total Protein 7.2 Albumin 4.1 Globulin 3.10 Albumin/Globulin Ratio 1.32 Hepatitis B Surface Antigen NEGATIVE Hepatitis C Antibody NEGATIVE Test 11/01/16 12:06 11/01/16 17:17 Bedside Glucose 108 87 Medications Medications Current Medications Ondansetron HCl (Zofran Inj) 4 mg Q6H PRN IV NAUSEA AND/OR VOMITING; Start 10/16 at 04:30 Allopurinol (Zyloprim) 100 mg DAILY PO Last administered on 11/01/16 08:13; Admin Dose 100 MG; Start 10/16/16 at 09:00 Naproxen 500 mg 500 mg BID PRN PO PAIN AND/OR INFLAMMATION; Start 10/16/16 at 04 :30; Status Future Hold Cefepime HCl (Maxipime 1gm/50 ml (Pmx)) 50 ml @ 100 mls/hr Q12 IVPB Last administered on 11/01/16 08:12; Admin Dose 100 MLS/HR; Start 10/16/16 at 14:00 Miscellaneous Information 1 ea NOTE XX ; Start 10/16/16 at 14:30 Glucose (Glutose) 15 gm Q15M PRN PO DECREASED GLUCOSE; Start 10/16/16 at 14:30 Glucose (Glutose) 22.5 gm Q15M PRN PO DECREASED GLUCOSE; Start 10/16/16 at 14:30 Dextrose (D50w Syringe) 25 ml Q15M PRN IV DECREASED GLUCOSE; Start 10/16/16 at 14:30 Dextrose (D50w Syringe) 50 ml Q15M PRN IV DECREASED GLUCOSE; Start 10/16/16 at 14:30 Glucagon (Glucagen) 1 mg Q15M PRN IM DECREASED GLUCOSE; Start 10/16/16 at 14:30 Glucose (Glutose) 15 gm Q15M PRN BUCCAL DECREASED GLUCOSE; Start 10/16/16 at 14: 30 Lactobacillus Acidophilus/ Rhamnosus (Culturelle) 1 cap BID PO Last administered on 11/01/16 08:13; Admin Dose 1 CAP; Start 10/16/16 at 21:00 Docusate Sodium (Colace Liquid Cup) 100 mg HS PO Last administered on 21:05; Admin Dose 100 MG; Start 10/16/16 at 21:00 Famotidine (Pepcid) 20 mg DAILY PO Last administered on 11/01/16 08:14; Admin Dose 20 MG; Start 10/18/16 at 09:00 Enoxaparin Sodium (Lovenox) 40 mg DAILY SC Last administered on 11/01/16 08:12 ; Admin Dose 40 MG; Start 10/18/16 at 12:30 Hydromorphone HCl (Dilaudid) 2 mg Q4H PRN PO PAIN Last administered on 16:56; Admin Dose 2 MG; Start 10/21/16 at 11:30 Fluconazole (Diflucan) 100 mg DAILY PO Last administered on 11/01/16 08:13; Admin Dose 100 MG; Start 10/22/16 at 21:00 Nystatin (Nystatin Susp) 5 ml QID PO Last administered on 11/01/16 17:18; Admin Dose 5 ML; Start 10/22/16 at 21:00 Cholecalciferol (Vitamin D) 1,000 unit DAILY PO Last administered on 11/01/16 08:13; Admin Dose 1,000 UNIT; Start 10/25/16 at 09:00 Morphine Sulfate (Ms Contin (Er)) 15 mg BID PO Last administered on 11/01/16 08:14; Admin Dose 15 MG; Start 10/28/16 at 21:00 Polyethylene Glycol (Miralax) 17 gm DAILY PO Last administered on 11/01/16 08: 13; Admin Dose 17 GM; Start 10/29/16 at 09:00 Citalopram Hydrobromide (Celexa) 20 mg DAILY PO Last administered on 11/01/16 08:13; Admin Dose 20 MG; Start 11/01/16 at 09:00 Lisinopril (Zestril) 20 mg QHS PO Last administered on 10/31/16 21:07; Admin Dose 20 MG; Start 10/31/16 at 21:00 Gabapentin (Neurontin) 600 mg QHS PO Last administered on 10/31/16 21:06; Admin Dose 600 MG; Start 10/31/16 at 21:00 Celecoxib 200 mg 200 mg BID PO Last administered on 11/01/16 08:13; Admin Dose 200 MG; Start 10/31/16 at 10:00 Vancomycin HCl/ Sodium Chloride (Vancocin/NS) 250 ml @ 83.333 mls/ hr Q8H IVPB Last administered on 11/01/16 17:18; Admin Dose 83.333 MLS/HR; Start at 17:00 Miscellaneous Information (*Rx Drug Level Order Reminder*) VANCOMYCIN TROUGH AT 0000 ONCE ONCE XX ; Start 11/02/16 at 00:00; Stop 11/02/16 at 00:01 Acetaminophen (Tylenol Tab) 1,000 mg Q8 PO Last administered on 11/01/16 13:23 ; Admin Dose 1,000 MG; Start 11/01/16 at 14:00 BERYL MELTON NP Nov 01, 2016 17:59
[2016-11-01 20:09] VITALS: BP 99/61; RESP 18
[2016-11-01] MEDS: DOCUSATE SODIUM 10 MG/ML (10ML CUP) PO SCH (20:39)
[2016-11-01 22:01] VITALS: BP 109/65; PULSE 66
[2016-11-01] MEDS: LISINOPRIL 20 MG TAB PO SCH (22:03)
[2016-11-02] MEDS: VANCOMYCIN IVPB SCH ×2 (01:51→09:55)
[2016-11-02] MEDS: SOD CHLORIDE 0.9% IVPB SCH ×2 (01:51→09:55)
[2016-11-02] MEDS: ACETAMINOPHEN 500 MG TAB PO SCH ×3 (05:32→21:09)
[2016-11-02] MEDS: GABAPENTIN 300 MG CAP PO SCH ×3 (06:32→20:24)
[2016-11-02] MEDS: INSULIN ASPART [NOVOLOG] 3 ML PEN SC SCH ×4 (08:00→20:25)
[2016-11-02 08:15] VITALS: BP 107/58; RESP 16
--- NOTE | 2016-11-02 08:24 | CONS ---
Date/Time of Note Date/Time of Note DATE: 11/02/16 TIME: 08:23 Assessment/Plan Assessment/Plan Chief Complaint/Hosp Course This is a 56-year-old gentleman who had a mechanical fall approximately 1 week prior to this presentation. States that he had hyperextended his arms to about avoid a direct blow to his head went back to bed and woke up the next morning with severe discomfort in bilateral upper extremities. Denies nausea vomiting dizziness diplopia disorientation post fall. States pain is a gnawing type discomfort he is unable to move bilateral upper extremity without severe pain he did not take any pain medication at home prescribed except for ibuprofen which did not make a major difference. Here is being treated with morphine gabapentin [place] and tramadol states that his pain is on somewhat better control with the above regimen. Post IV dose of morphine and pain goes down to approximately 7's pain has been increasing over the last week prior to his presentation. It is significantly inferior with his physical functioning his family relationship is moving sleeping patterns overall functioning has been extremely poor secondary to above. Denies mental cloudiness fatigue drowsiness. There is no history of alcohol or drug addiction prior to his presentation or history of propofol for sedation with any controlled substances. He did not appear intoxicated on presentation in unkempt, impaired and is not asked for early renewals of his pain control medication. He does not insist on certain medications by name there is no history of drug use prior to his presentation or arrests. Patient denies any side effects associated with his current pain control medications but he states it does not control his pain nor does it last long enough, that includes all of the pain medications listed as above. Patient did not attempt to use any alternative forms of pain management . Problems: Consultation Date/Type/Reason Admit Date/Time Oct 15, 2016 at 22:06 Initial Consult Date 10/22/16 Type of Consultation: Pain management 24 HR Interval Summary Free Text/Dictation Postdated note for October 31 No change his current pain control encourage ambulation, distraction alternative forms of pain control other than opioids. Constitutional: no complaints Exam/Review of Systems Vital Signs Vitals Vital Signs Date Time Temp Pulse Resp B/P Pulse Ox O2 Delivery O2 Flow Rate FiO2 11/02/16 08:15 98.2 63 16 107/58 100 10/31/16 08:00 Room Air Intake and Output 611/01/16 11/02/16 15:00 23:00 07:00 Intake Total 150 ml 860 ml 350 ml Output Total 875 ml 1300 ml Balance 150 ml -15 ml -950 ml Results Result Diagram: 11/01/16 0500 11/01/16 0505 Results 24 hrs Laboratory Tests Test 11/01/16 12:06 11/01/16 17:17 11/01/16 20:37 11/02/16 00:25 Bedside Glucose 108 87 103 Vancomycin Level Trough 18.3 Test 11/02/16 08:10 Bedside Glucose 100 Medications Medications Current Medications Ondansetron HCl (Zofran Inj) 4 mg Q6H PRN IV NAUSEA AND/OR VOMITING; Start 10/16 at 04:30 Allopurinol (Zyloprim) 100 mg DAILY PO Last administered on 11/01/16 08:13; Admin Dose 100 MG; Start 10/16/16 at 09:00 Naproxen 500 mg 500 mg BID PRN PO PAIN AND/OR INFLAMMATION; Start 10/16/16 at 04 :30; Status Future Hold Cefepime HCl (Maxipime 1gm/50 ml (Pmx)) 50 ml @ 100 mls/hr Q12 IVPB Last administered on 11/01/16 20:39; Admin Dose 100 MLS/HR; Start 10/16/16 at 14:00 Miscellaneous Information 1 ea NOTE XX ; Start 10/16/16 at 14:30 Glucose (Glutose) 15 gm Q15M PRN PO DECREASED GLUCOSE; Start 10/16/16 at 14:30 Glucose (Glutose) 22.5 gm Q15M PRN PO DECREASED GLUCOSE; Start 10/16/16 at 14:30 Dextrose (D50w Syringe) 25 ml Q15M PRN IV DECREASED GLUCOSE; Start 10/16/16 at 14:30 Dextrose (D50w Syringe) 50 ml Q15M PRN IV DECREASED GLUCOSE; Start 10/16/16 at 14:30 Glucagon (Glucagen) 1 mg Q15M PRN IM DECREASED GLUCOSE; Start 10/16/16 at 14:30 Glucose (Glutose) 15 gm Q15M PRN BUCCAL DECREASED GLUCOSE; Start 10/16/16 at 14: 30 Lactobacillus Acidophilus/ Rhamnosus (Culturelle) 1 cap BID PO Last administered on 11/01/16 20:39; Admin Dose 1 CAP; Start 10/16/16 at 21:00 Docusate Sodium (Colace Liquid Cup) 100 mg HS PO Last administered on 20:39; Admin Dose 100 MG; Start 10/16/16 at 21:00 Famotidine (Pepcid) 20 mg DAILY PO Last administered on 11/01/16 08:14; Admin Dose 20 MG; Start 10/18/16 at 09:00 Enoxaparin Sodium (Lovenox) 40 mg DAILY SC Last administered on 11/01/16 08:12 ; Admin Dose 40 MG; Start 10/18/16 at 12:30 Hydromorphone HCl (Dilaudid) 2 mg Q4H PRN PO PAIN Last administered on 16:56; Admin Dose 2 MG; Start 10/21/16 at 11:30 Cholecalciferol (Vitamin D) 1,000 unit DAILY PO Last administered on 11/01/16 08:13; Admin Dose 1,000 UNIT; Start 10/25/16 at 09:00 Morphine Sulfate (Ms Contin (Er)) 15 mg BID PO Last administered on 11/01/16 20:43; Admin Dose 15 MG; Start 10/28/16 at 21:00 Polyethylene Glycol (Miralax) 17 gm DAILY PO Last administered on 11/01/16 08: 13; Admin Dose 17 GM; Start 10/29/16 at 09:00 Citalopram Hydrobromide (Celexa) 20 mg DAILY PO Last administered on 11/01/16 08:13; Admin Dose 20 MG; Start 11/01/16 at 09:00 Lisinopril (Zestril) 20 mg QHS PO Last administered on 11/01/16 22:03; Admin Dose 20 MG; Start 10/31/16 at 21:00 Gabapentin (Neurontin) 600 mg QHS PO Last administered on 11/01/16 20:40; Admin Dose 600 MG; Start 10/31/16 at 21:00 Celecoxib 200 mg 200 mg BID PO Last administered on 11/01/16 20:39; Admin Dose 200 MG; Start 10/31/16 at 10:00 Vancomycin HCl/ Sodium Chloride (Vancocin/NS) 250 ml @ 83.333 mls/ hr Q8H IVPB Last administered on 11/02/16 01:51; Admin Dose 83.333 MLS/HR; Start at 17:00 Acetaminophen (Tylenol Tab) 1,000 mg Q8 PO Last administered on 11/02/16 05:32 ; Admin Dose 1,000 MG; Start 11/01/16 at 14:00 RAMIN MONTERROSO Nov 02, 2016 08:24
[2016-11-02] MEDS: ALLOPURINOL 100 MG TAB PO SCH (08:48)
[2016-11-02] MEDS: metFORMIN 500 MG TAB PO SCH ×2 (08:48→18:17)
[2016-11-02] MEDS: FAMOTIDINE 20 MG TAB PO SCH (08:48)
[2016-11-02] MEDS: CHOLECALCIFEROL 1,000 UNIT TAB PO SCH (08:48)
[2016-11-02] MEDS: CITALOPRAM 20 MG TAB PO SCH (08:49)
[2016-11-02] MEDS: LACTOBACILLUS RHAMNOSUS CAP PO SCH ×2 (08:49→20:25)
[2016-11-02] MEDS: morphine (ER) 15 MG TAB PO SCH ×2 (08:49→20:25)
[2016-11-02] MEDS: CELECOXIB 200 MG CAP PO SCH ×2 (08:49→20:25)
[2016-11-02] MEDS: CEFEPIME 1GM/50 ML (PMX) 50 ML IVPB SCH (08:51)
[2016-11-02] MEDS: ENOXAPARIN 40 MG/0.4 ML SYG SC SCH (08:51)
[2016-11-02] MEDS: POLYETHYLENE GLYCOL 17 GM PACKET PO SCH (08:54)
--- NOTE | 2016-11-02 12:15 | PN ---
Date/Time of Note Date/Time of Note DATE: 11/02/16 TIME: 12:12 Assessment/Plan VTE Prophylaxis VTE Prophylaxis Intervention: SCD's Lines/Catheters IV Catheter Type (from Nrsg): Peripheral IV Urinary Cath still in place: No Assessment/Plan Assessment/Plan 56 yo M admitted for bl UE pain, found to have lumbar spine OM/discitis. 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 will order PICC line to facilitate discharge. Per ID will need parenterals dispo in process, SNF v CT guided biopsy of LS spine was ordered 6.14 and 6.[address] Bunch/IR not amenable to biopsy. Per notes, Dr Bunch also discussed this with Dr Oseguera of ID Subjective 24 Hr Interval Summary Free Text/Dictation Pt reports hand pain improving. Exam/Review of Systems Vital Signs Vitals Vital Signs Date Time Temp Pulse Resp B/P Pulse Ox O2 Delivery O2 Flow Rate FiO2 11/02/16 08:15 98.2 63 16 107/58 100 10/31/16 08:00 Room Air Intake and Output 11/01/16 11/01/16 11/02/16 15:00 23:00 07:00 Intake Total 150 ml 860 ml 350 ml Output Total 875 ml 1300 ml Balance 150 ml -15 ml -950 ml Exam nad, laying in bed 4/5 strength bl hand rn manager (pt reports limitation is 2.2 pain) no mrg lungs clear abd soft no rashes Results Result Diagram: 11/01/16 0500 11/01/16 0505 Results 24 hrs Laboratory Tests Test 11/01/16 17:17 11/01/16 20:37 11/02/16 00:25 11/02/16 08:10 Bedside Glucose 87 103 100 Vancomycin Level Trough 18.3 Test 11/02/16 11:45 Bedside Glucose 107 Medications Medications Current Medications Ondansetron HCl (Zofran Inj) 4 mg Q6H PRN IV NAUSEA AND/OR VOMITING; Start 10/16 at 04:30 Allopurinol (Zyloprim) 100 mg DAILY PO Last administered on 11/02/16t 08:48; Admin Dose 100 MG; Start 10/16/16 at 09:00 Naproxen 500 mg 500 mg BID PRN PO PAIN AND/OR INFLAMMATION; Start 10/16/16 at 04 :30; Status Future Hold Cefepime HCl (Maxipime 1gm/50 ml (Pmx)) 50 ml @ 100 mls/hr Q12 IVPB Last administered on 11/02/16 08:51; Admin Dose 100 MLS/HR; Start 10/16/16 at 14:00 Miscellaneous Information 1 ea NOTE XX ; Start 10/16/16 at 14:30 Glucose (Glutose) 15 gm Q15M PRN PO DECREASED GLUCOSE; Start 10/16/16 at 14:30 Glucose (Glutose) 22.5 gm Q15M PRN PO DECREASED GLUCOSE; Start 10/16/16 at 14:30 Dextrose (D50w Syringe) 25 ml Q15M PRN IV DECREASED GLUCOSE; Start 10/16/16 at 14:30 Dextrose (D50w Syringe) 50 ml Q15M PRN IV DECREASED GLUCOSE; Start 10/16/16 at 14:30 Glucagon (Glucagen) 1 mg Q15M PRN IM DECREASED GLUCOSE; Start 10/16/16 at 14:30 Glucose (Glutose) 15 gm Q15M PRN BUCCAL DECREASED GLUCOSE; Start 10/16/16 at 14: 30 Lactobacillus Acidophilus/ Rhamnosus (Culturelle) 1 cap BID PO Last administered on 11/02/16 08:49; Admin Dose 1 CAP; Start 10/16/16 at 21:00 Docusate Sodium (Colace Liquid Cup) 100 mg HS PO Last administered on 20:39; Admin Dose 100 MG; Start 10/16/16 at 21:00 Famotidine (Pepcid) 20 mg DAILY PO Last administered on 11/02/16 08:48; Admin Dose 20 MG; Start 10/18/16 at 09:00 Enoxaparin Sodium (Lovenox) 40 mg DAILY SC Last administered on 11/02/16 08:51 ; Admin Dose 40 MG; Start 10/18/16 at 12:30 Hydromorphone HCl (Dilaudid) 2 mg Q4H PRN PO PAIN Last administered on 16:56; Admin Dose 2 MG; Start 10/21/16 at 11:30 Cholecalciferol (Vitamin D) 1,000 unit DAILY PO Last administered on 11/02/16 08:48; Admin Dose 1,000 UNIT; Start 10/25/16 at 09:00 Morphine Sulfate (Ms Contin (Er)) 15 mg BID PO Last administered on 11/02/16 08:49; Admin Dose 15 MG; Start 10/28/16 at 21:00 Polyethylene Glycol (Miralax) 17 gm DAILY PO Last administered on 11/01/16 08: 13; Admin Dose 17 GM; Start 10/29/16 at 09:00 Citalopram Hydrobromide (Celexa) 20 mg DAILY PO Last administered on 11/02/16 08:49; Admin Dose 20 MG; Start 11/01/16 at 09:00 Lisinopril (Zestril) 20 mg QHS PO Last administered on 11/01/16 22:03; Admin Dose 20 MG; Start 10/31/16 at 21:00 Gabapentin (Neurontin) 600 mg QHS PO Last administered on 11/01/16 20:40; Admin Dose 600 MG; Start 10/31/16 at 21:00 Celecoxib 200 mg 200 mg BID PO Last administered on 11/02/16 08:49; Admin Dose 200 MG; Start 10/31/16 at 10:00 Vancomycin HCl/ Sodium Chloride (Vancocin/NS) 250 ml @ 83.333 mls/ hr Q8H IVPB Last administered on 11/02/16 09:55; Admin Dose 83.333 MLS/HR; Start at 17:00 Acetaminophen (Tylenol Tab) 1,000 mg Q8 PO Last administered on 11/02/16 05:32 ; Admin Dose 1,000 MG; Start 11/01/16 at 14:00 JOSE ABURTO MD Nov 02, 2016 12:15
[2016-11-02] MEDS ORDERED: LIDOCAINE 1% (MPF) 5 ML VIAL SC ONE (12:30)
--- NOTE | 2016-11-02 14:06 | CONS ---
Date/Time of Note Date/Time of Note DATE: 11/02/16 TIME: 14:05 Assessment/Plan Assessment/Plan Chief Complaint/Hosp Course SUBJECTIVE: No acute changes overnight. The patient is alert, feels good, looks comfortable, no fevers. ANTIMICROBIALS: 1. Vancomycin. 2. Cefepime. MICROBIOLOGY: Blood and urine culture negative. PHYSICAL EXAMINATION: GENERAL: This is a well-nourished, well-developed, middle-aged man who is alert, in no distress. HEENT: Head atraumatic, normocephalic. Sclerae anicteric. Buccal mucosa pink with white thrush on his tongue and presence of halitosis. NECK: Supple. CHEST: Rise symmetrical. Breath sounds diminished to bases. HEART: S1, S2. ABDOMEN: Soft. Bowel tones present. EXTREMITIES: Without cyanosis. The patient has limited movement in bilateral extremities secondary to pain. ASSESSMENT: 1. L5-S1 diskitis and osteomyelitis. Neurosurgery on case. No plans for any intervention. 2. Oral thrush==>resolved 3. Hypertension. 4. Diabetes. PLAN: The patient remains clinically and hemodynamically stable. Continue abx for 6-8 weeks with repeat MRI prior discontinuation of therapy. Will change Cefepime to PO Levaquin DW staff Problems: Consultation Date/Type/Reason Admit Date/Time Oct 15, 2016 at 22:06 Initial Consult Date 10/22/16 Type of Consultation: ID Exam/Review of Systems Vital Signs Vitals Vital Signs Date Time Temp Pulse Resp B/P Pulse Ox O2 Delivery O2 Flow Rate FiO2 11/02/16 08:15 98.2 63 16 107/58 100 10/31/16 08:00 Room Air Intake and Output 11/01/16 11/01/16 11/02/16 15:00 23:00 07:00 Intake Total 150 ml 860 ml 350 ml Output Total 875 ml 1300 ml Balance 150 ml -15 ml -950 ml Results Result Diagram: 11/01/16 0500 11/01/16 0505 Results 24 hrs Laboratory Tests Test 11/01/16 17:17 11/01/16 20:37 11/02/16 00:25 11/02/16 08:10 Bedside Glucose 87 103 100 Vancomycin Level Trough 18.3 Test 11/02/16 11:45 Bedside Glucose 107 Medications Medications Current Medications Ondansetron HCl (Zofran Inj) 4 mg Q6H PRN IV NAUSEA AND/OR VOMITING; Start 10/16 at 04:30 Allopurinol (Zyloprim) 100 mg DAILY PO Last administered on 11/02/16 08:48; Admin Dose 100 MG; Start 10/16/16 at 09:00 Naproxen 500 mg 500 mg BID PRN PO PAIN AND/OR INFLAMMATION; Start 10/16/16 at 04 :30; Status Future Hold Cefepime HCl (Maxipime 1gm/50 ml (Pmx)) 50 ml @ 100 mls/hr Q12 IVPB Last administered on 11/02/16 08:51; Admin Dose 100 MLS/HR; Start 10/16/16 at 14:00 Miscellaneous Information 1 ea NOTE XX ; Start 10/16/16 at 14:30 Glucose (Glutose) 15 gm Q15M PRN PO DECREASED GLUCOSE; Start 10/16/16 at 14:30 Glucose (Glutose) 22.5 gm Q15M PRN PO DECREASED GLUCOSE; Start 10/16/16 at 14:30 Dextrose (D50w Syringe) 25 ml Q15M PRN IV DECREASED GLUCOSE; Start 10/16/16 at 14:30 Dextrose (D50w Syringe) 50 ml Q15M PRN IV DECREASED GLUCOSE; Start 10/16/16 at 14:30 Glucagon (Glucagen) 1 mg Q15M PRN IM DECREASED GLUCOSE; Start 10/16/16 at 14:30 Glucose (Glutose) 15 gm Q15M PRN BUCCAL DECREASED GLUCOSE; Start 10/16/16 at 14: 30 Lactobacillus Acidophilus/ Rhamnosus (Culturelle) 1 cap BID PO Last administered on 11/02/16 08:49; Admin Dose 1 CAP; Start 10/16/16 at 21:00 Docusate Sodium (Colace Liquid Cup) 100 mg HS PO Last administered on 20:39; Admin Dose 100 MG; Start 10/16/16 at 21:00 Famotidine (Pepcid) 20 mg DAILY PO Last administered on 11/02/16 08:48; Admin Dose 20 MG; Start 10/18/16 at 09:00 Enoxaparin Sodium (Lovenox) 40 mg DAILY SC Last administered on 11/02/16 08:51 ; Admin Dose 40 MG; Start 10/18/16 at 12:30 Hydromorphone HCl (Dilaudid) 2 mg Q4H PRN PO PAIN Last administered on 16:56; Admin Dose 2 MG; Start 10/21/16 at 11:30 Cholecalciferol (Vitamin D) 1,000 unit DAILY PO Last administered on 11/02/16 08:48; Admin Dose 1,000 UNIT; Start 10/25/16 at 09:00 Morphine Sulfate (Ms Contin (Er)) 15 mg BID PO Last administered on 11/02/16 08:49; Admin Dose 15 MG; Start 10/28/16 at 21:00 Polyethylene Glycol (Miralax) 17 gm DAILY PO Last administered on 11/01/16 08: 13; Admin Dose 17 GM; Start 10/29/16 at 09:00 Citalopram Hydrobromide (Celexa) 20 mg DAILY PO Last administered on 11/02/16 08:49; Admin Dose 20 MG; Start 11/01/16 at 09:00 Lisinopril (Zestril) 20 mg QHS PO Last administered on 11/01/16 22:03; Admin Dose 20 MG; Start 10/31/16 at 21:00 Gabapentin (Neurontin) 600 mg QHS PO Last administered on 11/01/16 20:40; Admin Dose 600 MG; Start 10/31/16 at 21:00 Celecoxib 200 mg 200 mg BID PO Last administered on 11/02/16 08:49; Admin Dose 200 MG; Start 10/31/16 at 10:00 Vancomycin HCl/ Sodium Chloride (Vancocin/NS) 250 ml @ 83.333 mls/ hr Q8H IVPB Last administered on 11/02/16 09:55; Admin Dose 83.333 MLS/HR; Start at 17:00 Acetaminophen (Tylenol Tab) 1,000 mg Q8 PO Last administered on 11/02/16 13:26 ; Admin Dose 1,000 MG; Start 11/01/16 at 14:00 BERYL MELTON NP Nov 02, 2016 14:06
[2016-11-02] MEDS: LEVOFLOXACIN 750 MG TABLET PO SCH (15:56)
--- NOTE | 2016-11-02 16:43 | CONS ---
Date/Time of Note Date/Time of Note DATE: 11/02/16 TIME: 16:37 Consultation Date/Type/Reason Admit Date/Time Oct 15, 2016 at 22:06 Initial Consult Date 10/22/16 Type of Consultation: Pain Man 24 HR Interval Summary Free Text/Dictation Doing well not bargaining , pain controlled with current po meds... no side effects moderate during the day without peaks and trophs 2/10.. physical functioning, mood and sleeping patterns have improved... denies excessing sedation Exam/Review of Systems Vital Signs Vitals Vital Signs Date Time Temp Pulse Resp B/P Pulse Ox O2 Delivery O2 Flow Rate FiO2 11/02/16 08:15 98.2 63 16 107/58 100 10/31/16 08:00 Room Air Intake and Output 11/01/16 11/01/16 11/02/16 14:59 22:59 06:59 Intake Total 150 ml 860 ml 350 ml Output Total 875 ml 1300 ml Balance 150 ml -15 ml -950 ml Exam Neurological: FISH ICER II-XII intact, nl mental status, nl speech, nl strength Results Result Diagram: 11/01/16 0500 11/01/16 0505 Results 24 hrs Laboratory Tests Test 11/01/16 17:17 11/01/16 20:37 11/02/16 00:25 11/02/16 08:10 Bedside Glucose 87 103 100 Vancomycin Level Trough 18.3 Test 11/02/16 11:45 Bedside Glucose 107 Medications Medications Current Medications Ondansetron HCl (Zofran Inj) 4 mg Q6H PRN IV NAUSEA AND/OR VOMITING; Start 10/16 at 04:30 Allopurinol (Zyloprim) 100 mg DAILY PO Last administered on 11/02/16t 08:48; Admin Dose 100 MG; Start 10/16/16 at 09:00 Naproxen (Naprosyn) 500 mg BID PRN PO PAIN AND/OR INFLAMMATION; Start 10/16/16 at 04:30; Status Future Hold Miscellaneous Information 1 ea NOTE XX ; Start 10/16/16 at 14:30 Glucose (Glutose) 15 gm Q15M PRN PO DECREASED GLUCOSE; Start 10/16/16 at 14:30 Glucose (Glutose) 22.5 gm Q15M PRN PO DECREASED GLUCOSE; Start 10/16/16 at 14:30 Dextrose (D50w Syringe) 25 ml Q15M PRN IV DECREASED GLUCOSE; Start 10/16/16 at 14:30 Dextrose (D50w Syringe) 50 ml Q15M PRN IV DECREASED GLUCOSE; Start 10/16/16 at 14:30 Glucagon (Glucagen) 1 mg Q15M PRN IM DECREASED GLUCOSE; Start 10/16/16 at 14:30 Glucose (Glutose) 15 gm Q15M PRN BUCCAL DECREASED GLUCOSE; Start 10/16/16 at 14: 30 Lactobacillus Acidophilus/ Rhamnosus (Culturelle) 1 cap BID PO Last administered on 11/02/16 08:49; Admin Dose 1 CAP; Start 10/16/16 at 21:00 Docusate Sodium (Colace Liquid Cup) 100 mg HS PO Last administered on 20:39; Admin Dose 100 MG; Start 10/16/16 at 21:00 Famotidine (Pepcid) 20 mg DAILY PO Last administered on 11/02/16 08:48; Admin Dose 20 MG; Start 10/18/16 at 09:00 Enoxaparin Sodium (Lovenox) 40 mg DAILY SC Last administered on 11/02/16 08:51 ; Admin Dose 40 MG; Start 10/18/16 at 12:30 Hydromorphone HCl (Dilaudid) 2 mg Q4H PRN PO PAIN Last administered on 16:56; Admin Dose 2 MG; Start 10/21/16 at 11:30 Cholecalciferol (Vitamin D) 1,000 unit DAILY PO Last administered on 11/02/16 08:48; Admin Dose 1,000 UNIT; Start 10/25/16 at 09:00 Morphine Sulfate (Ms Contin (Er)) 15 mg BID PO Last administered on 11/02/16 08:49; Admin Dose 15 MG; Start 10/28/16 at 21:00 Polyethylene Glycol (Miralax) 17 gm DAILY PO Last administered on 11/01/16 08: 13; Admin Dose 17 GM; Start 10/29/16 at 09:00 Citalopram Hydrobromide (Celexa) 20 mg DAILY PO Last administered on 11/02/16 08:49; Admin Dose 20 MG; Start 11/01/16 at 09:00 Lisinopril (Zestril) 20 mg QHS PO Last administered on 11/01/16 22:03; Admin Dose 20 MG; Start 10/31/16 at 21:00 Gabapentin (Neurontin) 600 mg QHS PO Last administered on 11/01/16 20:40; Admin Dose 600 MG; Start 10/31/16 at 21:00 Celecoxib (Celebrex) 200 mg BID PO Last administered on 11/02/16 08:49; Admin Dose 200 MG; Start 10/31/16 at 10:00 Acetaminophen (Tylenol Tab) 1,000 mg Q8 PO Last administered on 11/02/16 13:26 ; Admin Dose 1,000 MG; Start 11/01/16 at 14:00 Levofloxacin 750 mg 750 mg DAILY@06 PO Last administered on 11/02/16 15:56; Admin Dose 750 MG; Start 11/02/16 at 15:00 Vancomycin HCl (Vancocin) 250 ml @ 125 mls/hr Q8H IVPB ; Start 11/02/16 at 18: 00 RAMIN MONTERROSO Nov 02, 2016 16:43
[2016-11-02] MEDS: VANCOMYCIN 1 GM in NS 250 ML IVPB SCH (18:17)
[2016-11-02 20:17] VITALS: BP 109/64; RESP 18
[2016-11-02] MEDS: DOCUSATE SODIUM 10 MG/ML (10ML CUP) PO SCH (20:24)
[2016-11-02] MEDS: LISINOPRIL 20 MG TAB PO SCH (20:25)
[2016-11-03] MEDS: VANCOMYCIN 1 GM in NS 250 ML IVPB SCH ×3 (01:15→18:16)
[2016-11-03] MEDS: HYDROmorphONE 2 MG TAB PO PRN ×3 (04:16→18:47)
[2016-11-03] MEDS ORDERED: LEVOFLOXACIN 750 MG TABLET PO SCH (06:00)
[2016-11-03] MEDS: ACETAMINOPHEN 500 MG TAB PO SCH ×3 (06:26→21:51)
[2016-11-03] MEDS: LEVOFLOXACIN 750 MG TABLET PO SCH (06:27)
[2016-11-03] MEDS: GABAPENTIN 300 MG CAP PO SCH ×3 (06:30→20:09)
[2016-11-03 07:26] LABS: CREATININE 0.69 mg/dl (0.61-1.24)
[2016-11-03] MEDS: INSULIN ASPART [NOVOLOG] 3 ML PEN SC SCH ×4 (08:00→20:10)
[2016-11-03] MEDS: CELECOXIB 200 MG CAP PO SCH ×2 (08:27→20:09)
[2016-11-03] MEDS: ENOXAPARIN 40 MG/0.4 ML SYG SC SCH (08:27)
[2016-11-03] MEDS: CITALOPRAM 20 MG TAB PO SCH (08:27)
[2016-11-03] MEDS: ALLOPURINOL 100 MG TAB PO SCH (08:28)
[2016-11-03] MEDS: CHOLECALCIFEROL 1,000 UNIT TAB PO SCH (08:28)
[2016-11-03] MEDS: LACTOBACILLUS RHAMNOSUS CAP PO SCH ×2 (08:28→20:10)
[2016-11-03] MEDS: FAMOTIDINE 20 MG TAB PO SCH (08:28)
[2016-11-03] MEDS: POLYETHYLENE GLYCOL 17 GM PACKET PO SCH (08:29)
[2016-11-03] MEDS: morphine (ER) 15 MG TAB PO SCH ×2 (08:29→20:10)
[2016-11-03] MEDS: metFORMIN 500 MG TAB PO SCH ×2 (08:38→17:50)
--- NOTE | 2016-11-03 11:15 | PN ---
Date/Time of Note Date/Time of Note DATE: 11/03/16 TIME: 11:08 Assessment/Plan VTE Prophylaxis VTE Prophylaxis Intervention: SCD's Lines/Catheters IV Catheter Type (from Nrsg): Peripheral IV Urinary Cath still in place: No Assessment/Plan Assessment/Plan Assessment/Plan 56 yo M admitted for bl UE pain, found to have lumbar spine OM/discitis. 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 will order PICC line to facilitate discharge. Per ID will need parenterals dispo in process, SNF given pt lives alone-->discharge planning aware CT guided biopsy of LS spine was ordered . and . but as per Dr. Bunch/IR not amenable to biopsy. Per notes, Dr Bunch also discussed this with Dr Oseguera of ID I personally obtained consent for PICC line today using language line/spreader operator # [id number]. Risks of PICC including infection, DVT dw pt at length in English. All questions answered. Subjective 24 Hr Interval Summary Free Text/Dictation Arm pain still present. Exam/Review of Systems Vital Signs Vitals Vital Signs Date Time Temp Pulse Resp B/P Pulse Ox O2 Delivery O2 Flow Rate FiO2 11/02/16 20:17 98.5 64 18 109/64 97 10/31/16 08:00 Room Air Intake and Output 11/02/16 11/02/16 11/03/16 15:00 23:00 07:00 Intake Total 300 ml 1170 ml 570 ml Output Total 600 ml 900 ml Balance 300 ml 570 ml -330 ml Exam nad, laying in bed no mrg lungs clear ntnd no le swelling Results Result Diagram: 11/01/16 0500 11/03/16 0515 Results 24 hrs Laboratory Tests Test 11/02/16 11:45 11/02/16 17:26 11/02/16 20:23 11/03/16 05:15 Bedside Glucose 107 86 91 Blood Urea Nitrogen 15 Creatinine 0.69 Test 11/03/16 08:12 Bedside Glucose 82 Medications Medications Current Medications Ondansetron HCl (Zofran Inj) 4 mg Q6H PRN IV NAUSEA AND/OR VOMITING; Start 10/16 at 04:30 Allopurinol (Zyloprim) 100 mg DAILY PO Last administered on 11/03/16t 08:28; Admin Dose 100 MG; Start 10/16/16 at 09:00 Naproxen (Naprosyn) 500 mg BID PRN PO PAIN AND/OR INFLAMMATION; Start 10/16/16 at 04:30; Status Future Hold Miscellaneous Information 1 ea NOTE XX ; Start 10/16/16 at 14:30 Glucose (Glutose) 15 gm Q15M PRN PO DECREASED GLUCOSE; Start 10/16/16 at 14:30 Glucose (Glutose) 22.5 gm Q15M PRN PO DECREASED GLUCOSE; Start 10/16/16 at 14:30 Dextrose (D50w Syringe) 25 ml Q15M PRN IV DECREASED GLUCOSE; Start 10/16/16 at 14:30 Dextrose (D50w Syringe) 50 ml Q15M PRN IV DECREASED GLUCOSE; Start 10/16/16 at 14:30 Glucagon (Glucagen) 1 mg Q15M PRN IM DECREASED GLUCOSE; Start 10/16/16 at 14:30 Glucose (Glutose) 15 gm Q15M PRN BUCCAL DECREASED GLUCOSE; Start 10/16/16 at 14: 30 Lactobacillus Acidophilus/ Rhamnosus (Culturelle) 1 cap BID PO Last administered on 11/03/16 08:28; Admin Dose 1 CAP; Start 10/16/16 at 21:00 Docusate Sodium (Colace Liquid Cup) 100 mg HS PO Last administered on 20:24; Admin Dose 100 MG; Start 10/16/16 at 21:00 Famotidine (Pepcid) 20 mg DAILY PO Last administered on 11/03/16 08:28; Admin Dose 20 MG; Start 10/18/16 at 09:00 Enoxaparin Sodium (Lovenox) 40 mg DAILY SC Last administered on 11/03/16 08:27 ; Admin Dose 40 MG; Start 10/18/16 at 12:30 Hydromorphone HCl (Dilaudid) 2 mg Q4H PRN PO PAIN Last administered on 04:16; Admin Dose 2 MG; Start 10/21/16 at 11:30 Cholecalciferol (Vitamin D) 1,000 unit DAILY PO Last administered on 11/03/16 08:28; Admin Dose 1,000 UNIT; Start 10/25/16 at 09:00 Morphine Sulfate (Ms Contin (Er)) 15 mg BID PO Last administered on 11/03/16 08:29; Admin Dose 15 MG; Start 10/28/16 at 21:00 Polyethylene Glycol (Miralax) 17 gm DAILY PO Last administered on 11/03/16 08: 29; Admin Dose 17 GM; Start 10/29/16 at 09:00 Citalopram Hydrobromide (Celexa) 20 mg DAILY PO Last administered on 11/03/16 08:27; Admin Dose 20 MG; Start 11/01/16 at 09:00 Lisinopril (Zestril) 20 mg QHS PO Last administered on 11/02/16 20:25; Admin Dose 20 MG; Start 10/31/16 at 21:00 Gabapentin (Neurontin) 600 mg QHS PO Last administered on 11/02/16 20:24; Admin Dose 600 MG; Start 10/31/16 at 21:00 Celecoxib (Celebrex) 200 mg BID PO Last administered on 11/03/16 08:27; Admin Dose 200 MG; Start 10/31/16 at 10:00 Acetaminophen (Tylenol Tab) 1,000 mg Q8 PO Last administered on 11/03/16 06:26 ; Admin Dose 1,000 MG; Start 11/01/16 at 14:00 Levofloxacin 750 mg 750 mg DAILY@06 PO Last administered on 11/03/16 06:27; Admin Dose 750 MG; Start 11/02/16 at 15:00 Vancomycin HCl (Vancocin) 250 ml @ 125 mls/hr Q8H IVPB Last administered on 10:17; Admin Dose 125 MLS/HR; Start 11/02/16 at 18:00 JOSE ABURTO MD Nov 03, 2016 11:15
[2016-11-03] MEDS: DOCUSATE SODIUM 10 MG/ML (10ML CUP) PO SCH (20:09)
[2016-11-03] MEDS: LISINOPRIL 20 MG TAB PO SCH (20:13)
[2016-11-03 20:45] VITALS: BP 106/65; RESP 18
--- NOTE | 2016-11-03 21:22 | CONS ---
Date/Time of Note Date/Time of Note DATE: 11/03/16 TIME: 21:21 Assessment/Plan Assessment/Plan Chief Complaint/Hosp Course SUBJECTIVE: No acute changes overnight. The patient is alert, feels good, looks comfortable, no fevers. ANTIMICROBIALS: 1. Vancomycin. 2. Levaquin. MICROBIOLOGY: Blood and urine culture negative. PHYSICAL EXAMINATION: GENERAL: This is a well-nourished, well-developed, middle-aged man who is alert, in no distress. HEENT: Head atraumatic, normocephalic. Sclerae anicteric. Buccal mucosa pink with white thrush on his tongue and presence of halitosis. NECK: Supple. CHEST: Rise symmetrical. Breath sounds diminished to bases. HEART: S1, S2. ABDOMEN: Soft. Bowel tones present. EXTREMITIES: Without cyanosis. The patient has limited movement in bilateral extremities secondary to pain. ASSESSMENT: 1. L5-S1 diskitis and osteomyelitis. Neurosurgery on case. No plans for any intervention. 2. Oral thrush==>resolved 3. Hypertension. 4. Diabetes. PLAN: The patient remains stable. Pending dc, continue on current abx for 6-8 weeks, repeat MRI prior discontinuation of therapy. DW staff Problems: Consultation Date/Type/Reason Admit Date/Time Oct 15, 2016 at 22:06 Initial Consult Date 10/22/16 Type of Consultation: ID Exam/Review of Systems Vital Signs Vitals Vital Signs Date Time Temp Pulse Resp B/P Pulse Ox O2 Delivery O2 Flow Rate FiO2 11/03/16 20:45 99.6 71 18 106/65 97 10/31/16 08:00 Room Air Intake and Output 11/02/16 11/02/16 11/03/16 15:00 23:00 07:00 Intake Total 300 ml 1170 ml 570 ml Output Total 600 ml 900 ml Balance 300 ml 570 ml -330 ml Results Result Diagram: 11/01/16 0500 11/03/16 0515 Results 24 hrs Laboratory Tests Test 11/03/16 05:15 11/03/16 08:12 11/03/16 12:08 11/03/16 17:35 Blood Urea Nitrogen 15 Creatinine 0.69 Bedside Glucose 82 94 95 Test 11/03/16 20:08 Bedside Glucose 100 Medications Medications Current Medications Ondansetron HCl (Zofran Inj) 4 mg Q6H PRN IV NAUSEA AND/OR VOMITING; Start 10/16 at 04:30 Allopurinol (Zyloprim) 100 mg DAILY PO Last administered on 11/03/16 08:28; Admin Dose 100 MG; Start 10/16/16 at 09:00 Naproxen (Naprosyn) 500 mg BID PRN PO PAIN AND/OR INFLAMMATION; Start 10/16/16 at 04:30; Status Future Hold Miscellaneous Information 1 ea NOTE XX ; Start 10/16/16 at 14:30 Glucose (Glutose) 15 gm Q15M PRN PO DECREASED GLUCOSE; Start 10/16/16 at 14:30 Glucose (Glutose) 22.5 gm Q15M PRN PO DECREASED GLUCOSE; Start 10/16/16 at 14:30 Dextrose (D50w Syringe) 25 ml Q15M PRN IV DECREASED GLUCOSE; Start 10/16/16 at 14:30 Dextrose (D50w Syringe) 50 ml Q15M PRN IV DECREASED GLUCOSE; Start 10/16/16 at 14:30 Glucagon (Glucagen) 1 mg Q15M PRN IM DECREASED GLUCOSE; Start 10/16/16 at 14:30 Glucose (Glutose) 15 gm Q15M PRN BUCCAL DECREASED GLUCOSE; Start 10/16/16 at 14: 30 Lactobacillus Acidophilus/ Rhamnosus (Culturelle) 1 cap BID PO Last administered on 11/03/16 20:10; Admin Dose 1 CAP; Start 10/16/16 at 21:00 Docusate Sodium (Colace Liquid Cup) 100 mg HS PO Last administered on 20:24; Admin Dose 100 MG; Start 10/16/16 at 21:00 Famotidine (Pepcid) 20 mg DAILY PO Last administered on 11/03/16 08:28; Admin Dose 20 MG; Start 10/18/16 at 09:00 Enoxaparin Sodium (Lovenox) 40 mg DAILY SC Last administered on 11/03/16 08:27 ; Admin Dose 40 MG; Start 10/18/16 at 12:30 Hydromorphone HCl (Dilaudid) 2 mg Q4H PRN PO PAIN Last administered on 18:47; Admin Dose 2 MG; Start 10/21/16 at 11:30 Cholecalciferol (Vitamin D) 1,000 unit DAILY PO Last administered on 11/03/16 08:28; Admin Dose 1,000 UNIT; Start 10/25/16 at 09:00 Morphine Sulfate (Ms Contin (Er)) 15 mg BID PO Last administered on 11/03/16 20:10; Admin Dose 15 MG; Start 10/28/16 at 21:00 Polyethylene Glycol (Miralax) 17 gm DAILY PO Last administered on 11/03/16 08: 29; Admin Dose 17 GM; Start 10/29/16 at 09:00 Citalopram Hydrobromide (Celexa) 20 mg DAILY PO Last administered on 11/03/16 08:27; Admin Dose 20 MG; Start 11/01/16 at 09:00 Lisinopril (Zestril) 20 mg QHS PO Last administered on 11/03/16 20:13; Admin Dose 20 MG; Start 10/31/16 at 21:00 Gabapentin (Neurontin) 600 mg QHS PO Last administered on 11/03/16 20:09; Admin Dose 600 MG; Start 10/31/16 at 21:00 Celecoxib (Celebrex) 200 mg BID PO Last administered on 11/03/16 20:09; Admin Dose 200 MG; Start 10/31/16 at 10:00 Acetaminophen (Tylenol Tab) 1,000 mg Q8 PO Last administered on 11/03/16 13:05 ; Admin Dose 1,000 MG; Start 11/01/16 at 14:00 Levofloxacin 750 mg 750 mg DAILY@06 PO Last administered on 11/03/16 06:27; Admin Dose 750 MG; Start 11/02/16 at 15:00 Vancomycin HCl (Vancocin) 250 ml @ 125 mls/hr Q8H IVPB Last administered on 18:16; Admin Dose 125 MLS/HR; Start 11/02/16 at 18:00 Miscellaneous Information (*Rx Drug Level Order Reminder*) 1 ONCE ONCE XX ; Start 11/04/16 at 09:00; Stop 11/04/16 at 09:01 BERYL MELTON NP Nov 03, 2016 21:22
[2016-11-04] MEDS: VANCOMYCIN 1 GM in NS 250 ML IVPB SCH ×3 (01:15→17:23)
[2016-11-04] MEDS: ACETAMINOPHEN 500 MG TAB PO SCH ×3 (06:32→21:23)
[2016-11-04] MEDS: GABAPENTIN 300 MG CAP PO SCH ×3 (06:32→20:18)
[2016-11-04] MEDS: LEVOFLOXACIN 750 MG TABLET PO SCH (06:32)
[2016-11-04 07:54] VITALS: BP 100/55; RESP 17
[2016-11-04] MEDS: INSULIN ASPART [NOVOLOG] 3 ML PEN SC SCH (08:00)
[2016-11-04] MEDS: FAMOTIDINE 20 MG TAB PO SCH (08:01)
[2016-11-04] MEDS: CHOLECALCIFEROL 1,000 UNIT TAB PO SCH (08:01)
[2016-11-04] MEDS: LACTOBACILLUS RHAMNOSUS CAP PO SCH ×2 (08:01→20:18)
[2016-11-04] MEDS: ALLOPURINOL 100 MG TAB PO SCH (08:01)
[2016-11-04] MEDS: CELECOXIB 200 MG CAP PO SCH ×2 (08:01→20:18)
[2016-11-04] MEDS: metFORMIN 500 MG TAB PO SCH ×2 (08:01→17:23)
[2016-11-04] MEDS: morphine (ER) 15 MG TAB PO SCH ×2 (08:01→20:18)
[2016-11-04] MEDS: CITALOPRAM 20 MG TAB PO SCH (08:02)
[2016-11-04] MEDS: POLYETHYLENE GLYCOL 17 GM PACKET PO SCH (08:02)
[2016-11-04] MEDS: ENOXAPARIN 40 MG/0.4 ML SYG SC SCH (08:04)
--- NOTE | 2016-11-04 10:32 | PN ---
Date/Time of Note Date/Time of Note DATE: 11/04/16 TIME: 10:31 Assessment/Plan VTE Prophylaxis VTE Prophylaxis Intervention: SCD's Lines/Catheters IV Catheter Type (from Nrsg): Peripheral IV Urinary Cath still in place: No Assessment/Plan Assessment/Plan 56 yo M admitted for bl UE pain, found to have lumbar spine OM/discitis. 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 will PICC today Per ID will need parenterals dispo in process, SNF given pt lives alone-->discharge planning aware CT guided biopsy of LS spine was ordered 6.14 and 6.[address] Bunch/IR not amenable to biopsy. Per notes, Dr Bunch also discussed this with Dr Oseguera of [facility] [id number]: cont metformin, a1c <7 dispo pending SNF for abx Subjective 24 Hr Interval Summary Free Text/Dictation Still with shoulder pain, PICC line today Exam/Review of Systems Vital Signs Vitals Vital Signs Date Time Temp Pulse Resp B/P Pulse Ox O2 Delivery O2 Flow Rate FiO2 11/04/16 07:54 98.2 54 17 100/55 97 10/31/16 08:00 Room Air Intake and Output 11/03/16 11/03/16 11/04/16 15:00 23:00 07:00 Intake Total 250 ml 1350 ml 850 ml Output Total 700 ml Balance 250 ml 650 ml 850 ml Exam nad laying in bed no mrg lungs clear abd soft no rashes BG reviewed. pt has only required 1 unit of sliding scale insulin in the past week Results Result Diagram: 11/01/16 0500 11/03/16 0515 Results 24 hrs Laboratory Tests Test 11/03/16 12:08 11/03/16 17:35 11/03/16 20:08 11/04/16 07:59 Bedside Glucose 94 95 100 91 Medications Medications Current Medications Ondansetron HCl (Zofran Inj) 4 mg Q6H PRN IV NAUSEA AND/OR VOMITING; Start 10/16 at 04:30 Allopurinol (Zyloprim) 100 mg DAILY PO Last administered on 11/04/16t 08:01; Admin Dose 100 MG; Start 10/16/16 at 09:00 Naproxen (Naprosyn) 500 mg BID PRN PO PAIN AND/OR INFLAMMATION; Start 10/16/16 at 04:30; Status Future Hold Miscellaneous Information 1 ea NOTE XX ; Start 10/16/16 at 14:30 Lactobacillus Acidophilus/ Rhamnosus (Culturelle) 1 cap BID PO Last administered on 11/04/16 08:01; Admin Dose 1 CAP; Start 10/16/16 at 21:00 Docusate Sodium (Colace Liquid Cup) 100 mg HS PO Last administered on 20:24; Admin Dose 100 MG; Start 10/16/16 at 21:00 Famotidine (Pepcid) 20 mg DAILY PO Last administered on 11/04/16 08:01; Admin Dose 20 MG; Start 10/18/16 at 09:00 Enoxaparin Sodium (Lovenox) 40 mg DAILY SC Last administered on 11/04/16 08:04 ; Admin Dose 40 MG; Start 10/18/16 at 12:30 Hydromorphone HCl (Dilaudid) 2 mg Q4H PRN PO PAIN Last administered on 18:47; Admin Dose 2 MG; Start 10/21/16 at 11:30 Cholecalciferol (Vitamin D) 1,000 unit DAILY PO Last administered on 11/04/16 08:01; Admin Dose 1,000 UNIT; Start 10/25/16 at 09:00 Morphine Sulfate (Ms Contin (Er)) 15 mg BID PO Last administered on 11/04/16 08:01; Admin Dose 15 MG; Start 10/28/16 at 21:00 Polyethylene Glycol (Miralax) 17 gm DAILY PO Last administered on 11/04/16 08: 02; Admin Dose 17 GM; Start 10/29/16 at 09:00 Citalopram Hydrobromide (Celexa) 20 mg DAILY PO Last administered on 11/04/16 08:02; Admin Dose 20 MG; Start 11/01/16 at 09:00 Lisinopril (Zestril) 20 mg QHS PO Last administered on 11/03/16 20:13; Admin Dose 20 MG; Start 10/31/16 at 21:00 Gabapentin (Neurontin) 600 mg QHS PO Last administered on 11/03/16 20:09; Admin Dose 600 MG; Start 10/31/16 at 21:00 Celecoxib (Celebrex) 200 mg BID PO Last administered on 11/04/16 08:01; Admin Dose 200 MG; Start 10/31/16 at 10:00 Acetaminophen (Tylenol Tab) 1,000 mg Q8 PO Last administered on 11/04/16 06:32 ; Admin Dose 1,000 MG; Start 11/01/16 at 14:00 Levofloxacin 750 mg 750 mg DAILY@06 PO Last administered on 11/04/16 06:32; Admin Dose 750 MG; Start 11/02/16 at 15:00 Vancomycin HCl (Vancocin) 250 ml @ 125 mls/hr Q8H IVPB Last administered on 01:15; Admin Dose 125 MLS/HR; Start 11/02/16 at 18:00 JOSE ABURTO MD Nov 04, 2016 10:32
--- NOTE | 2016-11-04 10:58 | RADRPT ---
PROCEDURE: US guidance for PICC line CLINICAL INDICATION: PICC line placement TECHNIQUE: Multiple real-time images were acquired of the patient's arm utilizing a high resolutio n transducer. This was performed by the PICC line nurse for venous access. COMPARISON: None FINDINGS: Ultrasound guidance for PICC line placement. There is a patent and compressible right upper extremit y vein. IMPRESSION: Ultrasound guidance for PICC line placement. Patent and compressible right upper extremity vein. RPTAT: AA Physician Torri Date Time Electronically viewed and signed by Pop Oleary Physician on 11/04/2016 10:57 RA/
--- NOTE | 2016-11-04 12:54 | CONS ---
Date/Time of Note Date/Time of Note DATE: 11/04/16 TIME: 12:53 Assessment/Plan Assessment/Plan Chief Complaint/Hosp Course SUBJECTIVE: No acute changes overnight. The patient is alert, feels good, looks comfortable, no fevers. ANTIMICROBIALS: 1. Vancomycin. 2. Levaquin. MICROBIOLOGY: Blood and urine culture negative. PHYSICAL EXAMINATION: GENERAL: This is a well-nourished, well-developed, middle-aged man who is alert, in no distress. HEENT: Head atraumatic, normocephalic. Sclerae anicteric. Buccal mucosa pink with white thrush on his tongue and presence of halitosis. NECK: Supple. CHEST: Rise symmetrical. Breath sounds diminished to bases. HEART: S1, S2. ABDOMEN: Soft. Bowel tones present. EXTREMITIES: Without cyanosis. The patient has limited movement in bilateral extremities secondary to pain. ASSESSMENT: 1. L5-S1 diskitis and osteomyelitis. Neurosurgery on case. No plans for any intervention. 2. Oral thrush==>resolved 3. Hypertension. 4. Diabetes. PLAN: The patient remains stable. Status post PICC line, pending discharge on current antibiotics for 6-8 weeks, consider repeat MRI prior discontinuation of therapy. DW staff Problems: Consultation Date/Type/Reason Admit Date/Time Oct 15, 2016 at 22:06 Initial Consult Date 10/22/16 Type of Consultation: ID Exam/Review of Systems Vital Signs Vitals Vital Signs Date Time Temp Pulse Resp B/P Pulse Ox O2 Delivery O2 Flow Rate FiO2 11/04/16 07:54 98.2 54 17 100/55 97 10/31/16 08:00 Room Air Intake and Output 11/03/16 11/03/16 11/04/16 14:59 22:59 06:59 Intake Total 250 ml 1350 ml 850 ml Output Total 700 ml Balance 250 ml 650 ml 850 ml Results Result Diagram: 11/01/16 0500 11/03/16 0515 Results 24 hrs Laboratory Tests Test 11/03/16 17:35 11/03/16 20:08 11/04/16 07:59 11/04/16 09:06 Bedside Glucose 95 100 91 Vancomycin Level Trough 15.7 Medications Medications Current Medications Ondansetron HCl (Zofran Inj) 4 mg Q6H PRN IV NAUSEA AND/OR VOMITING; Start 10/16 at 04:30 Allopurinol (Zyloprim) 100 mg DAILY PO Last administered on 11/04/16 08:01; Admin Dose 100 MG; Start 10/16/16 at 09:00 Naproxen (Naprosyn) 500 mg BID PRN PO PAIN AND/OR INFLAMMATION; Start 10/16/16 at 04:30; Status Future Hold Miscellaneous Information 1 ea NOTE XX ; Start 10/16/16 at 14:30 Lactobacillus Acidophilus/ Rhamnosus (Culturelle) 1 cap BID PO Last administered on 11/04/16 08:01; Admin Dose 1 CAP; Start 10/16/16 at 21:00 Docusate Sodium (Colace Liquid Cup) 100 mg HS PO Last administered on 20:24; Admin Dose 100 MG; Start 10/16/16 at 21:00 Famotidine (Pepcid) 20 mg DAILY PO Last administered on 11/04/16 08:01; Admin Dose 20 MG; Start 10/18/16 at 09:00 Enoxaparin Sodium (Lovenox) 40 mg DAILY SC Last administered on 11/04/16 08:04 ; Admin Dose 40 MG; Start 10/18/16 at 12:30 Hydromorphone HCl (Dilaudid) 2 mg Q4H PRN PO PAIN Last administered on 18:47; Admin Dose 2 MG; Start 10/21/16 at 11:30 Cholecalciferol (Vitamin D) 1,000 unit DAILY PO Last administered on 11/04/16 08:01; Admin Dose 1,000 UNIT; Start 10/25/16 at 09:00 Morphine Sulfate (Ms Contin (Er)) 15 mg BID PO Last administered on 11/04/16 08:01; Admin Dose 15 MG; Start 10/28/16 at 21:00 Polyethylene Glycol (Miralax) 17 gm DAILY PO Last administered on 11/04/16 08: 02; Admin Dose 17 GM; Start 10/29/16 at 09:00 Citalopram Hydrobromide (Celexa) 20 mg DAILY PO Last administered on 11/04/16 08:02; Admin Dose 20 MG; Start 11/01/16 at 09:00 Lisinopril (Zestril) 20 mg QHS PO Last administered on 11/03/16 20:13; Admin Dose 20 MG; Start 10/31/16 at 21:00 Gabapentin (Neurontin) 600 mg QHS PO Last administered on 11/03/16 20:09; Admin Dose 600 MG; Start 10/31/16 at 21:00 Celecoxib (Celebrex) 200 mg BID PO Last administered on 11/04/16 08:01; Admin Dose 200 MG; Start 10/31/16 at 10:00 Acetaminophen (Tylenol Tab) 1,000 mg Q8 PO Last administered on 11/04/16 06:32 ; Admin Dose 1,000 MG; Start 11/01/16 at 14:00 Levofloxacin 750 mg 750 mg DAILY@06 PO Last administered on 11/04/16 06:32; Admin Dose 750 MG; Start 11/02/16 at 15:00 Vancomycin HCl (Vancocin) 250 ml @ 125 mls/hr Q8H IVPB Last administered on 11:50; Admin Dose 125 MLS/HR; Start 11/02/16 at 18:00 IV Flush (NS 10 ml) 10 ml PRN PRN IV IV PROTOCOL; Start 11/04/16 at 11:30 BERYL MELTON NP Nov 04, 2016 12:54
--- NOTE | 2016-11-04 14:10 | RADRPT ---
PROCEDURE: XR Chest. CLINICAL INDICATION: 56-year-old male to assess PICC line catheter placement. TECHNIQUE: Single frontal view of the chest was obtained. COMPARISON: None FINDINGS: A PICC line catheter enters the right arm with its tip in the superior vena cava. The bony elements are normal. The heart, cardiomediastinal silhouette and hilar structures are normal. The pulmonary vasculature is normal. There is a left-sided aorta. There is a suboptimal inspiration with some po tential atelectasis in the medial aspects of the right left lower lobes. No acute infiltrate or ple ural effusion is identified. The costophrenic angles are normal. IMPRESSION: 1. The PICC line catheter is well-positioned to the junction of the right atrium and superior vena c nba. 2. Suboptimal inspiratory effort with atelectasis suspected medial aspects of the right left lower lobes with no evidence of active cardiopulmonary disease. RPTAT:AAJJ Physician Kayla Date Time Electronically viewed and signed by Physician Kayla on 11/04/2016 14:10 /
[2016-11-04] MEDS: LISINOPRIL 20 MG TAB PO SCH (20:19)
[2016-11-04] MEDS: DOCUSATE SODIUM 10 MG/ML (10ML CUP) PO SCH (20:19)
[2016-11-04 20:40] VITALS: BP 103/57; RESP 16
[2016-11-05] MEDS: VANCOMYCIN 1 GM in NS 250 ML IVPB SCH ×3 (01:32→18:02)
[2016-11-05] MEDS: LEVOFLOXACIN 750 MG TABLET PO SCH (06:23)
[2016-11-05] MEDS: ACETAMINOPHEN 500 MG TAB PO SCH ×3 (06:23→21:26)
[2016-11-05] MEDS: GABAPENTIN 300 MG CAP PO SCH ×3 (06:31→21:26)
[2016-11-05 08:00] VITALS: BP 101/64; RESP 18
[2016-11-05] MEDS: POLYETHYLENE GLYCOL 17 GM PACKET PO SCH (09:00)
[2016-11-05] MEDS: CITALOPRAM 20 MG TAB PO SCH (09:41)
[2016-11-05] MEDS: metFORMIN 500 MG TAB PO SCH ×2 (09:41→18:02)
[2016-11-05] MEDS: CHOLECALCIFEROL 1,000 UNIT TAB PO SCH (09:41)
[2016-11-05] MEDS: morphine (ER) 15 MG TAB PO SCH ×2 (09:41→21:25)
[2016-11-05] MEDS: FAMOTIDINE 20 MG TAB PO SCH (09:41)
[2016-11-05] MEDS: LACTOBACILLUS RHAMNOSUS CAP PO SCH ×2 (09:42→21:24)
[2016-11-05] MEDS: CELECOXIB 200 MG CAP PO SCH ×2 (09:42→21:24)
[2016-11-05] MEDS: ENOXAPARIN 40 MG/0.4 ML SYG SC SCH (09:43)
[2016-11-05] MEDS: ALLOPURINOL 100 MG TAB PO SCH (09:45)
--- NOTE | 2016-11-05 11:09 | PN ---
Date/Time of Note Date/Time of Note DATE: 11/05/16 TIME: 11:09 Assessment/Plan VTE Prophylaxis VTE Prophylaxis Intervention: SCD's Lines/Catheters IV Catheter Type (from Nrsg): PICC Line Central line still needed: Yes Urinary Cath still in place: No Assessment/Plan Assessment/Plan 56 yo M admitted for bl UE pain, found to have lumbar spine OM/discitis. 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 sp PICC 6.28 Per ID will need parenterals dispo in process, SNF given pt lives alone-->discharge planning aware CT guided biopsy of LS spine was ordered 6.14 and 6.[address] Bunch/IR not amenable to biopsy. Per notes, Dr Bunch also discussed this with Dr Oseguera of [facility] [id number]: cont metformin, a1c <7 dispo pending SNF for abx Subjective 24 Hr Interval Summary Free Text/Dictation No complaints. sp PICC placement. dispo pending Exam/Review of Systems Vital Signs Vitals Vital Signs Date Time Temp Pulse Resp B/P Pulse Ox O2 Delivery O2 Flow Rate FiO2 11/05/16 08:00 98.4 84 18 101/64 98 Intake and Output 11/04/16 11/04/16 11/05/16 15:00 23:00 07:00 Intake Total 250 ml 1150 ml 730 ml Output Total 1200 ml Balance 250 ml 1150 ml -470 ml Exam nad laying in bed picc in RUE no mrg lungs clear abd soft Results Result Diagram: 11/01/16 0500 11/03/16 0515 Medications Medications Current Medications Ondansetron HCl (Zofran Inj) 4 mg Q6H PRN IV NAUSEA AND/OR VOMITING; Start 10/16 at 04:30 Allopurinol (Zyloprim) 100 mg DAILY PO Last administered on 11/05/16 09:45; Admin Dose 100 MG; Start 10/16/16 at 09:00 Naproxen (Naprosyn) 500 mg BID PRN PO PAIN AND/OR INFLAMMATION; Start 10/16/16 at 04:30; Status Future Hold Miscellaneous Information 1 ea NOTE XX ; Start 10/16/16 at 14:30 Lactobacillus Acidophilus/ Rhamnosus (Culturelle) 1 cap BID PO Last administered on 11/05/16 09:42; Admin Dose 1 CAP; Start 10/16/16 at 21:00 Docusate Sodium (Colace Liquid Cup) 100 mg HS PO Last administered on 20:24; Admin Dose 100 MG; Start 10/16/16 at 21:00 Famotidine (Pepcid) 20 mg DAILY PO Last administered on 11/05/16 09:41; Admin Dose 20 MG; Start 10/18/16 at 09:00 Enoxaparin Sodium (Lovenox) 40 mg DAILY SC Last administered on 11/05/16 09:43 ; Admin Dose 40 MG; Start 10/18/16 at 12:30 Hydromorphone HCl (Dilaudid) 2 mg Q4H PRN PO PAIN Last administered on 18:47; Admin Dose 2 MG; Start 10/21/16 at 11:30 Cholecalciferol (Vitamin D) 1,000 unit DAILY PO Last administered on 11/05/16 09:41; Admin Dose 1,000 UNIT; Start 10/25/16 at 09:00 Morphine Sulfate (Ms Contin (Er)) 15 mg BID PO Last administered on 11/05/16 09:41; Admin Dose 15 MG; Start 10/28/16 at 21:00 Polyethylene Glycol (Miralax) 17 gm DAILY PO Last administered on 11/04/16 08: 02; Admin Dose 17 GM; Start 10/29/16 at 09:00 Citalopram Hydrobromide (Celexa) 20 mg DAILY PO Last administered on 11/05/16 09:41; Admin Dose 20 MG; Start 11/01/16 at 09:00 Lisinopril (Zestril) 20 mg QHS PO Last administered on 11/04/16 20:19; Admin Dose 20 MG; Start 10/31/16 at 21:00 Gabapentin (Neurontin) 600 mg QHS PO Last administered on 11/04/16 20:18; Admin Dose 600 MG; Start 10/31/16 at 21:00 Celecoxib (Celebrex) 200 mg BID PO Last administered on 11/05/16 09:42; Admin Dose 200 MG; Start 10/31/16 at 10:00 Acetaminophen (Tylenol Tab) 1,000 mg Q8 PO Last administered on 11/05/16 06:23 ; Admin Dose 1,000 MG; Start 11/01/16 at 14:00 Levofloxacin 750 mg 750 mg DAILY@06 PO Last administered on 11/05/16 06:23; Admin Dose 750 MG; Start 11/02/16 at 15:00 Vancomycin HCl (Vancocin) 250 ml @ 125 mls/hr Q8H IVPB Last administered on 09:42; Admin Dose 125 MLS/HR; Start 11/02/16 at 18:00 IV Flush (NS 10 ml) 10 ml PRN PRN IV IV PROTOCOL; Start 11/04/16 at 11:30 JOSE ABURTO MD Nov 05, 2016 11:09
--- NOTE | 2016-11-05 13:47 | CONS ---
Date/Time of Note Date/Time of Note DATE: 11/05/16 TIME: 13:47 Assessment/Plan Assessment/Plan Chief Complaint/Hosp Course SUBJECTIVE: No acute changes overnight. The patient is alert, feels good, looks comfortable, no fevers. ANTIMICROBIALS: 1. Vancomycin. 2. Levaquin. MICROBIOLOGY: Blood and urine culture negative. PHYSICAL EXAMINATION: GENERAL: This is a well-nourished, well-developed, middle-aged man who is alert, in no distress. HEENT: Head atraumatic, normocephalic. Sclerae anicteric. Buccal mucosa pink with white thrush on his tongue and presence of halitosis. NECK: Supple. CHEST: Rise symmetrical. Breath sounds diminished to bases. HEART: S1, S2. ABDOMEN: Soft. Bowel tones present. EXTREMITIES: Without cyanosis. The patient has limited movement in bilateral extremities secondary to pain. ASSESSMENT: 1. L5-S1 diskitis and osteomyelitis. Neurosurgery on case. No plans for any intervention. 2. Oral thrush==>resolved 3. Hypertension. 4. Diabetes. PLAN: The patient remains stable. Status post PICC line, pending discharge on current antibiotics for 6-8 weeks, consider repeat MRI prior discontinuation of therapy. staff Problems: Consultation Date/Type/Reason Admit Date/Time Oct 15, 2016 at 22:06 Initial Consult Date 10/22/16 Type of Consultation: ID Exam/Review of Systems Vital Signs Vitals Vital Signs Date Time Temp Pulse Resp B/P Pulse Ox O2 Delivery O2 Flow Rate FiO2 11/05/16 08:00 98.4 84 18 101/64 98 Intake and Output 11/04/16 11/04/16 11/05/16 15:00 23:00 07:00 Intake Total 250 ml 1150 ml 730 ml Output Total 1200 ml Balance 250 ml 1150 ml -470 ml Results Result Diagram: 11/01/16 0500 11/03/16 0515 Medications Medications Current Medications Ondansetron HCl (Zofran Inj) 4 mg Q6H PRN IV NAUSEA AND/OR VOMITING; Start 10/16 at 04:30 Allopurinol (Zyloprim) 100 mg DAILY PO Last administered on 11/05/16t 09:45; Admin Dose 100 MG; Start 10/16/16 at 09:00 Naproxen (Naprosyn) 500 mg BID PRN PO PAIN AND/OR INFLAMMATION; Start 10/16/16 at 04:30; Status Future Hold Miscellaneous Information 1 ea NOTE XX ; Start 10/16/16 at 14:30 Lactobacillus Acidophilus/ Rhamnosus (Culturelle) 1 cap BID PO Last administered on 11/05/16 09:42; Admin Dose 1 CAP; Start 10/16/16 at 21:00 Docusate Sodium (Colace Liquid Cup) 100 mg HS PO Last administered on 20:24; Admin Dose 100 MG; Start 10/16/16 at 21:00 Famotidine (Pepcid) 20 mg DAILY PO Last administered on 11/05/16 09:41; Admin Dose 20 MG; Start 10/18/16 at 09:00 Enoxaparin Sodium (Lovenox) 40 mg DAILY SC Last administered on 11/05/16 09:43 ; Admin Dose 40 MG; Start 10/18/16 at 12:30 Hydromorphone HCl (Dilaudid) 2 mg Q4H PRN PO PAIN Last administered on 18:47; Admin Dose 2 MG; Start 10/21/16 at 11:30 Cholecalciferol (Vitamin D) 1,000 unit DAILY PO Last administered on 11/05/16 09:41; Admin Dose 1,000 UNIT; Start 10/25/16 at 09:00 Morphine Sulfate (Ms Contin (Er)) 15 mg BID PO Last administered on 11/05/16 09:41; Admin Dose 15 MG; Start 10/28/16 at 21:00 Polyethylene Glycol (Miralax) 17 gm DAILY PO Last administered on 11/04/16 08: 02; Admin Dose 17 GM; Start 10/29/16 at 09:00 Citalopram Hydrobromide (Celexa) 20 mg DAILY PO Last administered on 11/05/16 09:41; Admin Dose 20 MG; Start 11/01/16 at 09:00 Lisinopril (Zestril) 20 mg QHS PO Last administered on 11/04/16 20:19; Admin Dose 20 MG; Start 10/31/16 at 21:00 Gabapentin (Neurontin) 600 mg QHS PO Last administered on 11/04/16 20:18; Admin Dose 600 MG; Start 10/31/16 at 21:00 Celecoxib (Celebrex) 200 mg BID PO Last administered on 11/05/16 09:42; Admin Dose 200 MG; Start 10/31/16 at 10:00 Acetaminophen (Tylenol Tab) 1,000 mg Q8 PO Last administered on 11/05/16 06:23 ; Admin Dose 1,000 MG; Start 11/01/16 at 14:00 Levofloxacin 750 mg 750 mg DAILY@06 PO Last administered on 11/05/16 06:23; Admin Dose 750 MG; Start 11/02/16 at 15:00 Vancomycin HCl (Vancocin) 250 ml @ 125 mls/hr Q8H IVPB Last administered on 09:42; Admin Dose 125 MLS/HR; Start 11/02/16 at 18:00 IV Flush (NS 10 ml) 10 ml PRN PRN IV IV PROTOCOL; Start 11/04/16 at 11:30 BERYL MELTON NP Nov 05, 2016 13:47
[2016-11-05] MEDS: DOCUSATE SODIUM 10 MG/ML (10ML CUP) PO SCH (21:24)
[2016-11-05] MEDS: LISINOPRIL 20 MG TAB PO SCH (21:27)
[2016-11-05 22:50] VITALS: BP 108/69; RESP 16
[2016-11-06] MEDS: VANCOMYCIN 1 GM in NS 250 ML IVPB SCH ×3 (02:10→21:53)
[2016-11-06] MEDS: LEVOFLOXACIN 750 MG TABLET PO SCH (05:31)
[2016-11-06] MEDS: ACETAMINOPHEN 500 MG TAB PO SCH ×3 (05:31→21:53)
[2016-11-06] MEDS: GABAPENTIN 300 MG CAP PO SCH ×3 (06:35→20:37)
[2016-11-06 06:51] LABS: CREATININE 0.7 mg/dl (0.61-1.24)
[2016-11-06] MEDS: ENOXAPARIN 40 MG/0.4 ML SYG SC SCH (08:17)
[2016-11-06] MEDS: POLYETHYLENE GLYCOL 17 GM PACKET PO SCH (08:17)
[2016-11-06] MEDS: CITALOPRAM 20 MG TAB PO SCH (08:18)
[2016-11-06] MEDS: FAMOTIDINE 20 MG TAB PO SCH (08:18)
[2016-11-06] MEDS: ALLOPURINOL 100 MG TAB PO SCH (08:18)
[2016-11-06] MEDS: morphine (ER) 15 MG TAB PO SCH ×2 (08:18→20:37)
[2016-11-06] MEDS: metFORMIN 500 MG TAB PO SCH ×2 (08:18→17:57)
[2016-11-06] MEDS: CELECOXIB 200 MG CAP PO SCH ×2 (08:19→20:50)
[2016-11-06] MEDS: LACTOBACILLUS RHAMNOSUS CAP PO SCH ×2 (08:19→20:37)
[2016-11-06] MEDS: CHOLECALCIFEROL 1,000 UNIT TAB PO SCH (08:19)
[2016-11-06 08:45] VITALS: BP 99/56; RESP 17
[2016-11-06] MEDS ORDERED: ALTEPLASE (CATHFLO) 2 MG INJ CATHETER ONE (11:30)
[2016-11-06] MEDS ORDERED: ALTEPLASE (CATHFLO) 2 MG INJ CATHETER PRN (11:30)
--- NOTE | 2016-11-06 14:07 | PN ---
Date/Time of Note Date/Time of Note DATE: 11/06/16 TIME: 14:07 Assessment/Plan VTE Prophylaxis VTE Prophylaxis Intervention: SCD's Lines/Catheters IV Catheter Type (from Nrsg): PICC Line Central line still needed: Yes Urinary Cath still in place: No Assessment/Plan Assessment/Plan 56 yo M admitted for bl UE pain, found to have lumbar spine OM/discitis. 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 sp PICC 6.28 Per ID will need parenterals dispo in process, SNF given pt lives alone-->discharge planning aware CT guided biopsy of LS spine was ordered 6.14 and 6.[address] Bunch/IR not amenable to biopsy. Per notes, Dr Bunch also discussed this with Dr Oseguera of [facility] [id number]: cont metformin, a1c <7 dispo pending SNF for abx Subjective 24 Hr Interval Summary Free Text/Dictation no complaints Exam/Review of Systems Vital Signs Vitals Vital Signs Date Time Temp Pulse Resp B/P Pulse Ox O2 Delivery O2 Flow Rate FiO2 11/06/16 08:45 97.5 56 17 99/56 97 Intake and Output 11/05/16 11/05/16 11/06/16 15:00 23:00 07:00 Intake Total 250 ml 1470 ml 850 ml Output Total 1100 ml 700 ml Balance 250 ml 370 ml 150 ml Exam nad pleasant PICC in RUE no mrg lungs clear abd soft no rashes Results Result Diagram: 11/06/16 0549 Results 24 hrs Laboratory Tests Test 11/06/16 05:49 Blood Urea Nitrogen 14 Creatinine 0.70 Medications Medications Current Medications Ondansetron HCl (Zofran Inj) 4 mg Q6H PRN IV NAUSEA AND/OR VOMITING; Start 10/16 at 04:30 Allopurinol (Zyloprim) 100 mg DAILY PO Last administered on 11/06/16t 08:18; Admin Dose 100 MG; Start 10/16/16 at 09:00 Naproxen (Naprosyn) 500 mg BID PRN PO PAIN AND/OR INFLAMMATION; Start 10/16/16 at 04:30; Status Future Hold Miscellaneous Information 1 ea NOTE XX ; Start 10/16/16 at 14:30 Lactobacillus Acidophilus/ Rhamnosus (Culturelle) 1 cap BID PO Last administered on 11/06/16 08:19; Admin Dose 1 CAP; Start 10/16/16 at 21:00 Docusate Sodium (Colace Liquid Cup) 100 mg HS PO Last administered on 21:24; Admin Dose 100 MG; Start 10/16/16 at 21:00 Famotidine (Pepcid) 20 mg DAILY PO Last administered on 11/06/16 08:18; Admin Dose 20 MG; Start 10/18/16 at 09:00 Enoxaparin Sodium (Lovenox) 40 mg DAILY SC Last administered on 11/06/16 08:17 ; Admin Dose 40 MG; Start 10/18/16 at 12:30 Hydromorphone HCl (Dilaudid) 2 mg Q4H PRN PO PAIN Last administered on 18:47; Admin Dose 2 MG; Start 10/21/16 at 11:30 Cholecalciferol (Vitamin D) 1,000 unit DAILY PO Last administered on 11/06/16 08:19; Admin Dose 1,000 UNIT; Start 10/25/16 at 09:00 Morphine Sulfate (Ms Contin (Er)) 15 mg BID PO Last administered on 11/06/16 08:18; Admin Dose 15 MG; Start 10/28/16 at 21:00 Polyethylene Glycol (Miralax) 17 gm DAILY PO Last administered on 11/06/16 08: 17; Admin Dose 17 GM; Start 10/29/16 at 09:00 Citalopram Hydrobromide (Celexa) 20 mg DAILY PO Last administered on 11/06/16 08:18; Admin Dose 20 MG; Start 11/01/16 at 09:00 Lisinopril (Zestril) 20 mg QHS PO Last administered on 11/05/16 21:27; Admin Dose 20 MG; Start 10/31/16 at 21:00 Gabapentin (Neurontin) 600 mg QHS PO Last administered on 11/05/16 21:26; Admin Dose 600 MG; Start 10/31/16 at 21:00 Celecoxib (Celebrex) 200 mg BID PO Last administered on 11/06/16 08:19; Admin Dose 200 MG; Start 10/31/16 at 10:00 Acetaminophen (Tylenol Tab) 1,000 mg Q8 PO Last administered on 11/06/16 14:00 ; Admin Dose 1,000 MG; Start 11/01/16 at 14:00 Levofloxacin (Levaquin) 750 mg DAILY@06 PO Last administered on 11/06/16 05:31 ; Admin Dose 750 MG; Start 11/02/16 at 15:00 IV Flush 10 ml 10 ml PRN PRN IV IV PROTOCOL Last administered on 11/06/16 09: 02; Admin Dose 10 ML; Start 11/04/16 at 11:30 Vancomycin HCl (Vancocin) 250 ml @ 125 mls/hr Q8H IVPB ; Start 11/06/16 at 22: 00 JOSE ABURTO MD Nov 06, 2016 14:07
[2016-11-06] MEDS: HYDROmorphONE 2 MG TAB PO PRN ×2 (17:57→21:53)
[2016-11-06] MEDS: DOCUSATE SODIUM 10 MG/ML (10ML CUP) PO SCH (20:37)
[2016-11-06] MEDS: LISINOPRIL 20 MG TAB PO SCH (20:39)
[2016-11-06 23:15] VITALS: BP 106/68; RESP 16
[2016-11-07] MEDS: HYDROmorphONE 2 MG TAB PO PRN ×3 (01:56→22:13)
[2016-11-07] MEDS: ACETAMINOPHEN 500 MG TAB PO SCH ×3 (06:16→22:13)
[2016-11-07] MEDS: LEVOFLOXACIN 750 MG TABLET PO SCH (06:16)
[2016-11-07] MEDS: VANCOMYCIN 1 GM in NS 250 ML IVPB SCH ×3 (06:16→22:13)
[2016-11-07 08:00] VITALS: BP 128/60; RESP 18
[2016-11-07] MEDS: ALLOPURINOL 100 MG TAB PO SCH (08:17)
[2016-11-07] MEDS: metFORMIN 500 MG TAB PO SCH ×2 (08:17→17:05)
[2016-11-07] MEDS: POLYETHYLENE GLYCOL 17 GM PACKET PO SCH (08:18)
[2016-11-07] MEDS: FAMOTIDINE 20 MG TAB PO SCH (08:18)
[2016-11-07] MEDS: LACTOBACILLUS RHAMNOSUS CAP PO SCH ×2 (08:18→21:10)
[2016-11-07] MEDS: CHOLECALCIFEROL 1,000 UNIT TAB PO SCH (08:18)
[2016-11-07] MEDS: GABAPENTIN 300 MG CAP PO SCH ×3 (08:18→21:10)
[2016-11-07] MEDS: CELECOXIB 200 MG CAP PO SCH ×2 (08:18→21:10)
[2016-11-07] MEDS: CITALOPRAM 20 MG TAB PO SCH (08:18)
[2016-11-07] MEDS: morphine (ER) 15 MG TAB PO SCH ×2 (08:19→21:09)
[2016-11-07] MEDS: ENOXAPARIN 40 MG/0.4 ML SYG SC SCH (08:19)
--- NOTE | 2016-11-07 11:58 | PN ---
Date/Time of Note Date/Time of Note DATE: 11/07/16 TIME: 11:57 Assessment/Plan VTE Prophylaxis VTE Prophylaxis Intervention: SCD's Lines/Catheters IV Catheter Type (from Nrsg): PICC Line Central line still needed: Yes Urinary Cath still in place: No Assessment/Plan Assessment/Plan 56 yo M admitted for bl UE pain, found to have lumbar spine OM/discitis. 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 sp PICC 6.28 Per ID will need parenterals dispo in process, SNF given pt lives alone-->discharge planning aware CT guided biopsy of LS spine was ordered 6.14 and 6.[address] Bunch/IR not amenable to biopsy. Per notes, Dr Bunch also discussed this with Dr Oseguera of ID DM2: cont metformin, a1c <7 dispo pending SNF for abx Subjective 24 Hr Interval Summary Free Text/Dictation Pt sleeping comfortably when I went to check in on him this AM Exam/Review of Systems Vital Signs Vitals Vital Signs Date Time Temp Pulse Resp B/P Pulse Ox O2 Delivery O2 Flow Rate FiO2 11/07/16 08:00 98.6 70 18 128/60 96 Intake and Output 11/06/16 11/06/16 11/07/16 15:00 23:00 07:00 Intake Total 1110 ml 690 ml Output Total 550 ml 450 ml Balance 560 ml 240 ml Exam laying flat, sleeping no gross abd distension respiration unlabored no le edema no rashes Results Result Diagram: 11/06/16 0549 Medications Medications Current Medications Ondansetron HCl (Zofran Inj) 4 mg Q6H PRN IV NAUSEA AND/OR VOMITING; Start 10/16 at 04:30 Allopurinol (Zyloprim) 100 mg DAILY PO Last administered on 11/07/16 08:17; Admin Dose 100 MG; Start 10/16/16 at 09:00 Naproxen (Naprosyn) 500 mg BID PRN PO PAIN AND/OR INFLAMMATION; Start 10/16/16 at 04:30; Status Future Hold Miscellaneous Information 1 ea NOTE XX ; Start 10/16/16 at 14:30 Lactobacillus Acidophilus/ Rhamnosus (Culturelle) 1 cap BID PO Last administered on 11/07/16 08:18; Admin Dose 1 CAP; Start 10/16/16 at 21:00 Docusate Sodium (Colace Liquid Cup) 100 mg HS PO Last administered on 20:37; Admin Dose 100 MG; Start 10/16/16 at 21:00 Famotidine (Pepcid) 20 mg DAILY PO Last administered on 11/07/16 08:18; Admin Dose 20 MG; Start 10/18/16 at 09:00 Enoxaparin Sodium (Lovenox) 40 mg DAILY SC Last administered on 11/07/16 08:19 ; Admin Dose 40 MG; Start 10/18/16 at 12:30 Hydromorphone HCl (Dilaudid) 2 mg Q4H PRN PO PAIN Last administered on 06:16; Admin Dose 2 MG; Start 10/21/16 at 11:30 Cholecalciferol (Vitamin D) 1,000 unit DAILY PO Last administered on 11/07/16 08:18; Admin Dose 1,000 UNIT; Start 10/25/16 at 09:00 Morphine Sulfate (Ms Contin (Er)) 15 mg BID PO Last administered on 11/07/16 08 :19; Admin Dose 15 MG; Start 10/28/16 at 21:00 Polyethylene Glycol (Miralax) 17 gm DAILY PO Last administered on 11/06/16 08: 17; Admin Dose 17 GM; Start 10/29/16 at 09:00 Citalopram Hydrobromide (Celexa) 20 mg DAILY PO Last administered on 11/07/16 08:18; Admin Dose 20 MG; Start 11/01/16 at 09:00 Lisinopril (Zestril) 20 mg QHS PO Last administered on 11/05/16 21:27; Admin Dose 20 MG; Start 10/31/16 at 21:00 Gabapentin (Neurontin) 600 mg QHS PO Last administered on 11/06/16 20:37; Admin Dose 600 MG; Start 10/31/16 at 21:00 Celecoxib (Celebrex) 200 mg BID PO Last administered on 11/07/16 08:18; Admin Dose 200 MG; Start 10/31/16 at 10:00 Acetaminophen (Tylenol Tab) 1,000 mg Q8 PO Last administered on 7/1/17at 06:16 ; Admin Dose 1,000 MG; Start 11/01/16 at 14:00 Levofloxacin (Levaquin) 750 mg DAILY@06 PO Last administered on 11/07/16 06:16 ; Admin Dose 750 MG; Start 11/02/16 at 15:00 IV Flush 10 ml 10 ml PRN PRN IV IV PROTOCOL Last administered on 11/06/16 09: 02; Admin Dose 10 ML; Start 11/04/16 at 11:30 Vancomycin HCl (Vancocin) 250 ml @ 125 mls/hr Q8H IVPB Last administered on 06:16; Admin Dose 125 MLS/HR; Start 11/06/16 at 22:00 Miscellaneous Information (*Rx Drug Level Order Reminder*) VANCOMYCIN TROUGH 11/07 AT 2100 ONCE ONCE XX ; Start 11/07/16 at 21:00; Stop 11/07/16 at 21:01 JOSE ABURTO MD Nov 07, 2016 11:58
[2016-11-07 20:41] VITALS: BP 105/57; RESP 16
[2016-11-07] MEDS: DOCUSATE SODIUM 10 MG/ML (10ML CUP) PO SCH (21:00)
[2016-11-07] MEDS: LISINOPRIL 20 MG TAB PO SCH (21:10)
[2016-11-07] MEDS ORDERED: HYDROmorphONE 1 MG/ML SYG IV ONE (23:30)
[2016-11-08] MEDS: HYDROmorphONE 2 MG TAB PO PRN ×2 (03:05→12:58)
[2016-11-08] MEDS: ACETAMINOPHEN 500 MG TAB PO SCH ×3 (05:44→21:31)
[2016-11-08] MEDS: LEVOFLOXACIN 750 MG TABLET PO SCH (05:44)
[2016-11-08] MEDS: VANCOMYCIN 1 GM in NS 250 ML IVPB SCH (05:44)
[2016-11-08] MEDS: morphine (ER) 15 MG TAB PO SCH ×2 (08:20→20:27)
[2016-11-08] MEDS: GABAPENTIN 300 MG CAP PO SCH ×3 (08:20→20:27)
[2016-11-08] MEDS: CHOLECALCIFEROL 1,000 UNIT TAB PO SCH (08:20)
[2016-11-08] MEDS: FAMOTIDINE 20 MG TAB PO SCH (08:20)
[2016-11-08] MEDS: LACTOBACILLUS RHAMNOSUS CAP PO SCH ×2 (08:20→20:27)
[2016-11-08] MEDS: CITALOPRAM 20 MG TAB PO SCH (08:20)
[2016-11-08] MEDS: CELECOXIB 200 MG CAP PO SCH ×2 (08:20→20:28)
[2016-11-08] MEDS: ALLOPURINOL 100 MG TAB PO SCH (08:20)
[2016-11-08] MEDS: ENOXAPARIN 40 MG/0.4 ML SYG SC SCH (08:21)
[2016-11-08] MEDS: POLYETHYLENE GLYCOL 17 GM PACKET PO SCH (08:29)
[2016-11-08] MEDS: metFORMIN 500 MG TAB PO SCH ×2 (08:29→17:05)
[2016-11-08] MEDS: VANCOMYCIN 750 MG in SOD CHLORIDE 0.9% 150 ML IVPB SCH ×2 (09:27→17:05)
[2016-11-08 10:16] VITALS: BP 97/54; RESP 17
--- NOTE | 2016-11-08 13:54 | PN ---
Date/Time of Note Date/Time of Note DATE: 11/08/16 TIME: 13:50 Assessment/Plan VTE Prophylaxis VTE Prophylaxis Intervention: SCD's Lines/Catheters IV Catheter Type (from Nrsg): PICC Line Central line still needed: Yes Urinary Cath still in place: No Assessment/Plan Assessment/Plan 56 yo M admitted for bl UE pain, found to have lumbar spine OM/discitis. 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 sp PICC 6.28 Per ID will need parenterals dispo in process, SNF given pt lives alone-->discharge planning aware CT guided biopsy of LS spine was ordered 6.14 and 6.[address] Bunch/IR not amenable to biopsy. Per notes, Dr Bunch also discussed this with Dr Oseguera of ID DM2: cont metformin, a1c <7 dispo pending SNF for abx Subjective 24 Hr Interval Summary Free Text/Dictation Occ R sided buttock pain Exam/Review of Systems Vital Signs Vitals Vital Signs Date Time Temp Pulse Resp B/P Pulse Ox O2 Delivery O2 Flow Rate FiO2 11/08/16 10:16 98.1 53 17 97/54 96 Intake and Output 11/07/16 11/07/16 11/08/16 15:00 23:00 07:00 Intake Total 250 ml 970 ml 970 ml Output Total 900 ml 600 ml Balance 250 ml 70 ml 370 ml Exam nad no mrg lungs clear no mrg no rashes Results Result Diagram: 11/06/16 0549 Results 24 hrs Laboratory Tests Test 11/07/16 21:05 Vancomycin Level Trough 17.0 Medications Medications Current Medications Ondansetron HCl (Zofran Inj) 4 mg Q6H PRN IV NAUSEA AND/OR VOMITING; Start 10/16 at 04:30 Allopurinol (Zyloprim) 100 mg DAILY PO Last administered on 11/08/16t 08:20; Admin Dose 100 MG; Start 10/16/16 at 09:00 Naproxen (Naprosyn) 500 mg BID PRN PO PAIN AND/OR INFLAMMATION; Start 10/16/16 at 04:30; Status Future Hold Miscellaneous Information 1 ea NOTE XX ; Start 10/16/16 at 14:30 Lactobacillus Acidophilus/ Rhamnosus (Culturelle) 1 cap BID PO Last administered on 11/08/16 08:20; Admin Dose 1 CAP; Start 10/16/16 at 21:00 Docusate Sodium (Colace Liquid Cup) 100 mg HS PO Last administered on 20:37; Admin Dose 100 MG; Start 10/16/16 at 21:00 Famotidine (Pepcid) 20 mg DAILY PO Last administered on 11/08/16 08:20; Admin Dose 20 MG; Start 10/18/16 at 09:00 Enoxaparin Sodium (Lovenox) 40 mg DAILY SC Last administered on 11/08/16 08:21 ; Admin Dose 40 MG; Start 10/18/16 at 12:30 Hydromorphone HCl (Dilaudid) 2 mg Q4H PRN PO PAIN Last administered on 12:58; Admin Dose 2 MG; Start 10/21/16 at 11:30 Cholecalciferol (Vitamin D) 1,000 unit DAILY PO Last administered on 11/08/16 08:20; Admin Dose 1,000 UNIT; Start 10/25/16 at 09:00 Morphine Sulfate (Ms Contin (Er)) 15 mg BID PO Last administered on 11/08/16 08 :20; Admin Dose 15 MG; Start 10/28/16 at 21:00 Polyethylene Glycol (Miralax) 17 gm DAILY PO Last administered on 11/06/16 08: 17; Admin Dose 17 GM; Start 10/29/16 at 09:00 Citalopram Hydrobromide (Celexa) 20 mg DAILY PO Last administered on 11/08/16 08:20; Admin Dose 20 MG; Start 11/01/16 at 09:00 Lisinopril (Zestril) 20 mg QHS PO Last administered on 11/07/16 21:10; Admin Dose 20 MG; Start 10/31/16 at 21:00 Gabapentin (Neurontin) 600 mg QHS PO Last administered on 11/07/16 21:10; Admin Dose 600 MG; Start 10/31/16 at 21:00 Celecoxib (Celebrex) 200 mg BID PO Last administered on 11/08/16 08:20; Admin Dose 200 MG; Start 10/31/16 at 10:00 Acetaminophen (Tylenol Tab) 1,000 mg Q8 PO Last administered on 11/08/16 13:03 ; Admin Dose 1,000 MG; Start 11/01/16 at 14:00 Levofloxacin (Levaquin) 750 mg DAILY@06 PO Last administered on 11/08/16 05:44 ; Admin Dose 750 MG; Start 11/02/16 at 15:00 IV Flush 10 ml 10 ml PRN PRN IV IV PROTOCOL Last administered on 11/06/16 09: 02; Admin Dose 10 ML; Start 11/04/16 at 11:30 Vancomycin HCl/ Sodium Chloride (Vancocin/NS) 150 ml @ 75 mls/hr Q8H IVPB Last administered on 11/08/16 09:27; Admin Dose 75 MLS/HR; Start 11/08/16 at 09: 00 JOSE ABURTO MD Nov 08, 2016 13:54
[2016-11-08 20:08] VITALS: BP 93/52; RESP 16
[2016-11-08] MEDS: DOCUSATE SODIUM 10 MG/ML (10ML CUP) PO SCH (20:28)
[2016-11-08] MEDS: LISINOPRIL 20 MG TAB PO SCH (20:29)
[2016-11-08 21:00] VITALS: BP 102/57; PULSE 63
[2016-11-09] MEDS: VANCOMYCIN 750 MG in SOD CHLORIDE 0.9% 150 ML IVPB SCH ×3 (00:36→17:23)
[2016-11-09] MEDS: HYDROmorphONE 2 MG TAB PO PRN ×2 (00:52→11:58)
[2016-11-09] MEDS: LEVOFLOXACIN 750 MG TABLET PO SCH (05:12)
[2016-11-09] MEDS: ACETAMINOPHEN 500 MG TAB PO SCH ×2 (05:12→13:18)
[2016-11-09 07:56] VITALS: BP 111/61; RESP 16
[2016-11-09] MEDS: CITALOPRAM 20 MG TAB PO SCH (08:53)
[2016-11-09] MEDS: GABAPENTIN 300 MG CAP PO SCH ×2 (08:53→17:22)
[2016-11-09] MEDS: FAMOTIDINE 20 MG TAB PO SCH (08:53)
[2016-11-09] MEDS: LACTOBACILLUS RHAMNOSUS CAP PO SCH (08:53)
[2016-11-09] MEDS: CELECOXIB 200 MG CAP PO SCH (08:53)
[2016-11-09] MEDS: morphine (ER) 15 MG TAB PO SCH (08:54)
[2016-11-09] MEDS: CHOLECALCIFEROL 1,000 UNIT TAB PO SCH (08:54)
[2016-11-09] MEDS: ALLOPURINOL 100 MG TAB PO SCH (08:54)
[2016-11-09] MEDS: ENOXAPARIN 40 MG/0.4 ML SYG SC SCH (08:55)
[2016-11-09] MEDS: POLYETHYLENE GLYCOL 17 GM PACKET PO SCH (08:55)
[2016-11-09] MEDS: metFORMIN 500 MG TAB PO SCH ×2 (09:00→17:22)
--- NOTE | 2016-11-09 17:52 | PDOCDIS ---
Discharge Instructions CONDITION Patient Condition: Good HOME CARE INSTRUCTIONS: Special Diet: carb controlled ACTIVITY: Activity Restrictions: Slowly Increase Activity Rest between Activity Avoid heavy lifting Avoid Heavy Housework FOLLOW UP/APPOINTMENTS Follow-up Plan [facility]. Follow up with ID in 2-3 week. pt will need 6 weeks for iV abx for Ostemyelitis of spine. then he will need MRI of LS SPine after Compltetion of abx. Follow up with Neurosurgery in 2-3 week after discharge MARIFER MORAN MD Nov 09, 2016 17:51
--- NOTE | 2016-11-09 19:16 | PN ---
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 sp PICC 6.28 Per ID will need parenterals dispo in process, SNF given pt lives alone-->discharge planning aware CT guided biopsy of LS spine was ordered 6.14 and 6.[address] Bunch/IR not amenable to biopsy. Per notes, Dr Bunch also discussed this with Dr Oseguera of ID DM2: cont metformin, a1c <7 D/c To SNF today with 6 weeks of IV abx vancomycin and levaquin for 6 weeks Subjective 24 Hr Interval Summary Free Text/Dictation plan for d/c to SNF today , no acute vents, Pain controlled Exam/Review of Systems Vital Signs Vitals Vital Signs Date Time Temp Pulse Resp B/P Pulse Ox O2 Delivery O2 Flow Rate FiO2 11/09/16 07:56 98.4 54 16 111/61 96 Intake and Output 11/08/16 11/08/16 11/09/16 15:00 23:00 07:00 Intake Total 350 ml 870 ml 600 ml Output Total 825 ml 350 ml Balance 350 ml 45 ml 250 ml Exam Constitutional: alert Psych: no complaints Head: normocephalic Eyes: nl conjunctiva Neck: supple Respiratory: clear to auscultation, normal air movement Cardiovascular: nl pulses, regular rate and rhythm Gastrointestinal: non-tender, soft Results Result Diagram: 11/06/16 0549 Results 24 hrs Laboratory Tests Test 11/09/16 07:41 11/09/16 17:24 Bedside Glucose 83 120 Medications Medications Current Medications Ondansetron HCl (Zofran Inj) 4 mg Q6H PRN IV NAUSEA AND/OR VOMITING; Start 10/16 at 04:30 Allopurinol (Zyloprim) 100 mg DAILY PO Last administered on 11/09/16t 08:54; Admin Dose 100 MG; Start 10/16/16 at 09:00 Naproxen (Naprosyn) 500 mg BID PRN PO PAIN AND/OR INFLAMMATION; Start 10/16/16 at 04:30; Status Future Hold Miscellaneous Information 1 ea NOTE XX ; Start 10/16/16 at 14:30 Lactobacillus Acidophilus/ Rhamnosus (Culturelle) 1 cap BID PO Last administered on 11/09/16 08:53; Admin Dose 1 CAP; Start 10/16/16 at 21:00 Docusate Sodium (Colace Liquid Cup) 100 mg HS PO Last administered on 11/08/16 20:28; Admin Dose 100 MG; Start 10/16/16 at 21:00 Famotidine (Pepcid) 20 mg DAILY PO Last administered on 11/09/16 08:53; Admin Dose 20 MG; Start 10/18/16 at 09:00 Enoxaparin Sodium (Lovenox) 40 mg DAILY SC Last administered on 11/09/16 08:55 ; Admin Dose 40 MG; Start 10/18/16 at 12:30 Hydromorphone HCl (Dilaudid) 2 mg Q4H PRN PO PAIN Last administered on 11:58; Admin Dose 2 MG; Start 10/21/16 at 11:30 Cholecalciferol (Vitamin D) 1,000 unit DAILY PO Last administered on 11/09/16 08:54; Admin Dose 1,000 UNIT; Start 10/25/16 at 09:00 Morphine Sulfate (Ms Contin (Er)) 15 mg BID PO Last administered on 11/09/16 08 :54; Admin Dose 15 MG; Start 10/28/16 at 21:00 Polyethylene Glycol (Miralax) 17 gm DAILY PO Last administered on 11/06/16 08: 17; Admin Dose 17 GM; Start 10/29/16 at 09:00 Citalopram Hydrobromide (Celexa) 20 mg DAILY PO Last administered on 11/09/16 08:53; Admin Dose 20 MG; Start 11/01/16 at 09:00 Lisinopril (Zestril) 20 mg QHS PO Last administered on 11/07/16 21:10; Admin Dose 20 MG; Start 10/31/16 at 21:00 Gabapentin (Neurontin) 600 mg QHS PO Last administered on 11/08/16 20:27; Admin Dose 600 MG; Start 10/31/16 at 21:00 Celecoxib (Celebrex) 200 mg BID PO Last administered on 11/09/16 08:53; Admin Dose 200 MG; Start 10/31/16 at 10:00 Acetaminophen (Tylenol Tab) 1,000 mg Q8 PO Last administered on 11/09/16 13:18 ; Admin Dose 1,000 MG; Start 11/01/16 at 14:00 Levofloxacin (Levaquin) 750 mg DAILY@06 PO Last administered on 11/09/16 05:12 ; Admin Dose 750 MG; Start 11/02/16 at 15:00 IV Flush 10 ml 10 ml PRN PRN IV IV PROTOCOL Last administered on 11/06/16 09: 02; Admin Dose 10 ML; Start 11/04/16 at 11:30 Vancomycin HCl/ Sodium Chloride (Vancocin/NS) 150 ml @ 75 mls/hr Q8H IVPB Last administered on 11/09/16 17:23; Admin Dose 75 MLS/HR; Start 11/08/16 at 09: 00 MARIFER MORAN MD Nov 09, 2016 19:16
--- NOTE | 2016-11-09 21:14 | DS ---
Date/Time of Note Date/Time of Note DATE: 11/09/16 TIME: 21:04 Discharge Summary Admission/Discharge Info Admit Date/Time Oct 15, 2016 at 22:06 Discharge Date/Time Nov 09, 2016 at 19:45 Discharge Diagnosis 1. s/p Mechanical fall, 2. Sepsis possibley due to OM of LS Spine - MRI showed diskitiis/OM of L5-S1 , not amenable to biopsy as per IR, No surgical intervention as per neurosurgeyr 3. Intractable back pain 3. Diabetes melitus 4. Tobacco abuse 5. anemia 6. Gout 7. Hypertension 1. Acute L5-S1 diskitis and osteomyelitis. S/p Neurosurgery- No plans for any intervention. S/p IR- not amenable to biopsy 2. Oral thrush==>resolved 3. Hypertension. 4. Diabetes. 5. acute intractable back pain due to # 1 Patient Condition: Good Consults Pain management Dr.Lawrence Gardner [facility] Neurosurgery IR Dr.Kevin Bunch Procedures PICC line placement for manager intermediate IV abx Hx of Present Illness This is a 56-year-old male with a history of hypertension, diabetes, and gout presenting with bilateral upper extremity and left ankle swelling and pain. He was going to the bathroom at his house in the dark when he tripped over a cable on the floor and landed with his arms onto a wall. He was evaluated here in the ED 2 days ago and had xray of upper ext, left ankle xray and cervical CT without any acute fractures. Pain is worse with movement. His forearms are warm to touch. left arm is slightly worse than right. He is not able to fully raise arm because of pain. . Hospital Course 56-year-old male with a history of hypertension, diabetes, and gout presenting with bilateral upper extremity and left ankle swelling and pain. He was going to the bathroom at his house in the dark when he tripped over a cable on the floor and landed with his arms onto a wall. He was evaluated here in the ED 2 days ago and had xray of upper ext, left ankle xray and cervical CT without any acute fractures. Pain is worse with movement. His forearms are warm to touch. left arm is slightly worse than right. He is not able to fully raise arm because of pain. pt was noted to have Leucocytosis with acute intractable back pain for which he had cervical , thoracic and lumbar spine MRI which showed L5-S1 diskitis/OM he had a neurosurgery consultation done by . who recommended to have IR guided Biopsy. As per discussion with IR Dr.Kevin Bunch, lesion was not amenable to biopsy/ he was treated with IV abx, and recommended to have total 6-8 weeks of IV abx. He had a PICC line placement by IR and he was discharged to [facility] for manager intermediate IV abx. Home Meds Active Scripts Tramadol HCl (Tramadol HCl) 50 Mg Tablet, 50 MG PO Q4 Y for PAIN, #20 TAB Prov:NIKKO OLIVEROS C 10/14/16 Naproxen* (Naprosyn*) 500 Mg Tablet, 500 MG PO BID Y for PAIN AND/OR INFLAMMATION, #30 TAB Prov:NIKKO OLIVEROS C 10/14/16 Ibuprofen* (Motrin*) 600 Mg Tab, 600 MG PO Q6H Y for PAIN AND OR ELEVATED TEMP, #30 TAB Prov:MASON DUNN PA-C 10/13/16 Hydrocodone/Acetaminophen ([place] 5-325 Tablet) 1 Each Tablet, 1 TAB PO Q6H Y for PAIN, #7 TAB Prov:MASON DUNN PA-C 10/13/16 Reported Medications Ibuprofen* (Ibuprofen*) 800 Mg Tab, 800 MG PO Q6H Y for PAIN, TAB 10/15/16 Gemfibrozil* (Gemfibrozil*) 600 Mg Tablet, 600 MG PO DAILY, TAB 10/15/16 Amlodipine Besylate* (Amlodipine Besylate*) 10 Mg Tablet, 10 MG PO DAILY, #30 TAB 10/15/16 Citalopram Hydrobromide* (Citalopram Hydrobromide*) 10 Mg Tablet, 10 MG PO DAILY , #30 TAB 10/15/16 Allopurinol* (Allopurinol*) 100 Mg Tablet, 100 MG PO DAILY, TAB 10/15/16 Omeprazole* (Omeprazole*) 20 Mg Capsule.dr, 20 MG PO DAILY, #30 CAP 10/15/16 Metformin Hcl* (Metformin Hcl*) 500 Mg Tablet, 500 MG PO WITH BREAKFAST DINNE, # 60 TAB 10/15/16 Amitriptyline Hcl* (Amitriptyline Hcl*) 25 Mg Tablet, 25 MG PO DAILY, #30 TAB 10/15/16 Follow-up Plan Follow up with physician at SNF. follow up with ID in 1-2 week after discharge, Follow up with Spine surgery as outpatient in 1-2 week. Follow up with his own PMD through his HMO Insurance after discharge from SNF Primary Care Provider Care Physician No Primary Time spent on discharge: > 30 minutes Pending Labs Laboratory Tests Test 11/09/16 07:41 11/09/16 17:24 Bedside Glucose 83mg/dL (70-220) 120mg/dL (70-220) MARIFER MORAN MD Nov 09, 2016 21:14
== END 2016-11-09 19:45 | DRG 872 ==
LOC: E/R 18:13 → PP2 22:06
PROVIDERS: ADMIT Internal Medicine; ATTEND Internal Medicine
PROC: 02HV33Z Insertion of Infusion Device into Superior Vena Cava, Percutaneous Approach (ICD-10-PCS; principal; 2016-11-04)
DX: A41.9 Sepsis, unspecified organism (principal); B37.0 Candidal stomatitis; E55.9 Vitamin D deficiency, unspecified; E11.9 Type 2 diabetes mellitus without complications; I10 Essential (primary) hypertension; L03.113 Cellulitis of right upper limb; M46.27 Osteomyelitis of vertebra, lumbosacral region; L03.114 Cellulitis of left upper limb; Z72.0 Tobacco use; M10.9 Gout, unspecified; M46.47 Discitis, unspecified, lumbosacral region; M25.572 Pain in left ankle and joints of left foot; T79.6XXD Traumatic ischemia of muscle, subsequent encounter; W17.89XD Other fall from one level to another, subsequent encounter; M48.02 Spinal stenosis, cervical region; S19.9XXA Unspecified injury of neck, initial encounter; M50.30 Other cervical disc degeneration, unspecified cervical region; M54.12 Radiculopathy, cervical region; D50.9 Iron deficiency anemia, unspecified; S22.069D Unspecified fracture of T7-T8 vertebra, subsequent encounter for fracture with routine healing; W18.09XD Striking against other object with subsequent fall, subsequent encounter; F34.1 Dysthymic disorder
CPT/HCPCS: 36415; 36569; 71010; 72141; 72146; 72148; 73030; 76937; 80048; 80053; 80061; 80202; 81001; 82306; 82550; 82565; 82607; 82728; 82746; 82962; 83036; 83540; 83605; 83735; 84100; 84439; 84443; 84484; 84520; 85025; 85378; 85610; 85651; 85730; 86140; 86592; 86703; 86803; 87040; 87081; 87086; 87340; 93005; 93970; 96365; 96375; 96376; 97003; 97110; 97116; 97162; 97165; 97530; 97535; C1769; J0131; J0692; J1100; J1170; J1650; J1815; J1956; J2270; J2543; J2930; J2997; J3370; J7030; J7050

== ENCOUNTER 2018-03-08 15:52 | Emergency (ER) | END 2018-03-08 18:41 | disposition home or self-care (01) ==

== ENCOUNTER 2018-12-27 11:25 | Emergency (ER) | payer OTHER ==
[~2018-12-27] VITALS: Ht 162.6 cm; Wt 86.6 kg
[~2018-12-27 11:25] MED LIST changes: +ACET500C5 PO; +ALLO100T PO; +AMIT25TA9 PO; +AMLO-147 PO; +CITA10TA5 PO; +GEMF600T8 PO; +HYDR-4011 PO; -HYDR-906 PO; +IBUP-1545 PO; +METF500T24 PO; -NAPR-260 PO; +NAPR-985 PO; +NEOM1PAC TP; +OMEP20CA16 PO
[2018-12-27 12:06] VITALS: BP 128/67; PULSE 74; RESP 17; Ht 162.6 cm; Wt 86.6 kg
== END 2018-12-27 13:42 | disposition home or self-care (01) ==
LOC: FTE 11:25
DX: M79.89 Other specified soft tissue disorders (principal); E11.9 Type 2 diabetes mellitus without complications; I10 Essential (primary) hypertension; Z79.84 Long term (current) use of oral hypoglycemic drugs; Z87.891 Personal history of nicotine dependence
CPT/HCPCS: 36415; 71045; 80053; 81001; 82962; 83690; 83880; 85025; 93005; Z7502